=== PATIENT | male | born 1950 | race Caucasian/White ===

== ENCOUNTER → 2016-12-17 | Outpatient (CLI) | payer MEDICARE | LOC: MW.CHIM 13:41 | PROVIDERS: ATTEND Internal Medicine | DX: I10 Essential (primary) hypertension (principal); R33.9 Retention of urine, unspecified; N41.1 Chronic prostatitis; R36.1 Hematospermia; R97.20 Elevated prostate specific antigen [PSA] | CPT/HCPCS: 36415; 80053; 80061; 81001; 84153; 85025; 99214 ==

== ENCOUNTER → 2017-01-07 | Outpatient (CLI) | payer MEDICARE | LOC: MW.CHIM 08:00 | PROVIDERS: ATTEND Internal Medicine | DX: N41.1 Chronic prostatitis (principal); R36.1 Hematospermia; I10 Essential (primary) hypertension | CPT/HCPCS: 99214 ==

== ENCOUNTER 2020-11-07 23:55 | Observation (INO) | payer MEDICARE ==
[2020-11-08 01:36] LABS: BLOOD UREA NITROGEN,BUN 10 mg/dL (7.0-18.0); CHLORIDE,CL 103 mmol/L (98-107); GLUCOSE RANDOM 111 mg/dL (74-106); POTASSIUM,K 3.9 mmol/L (3.5-5.1); SODIUM,NA 138 mmol/L (136-148)
[2020-11-08 01:46] LABS: CARBON DIOXIDE,CO2 26.9 mmol/L (21.0-32.0)
[2020-11-08] MEDS ORDERED: Sodium Chloride 0.9% 2.5 ML Syringe FLUSH PRN (08:06)
[2020-11-08] MEDS ORDERED: Ondansetron 4 MG/2 ML SDV IVPUSH PRN (08:06)
--- NOTE | 2020-11-08 09:03 | PCM.HP.2 ---
H&P History of Present Illness - General Date of Service: 11/08/20 Admit Problem/Dx: Admission Diagnosis/Problem Admission Diagnosis/Problem Anemia Source of Information: Patient, Old Records History Limitations: Reports: No Limitations - History of Present Illness Initial Comments - Free Text/Narative: This 70-year-old male with past medical history of anemia GERD hypertension and hyperlipidemia presented to the ER with complaints of dizziness and intermittent vomiting of blood streaks. He has been evaluated by PCP for anemia as well as refer to general surgery for endoscopy. He is actually scheduled for endoscopy on this week. He reports that he tried to take a sleeping pill the other night and was not able to swallow it completely and started coughing and vomited he said he saw tissue and blood within his vomit and became concerned. He denies any black or bloody bowel movements recently though he has had very positive occult stools upon evaluation. He recently was transfused in September with 2 units PRBCs. He denies any chest pain shortness of breath palpitations. No abdominal pain. No dysuria. No neurological deficits. He reports he was a smoker up until 3 months ago. Denies any family history of other cancer. He did have a CT scan as an outpatient that showed a small to moderate size hiatal hernia. He denies any alcohol use and no recreational drug use. In the ER WBC 8.79, hemoglobin 7.8, hematocrit 26.1. Platelet count 512,000. INR 0.99. BUN 10 creatinine 1.2. Glucose 110. UA negative Covid negative he was transfused 2 units of PRBCs due to his symptomatic anemia. Per nursing report Dr. Avery was contacted by the ER and felt he should be transfused and then he would be ready for endoscopy on . He will be admitted for symptomatic anemia GI bleed. abdomen Pain Score (Numeric/FACES): 3 - Related Data Allergies/Adverse Reactions: Allergies Allergy/AdvReac Type Severity Reaction Status Date / Time No Known Allergies Allergy Verified 11/08/20 00:16 Home Medications: Home Meds Metoprolol Succinate 50 mg PO BEDTIME 07/09/14 [History] Simvastatin [Zocor] 40 mg PO BEDTIME #30 tablet 07/10/14 [Rx] Finasteride 5 mg PO DAILY 11/03/20 [History] Omeprazole 40 mg PO DAILY 11/03/20 [History] hydroCHLOROthiazide [Hydrochlorothiazide] 25 mg PO DAILY 11/03/20 [History] Past Medical History HEENT History: Reports: Other (See Below) Other HEENT History: has upper denture Cardiovascular History: Reports: High Cholesterol, Hypertension Respiratory History: Reports: Other (See Below) Other Respiratory History: smoker for many years- recently quit Gastrointestinal History: Reports: GERD, Hiatal Hernia Genitourinary History: Reports: BPH Neurological History: Reports: CVA Other Neuro History: 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 cleft pallet as child. Male Surgical History: Reports: Other (See Below) Other Male Surgeries/Procedures: Orchiectomy Social & Family History - Family History Cardiac: Reports: High Cholesterol, Hypertension, [place] Neurological: Reports: CVA - Tobacco Use Tobacco Use Status *Q: Former Tobacco User Used Tobacco, but Quit: Yes Month/Year Tobacco Last Used: 2019 - Recreational Drug Use Recreational Drug Use: Yes Recreational Drug Type: Reports: Marijuana/Hashish Recreational Drug Use Frequency: Socially H&P Review of Systems - Review of Systems: Review Of Systems: See Below General: Reports: Malaise (Feeling better after blood transfusion.). Denies: F ever, Chills HEENT: Reports: No Symptoms. Denies: Headaches, Vertigo, Visual Changes Pulmonary: Reports: No Symptoms. Denies: Shortness of Breath, Wheezing Cardiovascular: Reports: No Symptoms. Denies: Chest Pain Gastrointestinal: Reports: No Symptoms. Denies: Abdominal Pain, Black Stool, Bloody Stool Genitourinary: Reports: No Symptoms. Denies: Dysuria, Frequency Skin: Reports: No Symptoms Psychiatric: Reports: No Symptoms Neurological: Reports: No Symptoms Hematologic/Lymphatic: Reports: No Symptoms Immunologic: Reports: No Symptoms Exam - Exam Exam: See Below - Vital Signs Vital Signs: Last Vital Signs Temp 98.0 F 11/08/20 08:28 Pulse 70 11/08/20 08:28 Resp 16 11/08/20 08:28 BP 139/83 11/08/20 08:28 Pulse Ox 96 11/08/20 08:28 Weight: 83.915 kg - Exam General: Alert, Oriented, Cooperative Neck: Supple, Trachea Midline Lungs: Clear to Auscultation, Normal Respiratory Effort Cardiovascular: Regular Rate, Regular Rhythm GI/Abdominal Exam: Normal Bowel Sounds, Soft, Non-Tender Back Exam: Normal Inspection, Full Range of Motion Extremities: Normal Inspection, Normal Range of Motion, Non-Tender, No Pedal Edema Neuro Extensive - Mental Status: Alert, Oriented x3 Neuro Extensive - Motor, Sensory, Reflexes: CN II-XII Intact Psychiatric: Alert, Normal Affect, Normal Mood - Patient Data Lab Results Last 24 hrs: Laboratory Results - last 24 hr 11/08/20 11/08/20 11/08/20 Range/Units 01:03 01:03 01:03 WBC 8.79 (4.0-11.0) K/uL RBC 3.34 L (4.50-5.90) M/uL Hgb 7.8 L (13.0-17.0) g/dL Hct 26.1 L (38.0-50.0) % MCV 78.1 L (80.0-98.0) fL MCH 23.4 L (27.0-32.0) pg MCHC 29.9 L (31.0-37.0) g/dL RDW Std Deviation 49.7 (28.0-62.0) fl RDW Coeff of Myrna 18 H (11.0-15.0) % Plt Count 512 H (150-400) K/uL MPV 9.00 (7.40-12.00) fL Neut % (Auto) 77.0 (48.0-80.0) % Lymph % (Auto) 13.2 L (16.0-40.0) % [place] % (Auto) 7.5 (0.0-15.0) % Eos % (Auto) 1.6 (0.0-7.0) % Baso % (Auto) 0.7 (0.0-1.5) % Neut # (Auto) 6.8 H (1.4-5.7) K/uL Lymph # (Auto) 1.2 (0.6-2.4) K/uL [place] # (Auto) 0.7 (0.0-0.8) K/uL Eos # (Auto) 0.1 (0.0-0.7) K/uL Baso # (Auto) 0.1 (0.0-0.1) K/uL Smear Path Review Absolute Retic (20-80) K/uL Percent Retic (0.5-1.5) % Immature Retic Fraction % INR 0.99 Sodium 138 (136-148) mmol/L Potassium 3.9 (3.5-5.1) mmol/L Chloride 103 (98-107) mmol/L Carbon Dioxide 26.9 (21.0-32.0) mmol/L BUN 10 (7.0-18.0) mg/dL Creatinine 1.2 (0.8-1.3) mg/dL Est Cr Clr Drug Dosing 54.32 mL/min Estimated GFR (MDRD) > 60.0 ml/min Glucose 111 H (74-106) mg/dL Calcium 8.7 (8.5-10.1) mg/dL Iron (50-175) ug/dL TIBC (250-450) ug/dL % Saturation (20-55) % Transferrin Ferritin (26-388) ng/mL Total Bilirubin 0.2 (0.2-1.0) mg/dL AST 14 L (15-37) IU/L ALT 16 (14-63) IU/L Alkaline Phosphatase 110 (46-116) U/L Total Protein 6.7 (6.4-8.2) g/dL Albumin 2.9 L (3.4-5.0) g/dL Globulin 3.8 (2.6-4.0) g/dL Albumin/Globulin Ratio 0.8 L (0.9-1.6) Urine Color Urine Appearance Urine pH (5.0-8.0) Ur Specific [employer] (1.001-1.035) Urine Protein (NEGATIVE) mg/dL Urine Glucose (UA) (NEGATIVE) mg/dL Urine Ketones (NEGATIVE) mg/dL Urine Occult Blood (NEGATIVE) Urine Nitrite (NEGATIVE) Urine Bilirubin (NEGATIVE) Urine Urobilinogen (<2.0) EU/dL Ur Leukocyte Esterase (NEGATIVE) SARS-CoV-2 RNA (NEL) (NEGATIVE) Blood Type Antibody Screen Crossmatch 11/08/20 11/08/20 11/08/20 Range/Units 01:03 01:03 01:03 WBC (4.0-11.0) K/uL RBC 3.42 L (4.50-5.90) M/uL Hgb (13.0-17.0) g/dL Hct (38.0-50.0) % MCV (80.0-98.0) fL MCH (27.0-32.0) pg MCHC (31.0-37.0) g/dL RDW Std Deviation (28.0-62.0) fl RDW Coeff of Myrna (11.0-15.0) % Plt Count (150-400) K/uL MPV (7.40-12.00) fL Neut % (Auto) (48.0-80.0) % Lymph % (Auto) (16.0-40.0) % [place] % (Auto) (0.0-15.0) % Eos % (Auto) (0.0-7.0) % Baso % (Auto) (0.0-1.5) % Neut # (Auto) (1.4-5.7) K/uL Lymph # (Auto) (0.6-2.4) K/uL [place] # (Auto) (0.0-0.8) K/uL Eos # (Auto) (0.0-0.7) K/uL Baso # (Auto) (0.0-0.1) K/uL Smear Path Review SENT TO PATHOLOGY Absolute Retic 66.70 (20-80) K/uL Percent Retic 2.0 H (0.5-1.5) % Immature Retic Fraction 22 % INR Sodium (136-148) mmol/L Potassium (3.5-5.1) mmol/L Chloride (98-107) mmol/L Carbon Dioxide (21.0-32.0) mmol/L BUN (7.0-18.0) mg/dL Creatinine (0.8-1.3) mg/dL Est Cr Clr Drug Dosing mL/min Estimated GFR (MDRD) ml/min Glucose (74-106) mg/dL Calcium (8.5-10.1) mg/dL Iron (50-175) ug/dL TIBC (250-450) ug/dL % Saturation (20-55) % Transferrin Ferritin (26-388) ng/mL Total Bilirubin (0.2-1.0) mg/dL AST (15-37) IU/L ALT (14-63) IU/L Alkaline Phosphatase (46-116) U/L Total Protein (6.4-8.2) g/dL Albumin (3.4-5.0) g/dL Globulin (2.6-4.0) g/dL Albumin/Globulin Ratio (0.9-1.6) Urine Color Urine Appearance Urine pH (5.0-8.0) Ur Specific [employer] (1.001-1.035) Urine Protein (NEGATIVE) mg/dL Urine Glucose (UA) (NEGATIVE) mg/dL Urine Ketones (NEGATIVE) mg/dL Urine Occult Blood (NEGATIVE) Urine Nitrite (NEGATIVE) Urine Bilirubin (NEGATIVE) Urine Urobilinogen (<2.0) EU/dL Ur Leukocyte Esterase (NEGATIVE) SARS-CoV-2 RNA (NEL) (NEGATIVE) Blood Type B POSITIVE Antibody Screen NEGATIVE Crossmatch See Detail 11/08/20 11/08/20 11/08/20 Range/Units 01:03 02:16 02:18 WBC (4.0-11.0) K/uL RBC (4.50-5.90) M/uL Hgb (13.0-17.0) g/dL Hct (38.0-50.0) % MCV (80.0-98.0) fL MCH (27.0-32.0) pg MCHC (31.0-37.0) g/dL RDW Std Deviation (28.0-62.0) fl RDW Coeff of Myrna (11.0-15.0) % Plt Count (150-400) K/uL MPV (7.40-12.00) fL Neut % (Auto) (48.0-80.0) % Lymph % (Auto) (16.0-40.0) % [place] % (Auto) (0.0-15.0) % Eos % (Auto) (0.0-7.0) % Baso % (Auto) (0.0-1.5) % Neut # (Auto) (1.4-5.7) K/uL Lymph # (Auto) (0.6-2.4) K/uL [place] # (Auto) (0.0-0.8) K/uL Eos # (Auto) (0.0-0.7) K/uL Baso # (Auto) (0.0-0.1) K/uL Smear Path Review Absolute Retic (20-80) K/uL Percent Retic (0.5-1.5) % Immature Retic Fraction % INR Sodium (136-148) mmol/L Potassium (3.5-5.1) mmol/L Chloride (98-107) mmol/L Carbon Dioxide (21.0-32.0) mmol/L BUN (7.0-18.0) mg/dL Creatinine (0.8-1.3) mg/dL Est Cr Clr Drug Dosing mL/min Estimated GFR (MDRD) ml/min Glucose (74-106) mg/dL Calcium (8.5-10.1) mg/dL Iron 17 L (50-175) ug/dL TIBC 375 (250-450) ug/dL % Saturation 4.53 L (20-55) % Transferrin 262.5 Ferritin 5 L (26-388) ng/mL Total Bilirubin (0.2-1.0) mg/dL AST (15-37) IU/L ALT (14-63) IU/L Alkaline Phosphatase (46-116) U/L Total Protein (6.4-8.2) g/dL Albumin (3.4-5.0) g/dL Globulin (2.6-4.0) g/dL Albumin/Globulin Ratio (0.9-1.6) Urine Color YELLOW Urine Appearance CLEAR Urine pH 6.0 (5.0-8.0) Ur Specific [employer] 1.015 (1.001-1.035) Urine Protein NEGATIVE (NEGATIVE) mg/dL Urine Glucose (UA) NEGATIVE (NEGATIVE) mg/dL Urine Ketones NEGATIVE (NEGATIVE) mg/dL Urine Occult Blood NEGATIVE (NEGATIVE) Urine Nitrite NEGATIVE (NEGATIVE) Urine Bilirubin NEGATIVE (NEGATIVE) Urine Urobilinogen 0.2 (<2.0) EU/dL Ur Leukocyte Esterase NEGATIVE (NEGATIVE) SARS-CoV-2 RNA (NEL) NEGATIVE (NEGATIVE) Blood Type Antibody Screen Crossmatch Result Diagrams: 11/08/20 09:40 11/08/20 01:03 Sepsis Event Note - Evaluation Sepsis Screening Result: No Definite Risk - Focused Exam Vital Signs: Vital Signs Temp Pulse Resp BP BP Pulse Ox 11/08/20 08:28 98.0 F 70 16 139/83 96 11/08/20 00:18 98.3 F 71 16 133/71 97 - Problem List (1) GI bleed SNOMED Code(s): 64807162 ICD Code: K92.2 - GASTROINTESTINAL HEMORRHAGE, UNSPECIFIED Status: Acute Current Visit: Yes (2) Symptomatic anemia SNOMED Code(s): 378630665 ICD Code: D64.9 - ANEMIA, UNSPECIFIED Status: Acute Current Visit: Yes (3) Hypertension SNOMED Code(s): 58276600 ICD Code: I10 - ESSENTIAL (PRIMARY) HYPERTENSION Status: Chronic Current Visit: Yes (4) Hyperlipidemia SNOMED Code(s): 90292116 ICD Code: E78.5 - HYPERLIPIDEMIA, UNSPECIFIED Status: Chronic Current Visit: Yes (5) BPH (benign prostatic hyperplasia) SNOMED Code(s): 515066193 ICD Code: N40.0 - BENIGN PROSTATIC HYPERPLASIA WITHOUT LOWER URINRY TRACT SYMP Status: Chronic Current Visit: Yes (6) History of tobacco use SNOMED Code(s): 839195177 ICD Code: Z87.891 - PERSONAL HISTORY OF NICOTINE DEPENDENCE Status: Chronic Current Visit: Yes Problem List Initiated/Reviewed/Updated: Yes Orders Last 24hrs: Active Orders 24 hr Category Date Time Status Patient Status [ADT] Stat ADT 11/08/20 02:22 Active Antiembolic Devices [RC] PER UNIT ROUTINE Care 11/08/20 08:07 Active Intake and Output [RC] QSHIFT Care 11/08/20 08:06 Active Oxygen Therapy [RC] PRN Care 11/08/20 08:06 Active Up With Assistance [RC] ASDIRECTED Care 11/08/20 08:06 Active VTE/DVT Education [RC] PER UNIT ROUTINE Care 11/08/20 08:06 Active Vital Signs [RC] Q4H Care 11/08/20 08:06 Active Nothing per Oral Now Diet [DIET] Diet 11/08/20 Breakfast Active FOLIC ACID [CHEM] Routine Lab 11/08/20 01:03 Received HEMOGLOBIN/HEMATOCRIT,HH [HEME] Routine Lab 11/08/20 09:30 Ordered RED BLOOD CELLS LP [BBK] Stat Lab 11/08/20 01:03 Results TYPE AND SCREEN [BBK] Stat Lab 11/08/20 01:03 Results VITAMIN B12 [CHEM] Routine Lab 11/08/20 01:03 Received Finasteride [Proscar] Med 11/08/20 09:15 Ordered 5 mg PO DAILY Metoprolol Succinate [Toprol XL] Med 11/08/20 21:00 Ordered 50 mg PO BEDTIME Ondansetron [Zofran] Med 11/08/20 08:06 Active 4 mg IVPUSH Q4H PRN Pantoprazole [ProTONIX IV] 40 mg Med 11/08/20 08:30 Active Sodium Chloride 0.9% [Normal Saline] 10 ml IV Q12H Simvastatin [Zocor] Med 11/08/20 21:00 Ordered 40 mg PO BEDTIME Sodium Chloride 0.9% [Saline Flush] Med 11/08/20 08:06 Active 2.5 ml FLUSH ASDIRECTED PRN hydroCHLOROthiazide Med 11/08/20 09:15 Ordered 25 mg PO DAILY Saline Lock Insert [OM.PC] Routine Oth 11/08/20 08:06 Ordered Sequential Compression Device [OM.PC] Per Unit Routine Oth 11/08/20 08:06 Ordered Transfuse PRBC [Transfuse Red Blood Cells] [COMM] Stat Oth 11/08/20 02:04 Ordered Resuscitation Status Routine Resus Stat 11/08/20 08:06 Ordered Assessment/Plan Comment:: This 70-year-old male admitted with GI bleed and symptomatic anemia. 1. GI bleeding -Protonix 40 mg IV twice daily -Transfused 2 units overnight. Repeat hemoglobin this morning 11.2. -Patient is feeling much improved -Spoke with Dr. Moreno. He will see patient either Saturday or morning but reports we can keep him in the hospital and start colonoscopy prep in the morning. -Start clear liquid 2. HTN/HLD -Monitor blood pressure and restart home medications with sips of water. VTE prophylaxis: SCDs and ambulation only due to acute bleeding GI prophylaxis: Protonix CODE STATUS: Full code Dispo: 1 to 2 days pending conversation with general surgery.
[2020-11-08] MEDS: Hydrochlorothiazide 25 MG Tab PO SCH (10:21)
[2020-11-08] MEDS: Finasteride 5 MG Tab PO SCH (10:21)
[2020-11-08] MEDS: Pantoprazole 40 MG in Sodium Chloride 0.9% 10 ML IV SCH ×2 (10:22→20:39)
--- NOTE | 2020-11-08 17:49 | PN ---
The patient is a pleasant 70-year-old gentleman who is admitted because of anemia. I had actually seen this patient previously in my clinic because of anemia. The patient has received blood transfusion in the past, and he actually was scheduled to undergo an upper endoscopy and colonoscopy this week. The patient says he has been otherwise feeling good. He said he did not get the dizziness and fatigue with this anemic episode as he did last time. The main reason he came to the ER is because 4 days ago, he had a small emesis that had some streaks of blood in it. He denies any blood in his stool. He denies any dark stools. The patient also says for the past couple of months, he has been having more issues with swallowing. He says liquids go down fine, but he says more solid food, he has difficulty. He thinks this might be because he does not have any teeth. He says it usually goes down if he is able to wash the food down. Also takes more care and cuts his food into small pieces. He did have a CT scan, which showed a [id number] size hiatal hernia. He does occasionally have some heartburn, but it is relatively well controlled with meds. I did again discuss with the patient that we can do the colonoscopy and EGD as already scheduled. I did go over with him what these were, what are the risks, goals, and alternatives of these procedures again. Risks include but are not limited to bleeding, infection, missed lesions, perforation, and failure to complete the procedure. Also went over with him might not find a cause of his anemia on either of the scopes. The patient understands. Also talked to the Medicine team who has given him a blood transfusion. I also went over that they can do a bowel prep tomorrow. We will plan to do the upper and lower scopes on , and all of his questions were answered. Also discussed with the Medicine team. LORI DON /[id number] CATHY
[2020-11-08] MEDS: Simvastatin 40 MG Tab PO SCH (20:38)
[2020-11-08] MEDS: Metoprolol Succinate 50 MG Tab.ER PO SCH (20:38)
--- NOTE | 2020-11-09 03:36 | EDM.PDOC ---
ED HPI GENERAL MEDICAL PROBLEM - General Chief Complaint: Gastrointestinal Problem Stated Complaint: THROWING UP BLOOD Time Seen by Provider: 11/08/20 00:17 Source of Information: Reports: Patient, Old Records History Limitations: Reports: No Limitations - History of Present Illness INITIAL COMMENTS - FREE TEXT/NARRATIVE: CHIEF COMPLAINT(S): Vomiting up blood HISTORY OF PRESENT ILLNESS: This is a 70-year-old man with a past medical history of prior CVA with resultant dysphagia, hypertension and hyperlipidemia who comes to the emergency department with a chief complaint of vomiting up blood. The patient states that throughout the day he spit up blood with mucus which was blood-tinged. He did not have any vomiting however he took a pill and had a hard time swallowing and then he coughed that up with blood which was with some tissue. He states that he took a drink of water and noticed a small blood clot in the water. He denies any melena or hematochezia, pain in his abdomen but states that he did have a blood transfusion 1 month ago for low hemoglobin. He is brought in for home by his because she was concerned that his blood levels were low. They deny any reed hematemesis or coffee-ground emesis. They state that this swallowing issue has been going on for quite some time and had an EGD scheduled last week however it was postponed to this . He denies any chest pain, shortness of breath, syncopal episodes. He states that he sometimes does feel dizzy. REVIEW OF SYSTEMS: Constitutional: Denies fever, chills. Eyes: Denies eye pain Ears, Nose, Mouth, & Throat: Denies earache Cardiovascular: Denies chest pain Respiratory: Denies shortness of breath Gastrointestinal: Positive for spitting up blood and possible bloody emesis. Denies nausea, diarrhea, hematochezia, melena, abdominal pain Genitourinary: Denies hematuria Skin:Denies a rash MSK: Denies joint pain Neurological: Denies blurred vision, numbness, tingling, weakness Psychiatric: Denies depression PAST MEDICAL HISTORY: As per history of present illness and as reviewed below otherwise noncontributory. SURGICAL HISTORY: As per history of present illness and as reviewed below otherwise noncontributory. SOCIAL HISTORY: As per history of present illness and as reviewed below otherwise noncontributory. FAMILY HISTORY: As per history of present illness and as reviewed below otherwise noncontributory. EXAMINATION OF ORGAN SYSTEMS/BODY AREAS: Constitutional: Blood pressure was 133/71, heart rate 71, respiratory rate 16 with an oxygen saturation 97% on room air. Temperature 36.8 General: Overall well-appearing elderly man in no acute distress Psychiatric: Appropriate mood and affect. Eyes: No scleral icterus or conjunctival erythema pale conjunctiva. ENMT: Moist mucous membranes. No pharyngeal erythema Cardiovascular: Regular, rate, and rhythm. No gallops, murmurs, or rubs. Bilateral upper extremity pulses symmetric and intact. No peripheral edema. No JVD. Respiratory: Lungs clear to auscultation bilaterally. No wheezes, rales, or rhonchi. Gastrointestinal: Soft, non-tender, non-distended. Normoactive bowel sounds Genitourinary: No suprapubic tenderness Musculoskeletal: Normal range of motion. Skin: No lesions or abrasions. Neurological: Alert, GCS 15 MEDICAL DECISION MAKING AND COURSE IN THE ED WITH INTERPRETATION/REVIEW OF DIAGNOSTIC STUDIES: This is a 70-year-old and with a past medical history of prior CVA and dysphagia with prior history of anemia requiring blood transfusion who had a scheduled EGD and colonoscopy for evaluation for bleeding that was rescheduled to this with Dr. Moreno who comes to the emergency department with spitting up blood and mild dizziness who has normal vital signs. At this time given his history I do suspect the possibility of continued anemia and GI bleeding. We will obtain labs including CBC, coags, CMP and Covid. I do not believe any other labs or imaging are indicated. Laboratory: CBC reveals a microcytic anemia with a hemoglobin of 7.8 and hematocrit of 26.1 which is decreased from prior at 10.1 and 33.6 at the end of September. Coags are within normal limits. CMP is unremarkable. Urinalysis is negative. Covid is negative. After labs I did contact Dr. Avery as the patient is scheduled for an EGD on for recommendations. This has been a chronic issue for the patient however given the hemoglobin at this time and discussion with Dr. Avery the patient needs to be optimized prior to EGD. We will transfuse 2 units here and admit him to the hospital for hemoglobin trending in preparation for EGD on . Therefore we did type and screen the patient and ordered 2 units of PRBCs to be transfused. Blood consent was obtained and placed in the chart. I contacted Dr. Moreno for admission and he accepted the patient for admission DISPOSITION: Patient admitted to telemetry in stable condition CONDITION: Fair PROCEDURES: None FINAL IMPRESSION(S)/DIAGNOSES: 1. Acute on chronic anemia requiring blood transfusion likely secondary to GI bleeding Kana Guerrero M.D. abdomen Pain Score (Numeric/FACES): 3 - Related Data Allergies Allergy/AdvReac Type Severity Reaction Status Date / Time No Known Allergies Allergy Verified 11/08/20 00:16 Home Meds: Home Meds Metoprolol Succinate 50 mg PO BEDTIME 07/09/14 [History] Simvastatin [Zocor] 40 mg PO BEDTIME #30 tablet 07/10/14 [Rx] Finasteride 5 mg PO DAILY 11/03/20 [History] Omeprazole 40 mg PO DAILY 11/03/20 [History] hydroCHLOROthiazide [Hydrochlorothiazide] 25 mg PO DAILY 11/03/20 [History] Past Medical History HEENT History: Reports: Other (See Below) Other HEENT History: has upper denture Cardiovascular History: Reports: High Cholesterol, Hypertension Respiratory History: Reports: Other (See Below) Other Respiratory History: smoker for many years- recently quit Gastrointestinal History: Reports: GERD, Hiatal Hernia Genitourinary History: Reports: BPH Neurological History: Reports: CVA Other Neuro History: 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 cleft pallet as child. Male Surgical History: Reports: Other (See Below) Other Male Surgeries/Procedures: Orchiectomy Social & Family History - Family History Cardiac: Reports: High Cholesterol, Hypertension, [place] Neurological: Reports: CVA - Tobacco Use Tobacco Use Status *Q: Former Tobacco User Used Tobacco, but Quit: Yes Month/Year Tobacco Last Used: 2019 - Recreational Drug Use Recreational Drug Use: Yes Recreational Drug Type: Reports: Marijuana/Hashish Recreational Drug Use Frequency: Socially ED ROS GENERAL - Review of Systems Review Of Systems: See Below ED EXAM, GENERAL - Physical Exam Exam: See Below GI/Abdominal: Normal Bowel Sounds, Soft, Non-Tender Back Exam: Normal Inspection, Full Range of Motion Extremities: Normal Inspection, Normal Range of Motion, Non-Tender, No Pedal Edema Course - Vital Signs Last Recorded V/S: Last Vital Signs Temp 36.7 C 11/08/20 23:44 Pulse 62 11/08/20 23:44 Resp 17 11/08/20 23:44 BP 120/56 L 11/08/20 23:44 Pulse Ox 93 L 11/08/20 23:44 - Orders/Labs/Meds Orders: Medication Orders Finasteride (Finasteride 5 Mg Tab) 5 mg PO DAILY [facility] Last Admin: 11/08/20 10:21 Dose: 5 mg Documented by: VERÓNICA Cosigned by: RADHA Hydrochlorothiazide (Hydrochlorothiazide 25 Mg Tab) 25 mg PO DAILY [facility] Last Admin: 11/08/20 10:21 Dose: 25 mg Documented by: VERÓNICA Cosigned by: RADHA Pantoprazole Sodium 40 mg/ (Sodium Chloride) 10 mls @ 300 mls/hr IV Q12H [facility] Last Admin: 11/08/20 20:39 Dose: 300 mls/hr Documented by: Infusion: 11/08/20 10:24 Dose: 300 mls/hr Documented by: Admin: 11/08/20 10:22 Dose: 300 mls/hr Documented by: VERÓNICA Cosigned by: RADHA Metoprolol Succinate (Metoprolol Succinate 50 Mg Tab.Er) 50 mg PO BEDTIME [facility] Last Admin: 11/08/20 20:38 Dose: 50 mg Documented by: JAMAL Ondansetron HCl (Ondansetron 4 Mg/2 Ml Sdv) 4 mg IVPUSH Q4H PRN PRN Reason: Nausea Simvastatin (Simvastatin 40 Mg Tab) 40 mg PO BEDTIME [facility] Last Admin: 11/08/20 20:38 Dose: 40 mg Documented by: JAMAL Sodium Chloride (Sodium Chloride 0.9% 2.5 Ml Syringe) 2.5 ml FLUSH ASDIRECTED PRN PRN Reason: Keep Vein Open Labs: Laboratory Tests 11/08/20 11/08/20 11/08/20 Range/Units 01:03 01:03 01:03 WBC 8.79 (4.0-11.0) K/uL RBC 3.34 L (4.50-5.90) M/uL Hgb 7.8 L (13.0-17.0) g/dL Hct 26.1 L (38.0-50.0) % MCV 78.1 L (80.0-98.0) fL MCH 23.4 L (27.0-32.0) pg MCHC 29.9 L (31.0-37.0) g/dL RDW Std Deviation 49.7 (28.0-62.0) fl RDW Coeff of Myrna 18 H (11.0-15.0) % Plt Count 512 H (150-400) K/uL MPV 9.00 (7.40-12.00) fL Neut % (Auto) 77.0 (48.0-80.0) % Lymph % (Auto) 13.2 L (16.0-40.0) % Tucker % (Auto) 7.5 (0.0-15.0) % Eos % (Auto) 1.6 (0.0-7.0) % Baso % (Auto) 0.7 (0.0-1.5) % Neut # (Auto) 6.8 H (1.4-5.7) K/uL Lymph # (Auto) 1.2 (0.6-2.4) K/uL Tucker # (Auto) 0.7 (0.0-0.8) K/uL Eos # (Auto) 0.1 (0.0-0.7) K/uL Baso # (Auto) 0.1 (0.0-0.1) K/uL Smear Path Review Absolute Retic (20-80) K/uL Percent Retic (0.5-1.5) % Immature Retic Fraction % INR 0.99 Sodium 138 (136-148) mmol/L Potassium 3.9 (3.5-5.1) mmol/L Chloride 103 (98-107) mmol/L Carbon Dioxide 26.9 (21.0-32.0) mmol/L BUN 10 (7.0-18.0) mg/dL Creatinine 1.2 (0.8-1.3) mg/dL Est Cr Clr Drug Dosing 54.32 mL/min Estimated GFR (MDRD) > 60.0 ml/min Glucose 111 H (74-106) mg/dL Calcium 8.7 (8.5-10.1) mg/dL Iron (50-175) ug/dL TIBC (250-450) ug/dL % Saturation (20-55) % Transferrin Ferritin (26-388) ng/mL Total Bilirubin 0.2 (0.2-1.0) mg/dL AST 14 L (15-37) IU/L ALT 16 (14-63) IU/L Alkaline Phosphatase 110 (46-116) U/L Total Protein 6.7 (6.4-8.2) g/dL Albumin 2.9 L (3.4-5.0) g/dL Globulin 3.8 (2.6-4.0) g/dL Albumin/Globulin Ratio 0.8 L (0.9-1.6) Vitamin B12 (193-986) pg/mL Folate (8.60-58.90) ng/mL Urine Color Urine Appearance Urine pH (5.0-8.0) Ur Specific Axson (1.001-1.035) Urine Protein (NEGATIVE) mg/dL Urine Glucose (UA) (NEGATIVE) mg/dL Urine Ketones (NEGATIVE) mg/dL Urine Occult Blood (NEGATIVE) Urine Nitrite (NEGATIVE) Urine Bilirubin (NEGATIVE) Urine Urobilinogen (<2.0) EU/dL Ur Leukocyte Esterase (NEGATIVE) SARS-CoV-2 RNA (NEL) (NEGATIVE) Blood Type Antibody Screen Crossmatch 11/08/20 11/08/20 11/08/20 Range/Units 01:03 01:03 01:03 WBC (4.0-11.0) K/uL RBC 3.42 L (4.50-5.90) M/uL Hgb (13.0-17.0) g/dL Hct (38.0-50.0) % MCV (80.0-98.0) fL MCH (27.0-32.0) pg MCHC (31.0-37.0) g/dL RDW Std Deviation (28.0-62.0) fl RDW Coeff of Myrna (11.0-15.0) % Plt Count (150-400) K/uL MPV (7.40-12.00) fL Neut % (Auto) (48.0-80.0) % Lymph % (Auto) (16.0-40.0) % Tucker % (Auto) (0.0-15.0) % Eos % (Auto) (0.0-7.0) % Baso % (Auto) (0.0-1.5) % Neut # (Auto) (1.4-5.7) K/uL Lymph # (Auto) (0.6-2.4) K/uL Tucker # (Auto) (0.0-0.8) K/uL Eos # (Auto) (0.0-0.7) K/uL Baso # (Auto) (0.0-0.1) K/uL Smear Path Review SENT TO PATHOLOGY Absolute Retic 66.70 (20-80) K/uL Percent Retic 2.0 H (0.5-1.5) % Immature Retic Fraction 22 % INR Sodium (136-148) mmol/L Potassium (3.5-5.1) mmol/L Chloride (98-107) mmol/L Carbon Dioxide (21.0-32.0) mmol/L BUN (7.0-18.0) mg/dL Creatinine (0.8-1.3) mg/dL Est Cr Clr Drug Dosing mL/min Estimated GFR (MDRD) ml/min Glucose (74-106) mg/dL Calcium (8.5-10.1) mg/dL Iron (50-175) ug/dL TIBC (250-450) ug/dL % Saturation (20-55) % Transferrin Ferritin (26-388) ng/mL Total Bilirubin (0.2-1.0) mg/dL AST (15-37) IU/L ALT (14-63) IU/L Alkaline Phosphatase (46-116) U/L Total Protein (6.4-8.2) g/dL Albumin (3.4-5.0) g/dL Globulin (2.6-4.0) g/dL Albumin/Globulin Ratio (0.9-1.6) Vitamin B12 (193-986) pg/mL Folate (8.60-58.90) ng/mL Urine Color Urine Appearance Urine pH (5.0-8.0) Ur Specific Axson (1.001-1.035) Urine Protein (NEGATIVE) mg/dL Urine Glucose (UA) (NEGATIVE) mg/dL Urine Ketones (NEGATIVE) mg/dL Urine Occult Blood (NEGATIVE) Urine Nitrite (NEGATIVE) Urine Bilirubin (NEGATIVE) Urine Urobilinogen (<2.0) EU/dL Ur Leukocyte Esterase (NEGATIVE) SARS-CoV-2 RNA (NEL) (NEGATIVE) Blood Type B POSITIVE Antibody Screen NEGATIVE Crossmatch See Detail 11/08/20 11/08/20 11/08/20 Range/Units 01:03 01:03 02:16 WBC (4.0-11.0) K/uL RBC (4.50-5.90) M/uL Hgb (13.0-17.0) g/dL Hct (38.0-50.0) % MCV (80.0-98.0) fL MCH (27.0-32.0) pg MCHC (31.0-37.0) g/dL RDW Std Deviation (28.0-62.0) fl RDW Coeff of Myrna (11.0-15.0) % Plt Count (150-400) K/uL MPV (7.40-12.00) fL Neut % (Auto) (48.0-80.0) % Lymph % (Auto) (16.0-40.0) % Tucker % (Auto) (0.0-15.0) % Eos % (Auto) (0.0-7.0) % Baso % (Auto) (0.0-1.5) % Neut # (Auto) (1.4-5.7) K/uL Lymph # (Auto) (0.6-2.4) K/uL Tucker # (Auto) (0.0-0.8) K/uL Eos # (Auto) (0.0-0.7) K/uL Baso # (Auto) (0.0-0.1) K/uL Smear Path Review Absolute Retic (20-80) K/uL Percent Retic (0.5-1.5) % Immature Retic Fraction % INR Sodium (136-148) mmol/L Potassium (3.5-5.1) mmol/L Chloride (98-107) mmol/L Carbon Dioxide (21.0-32.0) mmol/L BUN (7.0-18.0) mg/dL Creatinine (0.8-1.3) mg/dL Est Cr Clr Drug Dosing mL/min Estimated GFR (MDRD) ml/min Glucose (74-106) mg/dL Calcium (8.5-10.1) mg/dL Iron 17 L (50-175) ug/dL TIBC 375 (250-450) ug/dL % Saturation 4.53 L (20-55) % Transferrin 262.5 Ferritin 5 L (26-388) ng/mL Total Bilirubin (0.2-1.0) mg/dL AST (15-37) IU/L ALT (14-63) IU/L Alkaline Phosphatase (46-116) U/L Total Protein (6.4-8.2) g/dL Albumin (3.4-5.0) g/dL Globulin (2.6-4.0) g/dL Albumin/Globulin Ratio (0.9-1.6) Vitamin B12 531 (193-986) pg/mL Folate 3.50 L (8.60-58.90) ng/mL Urine Color Urine Appearance Urine pH (5.0-8.0) Ur Specific Axson (1.001-1.035) Urine Protein (NEGATIVE) mg/dL Urine Glucose (UA) (NEGATIVE) mg/dL Urine Ketones (NEGATIVE) mg/dL Urine Occult Blood (NEGATIVE) Urine Nitrite (NEGATIVE) Urine Bilirubin (NEGATIVE) Urine Urobilinogen (<2.0) EU/dL Ur Leukocyte Esterase (NEGATIVE) SARS-CoV-2 RNA (NEL) NEGATIVE (NEGATIVE) Blood Type Antibody Screen Crossmatch 11/08/20 Range/Units 02:18 WBC (4.0-11.0) K/uL RBC (4.50-5.90) M/uL Hgb (13.0-17.0) g/dL Hct (38.0-50.0) % MCV (80.0-98.0) fL MCH (27.0-32.0) pg MCHC (31.0-37.0) g/dL RDW Std Deviation (28.0-62.0) fl RDW Coeff of Myrna (11.0-15.0) % Plt Count (150-400) K/uL MPV (7.40-12.00) fL Neut % (Auto) (48.0-80.0) % Lymph % (Auto) (16.0-40.0) % Tucker % (Auto) (0.0-15.0) % Eos % (Auto) (0.0-7.0) % Baso % (Auto) (0.0-1.5) % Neut # (Auto) (1.4-5.7) K/uL Lymph # (Auto) (0.6-2.4) K/uL Tucker # (Auto) (0.0-0.8) K/uL Eos # (Auto) (0.0-0.7) K/uL Baso # (Auto) (0.0-0.1) K/uL Smear Path Review Absolute Retic (20-80) K/uL Percent Retic (0.5-1.5) % Immature Retic Fraction % INR Sodium (136-148) mmol/L Potassium (3.5-5.1) mmol/L Chloride (98-107) mmol/L Carbon Dioxide (21.0-32.0) mmol/L BUN (7.0-18.0) mg/dL Creatinine (0.8-1.3) mg/dL Est Cr Clr Drug Dosing mL/min Estimated GFR (MDRD) ml/min Glucose (74-106) mg/dL Calcium (8.5-10.1) mg/dL Iron (50-175) ug/dL TIBC (250-450) ug/dL % Saturation (20-55) % Transferrin Ferritin (26-388) ng/mL Total Bilirubin (0.2-1.0) mg/dL AST (15-37) IU/L ALT (14-63) IU/L Alkaline Phosphatase (46-116) U/L Total Protein (6.4-8.2) g/dL Albumin (3.4-5.0) g/dL Globulin (2.6-4.0) g/dL Albumin/Globulin Ratio (0.9-1.6) Vitamin B12 (193-986) pg/mL Folate (8.60-58.90) ng/mL Urine Color YELLOW Urine Appearance CLEAR Urine pH 6.0 (5.0-8.0) Ur Specific Axson 1.015 (1.001-1.035) Urine Protein NEGATIVE (NEGATIVE) mg/dL Urine Glucose (UA) NEGATIVE (NEGATIVE) mg/dL Urine Ketones NEGATIVE (NEGATIVE) mg/dL Urine Occult Blood NEGATIVE (NEGATIVE) Urine Nitrite NEGATIVE (NEGATIVE) Urine Bilirubin NEGATIVE (NEGATIVE) Urine Urobilinogen 0.2 (<2.0) EU/dL Ur Leukocyte Esterase NEGATIVE (NEGATIVE) SARS-CoV-2 RNA (NEL) (NEGATIVE) Blood Type Antibody Screen Crossmatch Meds: Medications Generic Name Dose Route Start Last Admin Trade Name Freq PRN Reason Stop Dose Admin Finasteride 5 mg 11/08/20 09:15 11/08/20 10:21 Finasteride 5 Mg Tab PO 5 mg DAILY [facility] Administration Hydrochlorothiazide 25 mg 11/08/20 09:15 11/08/20 10:21 Hydrochlorothiazide 25 Mg Tab PO 25 mg DAILY [facility] Administration Pantoprazole Sodium 40 mg/ 10 mls @ 300 mls/hr 11/08/20 08:30 11/08/20 20:39 Sodium Chloride IV 300 mls/hr Q12H [facility] Administration Metoprolol Succinate 50 mg 11/08/20 21:00 11/08/20 20:38 Metoprolol Succinate 50 Mg Tab.Er PO 50 mg BEDTIME [facility] Administration Ondansetron HCl 4 mg 11/08/20 08:06 Ondansetron 4 Mg/2 Ml Sdv IVPUSH Q4H PRN Nausea Simvastatin 40 mg 11/08/20 21:00 11/08/20 20:38 Simvastatin 40 Mg Tab PO 40 mg BEDTIME [facility] Administration Sodium Chloride 2.5 ml 11/08/20 08:06 Sodium Chloride 0.9% 2.5 Ml Syringe FLUSH ASDIRECTED PRN Keep Vein Open Departure - Departure Time of Disposition: 02:22 Disposition: Admitted As Inpatient 67 Clinical Impression: GI bleed - Discharge Information Sepsis Event Note (ED) - Evaluation Sepsis Screening Result: No Definite Risk
[2020-11-09 05:53] LABS: CARBON DIOXIDE,CO2 27.5 mmol/L (21.0-32.0); POTASSIUM,K 3.7 mmol/L (3.5-5.1)
--- NOTE | 2020-11-09 08:11 | PCM.PN ---
- General Info Date of Service: 11/09/20 Admission Dx/Problem (Free Text): Admission Diagnosis/Problem Admission Diagnosis/Problem Anemia Subjective Update: Tolerating clear liquid diet. Denies any bowel movements no abdominal pain and no emesis. He did speak with Dr. Erick Moreno, general surgeon yesterday regarding upcoming endoscopy on . He denies any questions. Denies any chest pain shortness of breath or concerns urinating. Functional Status: Reports: Pain Controlled, Tolerating Diet, Ambulating, Urinating - Review of Systems General: Reports: No Symptoms. Denies: Fatigue, Malaise HEENT: Reports: No Symptoms. Denies: Headaches, Sore Throat, Visual Changes Pulmonary: Reports: No Symptoms. Denies: Shortness of Breath Cardiovascular: Reports: No Symptoms. Denies: Chest Pain Gastrointestinal: Reports: No Symptoms. Denies: Abdominal Pain, Nausea, Vomiting Genitourinary: Reports: No Symptoms Musculoskeletal: Reports: No Symptoms Skin: Reports: No Symptoms Neurological: Reports: No Symptoms Psychiatric: Reports: No Symptoms - Patient Data Vitals - Most Recent: Last Vital Signs Temp 98 F 11/09/20 04:56 Pulse 66 11/09/20 04:56 Resp 16 11/09/20 04:56 BP 124/62 11/09/20 04:56 Pulse Ox 95 11/09/20 04:56 Weight - Most Recent: 83.915 kg I&O - Last 24 Hours: Intake & Output 11/08/20 11/09/20 11/09/20 22:59 06:59 14:59 Intake Total 850 750 Output Total 950 650 Balance -100 100 Lab Results Last 24 Hours: Laboratory Results - last 24 hr 11/08/20 11/08/20 11/08/20 Range/Units 01:03 01:03 01:03 WBC (4.0-11.0) K/uL RBC 3.42 L (4.50-5.90) M/uL Hgb (13.0-17.0) g/dL Hct (38.0-50.0) % MCV (80.0-98.0) fL MCH (27.0-32.0) pg MCHC (31.0-37.0) g/dL RDW Std Deviation (28.0-62.0) fl RDW Coeff of Myrna (11.0-15.0) % Plt Count (150-400) K/uL MPV (7.40-12.00) fL Neut % (Auto) (48.0-80.0) % Lymph % (Auto) (16.0-40.0) % [place] % (Auto) (0.0-15.0) % Eos % (Auto) (0.0-7.0) % Baso % (Auto) (0.0-1.5) % Neut # (Auto) (1.4-5.7) K/uL Lymph # (Auto) (0.6-2.4) K/uL [place] # (Auto) (0.0-0.8) K/uL Eos # (Auto) (0.0-0.7) K/uL Baso # (Auto) (0.0-0.1) K/uL Nucleated RBC % /100WBC Nucleated RBCs # K/uL Smear Path Review SENT TO PATHOLOGY Absolute Retic 66.70 (20-80) K/uL Percent Retic 2.0 H (0.5-1.5) % Immature Retic Fraction 22 % Sodium (136-148) mmol/L Potassium (3.5-5.1) mmol/L Chloride (98-107) mmol/L Carbon Dioxide (21.0-32.0) mmol/L BUN (7.0-18.0) mg/dL Creatinine (0.8-1.3) mg/dL Est Cr Clr Drug Dosing mL/min Estimated GFR (MDRD) ml/min Glucose (74-106) mg/dL Calcium (8.5-10.1) mg/dL Iron (50-175) ug/dL TIBC (250-450) ug/dL % Saturation (20-55) % Transferrin Ferritin (26-388) ng/mL Vitamin B12 (193-986) pg/mL Folate (8.60-58.90) ng/mL Blood Type B POSITIVE Antibody Screen NEGATIVE Crossmatch See Detail 11/08/20 11/08/20 11/08/20 Range/Units 01:03 01:03 09:40 WBC (4.0-11.0) K/uL RBC (4.50-5.90) M/uL Hgb 11.2 L (13.0-17.0) g/dL Hct 35.9 L (38.0-50.0) % MCV (80.0-98.0) fL MCH (27.0-32.0) pg MCHC (31.0-37.0) g/dL RDW Std Deviation (28.0-62.0) fl RDW Coeff of Myrna (11.0-15.0) % Plt Count (150-400) K/uL MPV (7.40-12.00) fL Neut % (Auto) (48.0-80.0) % Lymph % (Auto) (16.0-40.0) % [place] % (Auto) (0.0-15.0) % Eos % (Auto) (0.0-7.0) % Baso % (Auto) (0.0-1.5) % Neut # (Auto) (1.4-5.7) K/uL Lymph # (Auto) (0.6-2.4) K/uL [place] # (Auto) (0.0-0.8) K/uL Eos # (Auto) (0.0-0.7) K/uL Baso # (Auto) (0.0-0.1) K/uL Nucleated RBC % /100WBC Nucleated RBCs # K/uL Smear Path Review Absolute Retic (20-80) K/uL Percent Retic (0.5-1.5) % Immature Retic Fraction % Sodium (136-148) mmol/L Potassium (3.5-5.1) mmol/L Chloride (98-107) mmol/L Carbon Dioxide (21.0-32.0) mmol/L BUN (7.0-18.0) mg/dL Creatinine (0.8-1.3) mg/dL Est Cr Clr Drug Dosing mL/min Estimated GFR (MDRD) ml/min Glucose (74-106) mg/dL Calcium (8.5-10.1) mg/dL Iron 17 L (50-175) ug/dL TIBC 375 (250-450) ug/dL % Saturation 4.53 L (20-55) % Transferrin 262.5 Ferritin 5 L (26-388) ng/mL Vitamin B12 531 (193-986) pg/mL Folate 3.50 L (8.60-58.90) ng/mL Blood Type Antibody Screen Crossmatch 11/09/20 11/09/20 Range/Units 04:50 04:50 WBC 6.63 (4.0-11.0) K/uL RBC 4.32 L (4.50-5.90) M/uL Hgb 10.7 L (13.0-17.0) g/dL Hct 34.4 L (38.0-50.0) % MCV 79.6 L (80.0-98.0) fL MCH 24.8 L (27.0-32.0) pg MCHC 31.1 (31.0-37.0) g/dL RDW Std Deviation 49.8 (28.0-62.0) fl RDW Coeff of Myrna 17 H (11.0-15.0) % Plt Count 470 H (150-400) K/uL MPV 9.10 (7.40-12.00) fL Neut % (Auto) 70.5 (48.0-80.0) % Lymph % (Auto) 19.2 (16.0-40.0) % [place] % (Auto) 6.8 (0.0-15.0) % Eos % (Auto) 2.6 (0.0-7.0) % Baso % (Auto) 0.9 (0.0-1.5) % Neut # (Auto) 4.7 (1.4-5.7) K/uL Lymph # (Auto) 1.3 (0.6-2.4) K/uL [place] # (Auto) 0.5 (0.0-0.8) K/uL Eos # (Auto) 0.2 (0.0-0.7) K/uL Baso # (Auto) 0.1 (0.0-0.1) K/uL Nucleated RBC % 0.0 /100WBC Nucleated RBCs # 0 K/uL Smear Path Review Absolute Retic (20-80) K/uL Percent Retic (0.5-1.5) % Immature Retic Fraction % Sodium 138 (136-148) mmol/L Potassium 3.7 (3.5-5.1) mmol/L Chloride 103 (98-107) mmol/L Carbon Dioxide 27.5 (21.0-32.0) mmol/L BUN 10 (7.0-18.0) mg/dL Creatinine 1.3 (0.8-1.3) mg/dL Est Cr Clr Drug Dosing 50.14 mL/min Estimated GFR (MDRD) 54.7 ml/min Glucose 96 (74-106) mg/dL Calcium 9.1 (8.5-10.1) mg/dL Iron (50-175) ug/dL TIBC (250-450) ug/dL % Saturation (20-55) % Transferrin Ferritin (26-388) ng/mL Vitamin B12 (193-986) pg/mL Folate (8.60-58.90) ng/mL Blood Type Antibody Screen Crossmatch Med Orders - Current: Current Medications Finasteride (Finasteride 5 Mg Tab) 5 mg PO DAILY [facility] Last Admin: 11/08/20 10:21 Dose: 5 mg Documented by: Hydrochlorothiazide (Hydrochlorothiazide 25 Mg Tab) 25 mg PO DAILY [facility] Last Admin: 11/08/20 10:21 Dose: 25 mg Documented by: Pantoprazole Sodium 40 mg/ (Sodium Chloride) 10 mls @ 300 mls/hr IV Q12H [facility] Last Admin: 11/08/20 20:39 Dose: 300 mls/hr Documented by: Metoprolol Succinate (Metoprolol Succinate 50 Mg Tab.Er) 50 mg PO BEDTIME [facility] Last Admin: 11/08/20 20:38 Dose: 50 mg Documented by: Ondansetron HCl (Ondansetron 4 Mg/2 Ml Sdv) 4 mg IVPUSH Q4H PRN PRN Reason: Nausea Simvastatin (Simvastatin 40 Mg Tab) 40 mg PO BEDTIME [facility] Last Admin: 11/08/20 20:38 Dose: 40 mg Documented by: Sodium Chloride (Sodium Chloride 0.9% 2.5 Ml Syringe) 2.5 ml FLUSH ASDIRECTED PRN PRN Reason: Keep Vein Open - Exam General: Alert, Oriented, Cooperative, No Acute Distress HEENT: Pupils Equal Neck: Supple, Trachea Midline. No: Lymphadenopathy Lungs: Clear to Auscultation, Normal Respiratory Effort Cardiovascular: Regular Rate, Regular Rhythm GI/Abdominal Exam: Normal Bowel Sounds, Soft, Non-Tender Extremities: Normal Inspection, Normal Range of Motion, Non-Tender, No Pedal Edema Skin: Warm, Dry Neurological: No New Focal Deficit Psy/Mental Status: Alert, Normal Affect - Patient Data Lab Results Last 24 hrs: Laboratory Results - last 24 hr 11/08/20 11/08/20 11/08/20 Range/Units 01:03 01:03 01:03 WBC (4.0-11.0) K/uL RBC 3.42 L (4.50-5.90) M/uL Hgb (13.0-17.0) g/dL Hct (38.0-50.0) % MCV (80.0-98.0) fL MCH (27.0-32.0) pg MCHC (31.0-37.0) g/dL RDW Std Deviation (28.0-62.0) fl RDW Coeff of Myrna (11.0-15.0) % Plt Count (150-400) K/uL MPV (7.40-12.00) fL Neut % (Auto) (48.0-80.0) % Lymph % (Auto) (16.0-40.0) % [place] % (Auto) (0.0-15.0) % Eos % (Auto) (0.0-7.0) % Baso % (Auto) (0.0-1.5) % Neut # (Auto) (1.4-5.7) K/uL Lymph # (Auto) (0.6-2.4) K/uL [place] # (Auto) (0.0-0.8) K/uL Eos # (Auto) (0.0-0.7) K/uL Baso # (Auto) (0.0-0.1) K/uL Nucleated RBC % /100WBC Nucleated RBCs # K/uL Smear Path Review SENT TO PATHOLOGY Absolute Retic 66.70 (20-80) K/uL Percent Retic 2.0 H (0.5-1.5) % Immature Retic Fraction 22 % Sodium (136-148) mmol/L Potassium (3.5-5.1) mmol/L Chloride (98-107) mmol/L Carbon Dioxide (21.0-32.0) mmol/L BUN (7.0-18.0) mg/dL Creatinine (0.8-1.3) mg/dL Est Cr Clr Drug Dosing mL/min Estimated GFR (MDRD) ml/min Glucose (74-106) mg/dL Calcium (8.5-10.1) mg/dL Iron (50-175) ug/dL TIBC (250-450) ug/dL % Saturation (20-55) % Transferrin Ferritin (26-388) ng/mL Vitamin B12 (193-986) pg/mL Folate (8.60-58.90) ng/mL Blood Type B POSITIVE Antibody Screen NEGATIVE Crossmatch See Detail 11/08/20 11/08/20 11/08/20 Range/Units 01:03 01:03 09:40 WBC (4.0-11.0) K/uL RBC (4.50-5.90) M/uL Hgb 11.2 L (13.0-17.0) g/dL Hct 35.9 L (38.0-50.0) % MCV (80.0-98.0) fL MCH (27.0-32.0) pg MCHC (31.0-37.0) g/dL RDW Std Deviation (28.0-62.0) fl RDW Coeff of Myrna (11.0-15.0) % Plt Count (150-400) K/uL MPV (7.40-12.00) fL Neut % (Auto) (48.0-80.0) % Lymph % (Auto) (16.0-40.0) % [place] % (Auto) (0.0-15.0) % Eos % (Auto) (0.0-7.0) % Baso % (Auto) (0.0-1.5) % Neut # (Auto) (1.4-5.7) K/uL Lymph # (Auto) (0.6-2.4) K/uL [place] # (Auto) (0.0-0.8) K/uL Eos # (Auto) (0.0-0.7) K/uL Baso # (Auto) (0.0-0.1) K/uL Nucleated RBC % /100WBC Nucleated RBCs # K/uL Smear Path Review Absolute Retic (20-80) K/uL Percent Retic (0.5-1.5) % Immature Retic Fraction % Sodium (136-148) mmol/L Potassium (3.5-5.1) mmol/L Chloride (98-107) mmol/L Carbon Dioxide (21.0-32.0) mmol/L BUN (7.0-18.0) mg/dL Creatinine (0.8-1.3) mg/dL Est Cr Clr Drug Dosing mL/min Estimated GFR (MDRD) ml/min Glucose (74-106) mg/dL Calcium (8.5-10.1) mg/dL Iron 17 L (50-175) ug/dL TIBC 375 (250-450) ug/dL % Saturation 4.53 L (20-55) % Transferrin 262.5 Ferritin 5 L (26-388) ng/mL Vitamin B12 531 (193-986) pg/mL Folate 3.50 L (8.60-58.90) ng/mL Blood Type Antibody Screen Crossmatch 11/09/20 11/09/20 Range/Units 04:50 04:50 WBC 6.63 (4.0-11.0) K/uL RBC 4.32 L (4.50-5.90) M/uL Hgb 10.7 L (13.0-17.0) g/dL Hct 34.4 L (38.0-50.0) % MCV 79.6 L (80.0-98.0) fL MCH 24.8 L (27.0-32.0) pg MCHC 31.1 (31.0-37.0) g/dL RDW Std Deviation 49.8 (28.0-62.0) fl RDW Coeff of Myrna 17 H (11.0-15.0) % Plt Count 470 H (150-400) K/uL MPV 9.10 (7.40-12.00) fL Neut % (Auto) 70.5 (48.0-80.0) % Lymph % (Auto) 19.2 (16.0-40.0) % [place] % (Auto) 6.8 (0.0-15.0) % Eos % (Auto) 2.6 (0.0-7.0) % Baso % (Auto) 0.9 (0.0-1.5) % Neut # (Auto) 4.7 (1.4-5.7) K/uL Lymph # (Auto) 1.3 (0.6-2.4) K/uL [place] # (Auto) 0.5 (0.0-0.8) K/uL Eos # (Auto) 0.2 (0.0-0.7) K/uL Baso # (Auto) 0.1 (0.0-0.1) K/uL Nucleated RBC % 0.0 /100WBC Nucleated RBCs # 0 K/uL Smear Path Review Absolute Retic (20-80) K/uL Percent Retic (0.5-1.5) % Immature Retic Fraction % Sodium 138 (136-148) mmol/L Potassium 3.7 (3.5-5.1) mmol/L Chloride 103 (98-107) mmol/L Carbon Dioxide 27.5 (21.0-32.0) mmol/L BUN 10 (7.0-18.0) mg/dL Creatinine 1.3 (0.8-1.3) mg/dL Est Cr Clr Drug Dosing 50.14 mL/min Estimated GFR (MDRD) 54.7 ml/min Glucose 96 (74-106) mg/dL Calcium 9.1 (8.5-10.1) mg/dL Iron (50-175) ug/dL TIBC (250-450) ug/dL % Saturation (20-55) % Transferrin Ferritin (26-388) ng/mL Vitamin B12 (193-986) pg/mL Folate (8.60-58.90) ng/mL Blood Type Antibody Screen Crossmatch Result Diagrams: 11/09/20 04:50 11/09/20 04:50 Sepsis Event Note - Evaluation Sepsis Screening Result: No Definite Risk - Focused Exam Vital Signs: Vital Signs Temp Pulse Pulse Resp BP BP Pulse Ox 11/09/20 04:56 98 F 66 16 124/62 95 11/08/20 23:44 98.1 F 62 17 120/56 L 93 L 11/08/20 20:38 67 123/60 - Problem List & Annotations (1) GI bleed SNOMED Code(s): 81555188 Code(s): K92.2 - GASTROINTESTINAL HEMORRHAGE, UNSPECIFIED Status: Acute Current Visit: Yes (2) Symptomatic anemia SNOMED Code(s): 302780073 Code(s): D64.9 - ANEMIA, UNSPECIFIED Status: Acute Current Visit: Yes (3) Hypertension SNOMED Code(s): 35406365 Code(s): I10 - ESSENTIAL (PRIMARY) HYPERTENSION Status: Chronic Current Visit: Yes (4) Hyperlipidemia SNOMED Code(s): 69960161 Code(s): E78.5 - HYPERLIPIDEMIA, UNSPECIFIED Status: Chronic Current Visit: Yes (5) BPH (benign prostatic hyperplasia) SNOMED Code(s): 475884095 Code(s): N40.0 - BENIGN PROSTATIC HYPERPLASIA WITHOUT LOWER URINRY TRACT SYMP Status: Chronic Current Visit: Yes (6) History of tobacco use SNOMED Code(s): 964626537 Code(s): Z87.891 - PERSONAL HISTORY OF NICOTINE DEPENDENCE Status: Chronic Current Visit: Yes - Problem List Review Problem List Initiated/Reviewed/Updated: Yes - My Orders Last 24 Hours: My Active Orders 11/08/20 08:06 Intake and Output [RC] QSHIFT Oxygen Therapy [RC] PRN Up With Assistance [RC] ASDIRECTED VTE/DVT Education [RC] PER UNIT ROUTINE Vital Signs [RC] Q4H Ondansetron [Zofran] 4 mg IVPUSH Q4H PRN Sodium Chloride 0.9% [Saline Flush] 2.5 ml FLUSH ASDIRECTED PRN Saline Lock Insert [OM.PC] Routine Sequential Compression Device [OM.PC] Per Unit Routine Resuscitation Status Routine 11/08/20 08:07 Antiembolic Devices [RC] PER UNIT ROUTINE 11/08/20 08:30 Pantoprazole [ProTONIX IV] 40 mg Sodium Chloride 0.9% [Normal Saline] 10 ml IV Q12H 11/08/20 09:15 Finasteride [Proscar] 5 mg PO DAILY hydroCHLOROthiazide 25 mg PO DAILY 11/08/20 Lunch Clear Liquid Diet [DIET] 11/08/20 21:00 Metoprolol Succinate [Toprol XL] 50 mg PO BEDTIME Simvastatin [Zocor] 40 mg PO BEDTIME 11/09/20 12:00 bisacodyL [Dulcolax] 10 mg PO ONETIME ONE 11/09/20 Dinner NPO After Midnight [Nothing per Oral After Midnight Diet] [DIET] polyethylene glycoL 3350 [MiraLAX] 238 gm PO ONETIME ONE 11/09/20 20:00 bisacodyL [Dulcolax] 10 mg PO ONETIME ONE 11/10/20 05:11 BMP [BASIC METABOLIC PANEL,BMP] [CHEM] AM CBC WITH AUTO DIFF [HEME] AM 11/11/20 05:11 BMP [BASIC METABOLIC PANEL,BMP] [CHEM] AM CBC WITH AUTO DIFF [HEME] AM 11/12/20 05:11 BMP [BASIC METABOLIC PANEL,BMP] [CHEM] AM CBC WITH AUTO DIFF [HEME] AM - Plan Plan:: This 70-year-old male admitted with GI bleed and symptomatic anemia. 1. GI bleeding -Protonix 40 mg IV twice daily -Transfused 2 units yesterday -Hemoglobin 10.7 today -Patient is feeling much improved -Dr. Erick Moreno spoke with patient yesterday regarding upcoming endoscopy on . -Clear liquids today n.p.o. at midnight -We will start colon prep this afternoon with Dulcolax and MiraLAX and Dulcolax ending this evening at 1999. - Recheck HH this evening. 2. HTN/HLD -Continue metoprolol and hydrochlorothiazide along with Zocor. -Vital signs stable VTE prophylaxis: SCDs and ambulation only due to acute bleeding GI prophylaxis: Protonix CODE STATUS: Full code Dispo: Likely discharge home tomorrow after endoscopy.
[2020-11-09] MEDS: Pantoprazole 40 MG in Sodium Chloride 0.9% 10 ML IV SCH ×2 (09:02→20:12)
[2020-11-09] MEDS: Finasteride 5 MG Tab PO SCH (09:02)
[2020-11-09] MEDS: Hydrochlorothiazide 25 MG Tab PO SCH (09:02)
[2020-11-09] MEDS ORDERED: Bisacodyl 5 MG Tab PO ONE ×2 (12:00→20:00)
[2020-11-09] MEDS ORDERED: Polyethylene Glycol 3350 Powder 17 GM Packet PO ONE (16:00)
[2020-11-09] MEDS: Metoprolol Succinate 50 MG Tab.ER PO SCH (20:13)
[2020-11-09] MEDS: Simvastatin 40 MG Tab PO SCH (20:13)
[2020-11-09] MEDS ORDERED: Lactated Ringers 1,000 ML IV SCH (23:50)
[2020-11-10 05:38] LABS: POTASSIUM,K 3.7 mmol/L (3.5-5.1)
--- NOTE | 2020-11-10 07:48 | PCM.PN ---
- General Info Date of Service: 11/10/20 Admission Dx/Problem (Free Text): Admission Diagnosis/Problem Admission Diagnosis/Problem Anemia Subjective Update: Reports he is doing well today. Denies any chest pain shortness of breath or abdominal pain. He is urinating well. He reports his stools are light yellow to clear liquid. Denies any other concerns eager to have endoscopy and colonoscopy this afternoon and be discharged if possible. Functional Status: Reports: Pain Controlled, Tolerating Diet, Ambulating, Urinating - Review of Systems General: Reports: No Symptoms. Denies: Weakness, Fatigue, Malaise HEENT: Reports: No Symptoms. Denies: Headaches, Sore Throat Pulmonary: Reports: No Symptoms. Denies: Shortness of Breath Cardiovascular: Reports: No Symptoms. Denies: Chest Pain Gastrointestinal: Reports: Flatus. Denies: Abdominal Pain, Nausea, Vomiting Genitourinary: Reports: No Symptoms. Denies: Dysuria, Frequency, Burning Musculoskeletal: Reports: No Symptoms Skin: Reports: No Symptoms Neurological: Reports: No Symptoms Psychiatric: Reports: No Symptoms - Patient Data Vitals - Most Recent: Last Vital Signs Temp 97.7 F 11/10/20 07:15 Pulse 71 11/10/20 07:15 Resp 16 11/10/20 07:15 BP 126/78 11/10/20 07:15 Pulse Ox 97 11/10/20 07:15 Weight - Most Recent: 83.915 kg I&O - Last 24 Hours: Intake & Output 11/09/20 11/10/20 11/10/20 22:59 06:59 14:59 Intake Total 780 1034 Output Total 750 0 Balance 30 1034 Lab Results Last 24 Hours: Laboratory Results - last 24 hr 11/09/20 11/10/20 11/10/20 Range/Units 18:01 04:50 04:50 WBC 7.42 (4.0-11.0) K/uL RBC 4.23 L (4.50-5.90) M/uL Hgb 11.6 L 10.6 L (13.0-17.0) g/dL Hct 37.1 L 33.5 L (38.0-50.0) % MCV 79.2 L (80.0-98.0) fL MCH 25.1 L (27.0-32.0) pg MCHC 31.6 (31.0-37.0) g/dL RDW Std Deviation 50.0 (28.0-62.0) fl RDW Coeff of Myrna 17 H (11.0-15.0) % Plt Count 472 H (150-400) K/uL MPV 9.30 (7.40-12.00) fL Neut % (Auto) 72.7 (48.0-80.0) % Lymph % (Auto) 17.3 (16.0-40.0) % [place] % (Auto) 8.0 (0.0-15.0) % Eos % (Auto) 1.6 (0.0-7.0) % Baso % (Auto) 0.4 (0.0-1.5) % Neut # (Auto) 5.4 (1.4-5.7) K/uL Lymph # (Auto) 1.3 (0.6-2.4) K/uL [place] # (Auto) 0.6 (0.0-0.8) K/uL Eos # (Auto) 0.1 (0.0-0.7) K/uL Baso # (Auto) 0.0 (0.0-0.1) K/uL Nucleated RBC % 0.0 /100WBC Nucleated RBCs # 0 K/uL Sodium 136 (136-148) mmol/L Potassium 3.7 (3.5-5.1) mmol/L Chloride 102 (98-107) mmol/L Carbon Dioxide 24.0 (21.0-32.0) mmol/L BUN 14 (7.0-18.0) mg/dL Creatinine 1.4 H (0.8-1.3) mg/dL Est Cr Clr Drug Dosing 46.56 mL/min Estimated GFR (MDRD) 50.2 ml/min Glucose 102 (74-106) mg/dL Calcium 9.2 (8.5-10.1) mg/dL Med Orders - Current: Current Medications Bisacodyl (Bisacodyl 5 Mg Tab) 10 mg PO ONETIME ONE Stop: 11/09/20 12:01 Last Admin: 11/09/20 12:30 Dose: 10 mg Documented by: Bisacodyl (Bisacodyl 5 Mg Tab) 10 mg PO ONETIME ONE Stop: 11/09/20 20:01 Last Admin: 11/09/20 20:12 Dose: 10 mg Documented by: Finasteride (Finasteride 5 Mg Tab) 5 mg PO DAILY [facility] Last Admin: 11/09/20 09:02 Dose: 5 mg Documented by: Hydrochlorothiazide (Hydrochlorothiazide 25 Mg Tab) 25 mg PO DAILY [facility] Last Admin: 11/09/20 09:02 Dose: 25 mg Documented by: Pantoprazole Sodium 40 mg/ (Sodium Chloride) 10 mls @ 300 mls/hr IV Q12H [facility] Last Admin: 11/09/20 20:12 Dose: 300 mls/hr Documented by: Metoprolol Succinate (Metoprolol Succinate 50 Mg Tab.Er) 50 mg PO BEDTIME [facility] Last Admin: 11/09/20 20:13 Dose: 50 mg Documented by: Ondansetron HCl (Ondansetron 4 Mg/2 Ml Sdv) 4 mg IVPUSH Q4H PRN PRN Reason: Nausea Polyethylene Glycol (Polyethylene Glycol 3350 Powder 17 Gm Packet) 238 gm PO ONETIME ONE Stop: 11/09/20 16:01 Last Admin: 11/09/20 16:02 Dose: 238 gm Documented by: Simvastatin (Simvastatin 40 Mg Tab) 40 mg PO BEDTIME [facility] Last Admin: 11/09/20 20:13 Dose: 40 mg Documented by: Sodium Chloride (Sodium Chloride 0.9% 2.5 Ml Syringe) 2.5 ml FLUSH ASDIRECTED PRN PRN Reason: Keep Vein Open - Exam Quality Assessment: DVT Prophylaxis (SCDs only). No: Supplemental Oxygen General: Alert, Oriented, Cooperative, No Acute Distress Neck: Supple Lungs: Clear to Auscultation, Normal Respiratory Effort Cardiovascular: Regular Rate, Regular Rhythm GI/Abdominal Exam: Normal Bowel Sounds, Soft, Non-Tender Extremities: Normal Inspection, Normal Range of Motion, Non-Tender, No Pedal Edema Neurological: No New Focal Deficit Psy/Mental Status: Alert, Normal Affect, Normal Mood - Patient Data Lab Results Last 24 hrs: Laboratory Results - last 24 hr 11/09/20 11/10/20 11/10/20 Range/Units 18:01 04:50 04:50 WBC 7.42 (4.0-11.0) K/uL RBC 4.23 L (4.50-5.90) M/uL Hgb 11.6 L 10.6 L (13.0-17.0) g/dL Hct 37.1 L 33.5 L (38.0-50.0) % MCV 79.2 L (80.0-98.0) fL MCH 25.1 L (27.0-32.0) pg MCHC 31.6 (31.0-37.0) g/dL RDW Std Deviation 50.0 (28.0-62.0) fl RDW Coeff of Myrna 17 H (11.0-15.0) % Plt Count 472 H (150-400) K/uL MPV 9.30 (7.40-12.00) fL Neut % (Auto) 72.7 (48.0-80.0) % Lymph % (Auto) 17.3 (16.0-40.0) % Pope % (Auto) 8.0 (0.0-15.0) % Eos % (Auto) 1.6 (0.0-7.0) % Baso % (Auto) 0.4 (0.0-1.5) % Neut # (Auto) 5.4 (1.4-5.7) K/uL Lymph # (Auto) 1.3 (0.6-2.4) K/uL [place] # (Auto) 0.6 (0.0-0.8) K/uL Eos # (Auto) 0.1 (0.0-0.7) K/uL Baso # (Auto) 0.0 (0.0-0.1) K/uL Nucleated RBC % 0.0 /100WBC Nucleated RBCs # 0 K/uL Sodium 136 (136-148) mmol/L Potassium 3.7 (3.5-5.1) mmol/L Chloride 102 (98-107) mmol/L Carbon Dioxide 24.0 (21.0-32.0) mmol/L BUN 14 (7.0-18.0) mg/dL Creatinine 1.4 H (0.8-1.3) mg/dL Est Cr Clr Drug Dosing 46.56 mL/min Estimated GFR (MDRD) 50.2 ml/min Glucose 102 (74-106) mg/dL Calcium 9.2 (8.5-10.1) mg/dL Result Diagrams: 11/10/20 04:50 11/10/20 04:50 Sepsis Event Note - Evaluation Sepsis Screening Result: No Definite Risk - Focused Exam Vital Signs: Vital Signs Temp Pulse Pulse Resp BP BP Pulse Ox 11/10/20 07:15 97.7 F 71 16 126/78 97 11/10/20 05:00 98.4 F 81 15 120/64 96 11/10/20 00:11 98.6 F 88 15 129/83 96 11/09/20 20:13 89 152/88 H - Problem List & Annotations (1) GI bleed SNOMED Code(s): 94873959 Code(s): K92.2 - GASTROINTESTINAL HEMORRHAGE, UNSPECIFIED Status: Acute Current Visit: Yes (2) Symptomatic anemia SNOMED Code(s): 611580491 Code(s): D64.9 - ANEMIA, UNSPECIFIED Status: Acute Current Visit: Yes (3) Hypertension SNOMED Code(s): 37348401 Code(s): I10 - ESSENTIAL (PRIMARY) HYPERTENSION Status: Chronic Current Visit: Yes (4) Hyperlipidemia SNOMED Code(s): 89588372 Code(s): E78.5 - HYPERLIPIDEMIA, UNSPECIFIED Status: Chronic Current Visit: Yes (5) BPH (benign prostatic hyperplasia) SNOMED Code(s): 249702700 Code(s): N40.0 - BENIGN PROSTATIC HYPERPLASIA WITHOUT LOWER URINRY TRACT SYMP Status: Chronic Current Visit: Yes (6) History of tobacco use SNOMED Code(s): 663690439 Code(s): Z87.891 - PERSONAL HISTORY OF NICOTINE DEPENDENCE Status: Chronic Current Visit: Yes - Problem List Review Problem List Initiated/Reviewed/Updated: Yes - My Orders Last 24 Hours: My Active Orders 11/09/20 Dinner NPO After Midnight [Nothing per Oral After Midnight Diet] [DIET] 11/09/20 23:50 Lactated Ringers [Ringers, Lactated] 1,000 ml IV Q20H 11/11/20 05:11 BMP [BASIC METABOLIC PANEL,BMP] [CHEM] AM CBC WITH AUTO DIFF [HEME] AM 11/12/20 05:11 BMP [BASIC METABOLIC PANEL,BMP] [CHEM] AM CBC WITH AUTO DIFF [HEME] AM - Plan Plan:: This 70-year-old male admitted with GI bleed and symptomatic anemia. 1. GI bleeding -Protonix 40 mg IV twice daily -Hemoglobin 10.6 today, has remained stable for 2 days. -Patient is feeling much improved -Dr. Erick Moreno to perform endoscopy today -Has been n.p.o. since midnight started on colonoscopy prep yesterday. Reports stool is clear to light yellow. 2. HTN/HLD -Continue metoprolol and hydrochlorothiazide along with Zocor. -Vital signs stable VTE prophylaxis: SCDs and ambulation only due to acute bleeding GI prophylaxis: Protonix CODE STATUS: Full code Dispo: Likely discharge home today after endoscopy
[2020-11-10] MEDS: Pantoprazole 40 MG in Sodium Chloride 0.9% 10 ML IV SCH (09:08)
--- NOTE | 2020-11-10 12:23 | PN ---
SUBJECTIVE: The patient says he is feeling good. He has no complaints. The patient tolerated his bowel prep well yesterday. He said he is having clearish liquid bowel movements. Hemoglobin has remained stable since being transfused. Again, the patient denies seeing any dark stools or bright red blood. I did go over with the patient again about colonoscopies and EGD. I did go over that EGD may not cure his swallowing issues, but it is mainly just to see if there are any masses or strictures causing his swallowing difficulties or his blood loss. I again went over with the patient we might not find a reason for his anemia on either the upper or lower endoscopy. The patient says he understands. He continues to want to go forward with the procedure. I spoke with the hospital team. All the patient's questions were answered. LORI DON /[id number]
[2020-11-10] MEDS: Hydrochlorothiazide 25 MG Tab PO SCH (12:56)
[2020-11-10] MEDS: Finasteride 5 MG Tab PO SCH (12:56)
[2020-11-10] MEDS ORDERED: Propofol 200 MG/20 ML SDV ONE ×2 (13:12→14:18)
[2020-11-10] MEDS ORDERED: Midazolam 1 MG/ML 2 ML SDV ONE (13:12)
[2020-11-10] MEDS ORDERED: fentaNYL 100 MCG/2 ML SDV ONE (13:13)
--- NOTE | 2020-11-10 16:27 | PCM.DCSUM1 ---
Discharge Summary - Hospital Course Brief History: This 70-year-old male with past medical history of anemia GERD hypertension and hyperlipidemia presented to the ER with complaints of dizziness and intermittent vomiting of blood streaks. He has been evaluated by PCP for anemia as well as refer to general surgery for endoscopy. He is actually scheduled for endoscopy on this week. He reports that he tried to take a sleeping pill the other night and was not able to swallow it completely and started coughing and vomited he said he saw tissue and blood within his vomit and became concerned. He denies any black or bloody bowel movements recently though he has had very positive occult stools upon evaluation. He recently was transfused in September with 2 units PRBCs. He denies any chest pain shortness of breath palpitations. No abdominal pain. No dysuria. No neurological deficits. He reports he was a smoker up until 3 months ago. Denies any family history of other cancer. He did have a CT scan as an outpatient that showed a small to moderate size hiatal hernia. He denies any alcohol use and no recreational drug use. In the ER WBC 8.79, hemoglobin 7.8, hematocrit 26.1. Platelet count 512,000. INR 0.99. BUN 10 creatinine 1.2. Glucose 110. UA negative Covid negative he was transfused 2 units of PRBCs due to his symptomatic anemia. Per nursing report Dr. Avery was contacted by the ER and felt he should be transfused and then he would be ready for endoscopy on . He will be admitted for symptomatic anemia GI bleed. Diagnosis: Stroke: No - Discharge Data Discharge Date: 11/10/20 Discharge Disposition: Home, Self-Care 01 Condition: Stable - Referral to Home Health Primary Care Physician: Zaida Pfeiffer MD - Discharge Diagnosis/Problem(s) (1) GI bleed SNOMED Code(s): 08121375 ICD Code: K92.2 - GASTROINTESTINAL HEMORRHAGE, UNSPECIFIED Status: Acute Current Visit: Yes (2) Symptomatic anemia SNOMED Code(s): 156361751 ICD Code: D64.9 - ANEMIA, UNSPECIFIED Status: Acute Current Visit: Yes (3) Hypertension SNOMED Code(s): 69040367 ICD Code: I10 - ESSENTIAL (PRIMARY) HYPERTENSION Status: Chronic Current Visit: Yes (4) Hyperlipidemia SNOMED Code(s): 76626005 ICD Code: E78.5 - HYPERLIPIDEMIA, UNSPECIFIED Status: Chronic Current Visit: Yes (5) BPH (benign prostatic hyperplasia) SNOMED Code(s): 390086892 ICD Code: N40.0 - BENIGN PROSTATIC HYPERPLASIA WITHOUT LOWER URINRY TRACT SYMP Status: Chronic Current Visit: Yes (6) History of tobacco use SNOMED Code(s): 729212717 ICD Code: Z87.891 - PERSONAL HISTORY OF NICOTINE DEPENDENCE Status: Chronic Current Visit: Yes - Patient Summary/Data Hospital Course: Admission diagnoses Symptomatic anemia Possible GI bleed Discharge diagnoses Symptomatic anemia improved GI bleed Other PMH BPH HTN Gerald was admitted secondary to somatic anemia with considerations of GI bleed. He was started on Protonix 40 mg twice daily IV along with transfusion of 2 units PRBCs. His initial hemoglobin coming in was 7.8. After 2 units he was 11.2. He has hemoglobin has remained stable over the following 2 days. I did contact his surgeon Dr. Erick Moreno who would be performing endoscopies as an outpatient. Is felt patient should be monitored in the hospital due to concerns of active bleeding prior to his endoscopies. He was started on colon prep last night and has tolerated this well. Today he went in for EGD and colonoscopies. Please see Dr. Erick Moreno's documentation regarding operative procedures. Concern for possible esophageal malignancy was noted. Biopsies obtained this area was noted to be slowly oozing some blood. This was all explained to him by Dr. Moreno. I did reach out to patient PCP Dr. Renea Pfeiffer who is now informed of endoscopy findings. He will have follow-up with PCP next week along with blood work to monitor his hemoglobin. Once pathology back referrals can be then sent to surgical oncology as well as oncology. He continues to do well postoperatively and will be discharged home today. He was counseled not to drive for 24 hours due to anesthesia given and to remain away from NSAIDs and to continue his PPI. He has follow-up with PCP next week along with Dr. Erick Moreno in the coming weeks for follow-up. He is to return to the ER or clinic if concerns should arise sooner. - Patient Instructions Diet: GI Soft/Low Residue/Low Fiber Activity: No Strenuous Activities Driving: Do Not Drive (no driving for 24 hours) Showering/Bathing: May Shower Notify Provider of: Fever, Increased Pain, Swelling and Redness, Drainage, Nausea and/or Vomiting - Discharge Plan *PRESCRIPTION DRUG MONITORING PROGRAM REVIEWED*: Not Applicable *COPY OF PRESCRIPTION DRUG MONITORING REPORT IN PATIENT [place]: Not Applicable Home Medications: Home Meds Metoprolol Succinate 50 mg PO BEDTIME 07/09/14 [History] Simvastatin [Zocor] 40 mg PO BEDTIME #30 tablet 07/10/14 [Rx] Finasteride 5 mg PO DAILY 11/03/20 [History] Omeprazole 40 mg PO DAILY 11/03/20 [History] hydroCHLOROthiazide [Hydrochlorothiazide] 25 mg PO DAILY 11/03/20 [History] Oxygen Therapy Mode: Room Air Referrals: Erick Moreno MD [Physician] - 11/22/20 8:30 am Zaida Pfeiffer MD [Primary Care Provider] - 11/15/20 3:30 pm - Discharge Summary/Plan Comment DC Time >30 min.: No - Patient Data Vitals - Most Recent: Last Vital Signs Temp 96.5 F L 11/10/20 15:35 Pulse 65 11/10/20 15:55 Resp 16 11/10/20 15:55 BP 137/78 11/10/20 15:55 Pulse Ox 98 11/10/20 15:55 Weight - Most Recent: 83.915 kg I&O - Last 24 hours: Intake & Output 11/10/20 11/10/20 11/10/20 06:59 14:59 22:59 Intake Total 1034 Output Total 0 Balance 1034 Lab Results - Last 24 hrs: Laboratory Results - last 24 hr 11/09/20 11/10/20 11/10/20 Range/Units 18:01 04:50 04:50 WBC 7.42 (4.0-11.0) K/uL RBC 4.23 L (4.50-5.90) M/uL Hgb 11.6 L 10.6 L (13.0-17.0) g/dL Hct 37.1 L 33.5 L (38.0-50.0) % MCV 79.2 L (80.0-98.0) fL MCH 25.1 L (27.0-32.0) pg MCHC 31.6 (31.0-37.0) g/dL RDW Std Deviation 50.0 (28.0-62.0) fl RDW Coeff of Myrna 17 H (11.0-15.0) % Plt Count 472 H (150-400) K/uL MPV 9.30 (7.40-12.00) fL Neut % (Auto) 72.7 (48.0-80.0) % Lymph % (Auto) 17.3 (16.0-40.0) % Mcnairy % (Auto) 8.0 (0.0-15.0) % Eos % (Auto) 1.6 (0.0-7.0) % Baso % (Auto) 0.4 (0.0-1.5) % Neut # (Auto) 5.4 (1.4-5.7) K/uL Lymph # (Auto) 1.3 (0.6-2.4) K/uL Mcnairy # (Auto) 0.6 (0.0-0.8) K/uL Eos # (Auto) 0.1 (0.0-0.7) K/uL Baso # (Auto) 0.0 (0.0-0.1) K/uL Nucleated RBC % 0.0 /100WBC Nucleated RBCs # 0 K/uL Sodium 136 (136-148) mmol/L Potassium 3.7 (3.5-5.1) mmol/L Chloride 102 (98-107) mmol/L Carbon Dioxide 24.0 (21.0-32.0) mmol/L BUN 14 (7.0-18.0) mg/dL Creatinine 1.4 H (0.8-1.3) mg/dL Est Cr Clr Drug Dosing 46.56 mL/min Estimated GFR (MDRD) 50.2 ml/min Glucose 102 (74-106) mg/dL Calcium 9.2 (8.5-10.1) mg/dL Med Orders - Current: Current Medications Bisacodyl (Bisacodyl 5 Mg Tab) 10 mg PO ONETIME ONE Stop: 11/09/20 12:01 Last Admin: 11/09/20 12:30 Dose: 10 mg Documented by: Bisacodyl (Bisacodyl 5 Mg Tab) 10 mg PO ONETIME ONE Stop: 11/09/20 20:01 Last Admin: 11/09/20 20:12 Dose: 10 mg Documented by: Finasteride (Finasteride 5 Mg Tab) 5 mg PO DAILY [facility] Last Admin: 11/10/20 12:56 Dose: Not Given Documented by: Hydrochlorothiazide (Hydrochlorothiazide 25 Mg Tab) 25 mg PO DAILY [facility] Last Admin: 11/10/20 12:56 Dose: Not Given Documented by: Pantoprazole Sodium 40 mg/ (Sodium Chloride) 10 mls @ 300 mls/hr IV Q12H [facility] Last Admin: 11/10/20 09:08 Dose: 300 mls/hr Documented by: Metoprolol Succinate (Metoprolol Succinate 50 Mg Tab.Er) 50 mg PO BEDTIME [facility] Last Admin: 11/09/20 20:13 Dose: 50 mg Documented by: Ondansetron HCl (Ondansetron 4 Mg/2 Ml Sdv) 4 mg IVPUSH Q4H PRN PRN Reason: Nausea Polyethylene Glycol (Polyethylene Glycol 3350 Powder 17 Gm Packet) 238 gm PO ONETIME ONE Stop: 11/09/20 16:01 Last Admin: 11/09/20 16:02 Dose: 238 gm Documented by: Simvastatin (Simvastatin 40 Mg Tab) 40 mg PO BEDTIME [facility] Last Admin: 11/09/20 20:13 Dose: 40 mg Documented by: Sodium Chloride (Sodium Chloride 0.9% 2.5 Ml Syringe) 2.5 ml FLUSH ASDIRECTED PRN PRN Reason: Keep Vein Open
--- NOTE | 2020-11-10 16:28 | PCM.OPNOTE ---
- General Post-Op/Procedure Note Date of Surgery/Procedure: 11/10/20 Operative Procedure(s): Colonoscopy with polypectomy. EGD with biopsies Findings: Esophageal mass - likely cancerous Colon polyp 55 cm dictation number #[id number] Pre Op Diagnosis: anemia Post-Op Diagnosis: Esophageal mass - likely cancerous. Colon polyp 55 cm Primary Surgeon: Erick Moreno Pathology: colon polyp Esophageal mass biopsies Complications: None Condition: Stable Free Text/Narrative:: Intake & Output 11/10/20 11/10/20 11/10/20 06:59 14:59 22:59 Intake Total 1034 Output Total 0 Balance 1034
--- NOTE | 2020-11-10 18:44 | OR ---
SURGEON: LILLY SWARTZ MD DATE OF PROCEDURE: 11/10/2020 PREOPERATIVE DIAGNOSIS: Anemia. POSTOPERATIVE DIAGNOSES: 1. 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 2. Colon polyp at 55 cm. PRIMARY SURGEON: Lilly Swartz MD GARMENT ALTERATION EXAMINER: Barrett Justin, [employer] second year resident. PATHOLOGY: 1. Colon polyp. 2. Multiple biopsies of the esophageal mass. EXTENT OF COLONOSCOPY: To the cecum. BOWEL PREP: Poor. EXTENT OF EGD: To the second part of the duodenum. REASON FOR PROCEDURE: The patient is a pleasant 70-year-old gentleman who has needed blood transfusions with anemia. The patient denies any blood in his stool or dark stools. The patient over the last couple of months says that he has had some issues with swallowing. He relates it is a lot of times without saliva and dentures. He states liquids go down, but he has to make sure he chews his solids better. He did have a CT scan that showed a moderate-sized hiatal hernia. I did go over with the patient risks, goals, and alternatives to procedure. OPERATIVE NARRATIVE: Physical examination was performed. The major risks and benefits associated with the procedure were explained to the patient in detail. The patient verbalized understanding and agreement of the same. The patient then connected to appropriate monitoring device and IV was started. EKG, pulse, pulse oximetry, blood pressure, and capnography were monitored throughout procedure. Continuous oxygen and sedation were provided by the anesthesiologist. The patient was placed in left lateral decubitus position. Sedation was began. After adequate sedation was achieved, an upper endoscope was advanced under direct visualization without any difficulty in the upper GI tract. Anatomy and mucosa of esophagus, GE junction, stomach, pylorus, and first and second part of the duodenum were all inspected. On placing the scope through the esophagus, I come into an almost circumferential mass. I am unable to pass it though fairly easily. The mass is fungating and bleeding, is fairly long segment. I was able get in the stomach and into the duodenum. The duodenum appeared normal. Stomach, both retrograde and antegrade views. In retrograde view, it does look like the esophageal mass might be coming down past the GE junction into the stomach a little bit. The scope was brought up to what appeared to be negative junction and slowly withdrawn through the esophagus doing multiple biopsies as withdrawn. The mass seems to stop at about 29 cm from where his incisors would be in the teeth. The scope was completely withdrawn and this part of the procedure was terminated. Gloves and scopes were changed. Now, a rectal examination was done. No rectal masses or polyps were felt. Now, a well-lubricated Olympus colonoscoped was entered in the rectum, advanced under direct visualization to the level of the cecum. The patient did have a somewhat poor prep. He did have a lot of dark liquid stool, likely from the bleeding esophageal mass. This was suctioned and irrigated out for okay look at the mucosa. A small polyp could easily be missed. I did have a polyp at about 55 cm. This was removed in two swipes with a hot cautery. This was too big to be suctioned up, so was dissected again with a loop, and then was able to be suctioned out. The mucosal defect was closed with a large Resolution clip. Scope was completely withdrawn. The scope was retroflexed in the rectum. Scope was completely removed and procedure was terminated. ENDOSCOPIC DIAGNOSES: 1. Esophageal mass, a little over 10 cm in length and almost circumferential, fungating, and bleeding, likely cancerous. 2. Colon polyp at 55 cm. RECOMMENDATIONS: I did speak with the patient. I did go over his likely diagnosis. We will place a referral for Surgical Oncology. We do not have any pathology. I did go over with the patient that I will be gone next week. I told him he would get a report from my partners help expedite referral process. All the patient's questions were answered. LORI / ARIAN /[id number]
[2020-11-10 19:30] VITALS: BP 146/72
--- NOTE | 2020-11-16 09:23 | PCM.PREANE ---
Preanesthetic Assessment - Anesthesia/Transfusion/Family Hx Anesthesia History: Prior Anesthesia Without Reaction Family History of Anesthesia Reaction: No Transfusion History: No Prior Transfusion(s) - Review of Systems General: No Symptoms Pulmonary: No Symptoms Cardiovascular: No Symptoms Gastrointestinal: No Symptoms Neurological: No Symptoms Other: Reports: None - Physical Assessment NPO Status Date: 11/10/20 NPO Status Time: 00:00 Height: 1.71 m Weight: 86.183 kg ASA Class: 3 Mental Status: Alert & Oriented x3 Airway Class: Mallampati = 2 Dentition: Reports: Dentures, Edentulous Thyro-Mental Finger Breadths: 3 Mouth Opening Finger Breadths: 3 ROM/Head Extension: Full Lungs: Clear to Auscultation, Normal Respiratory Effort Cardiovascular: Regular Rate, Regular Rhythm - Allergies Allergies/Adverse Reactions: Allergies Allergy/AdvReac Type Severity Reaction Status Date / Time No Known Allergies Allergy Verified 11/09/20 23:15 - Acknowledgements Anesthesia Type Planned: MAC (The patient understands and accepts the anesthetic risks and benefits. All questions answered. The patient signed the consent. ) Pt an Appropriate Candidate for the Planned Anesthesia: Yes Alternatives and Risks of Anesthesia Discussed w Pt/Guardian: Yes Pt/Guardian Understands and Agrees with Anesthesia Plan: Yes PreAnesthesia Questionnaire HEENT History: Reports: Other (See Below) Other HEENT History: has upper denture Cardiovascular History: Reports: High Cholesterol, Hypertension Respiratory History: Reports: Other (See Below) Other Respiratory History: smoker for many years- recently quit Gastrointestinal History: Reports: GERD, Hiatal Hernia Genitourinary History: Reports: BPH Musculoskeletal History: Reports: None Neurological History: Reports: CVA Other Neuro History: 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 cleft pallet as child. Male Surgical History: Reports: Other (See Below) (ORCHIECTOMY) - History Comment History Comment: ETOH "1-2 every other week" - SUBSTANCE USE Tobacco Use Status *Q: Former Tobacco User (QUIT 3 MONTHS AGO.) Recreational Drug Use History: Yes Recreational Drug Type: Reports: Marijuana/Hashish (2 WEEKS ago) - HOME MEDS Home Medications: Home Meds Metoprolol Succinate 50 mg PO BEDTIME 07/09/14 [History] Simvastatin [Zocor] 40 mg PO BEDTIME #30 tablet 07/10/14 [Rx] Finasteride 5 mg PO DAILY 11/03/20 [History] Omeprazole 40 mg PO DAILY 11/03/20 [History] hydroCHLOROthiazide [Hydrochlorothiazide] 25 mg PO DAILY 11/03/20 [History] - CURRENT (IN HOUSE) MEDS Current Meds: Current Medications Lactated Ringer's (Ringers, Lactated) 1,000 mls @ 125 mls/hr IV ASDIRECTED SHELBY
--- NOTE | 2020-11-16 09:24 | PCM48HPAN ---
Post Anesthesia Note - EVALUATION WITHIN 48HRS OF ANESTHETIC Vital Signs in Normal Range: Yes Patient Participated in Evaluation: Yes Respiratory Function Stable: Yes Airway Patent: Yes Cardiovascular Function Stable: Yes Hydration Status Stable: Yes Pain Control Satisfactory: Yes Nausea and Vomiting Control Satisfactory: Yes Mental Status Recovered: Yes Vital Signs: Last Vital Signs Temp 36 C L 11/10/20 14:53 Pulse 67 11/10/20 15:23 Resp 14 11/10/20 15:23 BP 124/65 11/10/20 15:23 Pulse Ox 95 11/10/20 15:23 - COMMENTS/OBSERVATIONS Free Text/Narrative:: The patient tolerated the procedure well. There were no apparent anesthetic complications at this time. Discharge per criteria.
--- NOTE | 2020-11-16 09:24 | PCM.POSTAN ---
POST ANESTHESIA ASSESSMENT - MENTAL STATUS Mental Status: Alert, Oriented - VITAL SIGNS Vital Signs: Last Vital Signs Temp 36 C L 11/10/20 14:53 Pulse 67 11/10/20 15:23 Resp 14 11/10/20 15:23 BP 124/65 11/10/20 15:23 Pulse Ox 95 11/10/20 15:23 - RESPIRATORY Respiratory Status: Respiratory Rate WNL, Airway Patent, O2 Saturation Stable - CARDIOVASCULAR CV Status: Pulse Rate WNL, Blood Pressure Stable - GASTROINTESTINAL GI Status: No Symptoms - PAIN Pain Score: 0 - POST OP HYDRATION Hydration Status: Adequate & Stable - OBSERVATIONS Free Text/Narrative:: The patient is awake, alert, and in no apparent distress. There were no apparent anesthetic complications at this time. Discharge to floor per criteria.
== END 2020-11-10 19:15 | disposition home or self-care (01) ==
LOC: MW.ED 23:55 → MW.MS 11-08 02:22
PROVIDERS: ADMIT Internal Medicine; ATTEND Internal Medicine
DX: C15.5 Malignant neoplasm of lower third of esophagus (principal); D12.2 Benign neoplasm of ascending colon; D50.9 Iron deficiency anemia, unspecified; K44.9 Diaphragmatic hernia without obstruction or gangrene; K92.2 Gastrointestinal hemorrhage, unspecified; I10 Essential (primary) hypertension; E78.5 Hyperlipidemia, unspecified; N40.0 Benign prostatic hyperplasia without lower urinary tract symptoms; E78.00 Pure hypercholesterolemia, unspecified; Z01.812 Encounter for preprocedural laboratory examination; Z20.822 Contact with and (suspected) exposure to COVID-19; Z87.891 Personal history of nicotine dependence; Z79.899 Other long term (current) drug therapy; Z86.73 Personal history of transient ischemic attack (TIA), and cerebral infarction without residual deficits; Z98.890 Other specified postprocedural states
CPT/HCPCS: 36415; 36430; 43239; 45384; 80048; 80053; 81003; 82607; 82728; 82746; 83550; 85014; 85018; 85025; 85045; 85610; 86850; 86900; 86901; 86920; 86921; 86922; 88104; 88305; 96374; 96376; 99284; A9270; C9113; G0378; J2250; J2704; J3010; J7120; P9016; U0002; 99217; 99219; 99225

== ENCOUNTER 2020-12-16 02:40 | Emergency (ER) | payer MEDICARE ==
[2020-12-16] MEDS ORDERED: Sodium Chloride 0.9% 2.5 ML Syringe FLUSH PRN (03:01)
[2020-12-16] MEDS ORDERED: fentaNYL 50 MCG/ML SDV IVPUSH ONE (03:01)
[2020-12-16] MEDS ORDERED: Sodium Chloride 0.9% 10 ML Syringe FLUSH PRN (03:01)
[2020-12-16] MEDS ORDERED: Sodium Chloride 0.9% 1,000 ML IV ONE (03:01)
[2020-12-16] MEDS ORDERED: Ondansetron 4 MG/2 ML SDV IVPUSH ONE (03:01)
[2020-12-16] MEDS ORDERED: Ketorolac 15 MG/ML SDV IVPUSH ONE (03:01)
[2020-12-16] MEDS ORDERED: Cyclobenzaprine 10 MG Tab PO ONE (03:03)
--- NOTE | 2020-12-16 03:07 | EDM.PDOC ---
ED HPI GENERAL MEDICAL PROBLEM - General Chief Complaint: Back Pain or Injury Stated Complaint: PAIN Time Seen by Provider: 12/16/20 02:53 - History of Present Illness INITIAL COMMENTS - FREE TEXT/NARRATIVE: HISTORY AND PHYSICAL: History of present illness: This is a 70-year-old gentleman with a history significant for hypertension, herniated disks x5 to his lower back, recent diagnosis of esophageal CA who is currently in the process of being evaluated, who presents ER today secondary to severe left lower back pain. Patient reports that he has had problems with his back in the past but never had severe pain similar to this before. Patient reports that he recently had a PET scan and upon review the results it appears that he has a mass with likely mets to lymph nodes. There did not appear to be any metastatic lesions noted within his abdomen or below his diaphragm. Patient denies any recent fevers, shakes, chills, nausea, vomiting, diarrhea, dysuria, frequency, urgency, hematuria. Patient reports that the pain is constant and increases with flexion rotation of his torso. Patient denies any weakness to his upper or lower extremities. Patient reports that he has been able to tolerate his liquid dietary shakes that he was instructed to take. Patient is scheduled to go to [facility] on Saturday for biopsy and feeding tube placement. Review of systems: As per history of present illness and below otherwise all systems reviewed and negative. Past medical history: As per history of present illness and as reviewed below otherwise noncontributory. Surgical history: As per history of present illness and as reviewed below otherwise noncontributory. Social history: No reported history of drug or alcohol abuse. Family history: As per history of present illness and as reviewed below otherwise noncontributory. Physical exam: This patient was seen and evaluated during the 2019 SARS-CoV-2 novel coronavirus pandemic period. Community viral transmission is ongoing at time of this encounter and the emergency department is operating under pandemic response procedures. Constitutional: Patient is oriented to person, place, and time. Appears well- developed and well-nourished. No distress. HEENT: Moist mucous membranes Head: Normocephalic and atraumatic Eyes: Right eye exhibits no discharge. Left eye exhibits no discharge. No scleral icterus Neck: Normal range of motion. No tracheal deviation present. Cardiovascular: Normal rate and regular rhythm. Pulmonary: Effort normal, no respiratory distress. Abdominal: No distention Musculoskeletal: Normal range of motion Neurologic: Alert and oriented to person, place and time. Skin: [place], warm and dry. Psychiatric: Normal mood and affect. Behavior is normal. Judgment and thought content normal. Nursing note and vital signs have been reviewed Neuro: A&Ox3. Cranial nerves II-XII grossly intact, 5/5 strength to bilateral upper and lower extremities, sensation intact to bilateral upper and lower extremities, no nystagmus, PERRLA, EOMI, normal speech. Patient with reproducible tenderness to palpation to his left lower back. Patient has no pain or discomfort to his buttocks. Patient has no point C-spine T-spine or L-spine tenderness to palpation. Diagnostics: CBC, CMP, CT scan of the abdomen pelvis without IV contrast, urinalysis Therapeutics: Flexeril 10 mg p.o., fentanyl 50 mcg IV, Zofran 4 mg IV, NSS x1 L Assessment and plan: This is a 70-year-old gentleman with recently diagnosed esophageal cancer who presents ER today complaining of low back pain that appears to be mechanical in nature. We will obtain a urine as well as CT scan of the abdomen pelvis to assess for stones. Patient be given adequate analgesia in the ED and will be reevaluated. 4:20 AM: Patient's labs are all unremarkable except for hemoglobin of 7.9. Patient's hemoglobin earlier in the week was 8.7. Patient has been told that his esophageal mass has some oozing blood. Patient's urinalysis also is consistent with hematuria although patient CT scan does not show any evidence of kidney stones or renal issues. CT of the abdomen pelvis did not reveal any cause for the patient's pain and discomfort. Given the patient's clinical presentation and his history of herniated disks, it is most likely that the patient's left lower back pain is most likely mechanical in nature. Patient feels much improved with the Flexeril and fentanyl that he received in the ED. I will discharge the patient home with a prescription for Flexeril and Rice to assist with his pain. I will avoid NSAIDs given his history of GI malignancy. Patient is comfortable with the plan to be discharged home at this time with close outpatient work-up. Reassessment at the time of disposition demonstrates that the patient is in no acute distress. The patient has remained stable throughout the entire ED visit and is without objective evidence for acute process requiring urgent intervention or hospitalization. The patient is stable for discharge, counseling is provided as documented above, discussed symptomatic treatment and specific conditions for return. I have spoken with the patient/caregiver and discussed todays findings, in addition to providing specific details for the plan of care. Questions are answered and there is agreement with the plan. Definitive disposition and diagnosis as appropriate pending reevaluation and review of above. left lower back Pain Score (Numeric/FACES): 7 - Related Data Allergies Allergy/AdvReac Type Severity Reaction Status Date / Time No Known Allergies Allergy Verified 12/16/20 02:50 Home Meds: Home Meds Metoprolol Succinate 50 mg PO BEDTIME 07/09/14 [History] Simvastatin [Zocor] 40 mg PO BEDTIME #30 tablet 07/10/14 [Rx] Finasteride 5 mg PO DAILY 11/03/20 [History] Omeprazole 40 mg PO DAILY 11/03/20 [History] hydroCHLOROthiazide [Hydrochlorothiazide] 25 mg PO DAILY 11/03/20 [History] Acetaminophen/HYDROcodone [Rice 325-5 MG] 1 tab PO Q6H PRN #12 tablet 12/16/20 [Rx] Cyclobenzaprine [Flexeril] 10 mg PO TID PRN #20 tab 12/16/20 [Rx] Past Medical History HEENT History: Reports: Other (See Below) Other HEENT History: has upper denture Cardiovascular History: Reports: High Cholesterol, Hypertension Respiratory History: Reports: Other (See Below) Other Respiratory History: smoker for many years- recently quit Gastrointestinal History: Reports: GERD, Hiatal Hernia Genitourinary History: Reports: BPH Neurological History: Reports: CVA Other Neuro History: 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 cleft pallet as child. Male Surgical History: Reports: Other (See Below) Other Male Surgeries/Procedures: Orchiectomy Social & Family History - Family History Family Medical History: No Pertinent Family History Cardiac: Reports: High Cholesterol, Hypertension, [place] Neurological: Reports: CVA - Tobacco Use Tobacco Use Status *Q: Former Tobacco User Used Tobacco, but Quit: Yes Month/Year Tobacco Last Used: 09/2020 - Caffeine Use Caffeine Use: Reports: None - Recreational Drug Use Recreational Drug Use: Yes Recreational Drug Type: Reports: Marijuana/Hashish Recreational Drug Use Frequency: Rarely ED ROS GENERAL - Review of Systems Review Of Systems: See Below ED EXAM, GENERAL - Physical Exam Exam: See Below Course - Vital Signs Last Recorded V/S: Last Vital Signs Temp 99.1 F 12/16/20 02:40 Pulse 66 12/16/20 04:06 Resp 18 12/16/20 04:06 BP 125/59 L 12/16/20 04:06 Pulse Ox 99 12/16/20 04:06 - Orders/Labs/Meds Orders: Active Orders 24 hr Category Date Time Status Sodium Chloride 0.9% [Saline Flush] Med 12/16/20 03:01 Active 10 ml FLUSH ASDIRECTED PRN Sodium Chloride 0.9% [Saline Flush] Med 12/16/20 03:01 Active 2.5 ml FLUSH ASDIRECTED PRN Saline Lock Insert [OM.PC] Stat Oth 12/16/20 03:01 Ordered Medication Orders Sodium Chloride (Sodium Chloride 0.9% 10 Ml Syringe) 10 ml FLUSH ASDIRECTED PRN PRN Reason: Keep Vein Open Last Admin: 12/16/20 03:13 Dose: 10 ml Documented by: NAKUL Sodium Chloride (Sodium Chloride 0.9% 2.5 Ml Syringe) 2.5 ml FLUSH ASDIRECTED PRN PRN Reason: Keep Vein Open Last Admin: 12/16/20 03:13 Dose: 2.5 ml Documented by: NAKUL Labs: Laboratory Tests 12/16/20 12/16/20 12/16/20 Range/Units 02:40 02:40 03:50 WBC 9.06 (4.0-11.0) K/uL RBC 3.35 L (4.50-5.90) M/uL Hgb 7.9 L (13.0-17.0) g/dL Hct 26.2 L (38.0-50.0) % MCV 78.2 L (80.0-98.0) fL MCH 23.6 L (27.0-32.0) pg MCHC 30.2 L (31.0-37.0) g/dL RDW Std Deviation 45.3 (28.0-62.0) fl RDW Coeff of Myrna 16 H (11.0-15.0) % Plt Count 559 H (150-400) K/uL MPV 8.70 (7.40-12.00) fL Neut % (Auto) 77.7 (48.0-80.0) % Lymph % (Auto) 12.7 L (16.0-40.0) % [facility] % (Auto) 7.5 (0.0-15.0) % Eos % (Auto) 1.4 (0.0-7.0) % Baso % (Auto) 0.7 (0.0-1.5) % Neut # (Auto) 7.0 H (1.4-5.7) K/uL Lymph # (Auto) 1.2 (0.6-2.4) K/uL [facility] # (Auto) 0.7 (0.0-0.8) K/uL Eos # (Auto) 0.1 (0.0-0.7) K/uL Baso # (Auto) 0.1 (0.0-0.1) K/uL Nucleated RBC % 0.0 /100WBC Nucleated RBCs # 0 K/uL Sodium 138 (136-148) mmol/L Potassium 4.0 (3.5-5.1) mmol/L Chloride 102 (98-107) mmol/L Carbon Dioxide 26.4 (21.0-32.0) mmol/L BUN 17 (7.0-18.0) mg/dL Creatinine 1.2 (0.8-1.3) mg/dL Est Cr Clr Drug Dosing 54.32 mL/min Estimated GFR (MDRD) > 60.0 ml/min Glucose 110 H (74-106) mg/dL Calcium 8.7 (8.5-10.1) mg/dL Total Bilirubin 0.3 (0.2-1.0) mg/dL AST 19 (15-37) IU/L ALT 20 (14-63) IU/L Alkaline Phosphatase 115 (46-116) U/L Total Protein 7.0 (6.4-8.2) g/dL Albumin 2.9 L (3.4-5.0) g/dL Globulin 4.1 H (2.6-4.0) g/dL Albumin/Globulin Ratio 0.7 L (0.9-1.6) Urine Color YELLOW Urine Appearance CLOUDY Urine pH 6.0 (5.0-8.0) Ur Specific [place] 1.020 (1.001-1.035) Urine Protein NEGATIVE (NEGATIVE) mg/dL Urine Glucose (UA) NEGATIVE (NEGATIVE) mg/dL Urine Ketones NEGATIVE (NEGATIVE) mg/dL Urine Occult Blood LARGE H (NEGATIVE) Urine Nitrite NEGATIVE (NEGATIVE) Urine Bilirubin NEGATIVE (NEGATIVE) Urine Urobilinogen 0.2 (<2.0) EU/dL Ur Leukocyte Esterase NEGATIVE (NEGATIVE) Urine RBC TOO NUMEROUS TO CT (0-2/HPF) Urine WBC 1-3 (0-5/HPF) Ur Epithelial Cells FEW (NONE-FEW) Urine Bacteria FEW (NEGATIVE) Urine Mucus LIGHT (NONE-MOD) Meds: Medications Generic Name Dose Route Start Last Admin Trade Name Amber PRN Reason Stop Dose Admin Sodium Chloride 10 ml 12/16/20 03:01 12/16/20 03:13 Sodium Chloride 0.9% 10 Ml Syringe FLUSH 10 ml ASDIRECTED PRN Administration Keep Vein Open Sodium Chloride 2.5 ml 12/16/20 03:01 12/16/20 03:13 Sodium Chloride 0.9% 2.5 Ml Syringe FLUSH 2.5 ml ASDIRECTED PRN Administration Keep Vein Open Discontinued Medications Generic Name Dose Route Start Last Admin Trade Name Amber PRN Reason Stop Dose Admin Cyclobenzaprine HCl 10 mg 12/16/20 03:03 12/16/20 03:13 Cyclobenzaprine 10 Mg Tab PO 12/16/20 03:04 10 mg ONETIME ONE Administration Fentanyl 50 mcg 12/16/20 03:01 12/16/20 03:13 Fentanyl 50 Mcg/Ml Sdv IVPUSH 12/16/20 03:02 50 mcg ONETIME ONE Administration Sodium Chloride 1,000 mls @ 999 mls/hr 12/16/20 03:01 12/16/20 03:12 Normal Saline IV 12/16/20 04:01 999 mls/hr .Bolus ONE Administration Ketorolac Tromethamine 15 mg 12/16/20 03:01 12/16/20 03:12 Ketorolac 15 Mg/Ml Sdv IVPUSH 12/16/20 03:02 15 mg ONETIME ONE Administration Ondansetron HCl 4 mg 12/16/20 03:01 12/16/20 03:12 Ondansetron 4 Mg/2 Ml Sdv IVPUSH 12/16/20 03:02 4 mg ONETIME ONE Administration Departure - Departure Time of Disposition: 04:22 Disposition: Home, Self-Care 01 Condition: Good Clinical Impression: Acute low back pain Qualifiers: Back pain laterality: left Sciatica presence: without sciatica Qualified Code(s): M54.5 - Low back pain Esophageal cancer Qualifiers: Malignant neoplasm of esophagus location: unspecified location Qualified Code(s): C15.9 - Malignant neoplasm of esophagus, unspecified Anemia Qualifiers: Anemia type: unspecified type Qualified Code(s): D64.9 - Anemia, unspecified Hematuria Qualifiers: Hematuria type: unspecified type Qualified Code(s): R31.9 - Hematuria, unspecified - Discharge Information Instructions: Esophageal Cancer, Acute Back Pain, Adult, Hematuria, Adult Referrals: Danilo Palacios MD [Primary Care Provider] - Forms: ED Department Discharge Additional Instructions: Your seen and evaluated in the ER today secondary to your lower back pain. The work-up in the emergency department did not reveal any specific cause for your pain however your examination appears to be consistent with musculoskeletal cause of the pain. In the ED you were given fentanyl as well as a dose of Flexeril which is a muscle relaxant. You will be given a prescription for Rice and Flexeril to assist you with your pain and discomfort in your lower back until you are able to see your family doctor so they can assist you with long-t erm pain management. Please keep your appointment on Saturday for your further work-up and evaluation of your esophageal tumor. Please return to the ER if having any worsening pain or any new or concerning symptoms. The following information is given to patients seen in the emergency department who are being discharged to home. This information is to outline your options for follow-up care. We provide all patients seen in our emergency department with a follow-up referral. The need for follow-up, as well as the timing and circumstances, are variable depending upon the specifics of your emergency department visit. If you don't have a primary care physician on staff, we will provide you with a referral. We always advise you to contact your personal physician following an emergency department visit to inform them of the circumstance of the visit and for follow-up with them and/or the need for any referrals to a consulting specialist. The emergency department will also refer you to a specialist when appropriate. This referral assures that you have the opportunity for follow-up care with a specialist. All of these measure are taken in an effort to provide you with optimal care, which includes your follow-up. Under all circumstances we always encourage you to contact your private physician who remains a resource for coordinating your care. When calling for follow-up care, please make the office aware that this follow-up is from your recent emergency room visit. If for any reason you are refused follow-up, please contact the [facility] Emergency Department at and asked to speak to the emergency department charge nurse. [facility] [address] [place] [address] [place] [address] Sepsis Event Note (ED) - Evaluation Sepsis Screening Result: No Definite Risk - Focused Exam Vital Signs: Vital Signs Temp Pulse Resp BP Pulse Ox 12/16/20 04:06 66 18 125/59 L 99 12/16/20 03:41 69 16 125/50 L 95 12/16/20 02:40 99.1 F 77 16 143/73 H 98 - My Orders Last 24 Hours: My Active Orders 12/16/20 03:01 Sodium Chloride 0.9% [Saline Flush] 10 ml FLUSH ASDIRECTED PRN Sodium Chloride 0.9% [Saline Flush] 2.5 ml FLUSH ASDIRECTED PRN Saline Lock Insert [OM.PC] Stat - Assessment/Plan Last 24 Hours: My Active Orders 12/16/20 03:01 Sodium Chloride 0.9% [Saline Flush] 10 ml FLUSH ASDIRECTED PRN Sodium Chloride 0.9% [Saline Flush] 2.5 ml FLUSH ASDIRECTED PRN Saline Lock Insert [OM.PC] Stat
[2020-12-16 03:17] LABS: BLOOD UREA NITROGEN,BUN 17 mg/dL (7.0-18.0); CARBON DIOXIDE,CO2 26.4 mmol/L (21.0-32.0); CHLORIDE,CL 102 mmol/L (98-107); GLUCOSE RANDOM 110 mg/dL (74-106); SODIUM,NA 138 mmol/L (136-148)
--- NOTE | 2020-12-16 04:17 | CT ---
INDICATION: Left flank pain. COMPARISON: Pet/CT scan from 12/13/2020 TECHNIQUE: CT examination of the abdomen and pelvis was performed without contrast enhancement using 2.5 mm thick axial sections from the lung bases through the pubic symphysis. Oral contrast was not administered. Please note that all CT scans at this facility use dose modulation, iterative reconstruction, and/or weight-based dosing when appropriate to reduce radiation dose to as low as reasonably achievable. FINDINGS: In the abdomen, the unenhanced liver, spleen, pancreas, and adrenals are normal in appearance. The unenhanced kidneys are normal in appearance. There is minimal cholelithiasis, with single tiny punctate dependent calculus in the gallbladder, not seen on the previous study. There is no sign of acute cholecystitis, with no sign of gallbladder wall thickening or pericholecystic fluid. The abdominal aorta is normal in caliber with no sign of dilatation. There is no sign of retroperitoneal mass or adenopathy. Again seen is prominent thickening of the wall of the inferior thoracic esophagus extending to the GE junction, consistent with esophageal malignancy. Again seen is the right paracentral lymph node with short axis diameter of 1.9 centimeters. The stomach, loops of small bowel, and colon in the abdomen are normal in appearance. Again seen is the moderate sized fat containing left periumbilical hernia. In the pelvis, the retrocecal appendix is normal in appearance with no sign of inflammatory process. There is mild distal descending and proximal sigmoid diverticulosis without evidence of diverticulitis. The loops of small bowel and colon in the pelvis are otherwise normal in appearance. The prostate remains prominently enlarged but is otherwise normal in appearance. The urinary bladder is normal in appearance. There is no sign of pelvic or inguinal mass or adenopathy. Again seen are the moderate-sized bilateral fat containing inguinal hernias. There is no sign of free air or free fluid in the abdomen or pelvis. The lung bases are clear. There is no change in moderate L5-S1 disc degenerative disease. IMPRESSION: Nothing seen to explain the patient`s left flank pain. No sign of left urinary system calculi or obstruction. There is mild diverticulosis of the distal descending and proximal sigmoid colon, with no sign of diverticulitis. CT of the abdomen shows new minimal cholelithiasis with no sign of acute cholecystitis. CT of the pelvis shows stable moderate left periumbilical and moderate bilateral inguinal hernias containing only fat. Stable prominent enlargement of the prostate. Stable prominent thickening of the wall of the distal thoracic esophagus extending to the GE junction consistent with esophageal malignancy. Please note that all CT scans at this facility use dose modulation, iterative reconstruction, and/or weight-based dosing when appropriate to reduce radiation dose to as low as reasonably achievable. Dictated by Kosta Trinidad MD @ Dec 16 2020 4:07AM Signed by Dr. Kosta Trinidad @ Dec 16 2020 4:16AM
[2020-12-16 04:59] VITALS: BP 111/60; PULSE 62
== END 2020-12-16 04:45 | disposition home or self-care (01) ==
LOC: MW.ED 02:40
DX: M54.5 Low back pain (principal); D64.9 Anemia, unspecified; C15.9 Malignant neoplasm of esophagus, unspecified; R31.9 Hematuria, unspecified; I10 Essential (primary) hypertension; E78.00 Pure hypercholesterolemia, unspecified; N40.0 Benign prostatic hyperplasia without lower urinary tract symptoms; K21.9 Gastro-esophageal reflux disease without esophagitis; Z86.73 Personal history of transient ischemic attack (TIA), and cerebral infarction without residual deficits; Z87.891 Personal history of nicotine dependence
CPT/HCPCS: 36415; 74176; 80053; 81001; 85025; 96374; 96375; 99284; A9270; J1885; J2405; J3010; J7030; 99283

== ENCOUNTER 2021-03-19 01:03 | Emergency (ER) | payer MEDICARE, MEDICAID ==
[2021-03-19] MEDS ORDERED: Sodium Chloride 0.9% 10 ML Syringe FLUSH PRN (01:40)
[2021-03-19] MEDS ORDERED: Sodium Chloride 0.9% 2.5 ML Syringe FLUSH PRN (01:40)
[2021-03-19] MEDS ORDERED: Sodium Chloride 0.9% 1,000 ML IV ONE (01:40)
[2021-03-19 02:04] LABS: BLOOD UREA NITROGEN,BUN 17 mg/dL (7.0-18.0); CARBON DIOXIDE,CO2 27.3 mmol/L (21.0-32.0); CHLORIDE,CL 99 mmol/L (98-107); GLUCOSE RANDOM 111 mg/dL (74-106); LIPASE 66 U/L (73-393); POTASSIUM,K 4.1 mmol/L (3.5-5.1); SODIUM,NA 135 mmol/L (136-148)
[2021-03-19 03:38] VITALS: BP 137/86; PULSE 87
--- NOTE | 2021-03-19 03:54 | EDM.PDOC ---
ED HPI GENERAL MEDICAL PROBLEM - General Chief Complaint: General Stated Complaint: DEHYDRATION Time Seen by Provider: 03/19/21 01:32 - History of Present Illness INITIAL COMMENTS - FREE TEXT/NARRATIVE: HISTORY AND PHYSICAL: History of present illness: This is a 71-year-old gentleman with a history significant for esophageal cancer who is currently receiving chemotherapy and has a G-tube in place for nutritional supplementation who presents ER today secondary to feeling increased dehydration that he believes is likely secondary to the heat. Patient reports he does have an air conditioner at home but was not using it. Patient reports he has been able to utilize his G-tube without difficulty has not been having any abdominal pain or vomiting. Patient reports he is able tolerate some liquids orally which is normal for him. Patient denies any recent fevers, shakes, chills, nausea, vomiting, diarrhea, dysuria, frequency, urgency, urinary changes, stool changes. Patient has any melena or bright red blood per rectum. Patient has any dizziness or syncopal episodes. Patient denies any chest discomfort. Review of systems: As per history of present illness and below otherwise all systems reviewed and negative. Past medical history: As per history of present illness and as reviewed below otherwise noncontributory. Surgical history: As per history of present illness and as reviewed below otherwise noncontr ibutory. Social history: No reported history of drug abuse. Family history: As per history of present illness and as reviewed below otherwise noncontributory. Physical exam: This patient was seen and evaluated during the 2019 SARS-CoV-2 novel coronavirus pandemic period. Community viral transmission is ongoing at time of this encounter and the emergency department is operating under pandemic response procedures. Constitutional: Patient is oriented to person, place, and time. Appears well- developed and well-nourished. No distress. HEENT: Moist mucous membranes Head: Normocephalic and atraumatic Eyes: Right eye exhibits no discharge. Left eye exhibits no discharge. No scleral icterus Neck: Normal range of motion. No tracheal deviation present. Cardiovascular: Normal rate and regular rhythm. Pulmonary: Effort normal, no respiratory distress. Abdominal: No distention Musculoskeletal: Normal range of motion Neurologic: Alert and oriented to person, place and time. Skin: [place], warm and dry. Psychiatric: Normal mood and affect. Behavior is normal. Judgment and thought content normal. Nursing note and vital signs have been reviewed Diagnostics: CBC, CMP, urinalysis within normal limits Therapeutics: NSS x1 L Assessment and plan: 71-year-old with a history of esophageal CA who presents ER today secondary to concerns of early dehydration. Patient clinically appears to be euvolemic and his labs are all within normal limits for him. Patient was given 1 L of NSS and does feel better. Patient be discharged home with instructions to resume his current nutritional plan and to follow-up with his doctor in the next 1 to 2 days. Reassessment at the time of disposition demonstrates that the patient is in no acute distress. The patient has remained stable throughout the entire ED visit and is without objective evidence for acute process requiring urgent intervention or hospitalization. The patient is stable for discharge, counseling is provided as documented above, discussed symptomatic treatment and specific conditions for return. I have spoken with the patient/caregiver and discussed todays findings, in addition to providing specific details for the plan of care. Questions are answered and there is agreement with the plan. Definitive disposition and diagnosis as appropriate pending reevaluation and review of above. - Related Data Allergies Allergy/AdvReac Type Severity Reaction Status Date / Time No Known Allergies Allergy Verified 03/19/21 01:35 Home Meds: Home Meds Metoprolol Succinate 50 mg PO BEDTIME 07/09/14 [History] Simvastatin [Zocor] 40 mg PO BEDTIME #30 tablet 07/10/14 [Rx] Finasteride 5 mg PO DAILY 11/03/20 [History] Omeprazole 40 mg PO DAILY 11/03/20 [History] hydroCHLOROthiazide [Hydrochlorothiazide] 25 mg PO DAILY 11/03/20 [History] Acetaminophen/HYDROcodone [Tok 325-5 MG] 1 tab PO Q6H PRN #12 tablet 12/16/20 [Rx] Cyclobenzaprine [Flexeril] 10 mg PO TID PRN #20 tab 12/16/20 [Rx] Past Medical History HEENT History: Reports: Other (See Below) Other HEENT History: has upper denture Cardiovascular History: Reports: High Cholesterol, Hypertension Respiratory History: Reports: Other (See Below) Other Respiratory History: smoker for many years- recently quit Gastrointestinal History: Reports: GERD, Hiatal Hernia Genitourinary History: Reports: BPH Neurological History: Reports: CVA Other Neuro History: 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 cleft pallet as child. Male Surgical History: Reports: Other (See Below) Other Male Surgeries/Procedures: Orchiectomy Social & Family History - Family History Family Medical History: No Pertinent Family History Cardiac: Reports: High Cholesterol, Hypertension, [place] Neurological: Reports: CVA - Caffeine Use Caffeine Use: Reports: None ED ROS GENERAL - Review of Systems Review Of Systems: See Below ED EXAM, GENERAL - Physical Exam Exam: See Below Course - Vital Signs Last Recorded V/S: Last Vital Signs Temp 98.7 F 03/19/21 01:10 Pulse 87 03/19/21 03:37 Resp 18 03/19/21 03:37 BP 137/86 03/19/21 03:37 Pulse Ox 97 03/19/21 03:37 - Orders/Labs/Meds Orders: Active Orders 24 hr Category Date Time Status Heparin Sodium [Heparin Lock Flush 100 Units/ML] Med 03/19/21 03:37 Active 500 units FLUSH ASDIRECTED PRN Sodium Chloride 0.9% [Saline Flush] Med 03/19/21 01:40 Active 10 ml FLUSH ASDIRECTED PRN Sodium Chloride 0.9% [Saline Flush] Med 03/19/21 01:40 Active 2.5 ml FLUSH ASDIRECTED PRN Saline Lock Insert [OM.PC] Stat Oth 03/19/21 01:40 Ordered Medication Orders Heparin Sodium (Porcine) (Heparin Sodium 100 Units/Ml 5 Ml Syringe) 500 units FLUSH ASDIRECTED PRN PRN Reason: DEACCESS PORT Sodium Chloride (Sodium Chloride 0.9% 10 Ml Syringe) 10 ml FLUSH ASDIRECTED PRN PRN Reason: Keep Vein Open Sodium Chloride (Sodium Chloride 0.9% 2.5 Ml Syringe) 2.5 ml FLUSH ASDIRECTED PRN PRN Reason: Keep Vein Open Labs: Laboratory Tests 03/19/21 03/19/21 03/19/21 Range/Units 01:20 01:20 02:03 WBC 2.91 L (4.0-11.0) K/uL RBC 2.91 L (4.50-5.90) M/uL Hgb 8.2 L (13.0-17.0) g/dL Hct 25.0 L (38.0-50.0) % MCV 85.9 (80.0-98.0) fL MCH 28.2 (27.0-32.0) pg MCHC 32.8 (31.0-37.0) g/dL Plt Count 493 H (150-400) K/uL MPV 8.80 (7.40-12.00) fL Add Manual Diff YES Neutrophils % (Manual) 72 (48.0-80.0) % Band Neutrophils % 4 % Lymphocytes % (Manual) 8 L (16.0-40.0) % Monocytes % (Manual) 16 H (0.0-15.0) % Nucleated RBC % 0.0 /100WBC Absolute Seg Neuts 2.1 (1.4-5.7) Band Neutrophils # 0.1 Lymphocytes # (Manual) 0.2 L (0.6-2.4) Monocytes # (Manual) 0.5 (0.0-0.8) Nucleated RBCs # 0 K/uL Sodium 135 L (136-148) mmol/L Potassium 4.1 (3.5-5.1) mmol/L Chloride 99 (98-107) mmol/L Carbon Dioxide 27.3 (21.0-32.0) mmol/L BUN 17 (7.0-18.0) mg/dL Creatinine 1.0 (0.8-1.3) mg/dL Est Cr Clr Drug Dosing 64.26 mL/min Estimated GFR (MDRD) > 60.0 ml/min Glucose 111 H (74-106) mg/dL Calcium 8.7 (8.5-10.1) mg/dL Total Bilirubin 0.3 (0.2-1.0) mg/dL AST 18 (15-37) IU/L ALT 17 (14-63) IU/L Alkaline Phosphatase 130 H (46-116) U/L Total Protein 6.4 (6.4-8.2) g/dL Albumin 2.6 L (3.4-5.0) g/dL Globulin 3.8 (2.6-4.0) g/dL Albumin/Globulin Ratio 0.7 L (0.9-1.6) Lipase 66 L (73-393) U/L Urine Color YELLOW Urine Appearance CLEAR Urine pH 8.0 (5.0-8.0) Ur Specific [place] 1.010 (1.001-1.035) Urine Protein NEGATIVE (NEGATIVE) mg/dL Urine Glucose (UA) NEGATIVE (NEGATIVE) mg/dL Urine Ketones NEGATIVE (NEGATIVE) mg/dL Urine Occult Blood NEGATIVE (NEGATIVE) Urine Nitrite NEGATIVE (NEGATIVE) Urine Bilirubin NEGATIVE (NEGATIVE) Urine Urobilinogen 0.2 (<2.0) EU/dL Ur Leukocyte Esterase NEGATIVE (NEGATIVE) Meds: Medications Generic Name Dose Route Start Last Admin Trade Name Freq PRN Reason Stop Dose Admin Heparin Sodium (Porcine) 500 units 03/19/21 03:37 Heparin Sodium 100 Units/Ml 5 Ml Syringe FLUSH ASDIRECTED PRN DEACCESS PORT Sodium Chloride 10 ml 03/19/21 01:40 Sodium Chloride 0.9% 10 Ml Syringe FLUSH ASDIRECTED PRN Keep Vein Open Sodium Chloride 2.5 ml 03/19/21 01:40 Sodium Chloride 0.9% 2.5 Ml Syringe FLUSH ASDIRECTED PRN Keep Vein Open Discontinued Medications Generic Name Dose Route Start Last Admin Trade Name Freq PRN Reason Stop Dose Admin Sodium Chloride 1,000 mls @ 999 mls/hr 03/19/21 01:40 03/19/21 02:00 Normal Saline IV 03/19/21 02:40 999 mls/hr .Bolus ONE Administration Departure - Departure Time of Disposition: 03:53 Disposition: Home, Self-Care 01 Condition: Good Clinical Impression: Dehydration Esophageal cancer Qualifiers: Malignant neoplasm of esophagus location: unspecified location Qualified Code(s): C15.9 - Malignant neoplasm of esophagus, unspecified - Discharge Information Instructions: Dehydration, Adult, [id number], Rehydration, Adult Referrals: Daniel Clement [Primary Care Provider] - Additional Instructions: You were seen and evaluated in the ER today secondary to concerns of dehydration. In the ER your labs were all within normal limits and you were given 1 L of normal saline through your IV. Please continue to push liquids and continue utilizing the G-tube as instructed by your physician. Please make an appointment see your doctor in the next 1 to 2 days for reevaluation. Please return to the ER if you have any new or concerning symptoms. The following information is given to patients seen in the emergency department who are being discharged to home. This information is to outline your options for follow-up care. We provide all patients seen in our emergency department with a follow-up referral. The need for follow-up, as well as the timing and circumstances, are variable depending upon the specifics of your emergency department visit. If you don't have a primary care physician on staff, we will provide you with a referral. We always advise you to contact your personal physician following an emergency department visit to inform them of the circumstance of the visit and for follow-up with them and/or the need for any referrals to a consulting specialist. The emergency department will also refer you to a specialist when appropriate. This referral assures that you have the opportunity for follow-up care with a specialist. All of these measure are taken in an effort to provide you with optimal care, which includes your follow-up. Under all circumstances we always encourage you to contact your private physician who remains a resource for coordinating your care. When calling for follow-up care, please make the office aware that this follow-up is from your recent emergency room visit. If for any reason you are refused follow-up, please contact the [facility] Emergency Department at and asked to speak to the emergency department charge nurse. [facility] [address] [place] [address] [place] [address] Sepsis Event Note (ED) - Evaluation Sepsis Screening Result: No Definite Risk - Focused Exam Vital Signs: Vital Signs Temp Pulse Resp BP Pulse Ox 03/19/21 03:37 87 18 137/86 97 03/19/21 01:10 98.7 F 106 H 18 138/61 96 - My Orders Last 24 Hours: My Active Orders 03/19/21 01:40 Sodium Chloride 0.9% [Saline Flush] 10 ml FLUSH ASDIRECTED PRN Sodium Chloride 0.9% [Saline Flush] 2.5 ml FLUSH ASDIRECTED PRN Saline Lock Insert [OM.PC] Stat 03/19/21 03:37 Heparin Sodium [Heparin Lock Flush 100 Units/ML] 500 units FLUSH ASDIRECTED PRN - Assessment/Plan Last 24 Hours: My Active Orders 03/19/21 01:40 Sodium Chloride 0.9% [Saline Flush] 10 ml FLUSH ASDIRECTED PRN Sodium Chloride 0.9% [Saline Flush] 2.5 ml FLUSH ASDIRECTED PRN Saline Lock Insert [OM.PC] Stat 03/19/21 03:37 Heparin Sodium [Heparin Lock Flush 100 Units/ML] 500 units FLUSH ASDIRECTED PRN
== END 2021-03-19 04:52 | disposition home or self-care (01) ==
LOC: MW.ED 01:03
DX: E86.0 Dehydration (principal); C15.9 Malignant neoplasm of esophagus, unspecified; E78.00 Pure hypercholesterolemia, unspecified; I10 Essential (primary) hypertension; K21.9 Gastro-esophageal reflux disease without esophagitis; Z79.899 Other long term (current) drug therapy
CPT/HCPCS: 36415; 36556; 80053; 81003; 83690; 85025; 99284; J1642; J7030; 99283

== ENCOUNTER 2021-04-12 06:43 | Day surgery (SDC) | payer MEDICARE, MEDICAID ==
[~2021-04-12 06:43] MED LIST: Lactated Ringers 1,000 ML IV SCH
[2021-04-12] MEDS ORDERED: Glycopyrrolate 0.2 MG/ML SDV ONE (07:07)
[2021-04-12] MEDS ORDERED: Propofol 200 MG/20 ML SDV ONE ×2 (07:08→07:55)
--- NOTE | 2021-04-12 07:33 | PCM.PREANE ---
Preanesthetic Assessment - Procedure Proposed Procedure: EGD - Anesthesia/Transfusion/Family Hx Anesthesia History: Prior Anesthesia Without Reaction Transfusion History: No Prior Transfusion(s) - Review of Systems General: No Symptoms Pulmonary: No Symptoms (H/O Smoking x 25yrs, quit x 3months, now smokes marijuana to temper effects of Chemo) Cardiovascular: No Symptoms (HTN, HLD) Gastrointestinal: Other (Currently being tx'd for esophogeal CA undergoing chemo, has G-tube and port-a-cath) Neurological: No Symptoms (H/O CVA, mild, no residual) Other: Reports: None - Physical Assessment NPO Status Date: 04/11/21 NPO Status Time: 23:59 Vital Signs: Last Vital Signs Temp 98.2 F 04/12/21 07:06 Pulse 102 H 04/12/21 07:06 Resp 18 04/12/21 07:06 BP 99/67 04/12/21 07:06 Pulse Ox 98 04/12/21 07:06 Height: 5 ft 7 in Weight: 72.575 kg ASA Class: 3 Mental Status: Alert & Oriented x3 Airway Class: Mallampati = 3 Dentition: Reports: Edentulous Thyro-Mental Finger Breadths: 3 Mouth Opening Finger Breadths: 3 ROM/Head Extension: Full Lungs: Clear to Auscultation, Normal Respiratory Effort Cardiovascular: Regular Rate, Regular Rhythm - Allergies Allergies/Adverse Reactions: Allergies Allergy/AdvReac Type Severity Reaction Status Date / Time No Known Allergies Allergy Verified 04/12/21 07:07 - Anesthesia Plan Beta Myron: Metoprolol Med Last Dose Date: 04/11/21 Med Last Dose Time: 08:00 - Acknowledgements Anesthesia Type Planned: General Anesthesia Pt an Appropriate Candidate for the Planned Anesthesia: Yes Alternatives and Risks of Anesthesia Discussed w Pt/Guardian: Yes Pt/Guardian Understands and Agrees with Anesthesia Plan: Yes PreAnesthesia Questionnaire HEENT History: Reports: Other (See Below) Other HEENT History: has upper denture Cardiovascular History: Reports: High Cholesterol, Hypertension Respiratory History: Reports: Other (See Below) Other Respiratory History: smoker for many years- recently quit Gastrointestinal History: Reports: GERD, Hiatal Hernia Other Gastrointestinal History: was told he has an umbilical hernia and bilateral inguinal hernias Genitourinary History: Reports: BPH Musculoskeletal History: Reports: Back Pain, Chronic, Fracture, Neck Pain, Chronic, Osteoarthritis Other Musculoskeletal History: has 5 herniated discs in back, hx of fx arm and clavicle as a child Neurological History: Reports: CVA Other Neuro History: 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 Psychiatric History: Reports: None Endocrine/Metabolic History: Reports: None Hematologic History: Reports: Anemia, Blood Transfusion(s) Immunologic History: Reports: None Oncologic (Cancer) History: Reports: Esophageal Other Oncologic History: has completed chemo and radiation therapy Dermatologic History: Reports: None - Infectious Disease History Infectious Disease History: Reports: Chicken Pox, Measles, Mumps - Past Surgical History Head Surgeries/Procedures: Reports: None HEENT Surgical History: Reports: Other (See Below) Other HEENT Surgeries/Procedures: ear surgery- possible Tympanoplasty, cleft palate repair- multiple procedures from to teenage years. cleft pallet as child. Cardiovascular Surgical History: Reports: Vascular Surgery Other Cardiovascular Surgeries/Procedures: insertion of port-a-cath right side Respiratory Surgical History: Reports: None GI Surgical History: Reports: Colonoscopy, Other (See Below) Other GI Surgeries/Procedures: insertion of gastrostomy tube Male Surgical History: Reports: Other (See Below) Other Male Surgeries/Procedures: Orchiectomy Endocrine Surgical History: Reports: None Neurological Surgical History: Reports: None Dermatological Surgical History: Reports: None - SUBSTANCE USE Tobacco Use Status *Q: Former Tobacco User Tobacco Use Within Last Twelve Months: Cigarettes Recreational Drug Use History: Yes Recreational Drug Type: Reports: Marijuana/Hashish - HOME MEDS Home Medications: Home Meds Metoprolol Succinate 25 mg PO BEDTIME 07/09/14 [History] Simvastatin [Zocor] 40 mg PO BEDTIME #30 tablet 07/10/14 [Rx] Finasteride 5 mg PO DAILY 11/03/20 [History] Omeprazole 40 mg PO DAILY 11/03/20 [History] - CURRENT (IN HOUSE) MEDS Current Meds: Current Medications Lactated Ringer's (Ringers, Lactated) 1,000 mls @ 125 mls/hr IV ASDIRECTED SHELBY Discontinued Medications Glycopyrrolate (Glycopyrrolate 0.2 Mg/Ml Sdv) Confirm Administered Dose 0.2 mg .ROUTE .STK-MED ONE Stop: 04/12/21 07:08 Lidocaine HCl (Lidocaine 1% 5 Ml Sdv) Confirm Administered Dose 5 ml .ROUTE .STK-MED ONE Stop: 04/12/21 07:08 Propofol (Propofol 200 Mg/20 Ml Sdv) Confirm Administered Dose 200 mg .ROUTE .STK-MED ONE Stop: 04/12/21 07:09
--- NOTE | 2021-04-12 08:11 | PCM.OPNOTE ---
- General Post-Op/Procedure Note Date of Surgery/Procedure: 04/12/21 Operative Procedure(s): EGD with biopsies Findings: he continues to have a nodularity in the distal esophagus. dictation number [id number] Pre Op Diagnosis: Esophageal cancer Post-Op Diagnosis: Esophageal cancer Primary Surgeon: Erick Moreno Pathology: biopsies Complications: None Condition: Good
--- NOTE | 2021-04-12 08:17 | PCM.POSTAN ---
POST ANESTHESIA ASSESSMENT - MENTAL STATUS Mental Status: Alert - VITAL SIGNS Vital Signs: Last Vital Signs Temp 98.2 F 04/12/21 07:06 Pulse 99 04/12/21 08:10 Resp 15 04/12/21 08:10 BP 99/56 L 04/12/21 08:10 Pulse Ox 93 L 04/12/21 08:10 - RESPIRATORY Respiratory Status: Respiratory Rate WNL, Airway Patent, O2 Saturation Stable - CARDIOVASCULAR CV Status: Pulse Rate WNL, Blood Pressure Stable - GASTROINTESTINAL GI Status: No Symptoms - PAIN Pain Score: 0 - POST OP HYDRATION Hydration Status: Adequate & Stable
--- NOTE | 2021-04-12 08:20 | PCM48HPAN ---
Post Anesthesia Note - EVALUATION WITHIN 48HRS OF ANESTHETIC Vital Signs in Normal Range: Yes Patient Participated in Evaluation: Yes Respiratory Function Stable: Yes Airway Patent: Yes Cardiovascular Function Stable: Yes Hydration Status Stable: Yes Pain Control Satisfactory: Yes Nausea and Vomiting Control Satisfactory: Yes Mental Status Recovered: Yes Vital Signs: Last Vital Signs Temp 98.2 F 04/12/21 07:06 Pulse 99 04/12/21 08:10 Resp 15 04/12/21 08:10 BP 99/56 L 04/12/21 08:10 Pulse Ox 93 L 04/12/21 08:10 - COMMENTS/OBSERVATIONS Free Text/Narrative:: Pt doing well post-op. VSS. No apparent anesthetic complications. Dr. Oral Esparza
--- NOTE | 2021-04-12 09:36 | OR ---
SURGEON: LILLY SWARTZ MD DATE OF PROCEDURE: 04/12/2021 PREOPERATIVE DIAGNOSIS: Esophageal cancer. POSTOPERATIVE DIAGNOSIS: Esophageal cancer. PROCEDURE PERFORMED: Esophagogastroduodenoscopy with biopsies. PRIMARY SURGEON: Lilly Swartz MD ANESTHESIA: With anesthesiologist. EXTENT OF EGD: To the second part of the duodenum. FINDINGS: Good interval reduction of esophageal cancer with chemoradiation. Still had some nodularity of the distal esophagus. REASON FOR PROCEDURE: The patient is a pleasant 71-year-old gentleman who was found to have esophageal cancer. Since then, he has underwent chemoradiation and PEG tube placement. This is a followup EGD. The patient says he is still having issues with swallowing and still remains mainly on his PEG tube for nutrition. PROCEDURE IN DETAIL: Physical examination was performed. The major risks and benefits associated with the procedure were explained to the patient in detail. The patient verbalized understanding of the same. The patient then connected to proper monitoring device and IV started. EKG, pulse, pulse oximetry, blood pressure, and capnography were monitored throughout the procedure. Continuous oxygen and sedation were provided by the anesthesiologist. After a time-out was performed, an upper endoscope was advanced under direct visualization without difficulty in the upper GI tract and mucosa of the esophagus, GE junction, stomach, pylorus, and to at least the second part of duodenum were inspected. Duodenum appeared normal. Scope was brought to the stomach. Both retro and antegrade views were done. He did have a G-tube in place. The patient did have mild gastritis and irritation. This was slightly more prominent up in the fundus close to the GE junction, potentially secondary to radiation. I did do random biopsies. GE junction was approximately 40 cm from where his incisors would be. His GE junction and distal esophagus had great reduction of tumor load from before. He still had some nodularity. I did do multiple random biopsies of the distal esophagus. The nodularity went from about 40 cm to about 35 cm and then the esophagus had an irritated look to it to about 30 cm from where his incisors would be. The rest of his proximal esophagus appeared normal. Again, I did multiple biopsies from the GE junction to about 30 cm. Scope was brought into the stomach. The stomach was desufflated. Scope was brought to the esophagus. There was good hemostasis at the biopsy sites. The scope was then completely removed and procedure was terminated. ENDOSCOPIC DIAGNOSIS: The patient appeared to have a good response to the chemoradiation. He still has some nodularity in the distal esophagus from about 35 to 40 cm. RECOMMENDATIONS: I did speak with the patient and . They are planning to see the oncological surgeon for a possible esophagectomy. The patient will follow up in clinic to go over the pathology. LORI / ARIAN /[id number] CATHY
[2021-04-12 10:47] VITALS: BP 99/60; PULSE 96
== END 2021-04-12 09:20 | disposition home or self-care (01) ==
LOC: MW.SDS 06:43
PROVIDERS: ATTEND Surgery
DX: C15.9 Malignant neoplasm of esophagus, unspecified (principal); K29.50 Unspecified chronic gastritis without bleeding; K29.00 Acute gastritis without bleeding; D64.9 Anemia, unspecified; I10 Essential (primary) hypertension; E78.2 Mixed hyperlipidemia; Z79.899 Other long term (current) drug therapy; Z98.890 Other specified postprocedural states; Z87.891 Personal history of nicotine dependence; Z86.73 Personal history of transient ischemic attack (TIA), and cerebral infarction without residual deficits
CPT/HCPCS: 43239; J2704; J3490; J7120; 00731; 99100

== ENCOUNTER 2021-04-14 23:05 | Emergency (ER) | payer MEDICARE, MEDICAID ==
[2021-04-15 00:18] VITALS: BP 113/69; PULSE 101
--- NOTE | 2021-04-15 00:24 | EDM.PDOC ---
ED HPI GENERAL MEDICAL PROBLEM - General Chief Complaint: Genitourinary Problem Stated Complaint: RECENT SEIZURE, NEEDS CHECK UP Time Seen by Provider: 04/15/21 00:07 Source of Information: Reports: Patient History Limitations: Reports: No Limitations - History of Present Illness INITIAL COMMENTS - FREE TEXT/NARRATIVE: Patient is a 8-year-old male brought in today for urinary retention. He had an endoscopy done a few days ago since then he has not been able to urinate. He said some fullness in the lower abdomen. He is able to get a few drops out but is not a for urination and and a half. He denies any nausea vomiting fever chills or other complaints. - Related Data Allergies Allergy/AdvReac Type Severity Reaction Status Date / Time No Known Allergies Allergy Verified 04/12/21 07:07 Home Meds: Home Meds Metoprolol Succinate 25 mg PO BEDTIME 07/09/14 [History] Simvastatin [Zocor] 40 mg PO BEDTIME #30 tablet 07/10/14 [Rx] Finasteride 5 mg PO DAILY 11/03/20 [History] Omeprazole 40 mg PO DAILY 11/03/20 [History] Past Medical History HEENT History: Reports: Hard of Hearing, Other (See Below) Other HEENT History: has upper denture Cardiovascular History: Reports: High Cholesterol, Hypertension Respiratory History: Reports: Other (See Below) Other Respiratory History: smoker for many years- recently quit Gastrointestinal History: Reports: GERD, Helicobacter Pylori, Hiatal Hernia Other Gastrointestinal History: was told he has an umbilical hernia and bilateral inguinal hernias Genitourinary History: Reports: BPH Musculoskeletal History: Reports: Back Pain, Chronic, Fracture, Neck Pain, Chronic, Osteoarthritis Other Musculoskeletal History: has 5 herniated discs in back, hx of fx arm and clavicle as a child Neurological History: Reports: CVA Other Neuro History: 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 Social & Family History - Family History Family Medical History: No Pertinent Family History Cardiac: Reports: High Cholesterol, Hypertension, [place] Neurological: Reports: CVA - Caffeine Use Caffeine Use: Reports: None ED ROS GENERAL - Review of Systems Review Of Systems: See Below Constitutional: Reports: No Symptoms HEENT: Reports: No Symptoms Respiratory: Reports: No Symptoms Cardiovascular: Reports: No Symptoms Endocrine: Reports: No Symptoms GI/Abdominal: Reports: No Symptoms : Reports: Urinary Retention Musculoskeletal: Reports: No Symptoms Skin: Reports: No Symptoms Neurological: Reports: No Symptoms Psychiatric: Reports: No Symptoms Hematologic/Lymphatic: Reports: No Symptoms Immunologic: Reports: No Symptoms ED EXAM, RENAL/ - Physical Exam Exam: See Below Exam Limited By: No Limitations General Appearance: Alert, WD/WN, No Apparent Distress Neck: Normal Inspection Respiratory/Chest: No Respiratory Distress, Lungs Clear Cardiovascular: Normal Peripheral Pulses, Regular Rate, Rhythm GI/Abdominal: Normal Bowel Sounds, Soft, Non-Tender Extremities: Normal Inspection, Normal Range of Motion Neurological: Alert, Oriented, Normal Cognition Course - Vital Signs Last Recorded V/S: Last Vital Signs Temp 96.9 F 04/15/21 00:17 Pulse 101 H 04/15/21 00:17 Resp 20 04/15/21 00:17 BP 113/69 04/15/21 00:17 Pulse Ox 97 04/15/21 00:17 - Orders/Labs/Meds Orders: Active Orders 24 hr Category Date Time Status Bladder Scan [RC] ASDIRECTED Care 04/15/21 00:21 Active Insert Leone Catheter [Insert Urinary Catheter] [OM.PC] Care 04/15/21 00:30 Ordered Q24H Urinary Catheter Assessment [RC] ASDIRECTED Care 04/15/21 00:25 Active Labs: Laboratory Tests 04/15/21 04/15/21 04/15/21 Range/Units 00:50 01:05 01:05 WBC 3.98 L (4.0-11.0) K/uL RBC 3.02 L (4.50-5.90) M/uL Hgb 9.1 L (13.0-17.0) g/dL Hct 28.9 L (38.0-50.0) % MCV 95.7 (80.0-98.0) fL MCH 30.1 (27.0-32.0) pg MCHC 31.5 (31.0-37.0) g/dL RDW Std Deviation 76.3 H (28.0-62.0) fl RDW Coeff of Myrna 22 H (11.0-15.0) % Plt Count 371 (150-400) K/uL MPV 8.60 (7.40-12.00) fL Neut % (Auto) 73.8 (48.0-80.0) % Lymph % (Auto) 4.3 L (16.0-40.0) % [place] % (Auto) 14.3 (0.0-15.0) % Eos % (Auto) 7.3 H (0.0-7.0) % Baso % (Auto) 0.3 (0.0-1.5) % Neut # (Auto) 2.9 (1.4-5.7) K/uL Lymph # (Auto) 0.2 L (0.6-2.4) K/uL [place] # (Auto) 0.6 (0.0-0.8) K/uL Eos # (Auto) 0.3 (0.0-0.7) K/uL Baso # (Auto) 0.0 (0.0-0.1) K/uL Sodium 136 (136-148) mmol/L Potassium 4.6 (3.5-5.1) mmol/L Chloride 98 (98-107) mmol/L Carbon Dioxide 31.3 (21.0-32.0) mmol/L BUN 26 H (7.0-18.0) mg/dL Creatinine 1.1 (0.8-1.3) mg/dL Est Cr Clr Drug Dosing 58.42 mL/min Estimated GFR (MDRD) > 60.0 ml/min Glucose 106 (74-106) mg/dL Calcium 8.9 (8.5-10.1) mg/dL Urine Color YELLOW Urine Appearance CLEAR Urine pH 6.0 (5.0-8.0) Ur Specific [place] 1.020 (1.001-1.035) Urine Protein NEGATIVE (NEGATIVE) mg/dL Urine Glucose (UA) NEGATIVE (NEGATIVE) mg/dL Urine Ketones NEGATIVE (NEGATIVE) mg/dL Urine Occult Blood TRACE-INTACT H (NEGATIVE) Urine Nitrite NEGATIVE (NEGATIVE) Urine Bilirubin NEGATIVE (NEGATIVE) Urine Urobilinogen 0.2 (<2.0) EU/dL Ur Leukocyte Esterase NEGATIVE (NEGATIVE) Urine RBC 1-3 (0-2/HPF) Urine WBC 0-1 (0-5/HPF) Ur Epithelial Cells RARE (NONE-FEW) Urine Bacteria RARE (NEGATIVE) - Re-Assessments/Exams Free Text/Narrative Re-Assessment/Exam: 04/15/21 01:35 Labs we placed a leg bag patient will be discharged follow-up with PMD Departure - Departure Time of Disposition: 01:35 Disposition: Home, Self-Care 01 Condition: Good Clinical Impression: Urinary retention - Discharge Information *PRESCRIPTION DRUG MONITORING PROGRAM REVIEWED*: Not Applicable *COPY OF PRESCRIPTION DRUG MONITORING REPORT IN PATIENT CHELO: Not Applicable Instructions: Acute Urinary Retention, Male, [id number] Referrals: Zaida Pfeiffer MD [Primary Care Provider] - Forms: ED Department Discharge Additional Instructions: The following information is given to patients seen in the emergency department who are being discharged to home. This information is to outline your options for follow-up care. We provide all patients seen in our emergency department with a follow-up referral. The need for follow-up, as well as the timing and circumstances, are variable depending upon the specifics of your emergency department visit. If you don't have a primary care physician on staff, we will provide you with a referral. We always advise you to contact your personal physician following an emergency department visit to inform them of the circumstance of the visit and for follow-up with them and/or the need for any referrals to a consulting specialist. The emergency department will also refer you to a specialist when appropriate. This referral assures that you have the opportunity for follow-up care with a specialist. All of these measure are taken in an effort to provide you with optimal care, which includes your follow-up. Under all circumstances we always encourage you to contact your private physician who remains a resource for coordinating your care. When calling for follow-up care, please make the office aware that this follow-up is from your recent emergency room visit. If for any reason you are refused follow-up, please contact the [facility] Emergency Department at and asked to speak to the emergency department charge nurse. Please follow up with your primary care physician. If you do not have a primary care physician, see below: [facility] [address] [place], [place] [id number] My [facility] [address] [place] [address] Urology Location [address] [place] [address] 5th Floor You were seen today for urinary retention. We placed a Leone to help with the some of the urine in your bladder. You need to have this taken out either by your primary care physician or urologist. We placed a number for urology to follow-up with in my not otherwise also try to call your primary care physician to see if they can deal with this as well. If you have any other symptoms or complaints please return to the ED. Sepsis Event Note (ED) - Focused Exam Vital Signs: Vital Signs Temp Pulse Resp BP Pulse Ox 04/15/21 00:17 96.9 F 101 H 20 113/69 97 - My Orders Last 24 Hours: My Active Orders 04/15/21 00:21 Bladder Scan [RC] ASDIRECTED 04/15/21 00:25 Urinary Catheter Assessment [RC] ASDIRECTED 04/15/21 00:30 Insert Leone Catheter [Insert Urinary Catheter] [OM.PC] Q24H - Assessment/Plan Last 24 Hours: My Active Orders 04/15/21 00:21 Bladder Scan [RC] ASDIRECTED 04/15/21 00:25 Urinary Catheter Assessment [RC] ASDIRECTED 04/15/21 00:30 Insert Leone Catheter [Insert Urinary Catheter] [OM.PC] Q24H Plan: Patient is a 8-year-old male presents today for urinary retention. Patient had a recent procedure day and half ago has not urinated since then. Will attempt bladder scan and Likely Place, Leone.
[2021-04-15 01:26] LABS: BLOOD UREA NITROGEN,BUN 26 mg/dL (7.0-18.0); CARBON DIOXIDE,CO2 31.3 mmol/L (21.0-32.0); CHLORIDE,CL 98 mmol/L (98-107); GLUCOSE RANDOM 106 mg/dL (74-106); POTASSIUM,K 4.6 mmol/L (3.5-5.1); SODIUM,NA 136 mmol/L (136-148)
== END 2021-04-15 01:50 | disposition home or self-care (01) ==
LOC: MW.ED 23:05
DX: N40.1 Benign prostatic hyperplasia with lower urinary tract symptoms (principal); R33.8 Other retention of urine; I10 Essential (primary) hypertension; E78.00 Pure hypercholesterolemia, unspecified; K21.9 Gastro-esophageal reflux disease without esophagitis; Z87.891 Personal history of nicotine dependence; Z79.899 Other long term (current) drug therapy
CPT/HCPCS: 36415; 51702; 80048; 81001; 85025; 99284-25

== ENCOUNTER 2021-04-15 11:34 | Emergency (ER) | payer MEDICARE, MEDICAID ==
[2021-04-15 12:07] VITALS: PULSE 111
--- NOTE | 2021-04-15 12:09 | EDM.PDOC ---
ED HPI GENERAL MEDICAL PROBLEM - General Chief Complaint: Genitourinary Problem Stated Complaint: WANTS CATH OUT Time Seen by Provider: 04/15/21 11:44 - History of Present Illness INITIAL COMMENTS - FREE TEXT/NARRATIVE: HISTORY AND PHYSICAL: History of present illness: This is a 71-year-old gentleman with history significant for esophageal CA who presents ER today for evaluation of his Leone catheter. Patient and his jordin martin here requesting removal of his catheter that was placed in the ED yesterday secondary to urinary retention. It appears that the patient did have an endoscopy done approximately 3 days ago and shortly thereafter he started retaining urine finally came to the ED last night and had a catheter placed. Patient reports that he is planning on going on a train ride to [place] and does not want the catheter in place because it is cumbersome and falling out of his pants. Patient denies any other symptomatology at this time. Patient has any recent fevers, shakes, chills, nausea, vomiting, diarrhea, abdominal pain. Review of systems: As per history of present illness and below otherwise all systems reviewed and negative. Past medical history: As per history of present illness and as reviewed below otherwise noncontributory. Surgical history: As per history of present illness and as reviewed below otherwise noncontributory. Social history: No reported history of drug abuse. Family history: As per history of present illness and as reviewed below otherwise noncontributory. Physical exam: This patient was seen and evaluated during the 2019 SARS-CoV-2 novel coronavirus pandemic period. Community viral transmission is ongoing at time of this encounter and the emergency department is operating under pandemic response procedures. Constitutional: Patient is oriented to person, place, and time. Appears well- developed and well-nourished. No distress. HEENT: Moist mucous membranes Head: Normocephalic and atraumatic Eyes: Right eye exhibits no discharge. Left eye exhibits no discharge. No scleral icterus Neck: Normal range of motion. No tracheal deviation present. Cardiovascular: Normal rate and regular rhythm. Pulmonary: Effort normal, no respiratory distress. Abdominal: No distention Musculoskeletal: Normal range of motion Neurologic: Alert and oriented to person, place and time. Skin: [place], warm and dry. Psychiatric: Normal mood and affect. Behavior is normal. Judgment and thought content normal. Nursing note and vital signs have been reviewed Diagnostics: [] Therapeutics: [] Assessment and plan: This is a 71-year-old gentleman who is requesting removal of his Leone catheter because of it being cumbersome. I have had a long discussion with the patient and his that I would recommend the catheter stay and since it was just placed yesterday and I would be concerned about urinary retention issues during a long train ride. They are in agreement with the plan to keep it in however they are requesting assistance with instructions on utilizing the catheter. On evaluation, the patient has a Leone catheter in a Leone bag in place to his right leg that keeps falling out of his pants. This will be changed over to a leg bag and they will be given clear instructions on how to change and use the bag. Definitive disposition and diagnosis as appropriate pending reevaluation and review of above. - Related Data Allergies Allergy/AdvReac Type Severity Reaction Status Date / Time No Known Allergies Allergy Verified 04/15/21 12:04 Home Meds: Home Meds Metoprolol Succinate 25 mg PO BEDTIME 07/09/14 [History] Simvastatin [Zocor] 40 mg PO BEDTIME #30 tablet 07/10/14 [Rx] Finasteride 5 mg PO DAILY 11/03/20 [History] Omeprazole 40 mg PO DAILY 11/03/20 [History] Past Medical History HEENT History: Reports: Hard of Hearing, Other (See Below) Other HEENT History: has upper denture Cardiovascular History: Reports: High Cholesterol, Hypertension Respiratory History: Reports: Other (See Below) Other Respiratory History: smoker for many years- recently quit Gastrointestinal History: Reports: GERD, Helicobacter Pylori, Hiatal Hernia Other Gastrointestinal History: was told he has an umbilical hernia and bilateral inguinal hernias Genitourinary History: Reports: BPH Musculoskeletal History: Reports: Back Pain, Chronic, Fracture, Neck Pain, Chronic, Osteoarthritis Other Musculoskeletal History: has 5 herniated discs in back, hx of fx arm and clavicle as a child Neurological History: Reports: CVA Other Neuro History: 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 Social & Family History - Family History Family Medical History: No Pertinent Family History Cardiac: Reports: High Cholesterol, Hypertension, [place] Neurological: Reports: CVA - Caffeine Use Caffeine Use: Reports: Coffee ED ROS GENERAL - Review of Systems Review Of Systems: See Below ED EXAM, GENERAL - Physical Exam Exam: See Below Departure - Departure Time of Disposition: 12:08 Disposition: Home, Self-Care 01 Condition: Good Clinical Impression: Urinary retention Leone catheter problem Qualifiers: Encounter type: subsequent encounter Qualified Code(s): T83.9XXD - Unspecified complication of genitourinary prosthetic device, implant and graft, subsequent encounter - Discharge Information Instructions: Indwelling Urinary Catheter Care, Adult, Acute Urinary Retention, Male Referrals: Zaida Pfeiffer MD [Primary Care Provider] - Additional Instructions: You were seen and evaluated in the ER today secondary to issues with your Leone catheter. We have replaced your Leone catheter bag with a leg bag and have given you instructions on how to utilize the leg bag. Please make an appointment to see urologist when you go to [place] so they can assist you with your Leone catheter and your urinary retention. The following information is given to patients seen in the emergency department who are being discharged to home. This information is to outline your options for follow-up care. We provide all patients seen in our emergency department wit h a follow-up referral. The need for follow-up, as well as the timing and circumstances, are variable depending upon the specifics of your emergency department visit. If you don't have a primary care physician on staff, we will provide you with a referral. We always advise you to contact your personal physician following an emergency department visit to inform them of the circumstance of the visit and for follow-up with them and/or the need for any referrals to a consulting specialist. The emergency department will also refer you to a specialist when appropriate. This referral assures that you have the opportunity for follow-up care with a specialist. All of these measure are taken in an effort to provide you with optimal care, which includes your follow-up. Under all circumstances we always encourage you to contact your private physician who remains a resource for coordinating your care. When calling for follow-up care, please make the office aware that this follow-up is from your recent emergency room visit. If for any reason you are refused follow-up, please contact the [facility] Emergency Department at and asked to speak to the emergency department charge nurse. [facility] - [facility] [address] [place] [address] [id number] [address] [id number]
[2021-04-15 12:21] VITALS: BP 102/73
== END 2021-04-15 12:20 | disposition home or self-care (01) ==
LOC: MW.ED 11:34
DX: Z46.6 Encounter for fitting and adjustment of urinary device (principal); I10 Essential (primary) hypertension; E78.00 Pure hypercholesterolemia, unspecified; K21.9 Gastro-esophageal reflux disease without esophagitis; Z87.891 Personal history of nicotine dependence; Z79.899 Other long term (current) drug therapy
CPT/HCPCS: 99283

== ENCOUNTER 2021-05-29 17:27 | Emergency (ER) | payer MEDICARE, MEDICAID ==
[2021-05-29] MEDS ORDERED: Lidocaine 2% Viscous Solution 15 ML Cup PO ONE (18:10)
--- NOTE | 2021-05-29 19:38 | EDM.PDOC ---
<Kana Guerrero - Last Filed: 05/29/21 19:38> ED HPI GENERAL MEDICAL PROBLEM - General Chief Complaint: General Stated Complaint: EMS ARRIVAL Time Seen by Provider: 05/29/21 17:34 - History of Present Illness INITIAL COMMENTS - FREE TEXT/NARRATIVE: CHIEF COMPLAINT(S): J-tube dislodged HISTORY OF PRESENT ILLNESS: This is a 71-year-old man without past medical history of esophageal cancer status post J-tube placement approximately 5 weeks ago who comes to the emergency department with a chief complaint of J-tube dislodged. The patient states that approximately 1 to 2 hours prior to arrival his J-tube was dislodged. He states that he is not experiencing any pain or bleeding. He states that he had it placed at [facility] via an operation. He has not had any issues since that time. He currently denies any other symptoms. REVIEW OF SYSTEMS: Constitutional: Denies fever, chills. Eyes: Denies eye pain Ears, Nose, Mouth, & Throat: Denies earache Cardiovascular: Denies chest pain Respiratory: Denies shortness of breath Gastrointestinal: Positive for J-tube dislodgment. Denies Nausea, vomiting, diarrhea, hematochezia. Genitourinary: Denies hematuria Skin:Denies a rash MSK: Denies joint pain Neurological: Denies blurred vision Psychiatric: Denies depression PAST MEDICAL HISTORY: As per history of present illness and as reviewed below otherwise noncontributory. SURGICAL HISTORY: As per history of present illness and as reviewed below otherwise noncontributory. SOCIAL HISTORY: As per history of present illness and as reviewed below otherwise noncontributory. FAMILY HISTORY: As per history of present illness and as reviewed below otherwise noncontributory. EXAMINATION OF ORGAN SYSTEMS/BODY AREAS: Constitutional: Blood pressure was 99/68, heart rate 68, respiratory rate 20 with an oxygen saturation of 94% on room air. Temperature 37.1 General: Well-appearing man who is in no acute distress Psychiatric: Appropriate mood and affect. Eyes: No scleral icterus or conjunctival erythema ENMT: Moist mucous membranes. No pharyngeal erythema Cardiovascular: Regular, rate, and rhythm. No gallops, murmurs, or rubs. Bilateral upper extremity pulses symmetric and intact. No peripheral edema. No JVD. Respiratory: Lungs clear to auscultation bilaterally. No wheezes, rales, or rhonchi. Gastrointestinal: Soft, non-tender, non-distended. Normoactive bowel sounds there is evidence of prior surgical sites on the abdomen which are well-healed without any surrounding erythema or induration. There is a stoma in the left quadrant of the abdomen which is not bleeding without any drainage. Genitourinary: No suprapubic tenderness Musculoskeletal: Normal range of motion. Skin: No lesions or abrasions. Neurological: Alert, GCS 15 MEDICAL DECISION MAKING AND COURSE IN THE ED WITH INTERPRETATION/REVIEW OF DIAGNOSTIC STUDIES: This is a 71-year-old man with a past medical history of esophageal cancer status post J-tube placement approximately 5 weeks ago who presents to the emergency department with a J-tube dislodgment. Given its recent placement I did contact [facility] and spoke with general surgeon Dr. Lindsay who stated that it is safe at this point to place a 14 Grenadian gastrostomy tube or Leone catheter in place. He stated that if the tube is unable to be placed that he needs to be transferred to a place with minimal IR capability. States that there are no other recommendations at this time. Therefore, I did discuss replacement with the patient. At this time in our hospital we do not have any 14 Grenadian gastrostomy tubes but we do have a 14 Grenadian Leone catheter. Therefore at this time I did discuss that I would like to place the Leone catheter. He was amenable to this plan. In order to help with pain and discomfort we will apply 2% viscous lidocaine to the area to help with the discomfort. Using a 14 Grenadian Leone catheter the catheter was inserted without any issue and 3 cc of fluid was instilled. Patient tolerated the procedure well. At the time of signout patient's x-ray for proper placement was pending. DISPOSITION: Patient was signed out to oncoming night team physician pending imaging to confirm proper placement CONDITION: Fair PROCEDURES: J-tube replacement FINAL IMPRESSION(S)/DIAGNOSES: 1. Acute J-tube dislodgment status post replacement Kana Guerrero M.D. Abdomen Pain Score (Numeric/FACES): 1 - Related Data Allergies Allergy/AdvReac Type Severity Reaction Status Date / Time No Known Allergies Allergy Verified 05/29/21 17:43 Home Meds: Home Meds Metoprolol Succinate 25 mg PO BEDTIME 07/09/14 [History] Simvastatin [Zocor] 40 mg PO BEDTIME #30 tablet 07/10/14 [Rx] Finasteride 5 mg PO DAILY 11/03/20 [History] Omeprazole 40 mg PO DAILY 11/03/20 [History] Past Medical History HEENT History: Reports: Hard of Hearing, Other (See Below) Other HEENT History: has upper denture Cardiovascular History: Reports: High Cholesterol, Hypertension Respiratory History: Reports: Other (See Below) Other Respiratory History: smoker for many years- recently quit Gastrointestinal History: Reports: GERD, Helicobacter Pylori, Hiatal Hernia Other Gastrointestinal History: was told he has an umbilical hernia and bilateral inguinal hernias Genitourinary History: Reports: BPH Musculoskeletal History: Reports: Back Pain, Chronic, Fracture, Neck Pain, Chronic, Osteoarthritis Other Musculoskeletal History: has 5 herniated discs in back, hx of fx arm and clavicle as a child Neurological History: Reports: CVA Other Neuro History: 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 Psychiatric History: Reports: None Endocrine/Metabolic History: Reports: None Hematologic History: Reports: Anemia, Blood Transfusion(s) Immunologic History: Reports: None Oncologic (Cancer) History: Reports: Esophageal Other Oncologic History: has completed chemo and radiation therapy Dermatologic History: Reports: None - Infectious Disease History Infectious Disease History: Reports: Chicken Pox, Measles, Mumps - Past Surgical History Head Surgeries/Procedures: Reports: None HEENT Surgical History: Reports: Other (See Below) Other HEENT Surgeries/Procedures: ear surgery- possible Tympanoplasty, cleft palate repair- multiple procedures from to teenage years. Cardiovascular Surgical History: Reports: Vascular Surgery Other Cardiovascular Surgeries/Procedures: insertion of port-a-cath right side Respiratory Surgical History: Reports: None GI Surgical History: Reports: Colonoscopy, Other (See Below) Other GI Surgeries/Procedures: insertion of gastrostomy tube Male Surgical History: Reports: Other (See Below) Other Male Surgeries/Procedures: Orchiectomy Endocrine Surgical History: Reports: None Neurological Surgical History: Reports: None Dermatological Surgical History: Reports: None Social & Family History - Family History Family Medical History: No Pertinent Family History Cardiac: Reports: High Cholesterol, Hypertension, [place] Neurological: Reports: CVA - Tobacco Use Second Hand Smoke Exposure: No - Caffeine Use Caffeine Use: Reports: None - Recreational Drug Use Recreational Drug Use: No ED ROS GENERAL - Review of Systems Review Of Systems: See Below ED EXAM, GENERAL - Physical Exam Exam: See Below Departure - Departure Disposition: Home, Self-Care 01 Clinical Impression: Complication of feeding tube, Feeding tube - Discharge Information Instructions: How to Care for a Feeding Tube Referrals: PCP,None [Primary Care Provider] - Forms: ED Department Discharge Additional Instructions: Your seen and evaluated in the ER today secondary to dislodgment of your feeding tube. A 14 Grenadian Leone was placed into your feeding tube site. The feeding tube placement was confirmed with the x-ray and appears to be functioning well. Please continue utilizing the feeding tubes as instructed by your doctor. Please give your doctor call in the morning to inform them of the events that have transpired and to see if have any further recommendations for you The following information is given to patients seen in the emergency department who are being discharged to home. This information is to outline your options for follow-up care. We provide all patients seen in our emergency department with a follow-up referral. The need for follow-up, as well as the timing and circumstances, are variable depending upon the specifics of your emergency department visit. If you don't have a primary care physician on staff, we will provide you with a referral. We always advise you to contact your personal physician following an emergency department visit to inform them of the circumstance of the visit and for follow-up with them and/or the need for any referrals to a consulting specialist. The emergency department will also refer you to a specialist when appropriate. This referral assures that you have the opportunity for follow-up care with a specialist. All of these measure are taken in an effort to provide you with optimal care, which includes your follow-up. Under all circumstances we always encourage you to contact your private physician who remains a resource for coordinating your care. When calling for follow-up care, please make the office aware that this follow-up is from your recent emergency room visit. If for any reason you are refused follow-up, please contact the [facility] Emergency Department at and asked to speak to the emergency department charge nurse. [facility] [address] [place] [address] [id number] [place] [address] Sepsis Event Note (ED) - Evaluation Sepsis Screening Result: No Definite Risk <ZafarSimone rodrigues - Last Filed: 05/29/21 20:31> ED HPI GENERAL MEDICAL PROBLEM - History of Present Illness INITIAL COMMENTS - FREE TEXT/NARRATIVE: 8:08 PM: Signout received from Dr. Guerrero at 7 PM. Patient had dislodgment of his j-tube. 14 Grenadian Leone catheter was inserted by Dr. Pearce and feeding tube placement was confirmed with KUB with Gastrografin. No extravasation identified on the x-ray. Patient at this time is clinically and hemodynamically stable for discharge to home. Patient was instructed on usage of the Leone catheter for his feedings. Patient will be discharged home with instructions to follow-up with his doctor this week for reevaluation if any further issues should arise. Discussed with radiology, there does appear to be a drop of contrast that they are concerned may not be within the bowel. The remainder of the contrast appears to be well aligning the intestinal lumen. This is likely a drop of contrast that is outside the patient and likely on his down from the administration of the contrast. I believe that this would be extremely unlikely secondary to intra-abdominal contrast given that the remainder of the contrast was within the intestinal lumen itself. Reassessment at the time of disposition demonstrates that the patient is in no acute distress. The patient has remained stable throughout the entire ED visit and is without objective evidence for acute process requiring urgent intervention or hospitalization. The patient is stable for discharge, counseling is provided as documented above, discussed symptomatic treatment and specific conditions for return. I have spoken with the patient/caregiver and discussed todays findings, in addition to providing specific details for the plan of care. Questions are answered and there is agreement with the plan. ED ROS GENERAL - Review of Systems Review Of Systems: See Below ED EXAM, GENERAL - Physical Exam Exam: See Below Course - Vital Signs Last Recorded V/S: Last Vital Signs Temp 98.7 F 05/29/21 17:33 Pulse 63 05/29/21 20:22 Resp 18 05/29/21 20:22 BP 108/65 05/29/21 20:22 Pulse Ox 97 05/29/21 20:22 - Orders/Labs/Meds Orders: Active Orders 24 hr Category Date Time Status Abdomen 1V Flat [CR] Stat Exams 05/29/21 18:59 Taken Meds: Medications Discontinued Medications Generic Name Dose Route Start Last Admin Trade Name Amber PRN Reason Stop Dose Admin Lidocaine HCl 15 ml 05/29/21 18:10 05/29/21 18:32 Lidocaine 2% Viscous Solution 15 Ml Cup PO 05/29/21 18:11 15 ml ONETIME ONE Administration Departure - Departure Time of Disposition: 20:10 Condition: Good Sepsis Event Note (ED) - Focused Exam Vital Signs: Vital Signs Temp Pulse Resp BP Pulse Ox 05/29/21 20:22 63 18 108/65 97 05/29/21 17:33 98.7 F 68 20 99/68 94 L
[2021-05-29 20:24] VITALS: BP 108/65; PULSE 63
--- NOTE | 2021-05-29 20:30 | CR ---
Indication: Jejunostomy tube placement Technique: KUB 2 view Comparison: None Findings/Impression: : Supine commercial relief driver view of the abdomen demonstrates a nonspecific bowel gas pattern. Residual oral contrast is seen within colonic diverticula in the descending colon. A second KUB was obtained after injection of contrast material through the patient`s J-tube. This image demonstrates contrast opacifying small bowel loops. There is a small teardrop shaped focus of contrast near the tip of the catheter. This may represent a small amount of extravasated contrast or small amount of contrast on the skin surface. This was discussed with Dr. Stephen at 8:28 p.m. on May 29, 2021. Dictated by Vibha Drummond MD @ 05/29/2021 8:28:40 PM (Electronically Signed)
== END 2021-05-29 20:23 | disposition home or self-care (01) ==
LOC: MW.ED 17:27
DX: K94.23 Gastrostomy malfunction (principal); E78.00 Pure hypercholesterolemia, unspecified; I10 Essential (primary) hypertension; K21.9 Gastro-esophageal reflux disease without esophagitis; Z86.73 Personal history of transient ischemic attack (TIA), and cerebral infarction without residual deficits; Z79.899 Other long term (current) drug therapy
CPT/HCPCS: 51702; 74018; 99283; A9270

== ENCOUNTER 2021-08-03 19:10 | Emergency (ER) | payer MEDICARE, MEDICAID ==
[2021-08-03] MEDS ORDERED: HYDROmorphone 1 MG/ML Syringe IVPUSH ONE (19:38)
[2021-08-03 19:55] LABS: CARBON DIOXIDE,CO2 18.5 mmol/L (21.0-32.0); POTASSIUM,K 4.1 mmol/L (3.5-5.1)
[2021-08-03] MEDS ORDERED: Lactated Ringers 1,000 ML IV SCH (20:15)
[2021-08-03] MEDS ORDERED: Iopamidol 755 MG/ML 500 ML Multipack Bottle IVPUSH STA (20:46)
--- NOTE | 2021-08-03 21:19 | CT ---
INDICATION: Indication: INDICATION: Left lower quadrant pain. COMPARISON: 05 April 2021. TECHNIQUE: 50 mL Isovue-370 IV contrast. FINDINGS: Moderately dilated distal visualized presumed gastric pull up. Uniform wall thickening and enhancement. Bilateral dependent pleural effusions. Mild low attenuation of liver parenchyma. Mildly hydropic enlarged gallbladder without filling defect or inflammation. Jejunostomy percutaneous tube. Mild bilateral hydronephrosis. No filling defects in the collecting system or ureters. Massive prostatomegaly. Left direct inguinal hernia. Bilateral spermatic cord fatty lipomas. Diverticula of the sigmoid colon without inflammation. Prominent atherosclerosis of the non aneurysmal aorta. Mild diffuse soft tissue edema. No peritoneal free fluid or free air. Prior umbilical hernia appears repaired. No acute bone finding. IMPRESSION: 1. No definite source for pain. Interval gastric pull up. Bilateral pleural effusions and bibasilar atelectasis. Fluid dilatation presumed gastric pull up. 2. Interval repair of umbilical hernia. 3. Chronic left inguinal hernia. 4. Massive prostatomegaly. Mild bilateral hydronephrosis. Please note that all CT scans at this facility use dose modulation, iterative reconstruction, and/or weight-based dosing when appropriate to reduce radiation dose to as low as reasonably achievable. Dictated by Naga Moore MD @ 08/03/2021 9:17:42 PM (Electronically Signed)
[2021-08-03 22:16] VITALS: BP 152/79; PULSE 76
== END 2021-08-03 22:17 | disposition home or self-care (01) ==
LOC: MW.ED 19:10
DX: N17.9 Acute kidney failure, unspecified (principal); E78.00 Pure hypercholesterolemia, unspecified; I10 Essential (primary) hypertension; K21.9 Gastro-esophageal reflux disease without esophagitis; N40.0 Benign prostatic hyperplasia without lower urinary tract symptoms; Z79.899 Other long term (current) drug therapy; Z86.73 Personal history of transient ischemic attack (TIA), and cerebral infarction without residual deficits; Z20.822 Contact with and (suspected) exposure to COVID-19
CPT/HCPCS: 36415; 74177; 80053; 82803; 83605; 85025; 85610; 96374; 99285; J1170; J7120; Q9967; U0002

== ENCOUNTER 2021-08-04 14:21 | Emergency (ER) | payer MEDICARE, MEDICAID ==
[2021-08-04 14:46] VITALS: PULSE 81
[2021-08-04] MEDS ORDERED: Sodium Chloride 0.9% 10 ML Syringe FLUSH PRN (15:04)
[2021-08-04] MEDS ORDERED: Sodium Chloride 0.9% 2.5 ML Syringe FLUSH PRN (15:04)
[2021-08-04] MEDS ORDERED: HYDROmorphone 2 MG/ML Syringe IVPUSH ONE (15:12)
[2021-08-04] MEDS ORDERED: Ondansetron 4 MG/2 ML SDV IVPUSH ONE (15:12)
--- NOTE | 2021-08-04 16:18 | EDM.PDOC ---
ED HPI GENERAL MEDICAL PROBLEM - General Chief Complaint: Abdominal Pain Stated Complaint: ABDOMINAL PAIN Time Seen by Provider: 08/04/21 14:43 Source of Information: Reports: Patient History Limitations: Reports: No Limitations - History of Present Illness INITIAL COMMENTS - FREE TEXT/NARRATIVE: HISTORY AND PHYSICAL: History of present illness: Patient is a 71-year-old male, with a medical history of esophageal cancer stage IV status post G-tube placement, who comes into the emergency room today with concern of pain around his G-tube site that has been ongoing ever since it was placed but has worsened over the past 1 week. Patient states he was seen here in the emergency room yesterday and states that he was offered admission to the hospital but declined it. Patient states he continues to have pain so came back here today requesting to increase his oxycodone dose from 5 mg to 10 mg. Patient denies any change in his pain from yesterday's evaluation. He states th at the tube is flushing appropriately and he is able to feed but states that he does have a "discomfort "with feedings but states this is not necessarily a pain. Patient denies fever, chills, chest pain, shortness of breath, or cough. Denies headache, neck stiff ness, change in vision, syncope, or near syncope. Denies nausea, vomiting, abdominal pain, diarrhea, constipation, or dysuria. Has not noted any blood in urine or stool. Patient has been eating and drinking appropriately. Review of systems: As per history of present illness and below otherwise all systems reviewed and negative. Past medical history: As per history of present illness and as reviewed below otherwise noncontributory. Surgical history: As per history of present illness and as reviewed below otherwise noncontri butory. Social history: See social history for further information Family history: As per history of present illness and as reviewed below otherwise noncontributory. Physical exam: General: Patient is alert, oriented, and in no acute distress. Patient sitting comfortably on exam table. Vitals stable and reviewed by me. HEENT: Atraumatic, normocephalic, pupils equal and reactive bilaterally, n egative for conjunctival pallor or scleral icterus, mucous membranes moist, throat clear, neck supple, nontender, trachea midline. No drooling or trismus noted. No meningeal signs. No hot potato voice noted. Lungs: Clear to auscultation, breath sounds equal bilaterally, chest nontender. Heart: S1S2, regular rate and rhythm without overt murmur Abdomen: Patient does have tenderness to palpation of the left-sided abdomen near the J-tube insertion site, the surrounding area of the J-tube is not erythematous, no purulent drainage, J-tube is easily flushable. No rebound or guarding. Otherwise, soft, nondistended, nontender. Negative for masses or hepatosplenomegaly. Negative for costovertebral tenderness. Pelvis: Stable nontender. Genitourinary: Deferred. Rectal: Deferred. Skin: Intact, warm, dry. No lesions or rashes noted. Extremities: Atraumatic, negative for cords or calf pain. Neurovascular unremarkable. Neuro: Awake, alert, oriented. Cranial nerves II through XII unremarkable. Cere bellum unremarkable. Motor and sensory unremarkable throughout. Exam nonfocal. Medical Decision Making: Patient is a 71-year-old male, with a past medical history of esophageal cancer stage IV with J-tube placement, comes to the emergency room today with concern of continued pain around his J-tube insertion site. Upon arrival to the ED, patient is vitally stable and well-appearing on exam. He does have a J-tube in place of the left side of his abdominal wall that is nonerythematous without drainage but does have pain to palpation of the surrounding site of insertion. Exam is otherwise unremarkable. The J-tube is easily flushable. On chart review, patient was seen last night in the emergency room on 08/03/2021. At that time, patient did have basic lab work which did show an acute kidney injury with BUN of 24 and creatinine of 1.9. Lab work was otherwise mild derangements unremarkable. Patient also had an abdominal pelvic CT scan which showed no definite source for pain. Interval gastric pull-up. Bilateral pleural effusions and bibasilar atelectasis. Fluid dilation presumed gastric pull up. Interval repair of umbilical hernia. Chronic left inguinal hernia. Massive prostatomegaly with mild bilateral hydronephrosis. Given that patient had received a full evaluation including abdominal pelvic CT scan last night, and does not express any change in his abdominal pain from evaluation last night, just continued symptoms with desire for pain control, do not see the need to repeat imaging at this time. However, will repeat basic lab work for comparison, provide therapeutics, and reassess patient. CBC does show anemia with RBC 3.16, hgb 10, hct 29.6 which in comparison to past labwork is not unusual for patient. Otherwise mild derangements of CBC unremarkable. CMP does continue to show worsening SAJAN with BUN 29/creat 2.3, otherwise mild derangements of CMP unremarkable. Of note, patient did receive IV contrast last night, unsure if worsening SAJAN secondary to contrast bolus vs intrarenal/post renal process (BUN/CR ratio 12.6). On imaging last night, patient did have mild bilateral hydronephrosis with massive prostatomegaly. Bedside bladder scan shows 60cc urine. Patient voided 50cc. Post void residual shows about 100CC urine. Due to the inconsistency of our bladder scanner multiple times, will place hyatt catheter to assess proper urine output. Hyatt catheter placed with 100CC urine output, no evidence for urinary retention due to prostatomegaly. Hyatt removed. On reevaluation of patient, he has improvement of his symptoms with therapeutics given today in the emergency room. Patient states he does have a significant prescription of oxycodone due to his cancer history but was not aware that he could take 2 tabs of oxycodone at a time to make 10 mg. I discussed trying this as patient needs and further discussing his pain management with his primary care provider/oncologist. I did discuss the importance for close follow-up with his primary care provider and oncologist in regards to his acute kidney injury. Strict return precautions thoroughly discussed with patient. Voices understanding and is agreeable to plan of care. Denies any further questions or concerns at this time. Diagnostics: CBC, CMP, lipase Therapeutics: Dilaudid, Zofran Prescription: None Impression: Abdominal pain Acute kidney injury Plan: 1. You can alternate ibuprofen and Tylenol as directed for pain and discomfort. You can take 2 of your Oxy 5/325's every 4-6 hours as directed for pain and discomfort. 2. Follow-up with your primary care provider/oncologist as discussed. Return to the ED as needed and as discussed. Definitive disposition and diagnosis as appropriate pending reevaluation and review of above. Right Lower Abdomen Pain Score (Numeric/FACES): 4 - Related Data Allergies Allergy/AdvReac Type Severity Reaction Status Date / Time No Known Allergies Allergy Verified 08/04/21 14:42 Home Meds: Home Meds Metoprolol Succinate 25 mg PO BEDTIME 07/09/14 [History] Simvastatin [Zocor] 40 mg PO BEDTIME #30 tablet 07/10/14 [Rx] Finasteride 5 mg PO DAILY 11/03/20 [History] Omeprazole 40 mg PO DAILY 11/03/20 [History] oxyCODONE 5 mg PO DAILY 08/04/21 [History] Past Medical History HEENT History: Reports: Hard of Hearing, Other (See Below) Other HEENT History: has upper denture Cardiovascular History: Reports: High Cholesterol, Hypertension Respiratory History: Reports: Other (See Below) Other Respiratory History: smoker for many years- recently quit Gastrointestinal History: Reports: GERD, Helicobacter Pylori, Hiatal Hernia Other Gastrointestinal History: was told he has an umbilical hernia and bilateral inguinal hernias Genitourinary History: Reports: BPH Musculoskeletal History: Reports: Back Pain, Chronic, Fracture, Neck Pain, Chronic, Osteoarthritis Other Musculoskeletal History: has 5 herniated discs in back, hx of fx arm and clavicle as a child Neurological History: Reports: CVA Other Neuro History: 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 Psychiatric History: Reports: None Endocrine/Metabolic History: Reports: None Hematologic History: Reports: Anemia, Blood Transfusion(s) Immunologic History: Reports: None Oncologic (Cancer) History: Reports: Esophageal Other Oncologic History: has completed chemo and radiation therapy Dermatologic History: Reports: None - Infectious Disease History Infectious Disease History: Reports: Chicken Pox, Measles, Mumps - Past Surgical History Head Surgeries/Procedures: Reports: None HEENT Surgical History: Reports: Other (See Below) Other HEENT Surgeries/Procedures: ear surgery- possible Tympanoplasty, cleft palate repair- multiple procedures from to teenage years. Cardiovascular Surgical History: Reports: Vascular Surgery Other Cardiovascular Surgeries/Procedures: insertion of port-a-cath right side Respiratory Surgical History: Reports: None GI Surgical History: Reports: Colonoscopy, Other (See Below) Other GI Surgeries/Procedures: insertion of gastrostomy tube Male Surgical History: Reports: Other (See Below) Other Male Surgeries/Procedures: Orchiectomy Endocrine Surgical History: Reports: None Neurological Surgical History: Reports: None Dermatological Surgical History: Reports: None Social & Family History - Family History Family Medical History: No Pertinent Family History Cardiac: Reports: High Cholesterol, Hypertension, [place] Neurological: Reports: CVA - Tobacco Use Tobacco Use Status *Q: Former Tobacco User Used Tobacco, but Quit: Yes Month/Year Tobacco Last Used: 1 - Caffeine Use Caffeine Use: Reports: None - Recreational Drug Use Recreational Drug Use: Yes Recreational Drug Type: Reports: Marijuana/Hashish ED ROS GENERAL - Review of Systems Review Of Systems: Comprehensive ROS is negative, except as noted in HPI. ED EXAM, GENERAL - Physical Exam Exam: See Below (see dictation) Course - Vital Signs Last Recorded V/S: Last Vital Signs Temp 96.8 F L 08/04/21 14:43 Pulse 81 08/04/21 14:43 Resp 16 08/04/21 14:43 BP 163/92 H 08/04/21 17:15 Pulse Ox 97 08/04/21 14:43 - Orders/Labs/Meds Orders: Active Orders 24 hr Category Date Time Status Saline Lock Insert [OM.PC] Stat Oth 08/04/21 15:04 Ordered Labs: Laboratory Tests 08/04/21 08/04/21 08/04/21 Range/Units 15:45 15:45 17:06 WBC 10.45 (4.0-11.0) K/uL RBC 3.16 L (4.50-5.90) M/uL Hgb 10.0 L (13.0-17.0) g/dL Hct 29.6 L (38.0-50.0) % MCV 93.7 (80.0-98.0) fL MCH 31.6 (27.0-32.0) pg MCHC 33.8 (31.0-37.0) g/dL RDW Std Deviation 51.8 (28.0-62.0) fl RDW Coeff of Myrna 15 (11.0-15.0) % Plt Count 353 (150-400) K/uL MPV 8.60 (7.40-12.00) fL Neut % (Auto) 88.7 H (48.0-80.0) % Lymph % (Auto) 4.3 L (16.0-40.0) % Schuyler % (Auto) 6.5 (0.0-15.0) % Eos % (Auto) 0.3 (0.0-7.0) % Baso % (Auto) 0.2 (0.0-1.5) % Neut # (Auto) 9.3 H (1.4-5.7) K/uL Lymph # (Auto) 0.5 L (0.6-2.4) K/uL Schuyler # (Auto) 0.7 (0.0-0.8) K/uL Eos # (Auto) 0.0 (0.0-0.7) K/uL Baso # (Auto) 0.0 (0.0-0.1) K/uL Nucleated RBC % 0.0 /100WBC Nucleated RBCs # 0 K/uL Sodium 137 (136-148) mmol/L Potassium 4.0 (3.5-5.1) mmol/L Chloride 99 (98-107) mmol/L Carbon Dioxide 25.1 (21.0-32.0) mmol/L BUN 29 H (7.0-18.0) mg/dL Creatinine 2.3 H (0.8-1.3) mg/dL Est Cr Clr Drug Dosing 24.93 mL/min Estimated GFR (MDRD) 28.3 ml/min Glucose 99 (74-106) mg/dL Calcium 9.4 (8.5-10.1) mg/dL Total Bilirubin 0.5 (0.2-1.0) mg/dL AST 22 (15-37) IU/L ALT 15 (14-63) IU/L Alkaline Phosphatase 170 H (46-116) U/L Total Protein 6.7 (6.4-8.2) g/dL Albumin 2.5 L (3.4-5.0) g/dL Globulin 4.2 H (2.6-4.0) g/dL Albumin/Globulin Ratio 0.6 L (0.9-1.6) Lipase 29 L (73-393) U/L Urine Color YELLOW Urine Appearance HAZY Urine pH 5.0 (5.0-8.0) Ur Specific Sellers 1.020 (1.001-1.035) Urine Protein NEGATIVE (NEGATIVE) mg/dL Urine Glucose (UA) NEGATIVE (NEGATIVE) mg/dL Urine Ketones TRACE H (NEGATIVE) mg/dL Urine Occult Blood TRACE-INTACT H (NEGATIVE) Urine Nitrite NEGATIVE (NEGATIVE) Urine Bilirubin SMALL H (NEGATIVE) Urine Urobilinogen 0.2 (<2.0) EU/dL Ur Leukocyte Esterase NEGATIVE (NEGATIVE) Urine RBC 0-2 (0-2/HPF) Urine WBC 0-3 (0-5/HPF) Ur Epithelial Cells RARE (NONE-FEW) Urine Bacteria 2+ H (NEGATIVE) Meds: Medications Discontinued Medications Generic Name Dose Route Start Last Admin Trade Name Freq PRN Reason Stop Dose Admin Heparin Sodium (Porcine) 500 units 08/04/21 18:43 08/04/21 18:48 Heparin Sodium 100 Units/Ml 5 Ml Syringe FLUSH 08/04/21 18:44 500 units ASDIRECTED STA Administration Hydromorphone HCl 0.5 mg 08/04/21 15:12 08/04/21 15:46 Hydromorphone 2 Mg/Ml Syringe IVPUSH 08/04/21 15:13 0.5 mg ONETIME ONE Administration Ondansetron HCl 4 mg 08/04/21 15:12 08/04/21 15:46 Ondansetron 4 Mg/2 Ml Sdv IVPUSH 08/04/21 15:13 4 mg ONETIME ONE Administration Sodium Chloride 10 ml 08/04/21 15:04 08/04/21 15:48 Sodium Chloride 0.9% 10 Ml Syringe FLUSH 10 ml ASDIRECTED PRN Administration Keep Vein Open Sodium Chloride 2.5 ml 08/04/21 15:04 08/04/21 15:48 Sodium Chloride 0.9% 2.5 Ml Syringe FLUSH 2.5 ml ASDIRECTED PRN Administration Keep Vein Open Departure - Departure Time of Disposition: 18:31 Disposition: Home, Self-Care 01 Clinical Impression: Acute kidney injury, Abdominal pain - Discharge Information Referrals: PCP,None [Primary Care Provider] - Forms: ED Department Discharge Additional Instructions: The following information is given to patients seen in the emergency department who are being discharged to home. This information is to outline your options for follow-up care. We provide all patients seen in our emergency department with a follow-up referral. The need for follow-up, as well as the timing and circumstances, are variable depending upon the specifics of your emergency department visit. If you don't have a primary care physician on staff, we will provide you with a referral. We always advise you to contact your personal physician following an emergency department visit to inform them of the circumstance of the visit and for follow-up with them and/or the need for any referrals to a consulting specialist. The emergency department will also refer you to a specialist when appropriate. This referral assures that you have the opportunity for follow-up care with a specialist. All of these measure are taken in an effort to provide you with optimal care, which includes your follow-up. Under all circumstances we always encourage you to contact your private p jauncian who remains a resource for coordinating your care. When calling for follow-up care, please make the office aware that this follow-up is from your recent emergency room visit. If for any reason you are refused follow-up, please contact the [facility] Emergency Department at and asked to speak to the emergency department charge nurse. [facility] [address] [place] [id number] [facility] [address] [place] [id number] 1. You can alternate ibuprofen and Tylenol as directed for pain and discomfort. You can take 2 of your Oxy 5/325's every 4-6 hours as directed for pain and discomfort. 2. Follow-up with your primary care provider/oncologist as discussed. Return to the ED as needed and as discussed. Sepsis Event Note (ED) - Evaluation Sepsis Screening Result: No Definite Risk - My Orders Last 24 Hours: My Active Orders 08/04/21 15:04 Saline Lock Insert [OM.PC] Stat - Assessment/Plan Last 24 Hours: My Active Orders 08/04/21 15:04 Saline Lock Insert [OM.PC] Stat
[2021-08-04 16:20] LABS: CARBON DIOXIDE,CO2 25.1 mmol/L (21.0-32.0)
[2021-08-04 17:15] VITALS: BP 163/92
== END 2021-08-04 18:59 | disposition home or self-care (01) ==
LOC: MW.ED 14:21
DX: N17.9 Acute kidney failure, unspecified (principal); E78.00 Pure hypercholesterolemia, unspecified; I10 Essential (primary) hypertension; Z79.899 Other long term (current) drug therapy; Z86.73 Personal history of transient ischemic attack (TIA), and cerebral infarction without residual deficits
CPT/HCPCS: 36415; 80053; 81001; 83690; 85025; 96374; 96375; 99284; J1170; J1642; J2405

== ENCOUNTER 2021-08-31 16:30 | Inpatient (IN) | payer MEDICARE, MEDICAID ==
[2021-08-31] MEDS ORDERED: Ondansetron 4 MG/2 ML SDV IVPUSH ONE ×2 (17:52→19:49)
[2021-08-31] MEDS ORDERED: Sodium Chloride 0.9% 1,000 ML IV ONE (17:52)
--- NOTE | 2021-08-31 18:13 | PCM.EKG ---
#1 Interpretation EKG Interpretation Comments: EKG done 08/31/2021 at 6:01 PM shows a sinus rhythm with heart rate of 70 [place] interval 166 and a QT duration of 391. [place] of 52. The QRS shows late transition to R wave in the precordium and normal ST and T. Impression no acute injury
--- NOTE | 2021-08-31 18:30 | EDM.PDOC ---
ED HPI GENERAL MEDICAL PROBLEM - General Chief Complaint: Gastrointestinal Problem Stated Complaint: CANCER, VOMITING Time Seen by Provider: 08/31/21 17:34 Source of Information: Reports: Patient, Family () History Limitations: Reports: No Limitations - History of Present Illness INITIAL COMMENTS - FREE TEXT/NARRATIVE: HISTORY AND PHYSICAL: History of present illness: The patient is a 71-year-old male with a history of esophageal cancer (diagnosed December 2020) with partial esophagectomy and gastrectomy with g-tube placement(April 2021), presents to the emergency department for complaints of vomiting for the last 4 days. The patient states that he is able to instill approximately half a bag of his tube feeding into his G-tube without difficulty, however if he attempts anything orally he tolerates it for approximately half an hour and then it comes right back up. The patient denies feeling nauseated he just states he is unable to keep it down. The patient reports that his tube site is extremely tender and has been since day 1. The patient dates he has generalized abdominal tenderness and this again is not new. He states that he also has some lower back pain after falling 4 to 5 days ago onto his back. Patient states that he was able to get up without difficulty but now has some soreness. The patient has taken chemo, radiation and had the surgical pr ocedures done under the care of the oncologist. The patient reports that he has been without a doctor well on Saturday has an appointment with an physician. Patient denies any fever, chills, headache, change in vision, syncope or near syncope. Denies any chest pain, back pain, shortness of breath or cough. Denies any diarrhea, constipation or dysuria. Has not noted any blood in urine or stool. Review of systems: As per history of present illness and below otherwise all systems reviewed and negative. Past medical history: As per history of present illness and as reviewed below otherwise no ncontributory. Surgical history: As per history of present illness and as reviewed below otherwise noncontributory. Social history: See social history for further information Family history: As per history of present illness and as reviewed below otherwise noncontributory. Physical exam: General: Well developed and well nourished. Alert and orientated x 3. Nontoxic in appearance and in no acute distress. Vital signs are stable and have been reviewed by me. Nursing notes were reviewed. HEENT: Atraumatic, normocephalic, pupils equal and reactive bilaterally, negative for conjunctival pallor or scleral icterus, mucous membranes moist, TMs normal bilaterally, throat clear, neck supple, nontender, trachea midline. No drooling or trismus noted. No meningeal signs. No hot potato voice noted. Lungs: Clear to auscultation bilaterally. No wheezes, rales, or rhonchi. Chest nontender. Normal work of breathing, no accessory muscles used. Heart: S1S2, regular rate and rhythm without overt murmur, gallops, or rubs. No JVD. No peripheral edema Abdomen: Soft, nondistended, generalized tenderness. G-tube with mild redness around insertion. Normoactive bowel sounds. Negative for masses or costovertebral tenderness. Skin: Intact, warm, dry. See abdomen. Hematologic: No petechiae or purpra. Mucosa appropriate color and normal nail bed color and refill. Extremities: Atraumatic, moves all extremities per self without difficulty or deficits, negative for cords or calf pain. Neurovascular unremarkable. Neuro: Awake, alert, oriented. Cranial nerves II through XII unremarkable. Cerebellum unremarkable. Motor and sensory unremarkable throughout. Exam nonfocal. Psychiatric: Mood and affect are appropriate. Normal thought process. Answering questions appropriately. Notes: *This patient was seen and evaluated during the 2019 SARS-CoV-2 novel coronavirus pandemic period. Community viral transmission is ongoing at time of this encounter and the emergency department is operating under pandemic response procedures. The patient is a 71-year-old male with a history of esophageal cancer (diagnosed December 2020) with partial esophagectomy and gastrectomy with g-tube placement(April 2021), presents to the emergency department for complaints of vomiting for the last 4 days. The patient has been able to take in food with his G-tube approximately half a bag at a time, however the patient is unable to keep down oral fluids as it will come back up after approximately 30 minutes. The patient is extremely tender in his abdomen and will not allow me to touch his G-tube. The patient states this is not new as he often pulls on the G-tube and it becomes extremely sore. Is concerned he has not been able to take oral intake. We will work the patient up with blood work, and a CT scan. I will give the patient IV fluids and some Zofran. The patient is agreeable with this plan. The patient complained of continued nausea which I treated with another dose of Zofran. He also complained of pain which I treated with Dilaudid and a lesser dose due to his renal insufficiency. The patient hemoglobin is 8.4 and his hematocrit is 25.5. Patient's previous hemoglobin on 08/23/2021 was 9.2 and on 08/09/2021 was 10.1. The patient's sodium is 136, potassium 5.3. Calcium on 08/23/2021 was 5.6 and 4.6 on 08/09/2021. The patient's carbon dioxide is 20.3 which was 19.1 on 08/23/2021 and 22.2 on 08/09/2021. The patient's BUN is 83 which was 68 on 08/23/2021 and 53 on 08/10/2021. The patient's creatinine is 3.6 which was 3.4 on 08/23/2021 and 2.5 on 08/09/2021. The patient did have iron studies on 08/23/2021 which showed an iron level of 44, TIBC 134, saturation of 32.84 and ferritin of 1340. From a nutrition the patient's albumin is 2.3 which on 08/23/2021 was 2.6 and on 08/09/2021 was 2.5. The patient's influenza was negative as well as the COVID- 19 swab. The abdominal/pelvis CT which was performed without contrast due to creatinine clearance of 13, IMPRESSION: Moderate bilateral hydronephrosis, increased on the left compared to the prior study. There is no hydroureter or obstructing stone. Etiology of the hydronephrosis is unclear. Consider CT urogram for further evaluation. New, small bilateral pleural effusions. Status post gastric pull up. New lytic lesions in the thoracolumbar spine and new left iliac chain adenopathy concerning for metastatic disease. Acute L2 superior endplate fracture, possibly pathologic. Distended gallbladder. Consider right upper quadrant ultrasound for further evaluation if clinically indicated. Sigmoid diverticulosis. Enlarged prostate gland. I consulted with Dr. Stephen regarding the patient results. He agreed admission for hydration and renal insufficiency was necessary. With Dr. Moreno, the hospitalist, regarding admis lexie and he agreed to bring the patient in. Patient is agreeable with this admission plan. Diagnostics: CBC, CMP, EKG, magnesium, COVID-19/influenza, abdomen/pelvis CT, Therapeutics: IV fluids, Zofran, Dilaudid Impression: Insufficiency, dehydration, vomiting Definitive disposition and diagnosis as appropriate pending reevaluation and review of above. Abdomen Pain Score (Numeric/FACES): 6 - Related Data Allergies Allergy/AdvReac Type Severity Reaction Status Date / Time No Known Allergies Allergy Verified 08/31/21 22:43 Home Meds: Home Meds Metoprolol Succinate 25 mg PO BEDTIME 07/09/14 [History] Simvastatin [Zocor] 40 mg PO BEDTIME #30 tablet 07/10/14 [Rx] Finasteride 5 mg PO DAILY 11/03/20 [History] Omeprazole 40 mg PO DAILY 11/03/20 [History] oxyCODONE 10 mg PO DAILY 08/04/21 [History] Past Medical History HEENT History: Reports: Hard of Hearing, Other (See Below) Other HEENT History: has upper denture Cardiovascular History: Reports: High Cholesterol, Hypertension Respiratory History: Reports: Other (See Below) Other Respiratory History: smoker for many years- recently quit Gastrointestinal History: Reports: GERD, Helicobacter Pylori, Hiatal Hernia Other Gastrointestinal History: was told he has an umbilical hernia and bilateral inguinal hernias Genitourinary History: Reports: BPH Musculoskeletal History: Reports: Back Pain, Chronic, Fracture, Neck Pain, Chronic, Osteoarthritis Other Musculoskeletal History: has 5 herniated discs in back, hx of fx arm and clavicle as a child Neurological History: Reports: CVA Other Neuro History: 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 Psychiatric History: Reports: None Endocrine/Metabolic History: Reports: None Hematologic History: Reports: Anemia, Blood Transfusion(s) Immunologic History: Reports: None Oncologic (Cancer) History: Reports: Esophageal Other Oncologic History: has completed chemo and radiation therapy Dermatologic History: Reports: None - Infectious Disease History Infectious Disease History: Reports: Chicken Pox, Measles, Mumps - Past Surgical History Head Surgeries/Procedures: Reports: None HEENT Surgical History: Reports: Other (See Below) Other HEENT Surgeries/Procedures: ear surgery- possible Tympanoplasty, cleft palate repair- multiple procedures from to teenage years. Cardiovascular Surgical History: Reports: Vascular Surgery Other Cardiovascular Surgeries/Procedures: insertion of port-a-cath right side Respiratory Surgical History: Reports: None GI Surgical History: Reports: Colonoscopy, Other (See Below) Other GI Surgeries/Procedures: insertion of gastrostomy tube Male Surgical History: Reports: Other (See Below) Other Male Surgeries/Procedures: Orchiectomy Endocrine Surgical History: Reports: None Neurological Surgical History: Reports: None Dermatological Surgical History: Reports: None Social & Family History - Family History Family Medical History: No Pertinent Family History Cardiac: Reports: High Cholesterol, Hypertension, [place] Neurological: Reports: CVA - Tobacco Use Tobacco Use Status *Q: Never Tobacco User - Caffeine Use Caffeine Use: Reports: None - Recreational Drug Use Recreational Drug Use: Yes Recreational Drug Type: Reports: Marijuana/Hashish Other Recreational Drug Type: medical card for marijuana ED ROS GENERAL - Review of Systems Review Of Systems: Comprehensive ROS is negative, except as noted in HPI. ED EXAM, GENERAL - Physical Exam Exam: See Below Course - Vital Signs Last Recorded V/S: Last Vital Signs Temp 96.8 F L 09/01/21 16:46 Pulse 80 09/01/21 16:46 Resp 18 09/01/21 16:46 BP 115/60 09/01/21 16:46 Pulse Ox 96 09/01/21 16:46 - Orders/Labs/Meds Orders: Medication Orders Acetaminophen (Acetaminophen 325 Mg Tab) 650 mg PO Q6H PRN PRN Reason: Pain Last Admin: 09/01/21 14:27 Dose: 650 mg Documented by: Admin: 09/01/21 04:11 Dose: 650 mg Documented by: JAMAL Enoxaparin Sodium (Enoxaparin 40 Mg/0.4 Ml Syringe) 40 mg SUBCUT Q24H [facility] Last Admin: 09/01/21 11:04 Dose: 40 mg Documented by: JOAQUIN Finasteride (Finasteride 5 Mg Tab) 5 mg PO DAILY [facility] Last Admin: 09/01/21 09:48 Dose: 5 mg Documented by: JOAQUIN Sodium Chloride (Normal Saline) 1,000 mls @ 125 mls/hr IV ASDIRECTED [facility] Last Admin: 09/01/21 17:10 Dose: 125 mls/hr Documented by: Infusion: 09/01/21 16:39 Dose: 125 mls/hr Documented by: Admin: 09/01/21 08:39 Dose: 125 mls/hr Documented by: Infusion: 09/01/21 08:21 Dose: 125 mls/hr Documented by: Admin: 09/01/21 00:21 Dose: 125 mls/hr Documented by: JAMAL Ceftriaxone Sodium/Dextrose 1 (gm/ Premix) 50 mls @ 100 mls/hr IV Q24H [facility] Last Admin: 09/01/21 11:03 Dose: 100 mls/hr Documented by: JOAQUIN Metoprolol Succinate (Metoprolol Succinate 50 Mg Tab.Er) 25 mg PO BEDTIME [facility] Omeprazole (Omeprazole 20 Mg Cap.Cr) 40 mg PO ACBREAKFAST [facility] Last Admin: 09/01/21 09:48 Dose: 40 mg Documented by: JOAQUIN Ondansetron HCl (Ondansetron 4 Mg/2 Ml Sdv) 4 mg IVPUSH Q4H PRN PRN Reason: Nausea/Vomiting Last Admin: 09/01/21 17:15 Dose: 4 mg Documented by: JOAQUIN Oxycodone HCl (Oxycodone 5 Mg Tab) 10 mg PO Q6H PRN PRN Reason: Abdominal Pain Last Admin: 09/01/21 14:26 Dose: 10 mg Documented by: JOAQUIN Simvastatin (Simvastatin 40 Mg Tab) 40 mg PO BEDTIME [facility] Labs: Laboratory Tests 08/31/21 08/31/21 08/31/21 Range/Units 18:20 18:20 18:20 WBC 9.42 (4.0-11.0) K/uL RBC 2.58 L (4.50-5.90) M/uL Hgb 8.4 L (13.0-17.0) g/dL Hct 25.5 L (38.0-50.0) % MCV 98.8 H (80.0-98.0) fL MCH 32.6 H (27.0-32.0) pg MCHC 32.9 (31.0-37.0) g/dL RDW Std Deviation 56.6 (28.0-62.0) fl RDW Coeff of Myrna 16 H (11.0-15.0) % Plt Count 486 H (150-400) K/uL MPV 8.40 (7.40-12.00) fL Neut % (Auto) 88.2 H (48.0-80.0) % Lymph % (Auto) 2.7 L (16.0-40.0) % Holt % (Auto) 7.2 (0.0-15.0) % Eos % (Auto) 1.7 (0.0-7.0) % Baso % (Auto) 0.2 (0.0-1.5) % Neut # (Auto) 8.3 H (1.4-5.7) K/uL Lymph # (Auto) 0.3 L (0.6-2.4) K/uL Holt # (Auto) 0.7 (0.0-0.8) K/uL Eos # (Auto) 0.2 (0.0-0.7) K/uL Baso # (Auto) 0.0 (0.0-0.1) K/uL Nucleated RBC % 0.0 /100WBC Nucleated RBCs # 0 K/uL Sodium 136 (136-148) mmol/L Potassium 5.3 H (3.5-5.1) mmol/L Chloride 104 (98-107) mmol/L Carbon Dioxide 20.3 L (21.0-32.0) mmol/L BUN 83 H (7.0-18.0) mg/dL Creatinine 3.6 H (0.8-1.3) mg/dL Est Cr Clr Drug Dosing 14.09 mL/min Estimated GFR (MDRD) 16.8 ml/min Glucose 101 (74-106) mg/dL Calcium 9.4 (8.5-10.1) mg/dL Magnesium 2.3 (1.8-2.4) mg/dL Total Bilirubin 0.2 (0.2-1.0) mg/dL AST 27 (15-37) IU/L ALT 17 (14-63) IU/L Alkaline Phosphatase 201 H (46-116) U/L Total Protein 6.6 (6.4-8.2) g/dL Albumin 2.3 L (3.4-5.0) g/dL Globulin 4.3 H (2.6-4.0) g/dL Albumin/Globulin Ratio 0.5 L (0.9-1.6) Influenza Type A RNA NEGATIVE (NEGATIVE) Influenza Type B RNA NEGATIVE (NEGATIVE) SARS-CoV-2 RNA (NEL) NEGATIVE (NEGATIVE) Meds: Medications Generic Name Dose Route Start Last Admin Trade Name Freq PRN Reason Stop Dose Admin Acetaminophen 650 mg 08/31/21 23:55 09/01/21 14:27 Acetaminophen 325 Mg Tab PO 650 mg Q6H PRN Administration Pain Enoxaparin Sodium 40 mg 09/01/21 10:30 09/01/21 11:04 Enoxaparin 40 Mg/0.4 Ml Syringe SUBCUT 40 mg Q24H [facility] Administration Finasteride 5 mg 09/01/21 09:00 09/01/21 09:48 Finasteride 5 Mg Tab PO 5 mg DAILY [facility] Administration Sodium Chloride 1,000 mls @ 125 mls/hr 08/31/21 23:45 09/01/21 17:10 Normal Saline IV 125 mls/hr ASDIRECTED [facility] Administration Ceftriaxone Sodium/Dextrose 1 50 mls @ 100 mls/hr 09/01/21 10:30 09/01/21 11:03 gm/ Premix IV 100 mls/hr Q24H [facility] Administration Metoprolol Succinate 25 mg 09/01/21 21:00 Metoprolol Succinate 50 Mg Tab.Er PO BEDTIME [facility] Omeprazole 40 mg 09/01/21 08:30 09/01/21 09:48 Omeprazole 20 Mg Cap.Cr PO 40 mg ACBREAKFAST [facility] Administration Ondansetron HCl 4 mg 08/31/21 23:56 09/01/21 17:15 Ondansetron 4 Mg/2 Ml Sdv IVPUSH 4 mg Q4H PRN Administration Nausea/Vomiting Oxycodone HCl 10 mg 09/01/21 10:00 09/01/21 14:26 Oxycodone 5 Mg Tab PO 10 mg Q6H PRN Administration Abdominal Pain Simvastatin 40 mg 09/01/21 21:00 Simvastatin 40 Mg Tab PO BEDTIME [facility] Discontinued Medications Generic Name Dose Route Start Last Admin Trade Name Freq PRN Reason Stop Dose Admin Hydromorphone HCl 0.25 mg 08/31/21 20:20 08/31/21 20:27 Hydromorphone 1 Mg/Ml Syringe IVPUSH 08/31/21 20:21 0.25 mg ONETIME ONE Administration Sodium Chloride 1,000 mls @ 999 mls/hr 08/31/21 17:52 08/31/21 18:00 Normal Saline IV 08/31/21 18:52 999 mls/hr .BOLUS ONE Administration Ondansetron HCl 4 mg 08/31/21 17:52 08/31/21 18:00 Ondansetron 4 Mg/2 Ml Sdv IVPUSH 08/31/21 17:53 4 mg ONETIME ONE Administration Ondansetron HCl 4 mg 08/31/21 19:49 08/31/21 20:02 Ondansetron 4 Mg/2 Ml Sdv IVPUSH 08/31/21 19:50 4 mg ONETIME ONE Administration Oxycodone HCl 10 mg 09/01/21 08:15 Oxycodone 5 Mg Tab PO DAILY PRN Abdominal Pain Departure - Departure Time of Disposition: 21:42 Disposition: Admitted As Inpatient 67 Condition: Good Clinical Impression: Vomiting, Renal insufficiency, Dehydration - Discharge Information *PRESCRIPTION DRUG MONITORING PROGRAM REVIEWED*: Not Applicable *COPY OF PRESCRIPTION DRUG MONITORING REPORT IN PATIENT CHELO: Not Applicable Sepsis Event Note (ED) - Evaluation Sepsis Screening Result: No Definite Risk
[2021-08-31 18:57] LABS: CARBON DIOXIDE,CO2 20.3 mmol/L (21.0-32.0); POTASSIUM,K 5.3 mmol/L (3.5-5.1)
[2021-08-31 19:06] LABS: CORONAVIRUS COVID-19 NAA NEGATIVE (NEGATIVE); INFLUENZA A NAA NEGATIVE (NEGATIVE); INFLUENZA B NAA NEGATIVE (NEGATIVE)
[2021-08-31] MEDS ORDERED: HYDROmorphone 1 MG/ML Syringe IVPUSH ONE (20:20)
--- NOTE | 2021-08-31 20:33 | CT ---
INDICATION: Abdominal pain, vomiting, history of esophageal cancer TECHNIQUE: CT abdomen and pelvis without contrast. COMPARISON: August 03, 2020 FINDINGS: Lower chest: Calcified granuloma in the right middle lobe. Small bilateral pleural effusions. Fluid within a presumed gastric pull up. Liver: Unremarkable. Spleen: Unremarkable. Pancreas: Unremarkable. Gallbladder and bile ducts: Distended gallbladder. Adrenal glands: Unremarkable. Kidneys: Moderate bilateral hydronephrosis, increased on the left compared to the prior exam. No hydroureter. No obstructing stone identified. 0.8 cm hyperdense lesion on the posterior aspect of the right kidney measuring 57 Hounsfield units in density, likely a hemorrhagic cyst. GI tract: Sigmoid diverticulosis. Percutaneous jejunostomy tube in left upper quadrant. Vascular structures: Unremarkable. Lymph nodes: 1.7 cm left iliac chain lymph node, previously 1.3. Shotty mesenteric and periaortic lymph nodes. Miscellaneous: Unremarkable. No free air or significant free fluid. Pelvic Organs: Significant enlargement of the prostate gland. Fat containing left inguinal hernia. Bones: Multiple lytic lesions in the thoracolumbar spine measuring up to 1.8 cm in diameter. New acute L2 superior endplate fracture. IMPRESSION: Moderate bilateral hydronephrosis, increased on the left compared to the prior study. There is no hydroureter or obstructing stone. Etiology of the hydronephrosis is unclear. Consider CT urogram for further evaluation. New, small bilateral pleural effusions. Status post gastric pull up. New lytic lesions in the thoracolumbar spine and new left iliac chain adenopathy concerning for metastatic disease. Acute L2 superior endplate fracture, possibly pathologic. Distended gallbladder. Consider right upper quadrant ultrasound for further evaluation if clinically indicated. Sigmoid diverticulosis. Enlarged prostate gland. Please note that all CT scans at this facility use dose modulation, iterative reconstruction, and/or weight-based dosing when appropriate to reduce radiation dose to as low as reasonably achievable. Dictated by Vibha Drummond MD @ 08/31/2021 8:31:53 PM (Electronically Signed)
[2021-09-01] MEDS: Sodium Chloride 0.9% 1,000 ML IV SCH ×3 (00:21→17:10)
[2021-09-01] MEDS: Acetaminophen 325 MG Tab PO PRN ×3 (04:11→21:58)
[2021-09-01] MEDS ORDERED: oxyCODONE 5 MG Tab PO PRN (08:15)
[2021-09-01 09:17] LABS: CARBON DIOXIDE,CO2 19.2 mmol/L (21.0-32.0); POTASSIUM,K 5.3 mmol/L (3.5-5.1)
--- NOTE | 2021-09-01 09:19 | PCM.HP.2 ---
H&P History of Present Illness - General Date of Service: 09/01/21 Admit Problem/Dx: Admission Diagnosis/Problem Admission Diagnosis/Problem Dehydration - History of Present Illness Initial Comments - Free Text/Narative: Patient is a 71-year-old male, on day 2 of service, who has a significant past medical history of hypertension, hyperlipidemia, GERD, osteoarthritis, CVA, esophageal cancer with partial esophagectomy in 12/21, and gastrectomy with J-tube placement in 04/22, who was admitted to the medical floor due to emesis and abdominal pain around his J-tube site. Upon interview with the patient today, he explains that since of this year he has had increasing bouts of vomiting which have been nonbilious and nonbloody. He has had a difficult time holding down meals despite smaller frequent meals. This emesis has made the patient feel weak and unlike himself which ultimately brought him into the hospital. He also describes having abdominal pain around the J-tube site, which is 7 out of 10 in intensity, dull in nature, and nonradiating. Along with this, he had a fall on his lower back 4 days ago which is causing aching pain, 5 out of 10 in intensity, and nonradiating. The patient is to follow-up with his oncologist this upcoming Saturday, September 06/2022. In regards to the patient's social history, he smoked a half pack of cigarettes for 50 years but quit 3 months ago, he uses marijuana regularly but denies alcohol consumption. His family history is noncontributory. He has no known drug allergies. The patient was markedly upset during interview today and shed tears over his current health condition. On CBC, his white blood cell count is 9.42, hemoglobin is 8.4, hematocrit is 25.5, and platelet count is 486. On CMP, his sodium is 136, potassium is 5.3, chloride is 104, carbon dioxide is 20.3, BUN is 83, and creatinine is 3.6. On CT of the abdomen and pelvis, he has bilateral hydronephrosis with the left being more prominent than the right, he has small bilateral pleural effusions, he has new lytic lesions in the thoracolumbar spine, sigmoid diverticulosis was also seen as well as an enlarged prostate. In the emergency department, the patient received hydromorphone 0.25 mg per IV route once, a normal saline bolus of 1000 mL, Zofran 4 mg per IV route once for vomiting, and had the above tests done including a CBC, CMP, and CT of the abdomen and pelvis. Abdomen Pain Score (Numeric/FACES): 3 - Related Data Allergies/Adverse Reactions: Allergies Allergy/AdvReac Type Severity Reaction Status Date / Time No Known Allergies Allergy Verified 08/31/21 22:43 Home Medications: Home Meds Metoprolol Succinate 25 mg PO BEDTIME 07/09/14 [History] Simvastatin [Zocor] 40 mg PO BEDTIME #30 tablet 07/10/14 [Rx] Finasteride 5 mg PO DAILY 11/03/20 [History] Omeprazole 40 mg PO DAILY 11/03/20 [History] oxyCODONE 10 mg PO DAILY 08/04/21 [History] Past Medical History HEENT History: Reports: Hard of Hearing, Other (See Below) Other HEENT History: has upper denture Cardiovascular History: Reports: High Cholesterol, Hypertension Respiratory History: Reports: Other (See Below) Other Respiratory History: smoker for many years- recently quit Gastrointestinal History: Reports: GERD, Helicobacter Pylori, Hiatal Hernia Other Gastrointestinal History: was told he has an umbilical hernia and bilateral inguinal hernias Genitourinary History: Reports: BPH Musculoskeletal History: Reports: Back Pain, Chronic, Fracture, Neck Pain, Chronic, Osteoarthritis Other Musculoskeletal History: has 5 herniated discs in back, hx of fx arm and clavicle as a child Neurological History: Reports: CVA Other Neuro History: 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 Psychiatric History: Reports: None Endocrine/Metabolic History: Reports: None Hematologic History: Reports: Anemia, Blood Transfusion(s) Immunologic History: Reports: None Oncologic (Cancer) History: Reports: Esophageal Other Oncologic History: has completed chemo and radiation therapy Dermatologic History: Reports: None - Infectious Disease History Infectious Disease History: Reports: Chicken Pox, Measles, Mumps - Past Surgical History Head Surgeries/Procedures: Reports: None HEENT Surgical History: Reports: Other (See Below) Other HEENT Surgeries/Procedures: ear surgery- possible Tympanoplasty, cleft palate repair- multiple procedures from to teenage years. Cardiovascular Surgical History: Reports: Vascular Surgery Other Cardiovascular Surgeries/Procedures: insertion of port-a-cath right side Respiratory Surgical History: Reports: None GI Surgical History: Reports: Colonoscopy, Other (See Below) Other GI Surgeries/Procedures: insertion of gastrostomy tube Male Surgical History: Reports: Other (See Below) Other Male Surgeries/Procedures: Orchiectomy Endocrine Surgical History: Reports: None Neurological Surgical History: Reports: None Dermatological Surgical History: Reports: None Social & Family History - Family History Family Medical History: No Pertinent Family History Cardiac: Reports: High Cholesterol, Hypertension, [place] Neurological: Reports: CVA - Tobacco Use Tobacco Use Status *Q: Former Tobacco User Years of Tobacco use: 50 Used Tobacco, but Quit: Yes Month/Year Tobacco Last Used: 3 months - Caffeine Use Caffeine Use: Reports: None - Recreational Drug Use Recreational Drug Use: Yes Recreational Drug Type: Reports: Marijuana/Hashish Other Recreational Drug Type: medical card for marijuana H&P Review of Systems - Review of Systems: Review Of Systems: See Below General: Denies: Fever, Chills, Weakness, Fatigue HEENT: Denies: Headaches, Sinus Congestion Pulmonary: Denies: Shortness of Breath, Cough Cardiovascular: Denies: Chest Pain, Palpitations Gastrointestinal: Reports: Abdominal Pain, Nausea, Vomiting. Denies: Bloody Stool Genitourinary: Denies: Dysuria, Frequency Musculoskeletal: Reports: Back Pain Neurological: Denies: Numbness, Trouble Speaking, Difficulty Walking Exam - Exam Exam: See Below - Vital Signs Vital Signs: Last Vital Signs Temp 97.5 F 09/01/21 07:58 Pulse 75 09/01/21 07:58 Resp 16 09/01/21 07:58 BP 115/67 09/01/21 07:58 Pulse Ox 98 09/01/21 07:58 Weight: 120 lb 14.4 oz - Exam General: Alert, Oriented, Cooperative HEENT: Mucosa Moist & [place] Neck: Trachea Midline Lungs: Clear to Auscultation, Normal Respiratory Effort Cardiovascular: Regular Rate, Regular Rhythm GI/Abdominal Exam: Normal Bowel Sounds, Tender, Other (J tube placement on left with slight surrounding erythema) Back Exam: Other (Tenderness to palpation of the lumbar area) Psychiatric: Other. No: Normal Affect, Normal Mood (Patient is tearful) - Patient Data Lab Results Last 24 hrs: Laboratory Results - last 24 hr 08/31/21 08/31/21 08/31/21 Range/Units 18:20 18:20 18:20 WBC 9.42 (4.0-11.0) K/uL RBC 2.58 L (4.50-5.90) M/uL Hgb 8.4 L (13.0-17.0) g/dL Hct 25.5 L (38.0-50.0) % MCV 98.8 H (80.0-98.0) fL MCH 32.6 H (27.0-32.0) pg MCHC 32.9 (31.0-37.0) g/dL RDW Std Deviation 56.6 (28.0-62.0) fl RDW Coeff of Myrna 16 H (11.0-15.0) % Plt Count 486 H (150-400) K/uL MPV 8.40 (7.40-12.00) fL Neut % (Auto) 88.2 H (48.0-80.0) % Lymph % (Auto) 2.7 L (16.0-40.0) % [place] % (Auto) 7.2 (0.0-15.0) % Eos % (Auto) 1.7 (0.0-7.0) % Baso % (Auto) 0.2 (0.0-1.5) % Neut # (Auto) 8.3 H (1.4-5.7) K/uL Lymph # (Auto) 0.3 L (0.6-2.4) K/uL [place] # (Auto) 0.7 (0.0-0.8) K/uL Eos # (Auto) 0.2 (0.0-0.7) K/uL Baso # (Auto) 0.0 (0.0-0.1) K/uL Nucleated RBC % 0.0 /100WBC Nucleated RBCs # 0 K/uL Sodium 136 (136-148) mmol/L Potassium 5.3 H (3.5-5.1) mmol/L Chloride 104 (98-107) mmol/L Carbon Dioxide 20.3 L (21.0-32.0) mmol/L BUN 83 H (7.0-18.0) mg/dL Creatinine 3.6 H (0.8-1.3) mg/dL Est Cr Clr Drug Dosing 14.09 mL/min Estimated GFR (MDRD) 16.8 ml/min Glucose 101 (74-106) mg/dL Calcium 9.4 (8.5-10.1) mg/dL Magnesium 2.3 (1.8-2.4) mg/dL Total Bilirubin 0.2 (0.2-1.0) mg/dL AST 27 (15-37) IU/L ALT 17 (14-63) IU/L Alkaline Phosphatase 201 H (46-116) U/L Total Protein 6.6 (6.4-8.2) g/dL Albumin 2.3 L (3.4-5.0) g/dL Globulin 4.3 H (2.6-4.0) g/dL Albumin/Globulin Ratio 0.5 L (0.9-1.6) Influenza Type A RNA NEGATIVE (NEGATIVE) Influenza Type B RNA NEGATIVE (NEGATIVE) SARS-CoV-2 RNA (NEL) NEGATIVE (NEGATIVE) 09/01/21 09/01/21 Range/Units 08:38 08:38 WBC 7.38 (4.0-11.0) K/uL RBC 2.28 L (4.50-5.90) M/uL Hgb 7.6 L (13.0-17.0) g/dL Hct 22.8 L (38.0-50.0) % MCV 100.0 H (80.0-98.0) fL MCH 33.3 H (27.0-32.0) pg MCHC 33.3 (31.0-37.0) g/dL RDW Std Deviation 58.0 (28.0-62.0) fl RDW Coeff of Myrna 16 H (11.0-15.0) % Plt Count 424 H (150-400) K/uL MPV 8.50 (7.40-12.00) fL Neut % (Auto) 86.8 H (48.0-80.0) % Lymph % (Auto) 4.2 L (16.0-40.0) % [place] % (Auto) 6.4 (0.0-15.0) % Eos % (Auto) 2.3 (0.0-7.0) % Baso % (Auto) 0.3 (0.0-1.5) % Neut # (Auto) 6.4 H (1.4-5.7) K/uL Lymph # (Auto) 0.3 L (0.6-2.4) K/uL [place] # (Auto) 0.5 (0.0-0.8) K/uL Eos # (Auto) 0.2 (0.0-0.7) K/uL Baso # (Auto) 0.0 (0.0-0.1) K/uL Nucleated RBC % 0.0 /100WBC Nucleated RBCs # 0 K/uL Sodium 138 (136-148) mmol/L Potassium 5.3 H (3.5-5.1) mmol/L Chloride 109 H (98-107) mmol/L Carbon Dioxide 19.2 L (21.0-32.0) mmol/L BUN 78 H (7.0-18.0) mg/dL Creatinine 3.5 H (0.8-1.3) mg/dL Est Cr Clr Drug Dosing 15.23 mL/min Estimated GFR (MDRD) 17.4 ml/min Glucose 90 (74-106) mg/dL Calcium 8.6 (8.5-10.1) mg/dL Magnesium (1.8-2.4) mg/dL Total Bilirubin (0.2-1.0) mg/dL AST (15-37) IU/L ALT (14-63) IU/L Alkaline Phosphatase (46-116) U/L Total Protein (6.4-8.2) g/dL Albumin (3.4-5.0) g/dL Globulin (2.6-4.0) g/dL Albumin/Globulin Ratio (0.9-1.6) Influenza Type A RNA (NEGATIVE) Influenza Type B RNA (NEGATIVE) SARS-CoV-2 RNA (NEL) (NEGATIVE) Result Diagrams: 09/01/21 08:38 09/01/21 08:38 Sepsis Event Note - Evaluation Sepsis Screening Result: No Definite Risk - Focused Exam Vital Signs: Vital Signs Temp Pulse Resp BP Pulse Ox 09/01/21 07:58 97.5 F 75 16 115/67 98 09/01/21 04:06 97.4 F 79 18 134/65 95 08/31/21 22:40 96.8 F L 88 16 129/60 98 08/31/21 21:45 98 107/67 96 - Problem List (1) Vomiting SNOMED Code(s): 449458630 ICD Code: R11.10 - VOMITING, UNSPECIFIED Status: Acute Current Visit: Yes (2) Abdominal pain SNOMED Code(s): 01539103 ICD Code: R10.9 - UNSPECIFIED ABDOMINAL PAIN Status: Acute Current Visit: No (3) Acute kidney injury SNOMED Code(s): 18915460, 67750288 ICD Code: N17.9 - ACUTE KIDNEY FAILURE, UNSPECIFIED Status: Acute Current Visit: No (4) Acute low back pain SNOMED Code(s): 783221317 ICD Code: M54.5 - LOW BACK PAIN * DO NOT USE * Status: Acute Current Visit: No Qualifiers: Back pain laterality: left Sciatica presence: without sciatica (5) CVA, Cerebrovascular accident SNOMED Code(s): 917001266 ICD Code: I63.9 - CEREBRAL INFARCTION, UNSPECIFIED Status: Acute Current Visit: No (6) Esophageal cancer SNOMED Code(s): 288117866 ICD Code: C15.9 - MALIGNANT NEOPLASM OF ESOPHAGUS, UNSPECIFIED Status: Acute Current Visit: No (7) BPH (benign prostatic hyperplasia) SNOMED Code(s): 562349213 ICD Code: N40.0 - BENIGN PROSTATIC HYPERPLASIA WITHOUT LOWER URINRY TRACT SYMP Status: Chronic Current Visit: No (8) Hyperlipidemia SNOMED Code(s): 02779516 ICD Code: E78.5 - HYPERLIPIDEMIA, UNSPECIFIED Status: Chronic Current Visit: No (9) Hypertension SNOMED Code(s): 22631241 ICD Code: I10 - ESSENTIAL (PRIMARY) HYPERTENSION Status: Chronic Current Visit: No Problem List Initiated/Reviewed/Updated: Yes Orders Last 24hrs: Active Orders 24 hr Category Date Time Status Admission Status [Patient Status] [ADT] Stat ADT 08/31/21 21:20 Active Bladder Scan [RC] Q6HR Care 09/01/21 01:00 Active BMP [BASIC METABOLIC PANEL,BMP] [CHEM] Routine Lab 09/01/21 08:38 Received Acetaminophen [TylenoL] Med 08/31/21 23:55 Active 650 mg PO Q6H PRN Finasteride [Proscar] Med 09/01/21 09:00 Active 5 mg PO DAILY Metoprolol Succinate [Toprol XL] Med 09/01/21 21:00 Active 25 mg PO BEDTIME Omeprazole Med 09/01/21 08:30 Active 40 mg PO ACBREAKFAST Ondansetron [Zofran] Med 08/31/21 23:56 Active 4 mg IVPUSH Q4H PRN Simvastatin [Zocor] Med 09/01/21 21:00 Active 40 mg PO BEDTIME Sodium Chloride 0.9% [Normal Saline] 1,000 ml Med 08/31/21 23:45 Active IV ASDIRECTED oxyCODONE Med 09/01/21 08:15 Active 10 mg PO DAILY PRN Medication Orders Acetaminophen (Acetaminophen 325 Mg Tab) 650 mg PO Q6H PRN PRN Reason: Pain Last Admin: 09/01/21 04:11 Dose: 650 mg Documented by: JAMAL Finasteride (Finasteride 5 Mg Tab) 5 mg PO DAILY SHE[facility] Sodium Chloride (Normal Saline) 1,000 mls @ 125 mls/hr IV ASDIRECTED SHELBY Last Admin: 09/01/21 08:39 Dose: 125 mls/hr Documented by: Infusion: 09/01/21 08:21 Dose: 125 mls/hr Documented by: Admin: 09/01/21 00:21 Dose: 125 mls/hr Documented by: JAMAL Metoprolol Succinate (Metoprolol Succinate 50 Mg Tab.Er) 25 mg PO BEDTIME SHELBY Omeprazole (Omeprazole 20 Mg Cap.Cr) 40 mg PO ACBREAKFAST [facility] Ondansetron HCl (Ondansetron 4 Mg/2 Ml Sdv) 4 mg IVPUSH Q4H PRN PRN Reason: Nausea/Vomiting Oxycodone HCl (Oxycodone 5 Mg Tab) 10 mg PO DAILY PRN PRN Reason: Abdominal Pain Simvastatin (Simvastatin 40 Mg Tab) 40 mg PO BEDTIME [facility] Assessment/Plan Comment:: Admit the patient to the medical floor, vitals per unit routine, activity up ad tremayne., clear liquid diet, for GI prophylaxis we will use omeprazole per oral route, for DVT prophylaxis we will use Lovenox 40 mg subcutaneously once a day, the patient is full code 1. Nonbloody nonbilious emesis -The patient is on Zofran per IV route -Clear liquid diet in place, transition as tolerated -Daily BMP to check for electrolyte disturbances 2. Abdominal pain/infection around J-tube site -Rocephin 1 g per IV route has been initiated due to erythema seen around site -For pain the patient has oxycodone 10 mg every 6 hours as needed on board and Tylenol 650 mg every 6 hours as needed -Continue to monitor fever clinical status and daily CBC for white blood cell changes 3. History of esophageal cancer -Patient has new lytic lesions in the thoracolumbar spine -Will follow up with oncologist on September 06 to discuss findings 4. Lumbar back pain from fall -Treat with analgesics as per #2 5. BPH history -Continue finasteride 6. Hypertension history -Continue metoprolol 7. Hyperlipidemia history -Continue simvastatin 8. SAJAN -Monitor with daily BMP 9. CVA history -Monitor for symptoms of stroke
[2021-09-01] MEDS: Finasteride 5 MG Tab PO SCH (09:48)
[2021-09-01] MEDS: Omeprazole 20 MG Cap.CR PO SCH (09:48)
[2021-09-01] MEDS ORDERED: Acetaminophen 500 MG Tab PO PRN (10:00)
[2021-09-01] MEDS ORDERED: Pantoprazole 40 MG/10 ML Syringe IVPUSH SCH (10:15)
[2021-09-01] MEDS: cefTRIAXone 1 GM in Premix Bag 1 BAG IV SCH (11:03)
[2021-09-01] MEDS: Enoxaparin 40 MG/0.4 ML Syringe SUBCUT SCH (11:04)
[2021-09-01] MEDS ORDERED: Docusate Sodium 100 MG Cap PO SCH (11:45)
[2021-09-01] MEDS: oxyCODONE 5 MG Tab PO PRN ×2 (14:26→21:59)
[2021-09-01] MEDS: Ondansetron 4 MG/2 ML SDV IVPUSH PRN (17:15)
[2021-09-01] MEDS: Metoprolol Succinate 50 MG Tab.ER PO SCH (21:36)
[2021-09-01] MEDS: Simvastatin 40 MG Tab PO SCH (21:57)
[2021-09-02] MEDS: Sodium Chloride 0.9% 1,000 ML IV SCH ×3 (01:17→18:13)
[2021-09-02] MEDS: oxyCODONE 5 MG Tab PO PRN ×3 (06:47→21:31)
[2021-09-02] MEDS: Acetaminophen 325 MG Tab PO PRN ×3 (06:51→21:30)
[2021-09-02 07:25] LABS: CARBON DIOXIDE,CO2 16.7 mmol/L (21.0-32.0); POTASSIUM,K 5.3 mmol/L (3.5-5.1)
[2021-09-02] MEDS: Omeprazole 20 MG Cap.CR PO SCH (07:44)
[2021-09-02] MEDS: Finasteride 5 MG Tab PO SCH (09:30)
[2021-09-02] MEDS: Enoxaparin 40 MG/0.4 ML Syringe SUBCUT SCH (11:18)
[2021-09-02] MEDS: cefTRIAXone 1 GM in Premix Bag 1 BAG IV SCH (11:19)
--- NOTE | 2021-09-02 12:23 | PCM.PN ---
- General Info Date of Service: 09/02/21 - Review of Systems Systems Review Comment:: feeling better today - Patient Data Vitals - Most Recent: Last Vital Signs Temp 36.3 C 09/02/21 08:00 Pulse 68 09/02/21 08:00 Resp 18 09/02/21 08:00 BP 104/56 L 09/02/21 08:00 Pulse Ox 97 09/02/21 08:00 Weight - Most Recent: 54.839 kg I&O - Last 24 Hours: Intake & Output 09/01/21 09/02/21 09/02/21 22:59 06:59 14:59 Intake Total 1835 390 Output Total 300 425 Balance 1535 -35 Lab Results Last 24 Hours: Laboratory Results - last 24 hr 09/02/21 09/02/21 Range/Units 06:36 06:36 WBC 8.40 (4.0-11.0) K/uL RBC 2.32 L (4.50-5.90) M/uL Hgb 7.6 L (13.0-17.0) g/dL Hct 23.2 L (38.0-50.0) % MCV 100.0 H (80.0-98.0) fL MCH 32.8 H (27.0-32.0) pg MCHC 32.8 (31.0-37.0) g/dL RDW Std Deviation 57.7 (28.0-62.0) fl RDW Coeff of Myrna 16 H (11.0-15.0) % Plt Count 448 H (150-400) K/uL MPV 8.50 (7.40-12.00) fL Neut % (Auto) 87.0 H (48.0-80.0) % Lymph % (Auto) 4.0 L (16.0-40.0) % [place] % (Auto) 6.1 (0.0-15.0) % Eos % (Auto) 2.5 (0.0-7.0) % Baso % (Auto) 0.4 (0.0-1.5) % Neut # (Auto) 7.3 H (1.4-5.7) K/uL Lymph # (Auto) 0.3 L (0.6-2.4) K/uL [place] # (Auto) 0.5 (0.0-0.8) K/uL Eos # (Auto) 0.2 (0.0-0.7) K/uL Baso # (Auto) 0.0 (0.0-0.1) K/uL Nucleated RBC % 0.0 /100WBC Nucleated RBCs # 0 K/uL Sodium 136 (136-148) mmol/L Potassium 5.3 H (3.5-5.1) mmol/L Chloride 107 (98-107) mmol/L Carbon Dioxide 16.7 L (21.0-32.0) mmol/L BUN 72 H (7.0-18.0) mg/dL Creatinine 3.5 H (0.8-1.3) mg/dL Est Cr Clr Drug Dosing 15.23 mL/min Estimated GFR (MDRD) 17.4 ml/min Glucose 80 (74-106) mg/dL Calcium 8.3 L (8.5-10.1) mg/dL Med Orders - Current: Current Medications Acetaminophen (Acetaminophen 325 Mg Tab) 650 mg PO Q6H PRN PRN Reason: Pain Last Admin: 09/02/21 06:51 Dose: 650 mg Documented by: Enoxaparin Sodium (Enoxaparin 40 Mg/0.4 Ml Syringe) 40 mg SUBCUT Q24H [facility] Last Admin: 09/02/21 11:18 Dose: 40 mg Documented by: Finasteride (Finasteride 5 Mg Tab) 5 mg PO DAILY [facility] Last Admin: 09/02/21 09:30 Dose: 5 mg Documented by: Ceftriaxone Sodium/Dextrose 1 (gm/ Premix) 50 mls @ 100 mls/hr IV Q24H [facility] Last Admin: 09/02/21 11:19 Dose: 100 mls/hr Documented by: Sodium Chloride (Normal Saline) 1,000 mls @ 125 mls/hr IV CONTINUOUS [facility] Last Admin: 09/02/21 09:32 Dose: 125 mls/hr Documented by: Metoprolol Succinate (Metoprolol Succinate 50 Mg Tab.Er) 25 mg PO BEDTIME [facility] Last Admin: 09/01/21 21:36 Dose: 25 mg Documented by: Omeprazole (Omeprazole 20 Mg Cap.Cr) 40 mg PO ACBREAKFAST [facility] Last Admin: 09/02/21 07:44 Dose: 40 mg Documented by: Ondansetron HCl (Ondansetron 4 Mg/2 Ml Sdv) 4 mg IVPUSH Q4H PRN PRN Reason: Nausea/Vomiting Last Admin: 09/01/21 17:15 Dose: 4 mg Documented by: Oxycodone HCl (Oxycodone 5 Mg Tab) 10 mg PO Q6H PRN PRN Reason: Abdominal Pain Last Admin: 09/02/21 06:47 Dose: 10 mg Documented by: Simvastatin (Simvastatin 40 Mg Tab) 40 mg PO BEDTIME [facility] Last Admin: 09/01/21 21:57 Dose: 40 mg Documented by: Discontinued Medications Hydromorphone HCl (Hydromorphone 1 Mg/Ml Syringe) 0.25 mg IVPUSH ONETIME ONE Stop: 08/31/21 20:21 Last Admin: 08/31/21 20:27 Dose: 0.25 mg Documented by: Sodium Chloride (Normal Saline) 1,000 mls @ 999 mls/hr IV .BOLUS ONE Stop: 08/31/21 18:52 Last Admin: 08/31/21 18:00 Dose: 999 mls/hr Documented by: Sodium Chloride (Normal Saline) 1,000 mls @ 125 mls/hr IV ASDIRECTED [facility] Last Admin: 09/01/21 17:10 Dose: 125 mls/hr Documented by: Ondansetron HCl (Ondansetron 4 Mg/2 Ml Sdv) 4 mg IVPUSH ONETIME ONE Stop: 08/31/21 17:53 Last Admin: 08/31/21 18:00 Dose: 4 mg Documented by: Ondansetron HCl (Ondansetron 4 Mg/2 Ml Sdv) 4 mg IVPUSH ONETIME ONE Stop: 08/31/21 19:50 Last Admin: 08/31/21 20:02 Dose: 4 mg Documented by: Oxycodone HCl (Oxycodone 5 Mg Tab) 10 mg PO DAILY PRN PRN Reason: Abdominal Pain - Exam General: Alert, Oriented Neck: Supple Lungs: Clear to Auscultation, Normal Respiratory Effort Cardiovascular: Regular Rate, Regular Rhythm GI/Abdominal Exam: Soft, Non-Tender, No Distention, Other (Jtube in place, erythema around tube) Extremities: Non-Tender, No Pedal Edema Skin: Warm, Dry, Intact Neurological: No New Focal Deficit - Patient Data Lab Results Last 24 hrs: Laboratory Results - last 24 hr 09/02/21 09/02/21 Range/Units 06:36 06:36 WBC 8.40 (4.0-11.0) K/uL RBC 2.32 L (4.50-5.90) M/uL Hgb 7.6 L (13.0-17.0) g/dL Hct 23.2 L (38.0-50.0) % MCV 100.0 H (80.0-98.0) fL MCH 32.8 H (27.0-32.0) pg MCHC 32.8 (31.0-37.0) g/dL RDW Std Deviation 57.7 (28.0-62.0) fl RDW Coeff of Myrna 16 H (11.0-15.0) % Plt Count 448 H (150-400) K/uL MPV 8.50 (7.40-12.00) fL Neut % (Auto) 87.0 H (48.0-80.0) % Lymph % (Auto) 4.0 L (16.0-40.0) % [place] % (Auto) 6.1 (0.0-15.0) % Eos % (Auto) 2.5 (0.0-7.0) % Baso % (Auto) 0.4 (0.0-1.5) % Neut # (Auto) 7.3 H (1.4-5.7) K/uL Lymph # (Auto) 0.3 L (0.6-2.4) K/uL [place] # (Auto) 0.5 (0.0-0.8) K/uL Eos # (Auto) 0.2 (0.0-0.7) K/uL Baso # (Auto) 0.0 (0.0-0.1) K/uL Nucleated RBC % 0.0 /100WBC Nucleated RBCs # 0 K/uL Sodium 136 (136-148) mmol/L Potassium 5.3 H (3.5-5.1) mmol/L Chloride 107 (98-107) mmol/L Carbon Dioxide 16.7 L (21.0-32.0) mmol/L BUN 72 H (7.0-18.0) mg/dL Creatinine 3.5 H (0.8-1.3) mg/dL Est Cr Clr Drug Dosing 15.23 mL/min Estimated GFR (MDRD) 17.4 ml/min Glucose 80 (74-106) mg/dL Calcium 8.3 L (8.5-10.1) mg/dL Result Diagrams: 09/02/21 06:36 09/02/21 06:36 Sepsis Event Note - Evaluation Sepsis Screening Result: No Definite Risk - Focused Exam Vital Signs: Vital Signs Temp Pulse Resp BP Pulse Ox 09/02/21 08:00 36.3 C 68 18 104/56 L 97 09/02/21 04:00 36.1 C 64 16 118/58 L 99 - Problem List Review Problem List Initiated/Reviewed/Updated: Yes - My Orders Last 24 Hours: My Active Orders 09/01/21 21:00 Metoprolol Succinate [Toprol XL] 25 mg PO BEDTIME Simvastatin [Zocor] 40 mg PO BEDTIME 09/02/21 01:15 Sodium Chloride 0.9% [Normal Saline] 1,000 ml IV CONTINUOUS 09/02/21 Breakfast Regular Diet [DIET] 09/02/21 12:12 Aspiration Precautions [RC] ASDIRECTED Tube Feeding [Enteral Feedings] [RC] Click to Edit - Plan Plan:: 71 yo male admitted for acute kidney injury, dehydration, nausea and vomiting 1. SAJAN: after hydration, creatinine is still elevated, CT scan shows hydronep hrosis bu no obstruction 2. Nausea and vomiting has improved, will advance diet and restart tube feeds 3. Cellulitis aroung J-tube, will continue rocephin
--- NOTE | 2021-09-02 14:11 | PCM.CONSN ---
- General Info Date of Service: 09/02/21 Admission Dx/Problem (Free Text): Admission Diagnosis/Problem Admission Diagnosis/Problem Dehydration Subjective Update: Patient is a 71-year-old gentleman with a known history of carcinoma of the esophagus that has been treated with chemoradiotherapy as well as resection. He is admitted to the hospital now with weakness, nausea, vomiting and dehydration. On admission he was noted to have an acute kidney injury with an elevated creatinine. I was asked to see him because of erythema around a feeding jejunostomy. Patient relates this was placed back in April and was done in [place]. I have not been able to review the operative note and have requested that we get a copy of that. He has in the past few months lost about 40 pounds. Functional Status: Reports: Pain Controlled, Tolerating Diet, Ambulating, Urinating. Denies: New Symptoms - Review of Systems General: Reports: Weakness, Fatigue. Denies: Fever HEENT: Reports: No Symptoms Pulmonary: Denies: Shortness of Breath, Cough, Sputum, Hemoptysis Cardiovascular: Denies: Chest Pain, Palpitations Gastrointestinal: Reports: Decreased Appetite. Denies: Abdominal Pain, Constipation, Diarrhea, Hematochezia, Melena, Nausea, Vomiting Genitourinary: Denies: Dysuria, Frequency, Burning Musculoskeletal: Reports: No Symptoms Skin: Denies: Cyanosis, Jaundice, Mottled, Pallor Neurological: Denies: Confusion, Dizziness Psychiatric: Reports: No Symptoms - Patient Data Vitals - Most Recent: Last Vital Signs Temp 97.6 F 09/02/21 12:00 Pulse 62 09/02/21 12:00 Resp 16 09/02/21 12:00 BP 118/56 L 09/02/21 12:00 Pulse Ox 96 09/02/21 12:00 Weight - Most Recent: 120 lb 14.4 oz I&O - Last 24 Hours: Intake & Output 09/02/21 09/02/21 09/02/21 03:59 11:59 19:59 Intake Total 390 Output Total 425 Balance -35 Lab Results Last 24 Hours: Laboratory Results - last 24 hr 09/02/21 09/02/21 Range/Units 06:36 06:36 WBC 8.40 (4.0-11.0) K/uL RBC 2.32 L (4.50-5.90) M/uL Hgb 7.6 L (13.0-17.0) g/dL Hct 23.2 L (38.0-50.0) % MCV 100.0 H (80.0-98.0) fL MCH 32.8 H (27.0-32.0) pg MCHC 32.8 (31.0-37.0) g/dL RDW Std Deviation 57.7 (28.0-62.0) fl RDW Coeff of Myrna 16 H (11.0-15.0) % Plt Count 448 H (150-400) K/uL MPV 8.50 (7.40-12.00) fL Neut % (Auto) 87.0 H (48.0-80.0) % Lymph % (Auto) 4.0 L (16.0-40.0) % [place] % (Auto) 6.1 (0.0-15.0) % Eos % (Auto) 2.5 (0.0-7.0) % Baso % (Auto) 0.4 (0.0-1.5) % Neut # (Auto) 7.3 H (1.4-5.7) K/uL Lymph # (Auto) 0.3 L (0.6-2.4) K/uL [place] # (Auto) 0.5 (0.0-0.8) K/uL Eos # (Auto) 0.2 (0.0-0.7) K/uL Baso # (Auto) 0.0 (0.0-0.1) K/uL Nucleated RBC % 0.0 /100WBC Nucleated RBCs # 0 K/uL Sodium 136 (136-148) mmol/L Potassium 5.3 H (3.5-5.1) mmol/L Chloride 107 (98-107) mmol/L Carbon Dioxide 16.7 L (21.0-32.0) mmol/L BUN 72 H (7.0-18.0) mg/dL Creatinine 3.5 H (0.8-1.3) mg/dL Est Cr Clr Drug Dosing 15.23 mL/min Estimated GFR (MDRD) 17.4 ml/min Glucose 80 (74-106) mg/dL Calcium 8.3 L (8.5-10.1) mg/dL Med Orders - Current: Current Medications Acetaminophen (Acetaminophen 325 Mg Tab) 650 mg PO Q6H PRN PRN Reason: Pain Last Admin: 09/02/21 13:41 Dose: 650 mg Documented by: Enoxaparin Sodium (Enoxaparin 40 Mg/0.4 Ml Syringe) 40 mg SUBCUT Q24H [facility] Last Admin: 09/02/21 11:18 Dose: 40 mg Documented by: Finasteride (Finasteride 5 Mg Tab) 5 mg PO DAILY [facility] Last Admin: 09/02/21 09:30 Dose: 5 mg Documented by: Ceftriaxone Sodium/Dextrose 1 (gm/ Premix) 50 mls @ 100 mls/hr IV Q24H [facility] Last Admin: 09/02/21 11:19 Dose: 100 mls/hr Documented by: Sodium Chloride (Normal Saline) 1,000 mls @ 125 mls/hr IV CONTINUOUS [facility] Last Admin: 09/02/21 09:32 Dose: 125 mls/hr Documented by: Metoprolol Succinate (Metoprolol Succinate 50 Mg Tab.Er) 25 mg PO BEDTIME [facility] Last Admin: 09/01/21 21:36 Dose: 25 mg Documented by: Omeprazole (Omeprazole 20 Mg Cap.Cr) 40 mg PO ACBREAKFAST [facility] Last Admin: 09/02/21 07:44 Dose: 40 mg Documented by: Ondansetron HCl (Ondansetron 4 Mg/2 Ml Sdv) 4 mg IVPUSH Q4H PRN PRN Reason: Nausea/Vomiting Last Admin: 09/01/21 17:15 Dose: 4 mg Documented by: Oxycodone HCl (Oxycodone 5 Mg Tab) 10 mg PO Q6H PRN PRN Reason: Abdominal Pain Last Admin: 09/02/21 13:42 Dose: 10 mg Documented by: Simvastatin (Simvastatin 40 Mg Tab) 40 mg PO BEDTIME [facility] Last Admin: 09/01/21 21:57 Dose: 40 mg Documented by: Discontinued Medications Hydromorphone HCl (Hydromorphone 1 Mg/Ml Syringe) 0.25 mg IVPUSH ONETIME ONE Stop: 08/31/21 20:21 Last Admin: 08/31/21 20:27 Dose: 0.25 mg Documented by: Sodium Chloride (Normal Saline) 1,000 mls @ 999 mls/hr IV .BOLUS ONE Stop: 08/31/21 18:52 Last Admin: 08/31/21 18:00 Dose: 999 mls/hr Documented by: Sodium Chloride (Normal Saline) 1,000 mls @ 125 mls/hr IV ASDIRECTED [facility] Last Admin: 09/01/21 17:10 Dose: 125 mls/hr Documented by: Ondansetron HCl (Ondansetron 4 Mg/2 Ml Sdv) 4 mg IVPUSH ONETIME ONE Stop: 08/31/21 17:53 Last Admin: 08/31/21 18:00 Dose: 4 mg Documented by: Ondansetron HCl (Ondansetron 4 Mg/2 Ml Sdv) 4 mg IVPUSH ONETIME ONE Stop: 08/31/21 19:50 Last Admin: 08/31/21 20:02 Dose: 4 mg Documented by: Oxycodone HCl (Oxycodone 5 Mg Tab) 10 mg PO DAILY PRN PRN Reason: Abdominal Pain - Exam General: Alert, Oriented, Cooperative, No Acute Distress HEENT: Pupils Equal, Pupils Reactive, EOMI. No: Scleral Icterus Neck: Supple, No JVD Lungs: Clear to Auscultation, Normal Respiratory Effort Cardiovascular: Regular Rate, Regular Rhythm GI/Abdominal Exam: Normal Bowel Sounds, Soft, Non-Tender, No Distention, Other ( Feeding tube is present in the LUQ. There is minimal erythema and tenderness. The feeding tube flushes easily with tap water and there was no pain with injection.). No: Guarding, Rigid, Rebound (Male) Exam: Deferred Back Exam: Normal Inspection Extremities: Normal Inspection Skin: Warm, Dry, Intact Wound/Incisions: Healing Well, Other (No significant erythema at the feeding tube site.) Psy/Mental Status: Alert, Normal Affect, Normal Mood Sepsis Event Note - Evaluation Sepsis Screening Result: No Definite Risk - Focused Exam Vital Signs: Vital Signs Temp Pulse Resp BP Pulse Ox 09/02/21 12:00 97.6 F 62 16 118/56 L 96 09/02/21 08:00 97.4 F 68 18 104/56 L 97 09/02/21 04:00 96.9 F 64 16 118/58 L 99 Consult PN Assessment/Plan Procedures: Procedures ASSAY IGA/IGD/IGG/IGM EACH (05/31/21) ASSAY NEPHELOMETRY NOT SPEC (05/31/21) ASSAY OF FERRITIN (06/14/21) ASSAY OF FOLIC ACID SERUM (06/14/21) ASSAY OF LACTIC ACID (08/03/21) ASSAY OF LIPASE (08/04/21) ASSAY OF MAGNESIUM (07/12/21) ASSAY OF PROTEIN SERUM (05/31/21) ASSAY OF PSA TOTAL (09/16/18) ASSAY OF TROPONIN QUANT (07/09/14) ASSAY THYROID STIM HORMONE (07/12/21) AUTOMATED RETICULOCYTE COUNT (11/08/20) BLOOD GASES ANY COMBINATION (08/03/21) BLOOD TRANSFUSION SERVICE (01/31/21) BLOOD TYPING SEROLOGIC ABO (01/31/21) BLOOD TYPING SEROLOGIC RH(D) (01/31/21) CARCINOEMBRYONIC ANTIGEN (12/13/20) CARDIOVASCULAR STRESS TEST (02/23/14) CHEMO IV INFUS EACH ADDL SEQ (03/02/21) CHEMO IV INFUSION 1 HR (07/12/21) CHEST X-RAY 1 VIEW FRONTAL (07/09/14) COLONOSCOPY W/LESION REMOVAL (11/08/20) COMPATIBILITY TEST ANTIGLOB (01/31/21) COMPATIBILITY TEST INCUBATE (01/31/21) COMPATIBILITY TEST SPIN (01/31/21) COMPLETE CBC AUTOMATED (09/29/20) COMPLETE CBC W/AUTO DIFF WBC (08/04/21) COMPREHEN METABOLIC PANEL (08/04/21) CT ABD & PELV 1/> REGNS (04/05/21) CT ABD & PELV W/CONTRAST (08/03/21) CT ABD & PELVIS W/O CONTRAST (12/16/20) CT HEAD/BRAIN W/O DYE (07/09/14) CT SOFT TISSUE NECK W/DYE (11/07/15) CT THORAX DX C- (05/13/20) CT THORAX DX C-/C+ (04/05/21) CYTOPATH FL NONGYN SMEARS (11/08/20) DESIGN MLC DEVICE FOR IMRT (01/16/21) DRAW BLOOD OFF VENOUS DEVICE (07/12/21) EGD BIOPSY SINGLE/MULTIPLE (04/12/21) ELECTROCARDIOGRAM TRACING (07/09/14) EMERGENCY DEPT VISIT (08/04/21) EMERGENCY DEPT VISIT (08/03/21) EMERGENCY DEPT VISIT (05/29/21) EMERGENCY DEPT VISIT (04/15/21) EMERGENCY DEPT VISIT (07/09/14) GLYCOSYLATED HEMOGLOBIN TEST (07/09/14) HEMATOCRIT (11/21/20) HEMOGLOBIN (11/21/20) HPYLORI STOOL AG IA (01/15/20) HT MUSCLE IMAGE SPECT MULT (02/23/14) HYDRATE IV INFUSION ADD-ON (01/31/21) HYDRATION IV INFUSION INIT (03/02/21) IMMUNOFIX E-PHORESIS SERUM (05/31/21) INSERT NON-TUNNEL CV CATH (03/19/21) INSERT TEMP BLADDER CATH (05/29/21) IRON BINDING TEST (06/14/21) LIPID PANEL (09/16/18) METABOLIC PANEL TOTAL CA (04/15/21) MR ANGIOGRAPH NECK W/O&W/DYE (07/09/14) MR ANGIOGRAPHY HEAD W/O DYE (07/09/14) NTSTY MODUL RAD TX DLVR CPLX (03/02/21) OCCULT BLOOD FECES (10/03/20) OFFICE O/P EST LOW 20-29 MIN (09/16/18) OFFICE O/P EST MOD 30-39 MIN (11/30/20) OFFICE O/P EST SF 10-19 MIN (01/16/21) OFFICE O/P NEW HI 60-74 MIN (01/16/21) PCV13 VACCINE IM (09/16/18) PET IMAGE W/CT SKULL-THIGH (12/13/20) PROTEIN E-PHORESIS SERUM (05/31/21) PROTHROMBIN TIME (08/03/21) RADIATION PHYSICS CONSULT (03/02/21) RADIATION THERAPY DOSE PLAN (01/16/21) RADIATION TREATMENT AID(S) (01/16/21) RADIOTHERAPY DOSE PLAN IMRT (01/16/21) RBC ANTIBODY SCREEN (01/31/21) RESPIRATOR MOTION MGMT SIMUL (01/16/21) ROUTINE VENIPUNCTURE (08/04/21) SPECIAL RADIATION TREATMENT (01/16/21) THER/PROPH/DIAG INJ IV PUSH (08/04/21) THER/PROPH/DIAG IV INF INIT (07/12/21) TISSUE EXAM BY PATHOLOGIST (11/08/20) TTE W/DOPPLER COMPLETE (11/04/19) TX/PRO/DX INJ NEW DRUG ADDON (08/04/21) TX/PRO/DX INJ SAME DRUG PATIENT ACCOUNTS MANAGER (11/08/20) URINALYSIS AUTO W/O SCOPE (03/19/21) URINALYSIS AUTO W/SCOPE (08/04/21) VITAMIN B-12 (06/14/21) X-RAY EXAM ABDOMEN 1 VIEW (05/29/21) (1) Esophageal adenocarcinoma SNOMED Code(s): 519711010 Code(s): C15.9 - MALIGNANT NEOPLASM OF ESOPHAGUS, UNSPECIFIED Priority: Medium Current Visit: Yes (2) Uses feeding tube SNOMED Code(s): 841548210 Code(s): Z97.8 - PRESENCE OF OTHER SPECIFIED DEVICES Priority: High Current Visit: Yes (3) Dehydration SNOMED Code(s): 69784551 Code(s): E86.0 - DEHYDRATION Priority: High Current Visit: Yes (4) Renal insufficiency SNOMED Code(s): 982249082, 612668749 Code(s): N28.9 - DISORDER OF KIDNEY AND URETER, UNSPECIFIED Priority: High Current Visit: Yes (5) Vomiting SNOMED Code(s): 758190433 Code(s): R11.10 - VOMITING, UNSPECIFIED Priority: Medium Current Visit: Yes (6) Abdominal pain SNOMED Code(s): 36580902 Code(s): R10.9 - UNSPECIFIED ABDOMINAL PAIN Priority: Low Current Visit: No Qualifiers: Abdominal location: left upper quadrant Qualified Code(s): R10.12 - Left upper quadrant pain (7) Complication of feeding tube SNOMED Code(s): 512673402 Code(s): K94.20 - GASTROSTOMY COMPLICATION, UNSPECIFIED Priority: Medium Current Visit: No Problem List Initiated/Reviewed/Updated: Yes Plan: 1. Continue good daily wound care. Make sure buttress is snug against gauze to avoid tube migration and irritation. 2. Get operative report regarding feeding tube placement from [facility] in [place]. 3. Okay to resume tube feedings.
[2021-09-02] MEDS: Metoprolol Succinate 50 MG Tab.ER PO SCH (21:27)
[2021-09-02] MEDS: Simvastatin 40 MG Tab PO SCH (21:32)
[2021-09-03] MEDS: Sodium Chloride 0.9% 1,000 ML IV SCH (03:02)
[2021-09-03] MEDS: oxyCODONE 5 MG Tab PO PRN ×4 (03:39→23:04)
[2021-09-03] MEDS: Acetaminophen 325 MG Tab PO PRN ×4 (03:40→21:51)
[2021-09-03 07:40] LABS: CARBON DIOXIDE,CO2 15.1 mmol/L (21.0-32.0); POTASSIUM,K 5.6 mmol/L (3.5-5.1)
[2021-09-03] MEDS: Omeprazole 20 MG Cap.CR PO SCH (07:43)
[2021-09-03] MEDS: Finasteride 5 MG Tab PO SCH (09:31)
[2021-09-03] MEDS: Enoxaparin 40 MG/0.4 ML Syringe SUBCUT SCH (10:45)
[2021-09-03] MEDS: cefTRIAXone 1 GM in Premix Bag 1 BAG IV SCH (10:46)
[2021-09-03] MEDS ORDERED: Furosemide 40 MG/4 ML VIAL IVPUSH ONE ×3 (11:00→21:30)
--- NOTE | 2021-09-03 15:14 | PCM.PN ---
- General Info Date of Service: 09/03/21 Subjective Update: Patient is a 71-year-old male, on day 4 of service, who has a significant past medical history of hypertension, hyperlipidemia, GERD, osteoarthritis, CVA, esophageal cancer with partial esophagectomy in 12/21, and gastrectomy with J-tube placement in 04/22, who was admitted to the medical floor due to emesis and abdominal pain around his J-tube site. Upon interview with the patient today he was complaining of bilateral hand edema which has never occurred before. I spoke with anatomy and physiology instructor Dr. Sifuentes and in [place], who suggested that we use IV Lasix to decrease the swelling, and to contact him tomorrow in regards to results of this treatment. Other than that, the patient feels much better, he no longer has any nausea or vomiting, and his clear liquid diet has been progressed to a regular diet because he feels he can hold down food. The pain he had around his abdomen with respect to his J-tube has also decreased and is 2 out of 10 in intensity and nonradiating. He has no other health concerns at this time. - Review of Systems General: Reports: Fatigue HEENT: Denies: Headaches, Sore Throat Pulmonary: Denies: Shortness of Breath, Cough Cardiovascular: Denies: Chest Pain, Palpitations Gastrointestinal: Reports: Abdominal Pain Musculoskeletal: Reports: Other (Swelling of bilateral hands and feet) - Patient Data Vitals - Most Recent: Last Vital Signs Temp 97.4 F 09/03/21 12:00 Pulse 68 09/03/21 12:00 Resp 20 09/03/21 12:00 BP 120/62 09/03/21 12:00 Pulse Ox 95 09/03/21 12:00 Weight - Most Recent: 120 lb 14.4 oz I&O - Last 24 Hours: Intake & Output 09/03/21 09/03/21 09/03/21 06:59 14:59 22:59 Intake Total 1362 Output Total 390 Balance 972 Lab Results Last 24 Hours: Laboratory Results - last 24 hr 09/03/21 09/03/21 Range/Units 06:45 06:45 WBC 13.13 H (4.0-11.0) K/uL RBC 2.65 L (4.50-5.90) M/uL Hgb 8.6 L (13.0-17.0) g/dL Hct 26.5 L (38.0-50.0) % MCV 100.0 H (80.0-98.0) fL MCH 32.5 H (27.0-32.0) pg MCHC 32.5 (31.0-37.0) g/dL RDW Std Deviation 57.4 (28.0-62.0) fl RDW Coeff of Myrna 16 H (11.0-15.0) % Plt Count 606 H (150-400) K/uL MPV 8.70 (7.40-12.00) fL Neut % (Auto) 87.9 H (48.0-80.0) % Lymph % (Auto) 4.0 L (16.0-40.0) % [place] % (Auto) 5.7 (0.0-15.0) % Eos % (Auto) 2.0 (0.0-7.0) % Baso % (Auto) 0.4 (0.0-1.5) % Neut # (Auto) 11.5 H (1.4-5.7) K/uL Lymph # (Auto) 0.5 L (0.6-2.4) K/uL [place] # (Auto) 0.8 (0.0-0.8) K/uL Eos # (Auto) 0.3 (0.0-0.7) K/uL Baso # (Auto) 0.1 (0.0-0.1) K/uL Nucleated RBC % 0.0 /100WBC Nucleated RBCs # 0 K/uL Sodium 137 (136-148) mmol/L Potassium 5.6 H (3.5-5.1) mmol/L Chloride 107 (98-107) mmol/L Carbon Dioxide 15.1 L (21.0-32.0) mmol/L BUN 68 H (7.0-18.0) mg/dL Creatinine 3.5 H (0.8-1.3) mg/dL Est Cr Clr Drug Dosing 15.23 mL/min Estimated GFR (MDRD) 17.4 ml/min Glucose 81 (74-106) mg/dL Calcium 8.1 L (8.5-10.1) mg/dL Med Orders - Current: Current Medications Acetaminophen (Acetaminophen 325 Mg Tab) 650 mg PO Q6H PRN PRN Reason: Pain Last Admin: 09/03/21 09:36 Dose: 650 mg Documented by: Enoxaparin Sodium (Enoxaparin 40 Mg/0.4 Ml Syringe) 40 mg SUBCUT Q24H [facility] Last Admin: 09/03/21 10:45 Dose: 40 mg Documented by: Finasteride (Finasteride 5 Mg Tab) 5 mg PO DAILY [facility] Last Admin: 09/03/21 09:31 Dose: 5 mg Documented by: Ceftriaxone Sodium/Dextrose 1 (gm/ Premix) 50 mls @ 100 mls/hr IV Q24H [facility] Last Admin: 09/03/21 10:46 Dose: 100 mls/hr Documented by: Sodium Chloride (Normal Saline) 1,000 mls @ 125 mls/hr IV CONTINUOUS [facility] Last Admin: 09/03/21 03:02 Dose: 125 mls/hr Documented by: Metoprolol Succinate (Metoprolol Succinate 50 Mg Tab.Er) 25 mg PO BEDTIME [facility] Last Admin: 09/02/21 21:27 Dose: 25 mg Documented by: Omeprazole (Omeprazole 20 Mg Cap.Cr) 40 mg PO ACBREAKFAST [facility] Last Admin: 09/03/21 07:43 Dose: 40 mg Documented by: Ondansetron HCl (Ondansetron 4 Mg/2 Ml Sdv) 4 mg IVPUSH Q4H PRN PRN Reason: Nausea/Vomiting Last Admin: 09/01/21 17:15 Dose: 4 mg Documented by: Oxycodone HCl (Oxycodone 5 Mg Tab) 10 mg PO Q6H PRN PRN Reason: Abdominal Pain Last Admin: 09/03/21 09:35 Dose: 10 mg Documented by: Simvastatin (Simvastatin 40 Mg Tab) 40 mg PO BEDTIME [facility] Last Admin: 09/02/21 21:32 Dose: 40 mg Documented by: Discontinued Medications Furosemide (Furosemide 40 Mg/4 Ml Vial) 40 mg IVPUSH NOW ONE Stop: 09/03/21 11:01 Last Admin: 09/03/21 11:48 Dose: 40 mg Documented by: Hydromorphone HCl (Hydromorphone 1 Mg/Ml Syringe) 0.25 mg IVPUSH ONETIME ONE Stop: 08/31/21 20:21 Last Admin: 08/31/21 20:27 Dose: 0.25 mg Documented by: Sodium Chloride (Normal Saline) 1,000 mls @ 999 mls/hr IV .BOLUS ONE Stop: 08/31/21 18:52 Last Admin: 08/31/21 18:00 Dose: 999 mls/hr Documented by: Sodium Chloride (Normal Saline) 1,000 mls @ 125 mls/hr IV ASDIRECTED [facility] Last Admin: 09/01/21 17:10 Dose: 125 mls/hr Documented by: Ondansetron HCl (Ondansetron 4 Mg/2 Ml Sdv) 4 mg IVPUSH ONETIME ONE Stop: 08/31/21 17:53 Last Admin: 08/31/21 18:00 Dose: 4 mg Documented by: Ondansetron HCl (Ondansetron 4 Mg/2 Ml Sdv) 4 mg IVPUSH ONETIME ONE Stop: 08/31/21 19:50 Last Admin: 08/31/21 20:02 Dose: 4 mg Documented by: Oxycodone HCl (Oxycodone 5 Mg Tab) 10 mg PO DAILY PRN PRN Reason: Abdominal Pain - Exam General: Alert, Oriented, Cooperative HEENT: Mucous Membr. Moist/[place] Neck: Trachea Midline Lungs: Clear to Auscultation, Normal Respiratory Effort Cardiovascular: Regular Rate, Regular Rhythm GI/Abdominal Exam: Normal Bowel Sounds, Other (J-tube placement on left side of abdomen, resolving cellulitis) Extremities: Other (Bilateral pedal and hand edema) - Patient Data Lab Results Last 24 hrs: Laboratory Results - last 24 hr 09/03/21 09/03/21 Range/Units 06:45 06:45 WBC 13.13 H (4.0-11.0) K/uL RBC 2.65 L (4.50-5.90) M/uL Hgb 8.6 L (13.0-17.0) g/dL Hct 26.5 L (38.0-50.0) % MCV 100.0 H (80.0-98.0) fL MCH 32.5 H (27.0-32.0) pg MCHC 32.5 (31.0-37.0) g/dL RDW Std Deviation 57.4 (28.0-62.0) fl RDW Coeff of Myrna 16 H (11.0-15.0) % Plt Count 606 H (150-400) K/uL MPV 8.70 (7.40-12.00) fL Neut % (Auto) 87.9 H (48.0-80.0) % Lymph % (Auto) 4.0 L (16.0-40.0) % [place] % (Auto) 5.7 (0.0-15.0) % Eos % (Auto) 2.0 (0.0-7.0) % Baso % (Auto) 0.4 (0.0-1.5) % Neut # (Auto) 11.5 H (1.4-5.7) K/uL Lymph # (Auto) 0.5 L (0.6-2.4) K/uL [place] # (Auto) 0.8 (0.0-0.8) K/uL Eos # (Auto) 0.3 (0.0-0.7) K/uL Baso # (Auto) 0.1 (0.0-0.1) K/uL Nucleated RBC % 0.0 /100WBC Nucleated RBCs # 0 K/uL Sodium 137 (136-148) mmol/L Potassium 5.6 H (3.5-5.1) mmol/L Chloride 107 (98-107) mmol/L Carbon Dioxide 15.1 L (21.0-32.0) mmol/L BUN 68 H (7.0-18.0) mg/dL Creatinine 3.5 H (0.8-1.3) mg/dL Est Cr Clr Drug Dosing 15.23 mL/min Estimated GFR (MDRD) 17.4 ml/min Glucose 81 (74-106) mg/dL Calcium 8.1 L (8.5-10.1) mg/dL Result Diagrams: 09/03/21 06:45 09/03/21 06:45 Sepsis Event Note - Evaluation Sepsis Screening Result: No Definite Risk - Focused Exam Vital Signs: Vital Signs Temp Pulse Resp BP Pulse Ox 09/03/21 12:00 97.4 F 68 20 120/62 95 09/03/21 07:56 97.4 F 71 18 121/58 L 96 09/03/21 04:00 96.4 F L 71 16 121/58 L 93 L - Problem List & Annotations (1) Vomiting SNOMED Code(s): 423313420 Code(s): R11.10 - VOMITING, UNSPECIFIED Status: Acute Priority: Medium Current Visit: Yes (2) Abdominal pain SNOMED Code(s): 45501353 Code(s): R10.9 - UNSPECIFIED ABDOMINAL PAIN Status: Acute Priority: Low Current Visit: No Qualifiers: Abdominal location: left upper quadrant Qualified Code(s): R10.12 - Left upper quadrant pain (3) Acute kidney injury SNOMED Code(s): 09537875, 91257675 Code(s): N17.9 - ACUTE KIDNEY FAILURE, UNSPECIFIED Status: Acute Current Visit: No (4) Acute low back pain SNOMED Code(s): 943952786 Code(s): M54.5 - LOW BACK PAIN * DO NOT USE * Status: Acute Current Visit: No Qualifiers: Back pain laterality: left Sciatica presence: without sciatica Qualified Code(s): M54.50 - Low back pain, unspecified (5) CVA, Cerebrovascular accident SNOMED Code(s): 395992058 Code(s): I63.9 - CEREBRAL INFARCTION, UNSPECIFIED Status: Acute Current Visit: No (6) Esophageal cancer SNOMED Code(s): 144498706 Code(s): C15.9 - MALIGNANT NEOPLASM OF ESOPHAGUS, UNSPECIFIED Status: Acute Current Visit: No (7) BPH (benign prostatic hyperplasia) SNOMED Code(s): 478925160 Code(s): N40.0 - BENIGN PROSTATIC HYPERPLASIA WITHOUT LOWER URINRY TRACT SYMP Status: Chronic Current Visit: No (8) Hyperlipidemia SNOMED Code(s): 58963588 Code(s): E78.5 - HYPERLIPIDEMIA, UNSPECIFIED Status: Chronic Current Visit: No (9) Hypertension SNOMED Code(s): 00222353 Code(s): I10 - ESSENTIAL (PRIMARY) HYPERTENSION Status: Chronic Current Visit: No (10) Edema SNOMED Code(s): 465881550, 601174824 Code(s): R60.9 - EDEMA, UNSPECIFIED Status: Acute Current Visit: Yes (11) Cellulitis SNOMED Code(s): 577623797 Code(s): L03.90 - CELLULITIS, UNSPECIFIED Status: Acute Current Visit: Yes - Problem List Review Problem List Initiated/Reviewed/Updated: Yes - My Orders Last 24 Hours: My Active Orders 09/04/21 05:11 BASIC METABOLIC PANEL,BMP [CHEM] AM CBC WITH AUTO DIFF [HEME] AM - Assessment Assessment:: 1. Nonbloody nonbilious emesis -Resolving, patient has not vomited in 24 hours -Continue Zofran per IV route as needed -Clear liquid diet progressed to regular diet 2. Abdominal pain due to cellulitis around J-tube site -Continue Rocephin 1 g per IV route -For pain the patient has oxycodone 10 mg /Tylenol 650 mg every 6 hours as needed -Continue to monitor daily CBC for white blood cell changes 3. Bilateral hand and pedal edema -Per nephrology recommendations the patient has been started on Lasix per IV route -Continue to monitor and treat accordingly 4. History of esophageal cancer -Patient has lytic lesions in the thoracolumbar spine, follow up with oncologist on September 06 to discuss findings 5. Lumbar back pain from fall -Treat with analgesics as per #2 6. BPH history -Continue finasteride 7. Hypertension history -Continue metoprolol 8. Hyperlipidemia history -Continue simvastatin 9. SAJAN -Creatinine level is currently 3.5, monitor with daily BMP 10. CVA history -Monitor for symptoms of stroke
[2021-09-03] MEDS: Metoprolol Succinate 50 MG Tab.ER PO SCH (21:43)
[2021-09-03] MEDS: Simvastatin 40 MG Tab PO SCH (21:44)
[2021-09-04] MEDS: Acetaminophen 325 MG Tab PO PRN ×3 (03:58→21:18)
[2021-09-04] MEDS: oxyCODONE 5 MG Tab PO PRN ×3 (05:38→21:17)
[2021-09-04] MEDS: Omeprazole 20 MG Cap.CR PO SCH (06:46)
[2021-09-04 07:24] LABS: CARBON DIOXIDE,CO2 15.5 mmol/L (21.0-32.0); POTASSIUM,K 4.9 mmol/L (3.5-5.1)
[2021-09-04] MEDS: Finasteride 5 MG Tab PO SCH (09:17)
[2021-09-04] MEDS: cefTRIAXone 1 GM in Premix Bag 1 BAG IV SCH (10:43)
--- NOTE | 2021-09-04 11:17 | CR ---
Indication: Trauma Technique: Two images of the right shoulder were acquired Comparison: No prior shoulder studies. Limited review of lung base images of an abdomen and pelvis CT dated 08/31/2021 Findings: Bone mineral density appears decreased. There is no lytic or blastic lesion, fracture or dislocation identified. Moderate degenerative changes. No soft tissue abnormality visible by plain film. A port ends in the SVC. Small right pleural effusion which was present on a CT of August 31, 2021 Impression: 1. No acute fracture, dislocation or destructive process involving the right shoulder. 2. Demineralization and degenerative change. 3. Port placed properly. Small right pleural effusion which was present 08/31/2021 Dictated by Crispin Guerrero MD @ 09/04/2021 11:15:40 AM (Electronically Signed)
[2021-09-04] MEDS: Ondansetron 4 MG/2 ML SDV IVPUSH PRN (13:24)
[2021-09-04] MEDS: Heparin Sodium 5,000 Units/ML Vial SUBCUT SCH ×2 (13:29→21:17)
[2021-09-04] MEDS ORDERED: Furosemide 40 MG/4 ML VIAL IVPUSH ONE (13:46)
--- NOTE | 2021-09-04 15:41 | PCM.PN ---
- General Info Date of Service: 09/04/21 Subjective Update: Patient is a 71-year-old male, on day 5 of service, who has a significant past medical history of hypertension, hyperlipidemia, GERD, osteoarthritis, CVA, esophageal cancer with partial esophagectomy in 12/21, and gastrectomy with J-tube placement in 04/22, who was admitted to the medical floor due to emesis and abdominal pain around his J-tube site. Currently the patient's emesis is controlled and his abdominal pain is 2/10 in intensity and nonradiating. He continues to have swelling of the bilateral hands and feet which is slightly reduced with Lasix treatment per IV route since yesterday. With the Lasix treatment the patient's creatinine level increased to 3.9. Stemhole Borer Dr. Sifuentes was contacted in regards to this patient and he recommended that we decrease his metoprolol dose from 25 mg at bedtime to 12.5. He also suggested Lasix per oral route 40 mg twice a day, and to set up a follow up appointment with him 1 week after discharge. We suggested the placement of a Leone so we can monitor urine output, however the patient declined. We also had the dietitian go see this patient today in regards to having an nephrology carb study completed, and to assess the J-tube feeds. We are still awaiting her report. The patient was also complaining of right shoulder pain today and had an x-ray which showed no acute fractures, but did visualize demineralization and degenerative changes which we will continue to treat with analgesic medications including the Tylenol and oxycodone on the patient's MAR. The patient has no other health concerns at this time. - Review of Systems General: Reports: Weakness, Fatigue HEENT: Denies: Headaches, Sore Throat Pulmonary: Denies: Shortness of Breath, Cough Cardiovascular: Denies: Chest Pain, Palpitations Gastrointestinal: Reports: Abdominal Pain Genitourinary: Denies: Dysuria - Patient Data Vitals - Most Recent: Last Vital Signs Temp 97.6 F 09/04/21 11:00 Pulse 82 09/04/21 11:00 Resp 18 09/04/21 11:00 BP 114/73 09/04/21 11:00 Pulse Ox 95 09/04/21 11:00 Weight - Most Recent: 120 lb 14.4 oz I&O - Last 24 Hours: Intake & Output 09/04/21 09/04/21 09/04/21 06:59 14:59 22:59 Intake Total 920 Output Total 450 Balance 470 Lab Results Last 24 Hours: Laboratory Results - last 24 hr 09/04/21 09/04/21 09/04/21 Range/Units 05:35 05:35 05:35 WBC 10.34 (4.0-11.0) K/uL RBC 2.41 L (4.50-5.90) M/uL Hgb 7.8 L (13.0-17.0) g/dL Hct 23.7 L (38.0-50.0) % MCV 98.3 H (80.0-98.0) fL MCH 32.4 H (27.0-32.0) pg MCHC 32.9 (31.0-37.0) g/dL RDW Std Deviation 56.3 (28.0-62.0) fl RDW Coeff of Myrna 16 H (11.0-15.0) % Plt Count 487 H (150-400) K/uL MPV 8.60 (7.40-12.00) fL Neut % (Auto) 87.8 H (48.0-80.0) % Lymph % (Auto) 3.1 L (16.0-40.0) % Frio % (Auto) 7.4 (0.0-15.0) % Eos % (Auto) 1.5 (0.0-7.0) % Baso % (Auto) 0.2 (0.0-1.5) % Neut # (Auto) 9.1 H (1.4-5.7) K/uL Lymph # (Auto) 0.3 L (0.6-2.4) K/uL Frio # (Auto) 0.8 (0.0-0.8) K/uL Eos # (Auto) 0.2 (0.0-0.7) K/uL Baso # (Auto) 0.0 (0.0-0.1) K/uL Nucleated RBC % 0.0 /100WBC Nucleated RBCs # 0 K/uL Sodium 134 L (136-148) mmol/L Potassium 4.9 (3.5-5.1) mmol/L Chloride 106 (98-107) mmol/L Carbon Dioxide 15.5 L (21.0-32.0) mmol/L BUN 72 H (7.0-18.0) mg/dL Creatinine 3.9 H (0.8-1.3) mg/dL Est Cr Clr Drug Dosing 13.67 mL/min Estimated GFR (MDRD) 15.4 ml/min Glucose 92 (74-106) mg/dL POC Glucose (70-99) mg/dL Calcium 8.1 L (8.5-10.1) mg/dL Total Bilirubin 0.1 L (0.2-1.0) mg/dL Direct Bilirubin < 0.05 (0.0-0.5) mg/dL Indirect Bilirubin 0.92257 AST 37 (15-37) IU/L ALT 14 (14-63) IU/L Alkaline Phosphatase 184 H (46-116) U/L Total Protein 5.4 L (6.4-8.2) g/dL Albumin 1.8 L (3.4-5.0) g/dL Globulin 3.6 (2.6-4.0) g/dL Albumin/Globulin Ratio 0.5 L (0.9-1.6) Ur Random Creatinine mg/dL Ur Random Sodium (40.0-220.0) mmol/L 09/04/21 09/04/21 Range/Units 11:25 12:53 WBC (4.0-11.0) K/uL RBC (4.50-5.90) M/uL Hgb (13.0-17.0) g/dL Hct (38.0-50.0) % MCV (80.0-98.0) fL MCH (27.0-32.0) pg MCHC (31.0-37.0) g/dL RDW Std Deviation (28.0-62.0) fl RDW Coeff of Myrna (11.0-15.0) % Plt Count (150-400) K/uL MPV (7.40-12.00) fL Neut % (Auto) (48.0-80.0) % Lymph % (Auto) (16.0-40.0) % Frio % (Auto) (0.0-15.0) % Eos % (Auto) (0.0-7.0) % Baso % (Auto) (0.0-1.5) % Neut # (Auto) (1.4-5.7) K/uL Lymph # (Auto) (0.6-2.4) K/uL Frio # (Auto) (0.0-0.8) K/uL Eos # (Auto) (0.0-0.7) K/uL Baso # (Auto) (0.0-0.1) K/uL Nucleated RBC % /100WBC Nucleated RBCs # K/uL Sodium (136-148) mmol/L Potassium (3.5-5.1) mmol/L Chloride (98-107) mmol/L Carbon Dioxide (21.0-32.0) mmol/L BUN (7.0-18.0) mg/dL Creatinine (0.8-1.3) mg/dL Est Cr Clr Drug Dosing mL/min Estimated GFR (MDRD) ml/min Glucose (74-106) mg/dL POC Glucose 97 (70-99) mg/dL Calcium (8.5-10.1) mg/dL Total Bilirubin (0.2-1.0) mg/dL Direct Bilirubin (0.0-0.5) mg/dL Indirect Bilirubin AST (15-37) IU/L ALT (14-63) IU/L Alkaline Phosphatase (46-116) U/L Total Protein (6.4-8.2) g/dL Albumin (3.4-5.0) g/dL Globulin (2.6-4.0) g/dL Albumin/Globulin Ratio (0.9-1.6) Ur Random Creatinine 95.5 mg/dL Ur Random Sodium 29.0 L (40.0-220.0) mmol/L Med Orders - Current: Current Medications Acetaminophen (Acetaminophen 325 Mg Tab) 650 mg PO Q6H PRN PRN Reason: Pain Last Admin: 09/04/21 13:23 Dose: 650 mg Documented by: Finasteride (Finasteride 5 Mg Tab) 5 mg PO DAILY [facility] Last Admin: 09/04/21 09:17 Dose: 5 mg Documented by: Furosemide (Furosemide 40 Mg Tab) 40 mg PO BIDDIURETIC [place] Heparin Sodium (Porcine) (Heparin Sodium 5,000 Units/Ml Vial) 5,000 units SUBCUT Q8H [facility] Last Admin: 09/04/21 13:29 Dose: 5,000 units Documented by: Ceftriaxone Sodium/Dextrose 1 (gm/ Premix) 50 mls @ 100 mls/hr IV Q24H [facility] Last Admin: 09/04/21 10:43 Dose: 100 mls/hr Documented by: Sodium Chloride (Normal Saline) 1,000 mls @ 125 mls/hr IV CONTINUOUS [facility] Last Admin: 09/03/21 03:02 Dose: 125 mls/hr Documented by: Metoprolol Succinate (Metoprolol Succinate 25 Mg Tab.Er) 12.5 mg PO BEDTIME [facility] Omeprazole (Omeprazole 20 Mg Cap.Cr) 40 mg PO ACBREAKFAST [facility] Last Admin: 09/04/21 06:46 Dose: 40 mg Documented by: Ondansetron HCl (Ondansetron 4 Mg/2 Ml Sdv) 4 mg IVPUSH Q4H PRN PRN Reason: Nausea/Vomiting Last Admin: 09/04/21 13:24 Dose: 4 mg Documented by: Oxycodone HCl (Oxycodone 5 Mg Tab) 10 mg PO Q6H PRN PRN Reason: Abdominal Pain Last Admin: 09/04/21 13:22 Dose: 10 mg Documented by: Simvastatin (Simvastatin 40 Mg Tab) 40 mg PO BEDTIME [facility] Last Admin: 09/03/21 21:44 Dose: 40 mg Documented by: Discontinued Medications Enoxaparin Sodium (Enoxaparin 40 Mg/0.4 Ml Syringe) 40 mg SUBCUT Q24H [facility] Last Admin: 09/03/21 10:45 Dose: 40 mg Documented by: Furosemide (Furosemide 40 Mg/4 Ml Vial) 40 mg IVPUSH NOW ONE Stop: 09/03/21 11:01 Last Admin: 09/03/21 11:48 Dose: 40 mg Documented by: Furosemide (Furosemide 40 Mg/4 Ml Vial) 40 mg IVPUSH NOW ONE Stop: 09/03/21 18:20 Last Admin: 09/03/21 21:47 Dose: Not Given Documented by: Furosemide (Furosemide 40 Mg/4 Ml Vial) 40 mg IVPUSH NOW ONE Stop: 09/03/21 21:31 Last Admin: 09/03/21 21:28 Dose: 40 mg Documented by: Furosemide (Furosemide 40 Mg/4 Ml Vial) 40 mg IVPUSH NOW ONE Stop: 09/04/21 13:47 Last Admin: 09/04/21 14:29 Dose: 40 mg Documented by: Hydromorphone HCl (Hydromorphone 1 Mg/Ml Syringe) 0.25 mg IVPUSH ONETIME ONE Stop: 08/31/21 20:21 Last Admin: 08/31/21 20:27 Dose: 0.25 mg Documented by: Sodium Chloride (Normal Saline) 1,000 mls @ 999 mls/hr IV .BOLUS ONE Stop: 08/31/21 18:52 Last Admin: 08/31/21 18:00 Dose: 999 mls/hr Documented by: Sodium Chloride (Normal Saline) 1,000 mls @ 125 mls/hr IV ASDIRECTED [facility] Last Admin: 09/01/21 17:10 Dose: 125 mls/hr Documented by: Metoprolol Succinate (Metoprolol Succinate 50 Mg Tab.Er) 25 mg PO BEDTIME [facility] Last Admin: 09/03/21 21:43 Dose: 25 mg Documented by: Ondansetron HCl (Ondansetron 4 Mg/2 Ml Sdv) 4 mg IVPUSH ONETIME ONE Stop: 08/31/21 17:53 Last Admin: 08/31/21 18:00 Dose: 4 mg Documented by: Ondansetron HCl (Ondansetron 4 Mg/2 Ml Sdv) 4 mg IVPUSH ONETIME ONE Stop: 08/31/21 19:50 Last Admin: 08/31/21 20:02 Dose: 4 mg Documented by: Oxycodone HCl (Oxycodone 5 Mg Tab) 10 mg PO DAILY PRN PRN Reason: Abdominal Pain - Exam General: Alert, Oriented, Cooperative HEENT: No: Mucous Membr. Moist/[place] Neck: Trachea Midline Lungs: Clear to Auscultation, Normal Respiratory Effort Cardiovascular: Regular Rate, Regular Rhythm GI/Abdominal Exam: Normal Bowel Sounds, Tender Extremities: Other (Decreased range of motion of the right shoulder, pain on abduction of the right arm above the shoulder, bilateral edema of hands and feet) - Patient Data Lab Results Last 24 hrs: Laboratory Results - last 24 hr 09/04/21 09/04/21 09/04/21 Range/Units 05:35 05:35 05:35 WBC 10.34 (4.0-11.0) K/uL RBC 2.41 L (4.50-5.90) M/uL Hgb 7.8 L (13.0-17.0) g/dL Hct 23.7 L (38.0-50.0) % MCV 98.3 H (80.0-98.0) fL MCH 32.4 H (27.0-32.0) pg MCHC 32.9 (31.0-37.0) g/dL RDW Std Deviation 56.3 (28.0-62.0) fl RDW Coeff of Myrna 16 H (11.0-15.0) % Plt Count 487 H (150-400) K/uL MPV 8.60 (7.40-12.00) fL Neut % (Auto) 87.8 H (48.0-80.0) % Lymph % (Auto) 3.1 L (16.0-40.0) % Frio % (Auto) 7.4 (0.0-15.0) % Eos % (Auto) 1.5 (0.0-7.0) % Baso % (Auto) 0.2 (0.0-1.5) % Neut # (Auto) 9.1 H (1.4-5.7) K/uL Lymph # (Auto) 0.3 L (0.6-2.4) K/uL Frio # (Auto) 0.8 (0.0-0.8) K/uL Eos # (Auto) 0.2 (0.0-0.7) K/uL Baso # (Auto) 0.0 (0.0-0.1) K/uL Nucleated RBC % 0.0 /100WBC Nucleated RBCs # 0 K/uL Sodium 134 L (136-148) mmol/L Potassium 4.9 (3.5-5.1) mmol/L Chloride 106 (98-107) mmol/L Carbon Dioxide 15.5 L (21.0-32.0) mmol/L BUN 72 H (7.0-18.0) mg/dL Creatinine 3.9 H (0.8-1.3) mg/dL Est Cr Clr Drug Dosing 13.67 mL/min Estimated GFR (MDRD) 15.4 ml/min Glucose 92 (74-106) mg/dL POC Glucose (70-99) mg/dL Calcium 8.1 L (8.5-10.1) mg/dL Total Bilirubin 0.1 L (0.2-1.0) mg/dL Direct Bilirubin < 0.05 (0.0-0.5) mg/dL Indirect Bilirubin 0.58412 AST 37 (15-37) IU/L ALT 14 (14-63) IU/L Alkaline Phosphatase 184 H (46-116) U/L Total Protein 5.4 L (6.4-8.2) g/dL Albumin 1.8 L (3.4-5.0) g/dL Globulin 3.6 (2.6-4.0) g/dL Albumin/Globulin Ratio 0.5 L (0.9-1.6) Ur Random Creatinine mg/dL Ur Random Sodium (40.0-220.0) mmol/L 09/04/21 09/04/21 Range/Units 11:25 12:53 WBC (4.0-11.0) K/uL RBC (4.50-5.90) M/uL Hgb (13.0-17.0) g/dL Hct (38.0-50.0) % MCV (80.0-98.0) fL MCH (27.0-32.0) pg MCHC (31.0-37.0) g/dL RDW Std Deviation (28.0-62.0) fl RDW Coeff of Myrna (11.0-15.0) % Plt Count (150-400) K/uL MPV (7.40-12.00) fL Neut % (Auto) (48.0-80.0) % Lymph % (Auto) (16.0-40.0) % Frio % (Auto) (0.0-15.0) % Eos % (Auto) (0.0-7.0) % Baso % (Auto) (0.0-1.5) % Neut # (Auto) (1.4-5.7) K/uL Lymph # (Auto) (0.6-2.4) K/uL Frio # (Auto) (0.0-0.8) K/uL Eos # (Auto) (0.0-0.7) K/uL Baso # (Auto) (0.0-0.1) K/uL Nucleated RBC % /100WBC Nucleated RBCs # K/uL Sodium (136-148) mmol/L Potassium (3.5-5.1) mmol/L Chloride (98-107) mmol/L Carbon Dioxide (21.0-32.0) mmol/L BUN (7.0-18.0) mg/dL Creatinine (0.8-1.3) mg/dL Est Cr Clr Drug Dosing mL/min Estimated GFR (MDRD) ml/min Glucose (74-106) mg/dL POC Glucose 97 (70-99) mg/dL Calcium (8.5-10.1) mg/dL Total Bilirubin (0.2-1.0) mg/dL Direct Bilirubin (0.0-0.5) mg/dL Indirect Bilirubin AST (15-37) IU/L ALT (14-63) IU/L Alkaline Phosphatase (46-116) U/L Total Protein (6.4-8.2) g/dL Albumin (3.4-5.0) g/dL Globulin (2.6-4.0) g/dL Albumin/Globulin Ratio (0.9-1.6) Ur Random Creatinine 95.5 mg/dL Ur Random Sodium 29.0 L (40.0-220.0) mmol/L Result Diagrams: 09/04/21 05:35 09/04/21 05:35 Sepsis Event Note - Evaluation Sepsis Screening Result: No Definite Risk - Focused Exam Vital Signs: Vital Signs Temp Pulse Resp BP Pulse Ox 09/04/21 11:00 97.6 F 82 18 114/73 95 09/04/21 07:57 98.3 F 68 16 125/65 93 L 09/04/21 04:00 96.4 F L 77 16 117/72 97 - Problem List & Annotations (1) Vomiting SNOMED Code(s): 049740688 Code(s): R11.10 - VOMITING, UNSPECIFIED Status: Acute Priority: Medium Current Visit: Yes (2) Abdominal pain SNOMED Code(s): 89984216 Code(s): R10.9 - UNSPECIFIED ABDOMINAL PAIN Status: Acute Priority: Low Current Visit: No Qualifiers: Abdominal location: left upper quadrant Qualified Code(s): R10.12 - Left upper quadrant pain (3) Acute kidney injury SNOMED Code(s): 80799972, 16002560 Code(s): N17.9 - ACUTE KIDNEY FAILURE, UNSPECIFIED Status: Acute Current Visit: No (4) Acute low back pain SNOMED Code(s): 345146265 Code(s): M54.5 - LOW BACK PAIN * DO NOT USE * Status: Acute Current Visit: No Qualifiers: Back pain laterality: left Sciatica presence: without sciatica Qualified Code(s): M54.50 - Low back pain, unspecified (5) CVA, Cerebrovascular accident SNOMED Code(s): 775208150 Code(s): I63.9 - CEREBRAL INFARCTION, UNSPECIFIED Status: Acute Current Visit: No (6) Esophageal cancer SNOMED Code(s): 326552898 Code(s): C15.9 - MALIGNANT NEOPLASM OF ESOPHAGUS, UNSPECIFIED Status: Acute Current Visit: No (7) BPH (benign prostatic hyperplasia) SNOMED Code(s): 638491799 Code(s): N40.0 - BENIGN PROSTATIC HYPERPLASIA WITHOUT LOWER URINRY TRACT SYMP Status: Chronic Current Visit: No (8) Hyperlipidemia SNOMED Code(s): 45120743 Code(s): E78.5 - HYPERLIPIDEMIA, UNSPECIFIED Status: Chronic Current Visit: No (9) Hypertension SNOMED Code(s): 97980503 Code(s): I10 - ESSENTIAL (PRIMARY) HYPERTENSION Status: Chronic Current Visit: No (10) Edema SNOMED Code(s): 611231593, 140873997 Code(s): R60.9 - EDEMA, UNSPECIFIED Status: Acute Current Visit: Yes (11) Cellulitis SNOMED Code(s): 790184235 Code(s): L03.90 - CELLULITIS, UNSPECIFIED Status: Acute Current Visit: Yes (12) Right shoulder pain SNOMED Code(s): 14521141, 81820240 Code(s): M25.511 - PAIN IN RIGHT SHOULDER Status: Acute Current Visit: Yes - Problem List Review Problem List Initiated/Reviewed/Updated: Yes - My Orders Last 24 Hours: My Active Orders 09/04/21 21:00 Metoprolol Succinate [Toprol XL] 12.5 mg PO BEDTIME 09/05/21 08:00 Furosemide [Lasix] 40 mg PO BIDDIURETIC - Assessment Assessment:: 1. Nonbloody nonbilious emesis -Resolved -Continue Zofran per IV route as needed -Regular diet currently in place 2. Abdominal pain due to cellulitis around J-tube site -Continue Rocephin 1 g per IV route -For pain the patient has oxycodone 10 mg /Tylenol 650 mg every 6 hours as needed -Continue to monitor daily CBC for white blood cell changes -Dietitian will assess patient and give her recommendations regarding the J-tube feedings, and also perform an nephrology carb study 3. Bilateral hand and pedal edema -Per nephrology recommendations the patient has been started on Lasix 40 mg per oral route twice a day and his metoprolol has been decreased from 25 mg to 12.5 at bedtime -The patient will have a follow-up appointment upon discharge with diagrammer and seamer Dr. Sifuentes -Continue to monitor and treat accordingly 4. History of esophageal cancer -Patient has lytic lesions in the thoracolumbar spine, follow up with oncologist on September 06 to discuss findings 5. Lumbar back pain from fall -Treat with analgesics as per #2 6. BPH history -Continue finasteride 7. Hypertension history -Continue metoprolol, dose split in half to 12.5 mg at bed in order to decrease kidney deterioration 8. Hyperlipidemia history -Continue simvastatin 9. SAJAN -Creatinine level is currently 3.9, monitor with daily BMP, patient will see diagrammer and seamer 1 week after discharge 10. CVA history -Monitor for symptoms of stroke 11. Right shoulder pain -Demineralization/degenerative changes seen on x-ray, will treat the pain as per #2
[2021-09-04] MEDS: Simvastatin 40 MG Tab PO SCH (21:19)
[2021-09-04] MEDS: Metoprolol Succinate 25 MG Tab.ER PO SCH (21:21)
[2021-09-05] MEDS: Acetaminophen 325 MG Tab PO PRN ×3 (03:21→21:59)
[2021-09-05] MEDS: oxyCODONE 5 MG Tab PO PRN ×3 (03:22→21:58)
[2021-09-05] MEDS: Heparin Sodium 5,000 Units/ML Vial SUBCUT SCH ×3 (06:40→22:00)
[2021-09-05] MEDS: Omeprazole 20 MG Cap.CR PO SCH (06:40)
[2021-09-05] MEDS: Ondansetron 4 MG/2 ML SDV IVPUSH PRN (06:45)
[2021-09-05] MEDS: Furosemide 40 MG Tab PO SCH ×2 (08:30→14:20)
[2021-09-05] MEDS: Finasteride 5 MG Tab PO SCH (08:30)
[2021-09-05] MEDS ORDERED: oxyCODONE 5 MG/5 ML Cup PO PRN ×2 (09:30→15:00)
[2021-09-05] MEDS: cefTRIAXone 1 GM in Sodium Chloride 0.9% 50 ML IV SCH (10:41)
--- NOTE | 2021-09-05 11:34 | PCM.PN ---
- General Info Date of Service: 09/05/21 Subjective Update: Patient is a 71-year-old male, on day 6 of service, who has a significant past medical history of hypertension, hyperlipidemia, GERD, osteoarthritis, CVA, esophageal cancer with partial esophagectomy in 12/21, and gastrectomy with J-tube placement in 04/22, who was admitted to the medical floor due to emesis and abdominal pain around his J-tube site. For the patient's J-tube, a dietitian Alyssa came to see him yesterday and will revise the amount of feeding volume he does get. That should be done and put into motion by the end of the day. The patient continues to have increased creatinine after Lasix dosages to decrease the swelling that is in his hands and feet. I will contact nephrology tomorrow if this patient continues to deteriorate about possible transfer as he may need hemodialysis. He has no other health concerns at this time. - Review of Systems General: Reports: Other (Patient was extremely tired today and could not answer questions) - Patient Data Vitals - Most Recent: Last Vital Signs Temp 96.9 F 09/05/21 08:28 Pulse 82 09/05/21 08:28 Resp 20 09/05/21 08:28 BP 126/72 09/05/21 08:28 Pulse Ox 95 09/05/21 08:28 Weight - Most Recent: 120 lb 14.4 oz I&O - Last 24 Hours: Intake & Output 09/04/21 09/05/21 09/05/21 22:59 06:59 14:59 Intake Total 550 620 Output Total 284 305 Balance 266 315 Lab Results Last 24 Hours: Laboratory Results - last 24 hr 09/04/21 09/04/21 09/05/21 Range/Units 11:25 12:53 05:43 WBC 9.15 (4.0-11.0) K/uL RBC 2.34 L (4.50-5.90) M/uL Hgb 7.7 L (13.0-17.0) g/dL Hct 23.0 L (38.0-50.0) % MCV 98.3 H (80.0-98.0) fL MCH 32.9 H (27.0-32.0) pg MCHC 33.5 (31.0-37.0) g/dL RDW Std Deviation 56.3 (28.0-62.0) fl RDW Coeff of Myrna 16 H (11.0-15.0) % Plt Count 454 H (150-400) K/uL MPV 8.70 (7.40-12.00) fL Neut % (Auto) 87.9 H (48.0-80.0) % Lymph % (Auto) 4.0 L (16.0-40.0) % Cass % (Auto) 6.4 (0.0-15.0) % Eos % (Auto) 1.4 (0.0-7.0) % Baso % (Auto) 0.3 (0.0-1.5) % Neut # (Auto) 8.0 H (1.4-5.7) K/uL Lymph # (Auto) 0.4 L (0.6-2.4) K/uL Cass # (Auto) 0.6 (0.0-0.8) K/uL Eos # (Auto) 0.1 (0.0-0.7) K/uL Baso # (Auto) 0.0 (0.0-0.1) K/uL Nucleated RBC % 0.0 /100WBC Nucleated RBCs # 0 K/uL Sodium (136-148) mmol/L Potassium (3.5-5.1) mmol/L Chloride (98-107) mmol/L Carbon Dioxide (21.0-32.0) mmol/L BUN (7.0-18.0) mg/dL Creatinine (0.8-1.3) mg/dL Est Cr Clr Drug Dosing mL/min Estimated GFR (MDRD) ml/min Glucose (74-106) mg/dL POC Glucose 97 (70-99) mg/dL Calcium (8.5-10.1) mg/dL Total Bilirubin (0.2-1.0) mg/dL AST (15-37) IU/L ALT (14-63) IU/L Alkaline Phosphatase (46-116) U/L Total Protein (6.4-8.2) g/dL Albumin (3.4-5.0) g/dL Globulin (2.6-4.0) g/dL Albumin/Globulin Ratio (0.9-1.6) Ur Random Creatinine 95.5 mg/dL Ur Random Sodium 29.0 L (40.0-220.0) mmol/L 09/05/21 Range/Units 05:43 WBC (4.0-11.0) K/uL RBC (4.50-5.90) M/uL Hgb (13.0-17.0) g/dL Hct (38.0-50.0) % MCV (80.0-98.0) fL MCH (27.0-32.0) pg MCHC (31.0-37.0) g/dL RDW Std Deviation (28.0-62.0) fl RDW Coeff of Myrna (11.0-15.0) % Plt Count (150-400) K/uL MPV (7.40-12.00) fL Neut % (Auto) (48.0-80.0) % Lymph % (Auto) (16.0-40.0) % Cass % (Auto) (0.0-15.0) % Eos % (Auto) (0.0-7.0) % Baso % (Auto) (0.0-1.5) % Neut # (Auto) (1.4-5.7) K/uL Lymph # (Auto) (0.6-2.4) K/uL Cass # (Auto) (0.0-0.8) K/uL Eos # (Auto) (0.0-0.7) K/uL Baso # (Auto) (0.0-0.1) K/uL Nucleated RBC % /100WBC Nucleated RBCs # K/uL Sodium 134 L (136-148) mmol/L Potassium 5.0 (3.5-5.1) mmol/L Chloride 105 (98-107) mmol/L Carbon Dioxide 15.0 L (21.0-32.0) mmol/L BUN 79 H (7.0-18.0) mg/dL Creatinine 4.2 H (0.8-1.3) mg/dL Est Cr Clr Drug Dosing 12.69 mL/min Estimated GFR (MDRD) 14.1 ml/min Glucose 93 (74-106) mg/dL POC Glucose (70-99) mg/dL Calcium 8.1 L (8.5-10.1) mg/dL Total Bilirubin 0.2 (0.2-1.0) mg/dL AST 35 (15-37) IU/L ALT 17 (14-63) IU/L Alkaline Phosphatase 192 H (46-116) U/L Total Protein 5.3 L (6.4-8.2) g/dL Albumin 1.6 L (3.4-5.0) g/dL Globulin 3.7 (2.6-4.0) g/dL Albumin/Globulin Ratio 0.4 L (0.9-1.6) Ur Random Creatinine mg/dL Ur Random Sodium (40.0-220.0) mmol/L Med Orders - Current: Current Medications Acetaminophen (Acetaminophen 325 Mg/10.15 Ml Ml) 650 mg PO Q6H PRN PRN Reason: Pain Finasteride (Finasteride 5 Mg Tab) 5 mg PO DAILY [facility] Last Admin: 09/05/21 08:30 Dose: 5 mg Documented by: Furosemide (Furosemide 40 Mg Tab) 40 mg PO BIDDIURETIC [facility] Last Admin: 09/05/21 08:30 Dose: 40 mg Documented by: Heparin Sodium (Porcine) (Heparin Sodium 5,000 Units/Ml Vial) 5,000 units SUBCUT Q8H [facility] Last Admin: 09/05/21 06:40 Dose: 5,000 units Documented by: Ceftriaxone Sodium 1 gm/ (Sodium Chloride) 50 mls @ 100 mls/hr IV Q24H [facility] Last Admin: 09/05/21 10:41 Dose: 100 mls/hr Documented by: Metoprolol Succinate (Metoprolol Succinate 25 Mg Tab.Er) 12.5 mg PO BEDTIME [facility] Last Admin: 09/04/21 21:21 Dose: 12.5 mg Documented by: Omeprazole (Omeprazole 20 Mg Cap.Cr) 40 mg PO [facility] Last Admin: 09/05/21 06:40 Dose: 40 mg Documented by: Ondansetron HCl (Ondansetron 4 Mg/2 Ml Sdv) 4 mg IVPUSH Q4H PRN PRN Reason: Nausea/Vomiting Last Admin: 09/05/21 06:45 Dose: 4 mg Documented by: Oxycodone HCl (Oxycodone 5 Mg/5 Ml Cup) 10 mg PO Q6H PRN PRN Reason: Abdominal Pain Simvastatin (Simvastatin 40 Mg Tab) 40 mg PO BEDTIME [facility] Last Admin: 09/04/21 21:19 Dose: 40 mg Documented by: Discontinued Medications Acetaminophen (Acetaminophen 325 Mg Tab) 650 mg PO Q6H PRN PRN Reason: Pain Last Admin: 09/05/21 09:14 Dose: 650 mg Documented by: Enoxaparin Sodium (Enoxaparin 40 Mg/0.4 Ml Syringe) 40 mg SUBCUT Q24H [facility] Last Admin: 09/03/21 10:45 Dose: 40 mg Documented by: Furosemide (Furosemide 40 Mg/4 Ml Vial) 40 mg IVPUSH NOW ONE Stop: 09/03/21 11:01 Last Admin: 09/03/21 11:48 Dose: 40 mg Documented by: Furosemide (Furosemide 40 Mg/4 Ml Vial) 40 mg IVPUSH NOW ONE Stop: 09/03/21 18:20 Last Admin: 09/03/21 21:47 Dose: Not Given Documented by: Furosemide (Furosemide 40 Mg/4 Ml Vial) 40 mg IVPUSH NOW ONE Stop: 09/03/21 21:31 Last Admin: 09/03/21 21:28 Dose: 40 mg Documented by: Furosemide (Furosemide 40 Mg/4 Ml Vial) 40 mg IVPUSH NOW ONE Stop: 09/04/21 13:47 Last Admin: 09/04/21 14:29 Dose: 40 mg Documented by: Hydromorphone HCl (Hydromorphone 1 Mg/Ml Syringe) 0.25 mg IVPUSH ONETIME ONE Stop: 08/31/21 20:21 Last Admin: 08/31/21 20:27 Dose: 0.25 mg Documented by: Sodium Chloride (Normal Saline) 1,000 mls @ 999 mls/hr IV .BOLUS ONE Stop: 08/31/21 18:52 Last Admin: 08/31/21 18:00 Dose: 999 mls/hr Documented by: Sodium Chloride (Normal Saline) 1,000 mls @ 125 mls/hr IV ASDIRECTED [facility] Last Admin: 09/01/21 17:10 Dose: 125 mls/hr Documented by: Ceftriaxone Sodium/Dextrose 1 (gm/ Premix) 50 mls @ 100 mls/hr IV Q24H [facility] Last Admin: 09/04/21 10:43 Dose: 100 mls/hr Documented by: Sodium Chloride (Normal Saline) 1,000 mls @ 125 mls/hr IV [facility] Last Admin: 09/03/21 03:02 Dose: 125 mls/hr Documented by: Metoprolol Succinate (Metoprolol Succinate 50 Mg Tab.Er) 25 mg PO BEDTIME [facility] Last Admin: 09/03/21 21:43 Dose: 25 mg Documented by: Ondansetron HCl (Ondansetron 4 Mg/2 Ml Sdv) 4 mg IVPUSH ONETIME ONE Stop: 08/31/21 17:53 Last Admin: 08/31/21 18:00 Dose: 4 mg Documented by: Ondansetron HCl (Ondansetron 4 Mg/2 Ml Sdv) 4 mg IVPUSH ONETIME ONE Stop: 08/31/21 19:50 Last Admin: 08/31/21 20:02 Dose: 4 mg Documented by: Oxycodone HCl (Oxycodone 5 Mg Tab) 10 mg PO DAILY PRN PRN Reason: Abdominal Pain Oxycodone HCl (Oxycodone 5 Mg Tab) 10 mg PO Q6H PRN PRN Reason: Abdominal Pain Last Admin: 09/05/21 09:15 Dose: 10 mg Documented by: - Exam General: Lethargic HEENT: Mucous Membr. Moist/[place] Neck: Trachea Midline Lungs: Clear to Auscultation Cardiovascular: Regular Rate, Regular Rhythm GI/Abdominal Exam: Normal Bowel Sounds, Other (J-tube in place left side of abdomen) Extremities: Other (Bilateral hand and pedal edema) - Patient Data Lab Results Last 24 hrs: Laboratory Results - last 24 hr 09/04/21 09/04/21 09/05/21 Range/Units 11:25 12:53 05:43 WBC 9.15 (4.0-11.0) K/uL RBC 2.34 L (4.50-5.90) M/uL Hgb 7.7 L (13.0-17.0) g/dL Hct 23.0 L (38.0-50.0) % MCV 98.3 H (80.0-98.0) fL MCH 32.9 H (27.0-32.0) pg MCHC 33.5 (31.0-37.0) g/dL RDW Std Deviation 56.3 (28.0-62.0) fl RDW Coeff of Myrna 16 H (11.0-15.0) % Plt Count 454 H (150-400) K/uL MPV 8.70 (7.40-12.00) fL Neut % (Auto) 87.9 H (48.0-80.0) % Lymph % (Auto) 4.0 L (16.0-40.0) % Cass % (Auto) 6.4 (0.0-15.0) % Eos % (Auto) 1.4 (0.0-7.0) % Baso % (Auto) 0.3 (0.0-1.5) % Neut # (Auto) 8.0 H (1.4-5.7) K/uL Lymph # (Auto) 0.4 L (0.6-2.4) K/uL Cass # (Auto) 0.6 (0.0-0.8) K/uL Eos # (Auto) 0.1 (0.0-0.7) K/uL Baso # (Auto) 0.0 (0.0-0.1) K/uL Nucleated RBC % 0.0 /100WBC Nucleated RBCs # 0 K/uL Sodium (136-148) mmol/L Potassium (3.5-5.1) mmol/L Chloride (98-107) mmol/L Carbon Dioxide (21.0-32.0) mmol/L BUN (7.0-18.0) mg/dL Creatinine (0.8-1.3) mg/dL Est Cr Clr Drug Dosing mL/min Estimated GFR (MDRD) ml/min Glucose (74-106) mg/dL POC Glucose 97 (70-99) mg/dL Calcium (8.5-10.1) mg/dL Total Bilirubin (0.2-1.0) mg/dL AST (15-37) IU/L ALT (14-63) IU/L Alkaline Phosphatase (46-116) U/L Total Protein (6.4-8.2) g/dL Albumin (3.4-5.0) g/dL Globulin (2.6-4.0) g/dL Albumin/Globulin Ratio (0.9-1.6) Ur Random Creatinine 95.5 mg/dL Ur Random Sodium 29.0 L (40.0-220.0) mmol/L 09/05/21 Range/Units 05:43 WBC (4.0-11.0) K/uL RBC (4.50-5.90) M/uL Hgb (13.0-17.0) g/dL Hct (38.0-50.0) % MCV (80.0-98.0) fL MCH (27.0-32.0) pg MCHC (31.0-37.0) g/dL RDW Std Deviation (28.0-62.0) fl RDW Coeff of Myrna (11.0-15.0) % Plt Count (150-400) K/uL MPV (7.40-12.00) fL Neut % (Auto) (48.0-80.0) % Lymph % (Auto) (16.0-40.0) % Cass % (Auto) (0.0-15.0) % Eos % (Auto) (0.0-7.0) % Baso % (Auto) (0.0-1.5) % Neut # (Auto) (1.4-5.7) K/uL Lymph # (Auto) (0.6-2.4) K/uL Cass # (Auto) (0.0-0.8) K/uL Eos # (Auto) (0.0-0.7) K/uL Baso # (Auto) (0.0-0.1) K/uL Nucleated RBC % /100WBC Nucleated RBCs # K/uL Sodium 134 L (136-148) mmol/L Potassium 5.0 (3.5-5.1) mmol/L Chloride 105 (98-107) mmol/L Carbon Dioxide 15.0 L (21.0-32.0) mmol/L BUN 79 H (7.0-18.0) mg/dL Creatinine 4.2 H (0.8-1.3) mg/dL Est Cr Clr Drug Dosing 12.69 mL/min Estimated GFR (MDRD) 14.1 ml/min Glucose 93 (74-106) mg/dL POC Glucose (70-99) mg/dL Calcium 8.1 L (8.5-10.1) mg/dL Total Bilirubin 0.2 (0.2-1.0) mg/dL AST 35 (15-37) IU/L ALT 17 (14-63) IU/L Alkaline Phosphatase 192 H (46-116) U/L Total Protein 5.3 L (6.4-8.2) g/dL Albumin 1.6 L (3.4-5.0) g/dL Globulin 3.7 (2.6-4.0) g/dL Albumin/Globulin Ratio 0.4 L (0.9-1.6) Ur Random Creatinine mg/dL Ur Random Sodium (40.0-220.0) mmol/L Result Diagrams: 09/05/21 05:43 09/05/21 05:43 Sepsis Event Note - Evaluation Sepsis Screening Result: No Definite Risk - Focused Exam Vital Signs: Vital Signs Temp Pulse Resp BP Pulse Ox 09/05/21 08:28 96.9 F 82 20 126/72 95 09/05/21 03:00 97.9 F 70 16 120/58 L 93 L - Problem List & Annotations (1) Vomiting SNOMED Code(s): 810794757 Code(s): R11.10 - VOMITING, UNSPECIFIED Status: Acute Priority: Medium Current Visit: Yes (2) Abdominal pain SNOMED Code(s): 66405164 Code(s): R10.9 - UNSPECIFIED ABDOMINAL PAIN Status: Acute Priority: Low Current Visit: No Qualifiers: Abdominal location: left upper quadrant Qualified Code(s): R10.12 - Left upper quadrant pain (3) Acute kidney injury SNOMED Code(s): 40144533, 63560684 Code(s): N17.9 - ACUTE KIDNEY FAILURE, UNSPECIFIED Status: Acute Current Visit: No (4) Acute low back pain SNOMED Code(s): 225291029 Code(s): M54.5 - LOW BACK PAIN * DO NOT USE * Status: Acute Current Visit: No Qualifiers: Back pain laterality: left Sciatica presence: without sciatica Qualified Code(s): M54.50 - Low back pain, unspecified (5) CVA, Cerebrovascular accident SNOMED Code(s): 019232781 Code(s): I63.9 - CEREBRAL INFARCTION, UNSPECIFIED Status: Acute Current Visit: No (6) Esophageal cancer SNOMED Code(s): 381369347 Code(s): C15.9 - MALIGNANT NEOPLASM OF ESOPHAGUS, UNSPECIFIED Status: Acute Current Visit: No (7) BPH (benign prostatic hyperplasia) SNOMED Code(s): 232417102 Code(s): N40.0 - BENIGN PROSTATIC HYPERPLASIA WITHOUT LOWER URINRY TRACT SYMP Status: Chronic Current Visit: No (8) Hyperlipidemia SNOMED Code(s): 87143474 Code(s): E78.5 - HYPERLIPIDEMIA, UNSPECIFIED Status: Chronic Current Visit: No (9) Hypertension SNOMED Code(s): 86670523 Code(s): I10 - ESSENTIAL (PRIMARY) HYPERTENSION Status: Chronic Current Visit: No (10) Edema SNOMED Code(s): 877573706, 232906406 Code(s): R60.9 - EDEMA, UNSPECIFIED Status: Acute Current Visit: Yes (11) Cellulitis SNOMED Code(s): 888183651 Code(s): L03.90 - CELLULITIS, UNSPECIFIED Status: Acute Current Visit: Yes (12) Right shoulder pain SNOMED Code(s): 44515030, 59013857 Code(s): M25.511 - PAIN IN RIGHT SHOULDER Status: Acute Current Visit: Yes - Problem List Review Problem List Initiated/Reviewed/Updated: Yes - My Orders Last 24 Hours: My Active Orders 09/04/21 21:00 Metoprolol Succinate [Toprol XL] 12.5 mg PO BEDTIME 09/05/21 08:00 Furosemide [Lasix] 40 mg PO BIDDIURETIC 09/05/21 10:30 cefTRIAXone [Rocephin] 1 gm Sodium Chloride 0.9% [Normal Saline AdvBag] 50 ml IV Q24H 09/05/21 15:00 oxyCODONE 10 mg PO Q6H PRN 09/06/21 05:11 CBC WITH AUTO DIFF [HEME] AM CMP [COMPREHENSIVE METABOLIC PN,CMP] [CHEM] AM 09/07/21 05:11 CBC WITH AUTO DIFF [HEME] AM CMP [COMPREHENSIVE METABOLIC PN,CMP] [CHEM] AM - Assessment Assessment:: 1. Nonbloody nonbilious emesis -Resolved -Continue Zofran per IV route as needed -Regular diet currently in place 2. Abdominal pain due to cellulitis around J-tube site -Continue Rocephin 1 g per IV route -For pain the patient has oxycodone 10 mg /Tylenol 650 mg every 6 hours as needed -Continue to monitor daily CBC for white blood cell changes -Dietitiben Shah will revise his feeding load regarding the J-tube feedings 3. Bilateral hand and pedal edema -Per nephrology recommendations the patient has been started on Lasix 40 mg per oral route twice a day and his metoprolol has been decreased from 25 mg to 12.5 at bedtime -His creatinine level continues to rise and he may require dialysis, if he continues to deteriorate I will call nephrology tomorrow and discuss a possible transfer 4. History of esophageal cancer -Patient has lytic lesions in the thoracolumbar spine, follow up with oncologist on September 06 to discuss findings 5. Lumbar back pain from fall -Treat with analgesics as per #2 6. BPH history -Continue finasteride 7. Hypertension history -Continue metoprolol, dose split in half to 12.5 mg at bed in order to decrease kidney deterioration 8. Hyperlipidemia history -Continue simvastatin 9. SAJAN -Creatinine level is currently 4.2, if he continues to deteriorate we may have to discuss transfer for potential dialysis 10. CVA history -Monitor for symptoms of stroke 11. Right shoulder pain -Improving, demineralization/degenerative changes seen on x-ray, will treat the pain as per #2
[2021-09-05] MEDS ORDERED: Acetaminophen 325 MG/10.15 ML ML PO PRN (15:00)
[2021-09-05] MEDS: predniSONE 20 MG Tab PO SCH (16:19)
[2021-09-05] MEDS ORDERED: oxyCODONE 5 MG Tab PO PRN (21:32)
[2021-09-05] MEDS: Simvastatin 40 MG Tab PO SCH (21:55)
[2021-09-05] MEDS: Metoprolol Succinate 25 MG Tab.ER PO SCH (21:56)
[2021-09-06] MEDS: oxyCODONE 5 MG Tab PO PRN ×4 (03:57→22:04)
[2021-09-06] MEDS: Acetaminophen 325 MG Tab PO PRN ×4 (03:58→22:06)
[2021-09-06] MEDS: Heparin Sodium 5,000 Units/ML Vial SUBCUT SCH ×3 (06:44→22:02)
[2021-09-06] MEDS: Omeprazole 20 MG Cap.CR PO SCH (06:44)
[2021-09-06] MEDS: Furosemide 40 MG Tab PO SCH ×2 (07:14→14:03)
[2021-09-06 08:34] LABS: CARBON DIOXIDE,CO2 16.9 mmol/L (21.0-32.0); POTASSIUM,K 5.4 mmol/L (3.5-5.1)
[2021-09-06] MEDS: Finasteride 5 MG Tab PO SCH (09:49)
[2021-09-06] MEDS: predniSONE 20 MG Tab PO SCH (09:50)
[2021-09-06] MEDS: cefTRIAXone 1 GM in Sodium Chloride 0.9% 50 ML IV SCH (09:51)
--- NOTE | 2021-09-06 14:28 | PCM.PN ---
- General Info Date of Service: 09/06/21 Subjective Update: Patient is a 71-year-old male, on day 7 of service, who has a significant past medical history of hypertension, hyperlipidemia, GERD, osteoarthritis, CVA, esophageal cancer with partial esophagectomy in 12/21, and gastrectomy with J-tube placement in 04/22, who was admitted to the medical floor due to emesis and abdominal pain around his J-tube site. I spoke to Dr. Bateman, the patient's oncologist today, who stated that even though he has stage IV cancer it is not metastasizing at the moment. There is no active cancer present and his renal deterioration can be from 2 causes including volume depletion versus immunotherapy, the latter of which can cause autoimmune nephritis. As a result the patient has been started on prednisone 60 mg and the goal is to see how the steroid works over the next for 5 days in decreasing his symptoms. Hospice is not actively needed at this time according to Dr. Bateman. We will continue to monitor this patient for improvements/clinical deterioration and treat accordingly. - Review of Systems General: Reports: Weakness, Fatigue HEENT: Denies: Headaches, Sore Throat Pulmonary: Denies: Shortness of Breath, Cough Cardiovascular: Denies: Chest Pain, Palpitations Gastrointestinal: Reports: Abdominal Pain. Denies: Nausea, Vomiting Genitourinary: Denies: Dysuria - Patient Data Vitals - Most Recent: Last Vital Signs Temp 97.7 F 09/06/21 11:49 Pulse 75 09/06/21 11:49 Resp 17 09/06/21 11:49 BP 108/58 L 09/06/21 11:49 Pulse Ox 96 09/06/21 11:49 Weight - Most Recent: 120 lb 14.4 oz I&O - Last 24 Hours: Intake & Output 09/05/21 09/06/21 09/06/21 22:59 06:59 14:59 Intake Total 240 620 Output Total 505 Balance 240 115 Lab Results Last 24 Hours: Laboratory Results - last 24 hr 09/06/21 09/06/21 Range/Units 06:49 06:49 WBC 9.15 (4.0-11.0) K/uL RBC 2.37 L (4.50-5.90) M/uL Hgb 7.9 L (13.0-17.0) g/dL Hct 23.1 L (38.0-50.0) % MCV 97.5 (80.0-98.0) fL MCH 33.3 H (27.0-32.0) pg MCHC 34.2 (31.0-37.0) g/dL RDW Std Deviation 55.2 (28.0-62.0) fl RDW Coeff of Myrna 15 (11.0-15.0) % Plt Count 468 H (150-400) K/uL MPV 8.80 (7.40-12.00) fL Neut % (Auto) 96.1 H (48.0-80.0) % Lymph % (Auto) 2.5 L (16.0-40.0) % [place] % (Auto) 1.4 (0.0-15.0) % Eos % (Auto) 0.0 (0.0-7.0) % Baso % (Auto) 0.0 (0.0-1.5) % Neut # (Auto) 8.8 H (1.4-5.7) K/uL Lymph # (Auto) 0.2 L (0.6-2.4) K/uL [place] # (Auto) 0.1 (0.0-0.8) K/uL Eos # (Auto) 0.0 (0.0-0.7) K/uL Baso # (Auto) 0.0 (0.0-0.1) K/uL Nucleated RBC % 0.0 /100WBC Nucleated RBCs # 0 K/uL Sodium 132 L (136-148) mmol/L Potassium 5.4 H (3.5-5.1) mmol/L Chloride 104 (98-107) mmol/L Carbon Dioxide 16.9 L (21.0-32.0) mmol/L BUN 78 H (7.0-18.0) mg/dL Creatinine 4.5 H (0.8-1.3) mg/dL Est Cr Clr Drug Dosing 11.85 mL/min Estimated GFR (MDRD) 13.0 ml/min Glucose 147 H (74-106) mg/dL Calcium 8.3 L (8.5-10.1) mg/dL Total Bilirubin 0.1 L (0.2-1.0) mg/dL AST 29 (15-37) IU/L ALT 16 (14-63) IU/L Alkaline Phosphatase 212 H (46-116) U/L Total Protein 5.4 L (6.4-8.2) g/dL Albumin 1.7 L (3.4-5.0) g/dL Globulin 3.7 (2.6-4.0) g/dL Albumin/Globulin Ratio 0.5 L (0.9-1.6) Med Orders - Current: Current Medications Acetaminophen (Acetaminophen 325 Mg Tab) 650 mg PO Q6H PRN PRN Reason: PAIN Last Admin: 09/06/21 09:51 Dose: 650 mg Documented by: Finasteride (Finasteride 5 Mg Tab) 5 mg PO DAILY [facility] Last Admin: 09/06/21 09:49 Dose: 5 mg Documented by: Furosemide (Furosemide 40 Mg Tab) 40 mg PO BIDDIURETIC [facility] Last Admin: 09/06/21 14:03 Dose: 40 mg Documented by: Heparin Sodium (Porcine) (Heparin Sodium 5,000 Units/Ml Vial) 5,000 units SUBCUT Q8H [facility] Last Admin: 09/06/21 14:03 Dose: 5,000 units Documented by: Ceftriaxone Sodium 1 gm/ (Sodium Chloride) 50 mls @ 100 mls/hr IV Q24H [facility] Last Admin: 09/06/21 09:51 Dose: 100 mls/hr Documented by: Metoprolol Succinate (Metoprolol Succinate 25 Mg Tab.Er) 12.5 mg PO BEDTIME [facility] Last Admin: 09/05/21 21:56 Dose: 12.5 mg Documented by: Omeprazole (Omeprazole 20 Mg Cap.Cr) 40 mg PO ACBREAKFAST [facility] Last Admin: 09/06/21 06:44 Dose: 40 mg Documented by: Ondansetron HCl (Ondansetron 4 Mg/2 Ml Sdv) 4 mg IVPUSH Q4H PRN PRN Reason: Nausea/Vomiting Last Admin: 09/05/21 06:45 Dose: 4 mg Documented by: Oxycodone HCl (Oxycodone 5 Mg Tab) 10 mg PO Q6H PRN PRN Reason: ABDOMINAL PAIN Last Admin: 09/06/21 09:50 Dose: 10 mg Documented by: Prednisone (Prednisone 20 Mg Tab) 60 mg PO DAILY [facility] Last Admin: 09/06/21 09:50 Dose: 60 mg Documented by: Simvastatin (Simvastatin 40 Mg Tab) 40 mg PO BEDTIME [facility] Last Admin: 09/05/21 21:55 Dose: 40 mg Documented by: Discontinued Medications Acetaminophen (Acetaminophen 325 Mg Tab) 650 mg PO Q6H PRN PRN Reason: Pain Last Admin: 09/05/21 09:14 Dose: 650 mg Documented by: Acetaminophen (Acetaminophen 325 Mg/10.15 Ml Ml) 650 mg PO Q6H PRN PRN Reason: Pain Last Admin: 09/05/21 16:21 Dose: 650 mg Documented by: Enoxaparin Sodium (Enoxaparin 40 Mg/0.4 Ml Syringe) 40 mg SUBCUT Q24H [facility] Last Admin: 09/03/21 10:45 Dose: 40 mg Documented by: Furosemide (Furosemide 40 Mg/4 Ml Vial) 40 mg IVPUSH NOW ONE Stop: 09/03/21 11:01 Last Admin: 09/03/21 11:48 Dose: 40 mg Documented by: Furosemide (Furosemide 40 Mg/4 Ml Vial) 40 mg IVPUSH NOW ONE Stop: 09/03/21 18:20 Last Admin: 09/03/21 21:47 Dose: Not Given Documented by: Furosemide (Furosemide 40 Mg/4 Ml Vial) 40 mg IVPUSH NOW ONE Stop: 09/03/21 21:31 Last Admin: 09/03/21 21:28 Dose: 40 mg Documented by: Furosemide (Furosemide 40 Mg/4 Ml Vial) 40 mg IVPUSH NOW ONE Stop: 09/04/21 13:47 Last Admin: 09/04/21 14:29 Dose: 40 mg Documented by: Hydromorphone HCl (Hydromorphone 1 Mg/Ml Syringe) 0.25 mg IVPUSH ONETIME ONE Stop: 08/31/21 20:21 Last Admin: 08/31/21 20:27 Dose: 0.25 mg Documented by: Sodium Chloride (Normal Saline) 1,000 mls @ 999 mls/hr IV .BOLUS ONE Stop: 08/31/21 18:52 Last Admin: 08/31/21 18:00 Dose: 999 mls/hr Documented by: Sodium Chloride (Normal Saline) 1,000 mls @ 125 mls/hr IV ASDIRECTED [facility] Last Admin: 09/01/21 17:10 Dose: 125 mls/hr Documented by: Ceftriaxone Sodium/Dextrose 1 (gm/ Premix) 50 mls @ 100 mls/hr IV Q24H [facility] Last Admin: 09/04/21 10:43 Dose: 100 mls/hr Documented by: Sodium Chloride (Normal Saline) 1,000 mls @ 125 mls/hr IV CONTINUOUS [facility] Last Admin: 09/03/21 03:02 Dose: 125 mls/hr Documented by: Metoprolol Succinate (Metoprolol Succinate 50 Mg Tab.Er) 25 mg PO BEDTIME [facility] Last Admin: 09/03/21 21:43 Dose: 25 mg Documented by: Ondansetron HCl (Ondansetron 4 Mg/2 Ml Sdv) 4 mg IVPUSH ONETIME ONE Stop: 08/31/21 17:53 Last Admin: 08/31/21 18:00 Dose: 4 mg Documented by: Ondansetron HCl (Ondansetron 4 Mg/2 Ml Sdv) 4 mg IVPUSH ONETIME ONE Stop: 08/31/21 19:50 Last Admin: 08/31/21 20:02 Dose: 4 mg Documented by: Oxycodone HCl (Oxycodone 5 Mg Tab) 10 mg PO DAILY PRN PRN Reason: Abdominal Pain Oxycodone HCl (Oxycodone 5 Mg Tab) 10 mg PO Q6H PRN PRN Reason: Abdominal Pain Last Admin: 09/05/21 09:15 Dose: 10 mg Documented by: Oxycodone HCl (Oxycodone 5 Mg/5 Ml Cup) 10 mg PO Q6H PRN PRN Reason: Abdominal Pain Last Admin: 09/05/21 16:20 Dose: 10 mg Documented by: Oxycodone HCl (Oxycodone 5 Mg Tab) 5 mg PO Q6H PRN PRN Reason: ABDOMINAL PAIN - Exam General: Alert, Oriented, Cooperative HEENT: No: Mucous Membr. Moist/[place] Neck: Trachea Midline Lungs: Clear to Auscultation, Normal Respiratory Effort Cardiovascular: Regular Rate, Regular Rhythm, No Murmurs GI/Abdominal Exam: Normal Bowel Sounds, Tender Neurological: Normal Speech, Sensation Intact - Patient Data Lab Results Last 24 hrs: Laboratory Results - last 24 hr 09/06/21 09/06/21 Range/Units 06:49 06:49 WBC 9.15 (4.0-11.0) K/uL RBC 2.37 L (4.50-5.90) M/uL Hgb 7.9 L (13.0-17.0) g/dL Hct 23.1 L (38.0-50.0) % MCV 97.5 (80.0-98.0) fL MCH 33.3 H (27.0-32.0) pg MCHC 34.2 (31.0-37.0) g/dL RDW Std Deviation 55.2 (28.0-62.0) fl RDW Coeff of Myrna 15 (11.0-15.0) % Plt Count 468 H (150-400) K/uL MPV 8.80 (7.40-12.00) fL Neut % (Auto) 96.1 H (48.0-80.0) % Lymph % (Auto) 2.5 L (16.0-40.0) % [place] % (Auto) 1.4 (0.0-15.0) % Eos % (Auto) 0.0 (0.0-7.0) % Baso % (Auto) 0.0 (0.0-1.5) % Neut # (Auto) 8.8 H (1.4-5.7) K/uL Lymph # (Auto) 0.2 L (0.6-2.4) K/uL [place] # (Auto) 0.1 (0.0-0.8) K/uL Eos # (Auto) 0.0 (0.0-0.7) K/uL Baso # (Auto) 0.0 (0.0-0.1) K/uL Nucleated RBC % 0.0 /100WBC Nucleated RBCs # 0 K/uL Sodium 132 L (136-148) mmol/L Potassium 5.4 H (3.5-5.1) mmol/L Chloride 104 (98-107) mmol/L Carbon Dioxide 16.9 L (21.0-32.0) mmol/L BUN 78 H (7.0-18.0) mg/dL Creatinine 4.5 H (0.8-1.3) mg/dL Est Cr Clr Drug Dosing 11.85 mL/min Estimated GFR (MDRD) 13.0 ml/min Glucose 147 H (74-106) mg/dL Calcium 8.3 L (8.5-10.1) mg/dL Total Bilirubin 0.1 L (0.2-1.0) mg/dL AST 29 (15-37) IU/L ALT 16 (14-63) IU/L Alkaline Phosphatase 212 H (46-116) U/L Total Protein 5.4 L (6.4-8.2) g/dL Albumin 1.7 L (3.4-5.0) g/dL Globulin 3.7 (2.6-4.0) g/dL Albumin/Globulin Ratio 0.5 L (0.9-1.6) Result Diagrams: 09/06/21 06:49 09/06/21 06:49 Sepsis Event Note - Evaluation Sepsis Screening Result: No Definite Risk - Focused Exam Vital Signs: Vital Signs Temp Pulse Resp BP Pulse Ox 09/06/21 11:49 97.7 F 75 17 108/58 L 96 09/06/21 08:00 98.6 F 77 16 120/57 L 94 L 09/06/21 03:16 98.1 F 87 20 110/63 92 L - Problem List & Annotations (1) Vomiting SNOMED Code(s): 631462075 Code(s): R11.10 - VOMITING, UNSPECIFIED Status: Acute Priority: Medium Current Visit: Yes (2) Abdominal pain SNOMED Code(s): 96326112 Code(s): R10.9 - UNSPECIFIED ABDOMINAL PAIN Status: Acute Priority: Low Current Visit: No Qualifiers: Abdominal location: left upper quadrant Qualified Code(s): R10.12 - Left upper quadrant pain (3) Acute kidney injury SNOMED Code(s): 40605898, 63464849 Code(s): N17.9 - ACUTE KIDNEY FAILURE, UNSPECIFIED Status: Acute Current Visit: No (4) Acute low back pain SNOMED Code(s): 950791078 Code(s): M54.5 - LOW BACK PAIN * DO NOT USE * Status: Acute Current Visit: No Qualifiers: Back pain laterality: left Sciatica presence: without sciatica Qualified Code(s): M54.50 - Low back pain, unspecified (5) CVA, Cerebrovascular accident SNOMED Code(s): 705117970 Code(s): I63.9 - CEREBRAL INFARCTION, UNSPECIFIED Status: Acute Current Visit: No (6) Esophageal cancer SNOMED Code(s): 360347864 Code(s): C15.9 - MALIGNANT NEOPLASM OF ESOPHAGUS, UNSPECIFIED Status: Acute Current Visit: No (7) BPH (benign prostatic hyperplasia) SNOMED Code(s): 306614296 Code(s): N40.0 - BENIGN PROSTATIC HYPERPLASIA WITHOUT LOWER URINRY TRACT SYMP Status: Chronic Current Visit: No (8) Hyperlipidemia SNOMED Code(s): 79634635 Code(s): E78.5 - HYPERLIPIDEMIA, UNSPECIFIED Status: Chronic Current Visit: No (9) Hypertension SNOMED Code(s): 06586028 Code(s): I10 - ESSENTIAL (PRIMARY) HYPERTENSION Status: Chronic Current Visit: No (10) Edema SNOMED Code(s): 859637441, 123348952 Code(s): R60.9 - EDEMA, UNSPECIFIED Status: Acute Current Visit: Yes (11) Cellulitis SNOMED Code(s): 653306418 Code(s): L03.90 - CELLULITIS, UNSPECIFIED Status: Acute Current Visit: Yes (12) Right shoulder pain SNOMED Code(s): 15329965, 56754703 Code(s): M25.511 - PAIN IN RIGHT SHOULDER Status: Acute Current Visit: Yes - Problem List Review Problem List Initiated/Reviewed/Updated: Yes - My Orders Last 24 Hours: My Active Orders 09/07/21 05:11 CBC WITH AUTO DIFF [HEME] AM CMP [COMPREHENSIVE METABOLIC PN,CMP] [CHEM] AM - Assessment Assessment:: 1. Nonbloody nonbilious emesis -Resolved -Continue Zofran per IV route as needed -Regular diet currently in place 2. Abdominal pain due to cellulitis around J-tube site -Continue Rocephin 1 g per IV route -For pain the patient has oxycodone 10 mg /Tylenol 650 mg every 6 hours as needed -Continue to monitor daily CBC for white blood cell changes -Dietitian Alyssa revises diets to include nephro tolerable feedings 3. Bilateral hand and pedal edema -Per nephrology recommendations the patient has been started on Lasix 40 mg per oral route twice a day and his metoprolol has been decreased from 25 mg to 12.5 at bedtime -His swelling has significantly decreased and we will continue to treat as such 4. History of esophageal cancer -I spoke to the patient's oncologist Dr. Bateman today who stated that immunotherapy that the patient has been receiving can cause autoimmune nephritis, and as a result he has been started on prednisone -We will continue to monitor him for clinical improvement/deterioration 5. Lumbar back pain from fall -Treat with analgesics as per #2 6. BPH history -Continue finasteride 7. Hypertension history -Continue metoprolol, dose split in half to 12.5 mg at bed in order to decrease kidney deterioration 8. Hyperlipidemia history -Continue simvastatin 9. SAJAN -Continue to monitor with daily CMP 10. CVA history -Monitor for symptoms of stroke 11. Right shoulder pain -Improving, demineralization/degenerative changes seen on x-ray, will treat the pain as per #2
[2021-09-06] MEDS: Metoprolol Succinate 25 MG Tab.ER PO SCH (22:04)
[2021-09-06] MEDS: Simvastatin 40 MG Tab PO SCH (22:05)
[2021-09-07] MEDS: Acetaminophen 325 MG Tab PO PRN ×4 (04:00→22:49)
[2021-09-07] MEDS: oxyCODONE 5 MG Tab PO PRN ×4 (04:13→22:50)
[2021-09-07] MEDS: Heparin Sodium 5,000 Units/ML Vial SUBCUT SCH ×3 (06:48→21:55)
[2021-09-07] MEDS: Omeprazole 20 MG Cap.CR PO SCH (06:49)
[2021-09-07 08:45] LABS: CARBON DIOXIDE,CO2 15.9 mmol/L (21.0-32.0); POTASSIUM,K 5.1 mmol/L (3.5-5.1)
[2021-09-07] MEDS: Furosemide 40 MG Tab PO SCH ×2 (08:47→14:28)
[2021-09-07] MEDS: predniSONE 20 MG Tab PO SCH (08:47)
[2021-09-07] MEDS: Finasteride 5 MG Tab PO SCH (08:47)
[2021-09-07] MEDS: cefTRIAXone 1 GM in Sodium Chloride 0.9% 50 ML IV SCH (10:21)
[2021-09-07] MEDS ORDERED: Polyethylene Glycol 3350 Powder 17 GM Packet PO ONE (10:26)
--- NOTE | 2021-09-07 11:44 | PCM.PN ---
- General Info Date of Service: 09/07/21 Subjective Update: Patient is a 71-year-old male, on day 8 of service, who has a significant past medical history of hypertension, hyperlipidemia, GERD, osteoarthritis, CVA, esophageal cancer with partial esophagectomy in 12/21, and gastrectomy with J-tube placement in 04/22, who was admitted to the medical floor due to emesis and abdominal pain around his J-tube site. Upon interview with the patient today he states that he feels slightly better than yesterday. He has bilateral hand edema has significantly decreased and will continue with the Lasix 40 mg twice daily per oral route. 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 The patient was complaining of constipation this morning and as a result we will give him MiraLAX. We will continue to monitor this patient and treat him accordingly. - Review of Systems General: Reports: Fatigue. Denies: Fever, Weakness HEENT: Denies: Headaches, Sore Throat Pulmonary: Denies: Shortness of Breath, Cough Cardiovascular: Denies: Chest Pain, Palpitations Gastrointestinal: Reports: Abdominal Pain, Constipation Genitourinary: Denies: Dysuria - Patient Data Vitals - Most Recent: Last Vital Signs Temp 97.8 F 09/07/21 08:00 Pulse 63 09/07/21 08:00 Resp 16 09/07/21 08:00 BP 111/68 09/07/21 08:00 Pulse Ox 96 09/07/21 08:00 Weight - Most Recent: 120 lb 14.4 oz I&O - Last 24 Hours: Intake & Output 09/06/21 09/07/21 09/07/21 22:59 06:59 14:59 Intake Total 810 599 Output Total 330 550 Balance 480 49 Lab Results Last 24 Hours: Laboratory Results - last 24 hr 09/07/21 09/07/21 Range/Units 04:41 04:41 WBC 15.73 H (4.0-11.0) K/uL RBC 2.38 L (4.50-5.90) M/uL Hgb 8.0 L (13.0-17.0) g/dL Hct 22.9 L (38.0-50.0) % MCV 96.2 (80.0-98.0) fL MCH 33.6 H (27.0-32.0) pg MCHC 34.9 (31.0-37.0) g/dL RDW Std Deviation 54.0 (28.0-62.0) fl RDW Coeff of Myrna 16 H (11.0-15.0) % Plt Count 524 H (150-400) K/uL MPV 8.70 (7.40-12.00) fL Neut % (Auto) 93.3 H (48.0-80.0) % Lymph % (Auto) 2.5 L (16.0-40.0) % [place] % (Auto) 4.2 (0.0-15.0) % Eos % (Auto) 0.0 (0.0-7.0) % Baso % (Auto) 0.0 (0.0-1.5) % Neut # (Auto) 14.7 H (1.4-5.7) K/uL Lymph # (Auto) 0.4 L (0.6-2.4) K/uL [place] # (Auto) 0.7 (0.0-0.8) K/uL Eos # (Auto) 0.0 (0.0-0.7) K/uL Baso # (Auto) 0.0 (0.0-0.1) K/uL Nucleated RBC % 0.0 /100WBC Nucleated RBCs # 0 K/uL Sodium 132 L (136-148) mmol/L Potassium 5.1 (3.5-5.1) mmol/L Chloride 102 (98-107) mmol/L Carbon Dioxide 15.9 L (21.0-32.0) mmol/L BUN 88 H (7.0-18.0) mg/dL Creatinine 4.4 H (0.8-1.3) mg/dL Est Cr Clr Drug Dosing 12.12 mL/min Estimated GFR (MDRD) 13.4 ml/min Glucose 117 H (74-106) mg/dL Calcium 8.2 L (8.5-10.1) mg/dL Total Bilirubin 0.1 L (0.2-1.0) mg/dL AST 31 (15-37) IU/L ALT 20 (14-63) IU/L Alkaline Phosphatase 205 H (46-116) U/L Total Protein 5.6 L (6.4-8.2) g/dL Albumin 1.9 L (3.4-5.0) g/dL Globulin 3.7 (2.6-4.0) g/dL Albumin/Globulin Ratio 0.5 L (0.9-1.6) Med Orders - Current: Current Medications Acetaminophen (Acetaminophen 325 Mg Tab) 650 mg PO Q6H PRN PRN Reason: PAIN Last Admin: 09/07/21 10:19 Dose: 650 mg Documented by: Finasteride (Finasteride 5 Mg Tab) 5 mg PO DAILY [facility] Last Admin: 09/07/21 08:47 Dose: 5 mg Documented by: Furosemide (Furosemide 40 Mg Tab) 40 mg PO BIDDIURETIC [facility] Last Admin: 09/07/21 08:47 Dose: 40 mg Documented by: Heparin Sodium (Porcine) (Heparin Sodium 5,000 Units/Ml Vial) 5,000 units SUBCUT Q8H [facility] Last Admin: 09/07/21 06:48 Dose: 5,000 units Documented by: Ceftriaxone Sodium 1 gm/ (Sodium Chloride) 50 mls @ 100 mls/hr IV Q24H [facility] Last Admin: 09/07/21 10:21 Dose: 100 mls/hr Documented by: Metoprolol Succinate (Metoprolol Succinate 25 Mg Tab.Er) 12.5 mg PO BEDTIME [facility] Last Admin: 09/06/21 22:04 Dose: 12.5 mg Documented by: Omeprazole (Omeprazole 20 Mg Cap.Cr) 40 mg PO ACBREAKFAST [facility] Last Admin: 09/07/21 06:49 Dose: 40 mg Documented by: Ondansetron HCl (Ondansetron 4 Mg/2 Ml Sdv) 4 mg IVPUSH Q4H PRN PRN Reason: Nausea/Vomiting Last Admin: 09/05/21 06:45 Dose: 4 mg Documented by: Oxycodone HCl (Oxycodone 5 Mg Tab) 10 mg PO Q6H PRN PRN Reason: ABDOMINAL PAIN Last Admin: 09/07/21 10:20 Dose: 10 mg Documented by: Prednisone (Prednisone 20 Mg Tab) 60 mg PO DAILY [facility] Last Admin: 09/07/21 08:47 Dose: 60 mg Documented by: Simvastatin (Simvastatin 40 Mg Tab) 40 mg PO BEDTIME [facility] Last Admin: 09/06/21 22:05 Dose: 40 mg Documented by: Discontinued Medications Acetaminophen (Acetaminophen 325 Mg Tab) 650 mg PO Q6H PRN PRN Reason: Pain Last Admin: 09/05/21 09:14 Dose: 650 mg Documented by: Acetaminophen (Acetaminophen 325 Mg/10.15 Ml Ml) 650 mg PO Q6H PRN PRN Reason: Pain Last Admin: 09/05/21 16:21 Dose: 650 mg Documented by: Enoxaparin Sodium (Enoxaparin 40 Mg/0.4 Ml Syringe) 40 mg SUBCUT Q24H [facility] Last Admin: 09/03/21 10:45 Dose: 40 mg Documented by: Furosemide (Furosemide 40 Mg/4 Ml Vial) 40 mg IVPUSH NOW ONE Stop: 09/03/21 11:01 Last Admin: 09/03/21 11:48 Dose: 40 mg Documented by: Furosemide (Furosemide 40 Mg/4 Ml Vial) 40 mg IVPUSH NOW ONE Stop: 09/03/21 18:20 Last Admin: 09/03/21 21:47 Dose: Not Given Documented by: Furosemide (Furosemide 40 Mg/4 Ml Vial) 40 mg IVPUSH NOW ONE Stop: 09/03/21 21:31 Last Admin: 09/03/21 21:28 Dose: 40 mg Documented by: Furosemide (Furosemide 40 Mg/4 Ml Vial) 40 mg IVPUSH NOW ONE Stop: 09/04/21 13:47 Last Admin: 09/04/21 14:29 Dose: 40 mg Documented by: Hydromorphone HCl (Hydromorphone 1 Mg/Ml Syringe) 0.25 mg IVPUSH ONETIME ONE Stop: 08/31/21 20:21 Last Admin: 08/31/21 20:27 Dose: 0.25 mg Documented by: Sodium Chloride (Normal Saline) 1,000 mls @ 999 mls/hr IV .BOLUS ONE Stop: 08/31/21 18:52 Last Admin: 08/31/21 18:00 Dose: 999 mls/hr Documented by: Sodium Chloride (Normal Saline) 1,000 mls @ 125 mls/hr IV ASDIRECTED [facility] Last Admin: 09/01/21 17:10 Dose: 125 mls/hr Documented by: Ceftriaxone Sodium/Dextrose 1 (gm/ Premix) 50 mls @ 100 mls/hr IV Q24H [facility] Last Admin: 09/04/21 10:43 Dose: 100 mls/hr Documented by: Sodium Chloride (Normal Saline) 1,000 mls @ 125 mls/hr IV CONTINUOUS [facility] Last Admin: 09/03/21 03:02 Dose: 125 mls/hr Documented by: Metoprolol Succinate (Metoprolol Succinate 50 Mg Tab.Er) 25 mg PO BEDTIME [facility] Last Admin: 09/03/21 21:43 Dose: 25 mg Documented by: Ondansetron HCl (Ondansetron 4 Mg/2 Ml Sdv) 4 mg IVPUSH ONETIME ONE Stop: 08/31/21 17:53 Last Admin: 08/31/21 18:00 Dose: 4 mg Documented by: Ondansetron HCl (Ondansetron 4 Mg/2 Ml Sdv) 4 mg IVPUSH ONETIME ONE Stop: 08/31/21 19:50 Last Admin: 08/31/21 20:02 Dose: 4 mg Documented by: Oxycodone HCl (Oxycodone 5 Mg Tab) 10 mg PO DAILY PRN PRN Reason: Abdominal Pain Oxycodone HCl (Oxycodone 5 Mg Tab) 10 mg PO Q6H PRN PRN Reason: Abdominal Pain Last Admin: 09/05/21 09:15 Dose: 10 mg Documented by: Oxycodone HCl (Oxycodone 5 Mg/5 Ml Cup) 10 mg PO Q6H PRN PRN Reason: Abdominal Pain Last Admin: 09/05/21 16:20 Dose: 10 mg Documented by: Oxycodone HCl (Oxycodone 5 Mg Tab) 5 mg PO Q6H PRN PRN Reason: ABDOMINAL PAIN Polyethylene Glycol (Polyethylene Glycol 3350 Powder 17 Gm Packet) 17 gm PO ONETIME ONE Stop: 09/07/21 10:27 Last Admin: 09/07/21 10:54 Dose: 17 gm Documented by: - Exam General: Alert, Oriented, Cooperative HEENT: No: Mucous Membr. Moist/[place] Neck: Trachea Midline Lungs: Clear to Auscultation, Normal Respiratory Effort Cardiovascular: Regular Rate, Regular Rhythm GI/Abdominal Exam: Normal Bowel Sounds, Tender - Patient Data Lab Results Last 24 hrs: Laboratory Results - last 24 hr 09/07/21 09/07/21 Range/Units 04:41 04:41 WBC 15.73 H (4.0-11.0) K/uL RBC 2.38 L (4.50-5.90) M/uL Hgb 8.0 L (13.0-17.0) g/dL Hct 22.9 L (38.0-50.0) % MCV 96.2 (80.0-98.0) fL MCH 33.6 H (27.0-32.0) pg MCHC 34.9 (31.0-37.0) g/dL RDW Std Deviation 54.0 (28.0-62.0) fl RDW Coeff of Myrna 16 H (11.0-15.0) % Plt Count 524 H (150-400) K/uL MPV 8.70 (7.40-12.00) fL Neut % (Auto) 93.3 H (48.0-80.0) % Lymph % (Auto) 2.5 L (16.0-40.0) % [place] % (Auto) 4.2 (0.0-15.0) % Eos % (Auto) 0.0 (0.0-7.0) % Baso % (Auto) 0.0 (0.0-1.5) % Neut # (Auto) 14.7 H (1.4-5.7) K/uL Lymph # (Auto) 0.4 L (0.6-2.4) K/uL [place] # (Auto) 0.7 (0.0-0.8) K/uL Eos # (Auto) 0.0 (0.0-0.7) K/uL Baso # (Auto) 0.0 (0.0-0.1) K/uL Nucleated RBC % 0.0 /100WBC Nucleated RBCs # 0 K/uL Sodium 132 L (136-148) mmol/L Potassium 5.1 (3.5-5.1) mmol/L Chloride 102 (98-107) mmol/L Carbon Dioxide 15.9 L (21.0-32.0) mmol/L BUN 88 H (7.0-18.0) mg/dL Creatinine 4.4 H (0.8-1.3) mg/dL Est Cr Clr Drug Dosing 12.12 mL/min Estimated GFR (MDRD) 13.4 ml/min Glucose 117 H (74-106) mg/dL Calcium 8.2 L (8.5-10.1) mg/dL Total Bilirubin 0.1 L (0.2-1.0) mg/dL AST 31 (15-37) IU/L ALT 20 (14-63) IU/L Alkaline Phosphatase 205 H (46-116) U/L Total Protein 5.6 L (6.4-8.2) g/dL Albumin 1.9 L (3.4-5.0) g/dL Globulin 3.7 (2.6-4.0) g/dL Albumin/Globulin Ratio 0.5 L (0.9-1.6) Result Diagrams: 09/07/21 04:41 09/07/21 04:41 Sepsis Event Note - Evaluation Sepsis Screening Result: No Definite Risk - Focused Exam Vital Signs: Vital Signs Temp Pulse Resp BP Pulse Ox 09/07/21 08:00 97.8 F 63 16 111/68 96 09/07/21 04:00 97.1 F 69 18 128/77 97 09/07/21 00:24 97.3 F 74 18 111/57 L 94 L - Problem List & Annotations (1) Vomiting SNOMED Code(s): 689588687 Code(s): R11.10 - VOMITING, UNSPECIFIED Status: Acute Priority: Medium Current Visit: Yes (2) Abdominal pain SNOMED Code(s): 92783536 Code(s): R10.9 - UNSPECIFIED ABDOMINAL PAIN Status: Acute Priority: Low Current Visit: No Qualifiers: Abdominal location: left upper quadrant Qualified Code(s): R10.12 - Left upper quadrant pain (3) Acute kidney injury SNOMED Code(s): 41426971, 16114235 Code(s): N17.9 - ACUTE KIDNEY FAILURE, UNSPECIFIED Status: Acute Current Visit: No (4) Acute low back pain SNOMED Code(s): 127393790 Code(s): M54.5 - LOW BACK PAIN * DO NOT USE * Status: Acute Current Visit: No Qualifiers: Back pain laterality: left Sciatica presence: without sciatica Qualified Code(s): M54.50 - Low back pain, unspecified (5) CVA, Cerebrovascular accident SNOMED Code(s): 154740874 Code(s): I63.9 - CEREBRAL INFARCTION, UNSPECIFIED Status: Acute Current Visit: No (6) Esophageal cancer SNOMED Code(s): 951477324 Code(s): C15.9 - MALIGNANT NEOPLASM OF ESOPHAGUS, UNSPECIFIED Status: Acute Current Visit: No (7) BPH (benign prostatic hyperplasia) SNOMED Code(s): 861060337 Code(s): N40.0 - BENIGN PROSTATIC HYPERPLASIA WITHOUT LOWER URINRY TRACT SYMP Status: Chronic Current Visit: No (8) Hyperlipidemia SNOMED Code(s): 48973903 Code(s): E78.5 - HYPERLIPIDEMIA, UNSPECIFIED Status: Chronic Current Visit: No (9) Hypertension SNOMED Code(s): 36176956 Code(s): I10 - ESSENTIAL (PRIMARY) HYPERTENSION Status: Chronic Current Visit: No (10) Edema SNOMED Code(s): 488282091, 027999261 Code(s): R60.9 - EDEMA, UNSPECIFIED Status: Acute Current Visit: Yes (11) Cellulitis SNOMED Code(s): 823917929 Code(s): L03.90 - CELLULITIS, UNSPECIFIED Status: Acute Current Visit: Yes (12) Right shoulder pain SNOMED Code(s): 44942746, 10687207 Code(s): M25.511 - PAIN IN RIGHT SHOULDER Status: Acute Current Visit: Yes (13) Constipation SNOMED Code(s): 33689322 Code(s): K59.00 - CONSTIPATION, UNSPECIFIED Status: Acute Current Visit: Yes - Problem List Review Problem List Initiated/Reviewed/Updated: Yes - My Orders Last 24 Hours: My Active Orders 09/08/21 05:11 CBC WITH AUTO DIFF [HEME] AM CMP [COMPREHENSIVE METABOLIC PN,CMP] [CHEM] AM 09/09/21 05:11 CBC WITH AUTO DIFF [HEME] AM CMP [COMPREHENSIVE METABOLIC PN,CMP] [CHEM] AM 09/10/21 05:11 CBC WITH AUTO DIFF [HEME] AM CMP [COMPREHENSIVE METABOLIC PN,CMP] [CHEM] AM 09/11/21 05:11 CBC WITH AUTO DIFF [HEME] AM CMP [COMPREHENSIVE METABOLIC PN,CMP] [CHEM] AM - Assessment Assessment:: 1. Nonbloody nonbilious emesis -Resolved -Continue Zofran per IV route as needed -Regular diet currently in place 2. Abdominal pain due to cellulitis around J-tube site -Continue Rocephin 1 g per IV route -For pain the patient has oxycodone 10 mg /Tylenol 650 mg every 6 hours as needed -Continue to monitor daily CBC for white blood cell changes -Dietitian Alyssa started nephro tolerable feedings 3. Bilateral hand and pedal edema -Per nephrology recommendations the patient has been started on Lasix 40 mg per oral route twice a day and his metoprolol has been decreased from 25 mg to 12.5 at bedtime -His swelling has significantly decreased and we will continue to treat as such 4. History of esophageal cancer -Immunotherapy has caused autoimmune nephritis, and as a result he has been started on prednisone -We will continue to monitor him for clinical improvement/deterioration 5. Lumbar back pain from fall -Treat with analgesics as per #2 6. BPH history -Continue finasteride 7. Hypertension history -Continue metoprolol, dose split in half to 12.5 mg at bed in order to decrease kidney deterioration 8. Hyperlipidemia history -Continue simvastatin 9. SAJAN -Continue to monitor with daily CMP 10. CVA history -Monitor for symptoms of stroke 11. Right shoulder pain -Improving, demineralization/degenerative changes seen on x-ray, will treat the pain as per #2 12. Constipation -We have started the patient on MiraLAX
[2021-09-07] MEDS: Metoprolol Succinate 25 MG Tab.ER PO SCH (21:53)
[2021-09-07] MEDS: Simvastatin 40 MG Tab PO SCH (21:53)
[2021-09-08] MEDS: oxyCODONE 5 MG Tab PO PRN ×4 (05:28→23:18)
[2021-09-08] MEDS: Acetaminophen 325 MG Tab PO PRN ×4 (05:29→23:18)
[2021-09-08] MEDS: Heparin Sodium 5,000 Units/ML Vial SUBCUT SCH ×3 (05:31→21:27)
[2021-09-08] MEDS: Omeprazole 20 MG Cap.CR PO SCH (06:38)
[2021-09-08 08:05] LABS: CARBON DIOXIDE,CO2 14.5 mmol/L (21.0-32.0); POTASSIUM,K 4.1 mmol/L (3.5-5.1)
[2021-09-08] MEDS: Finasteride 5 MG Tab PO SCH (08:57)
[2021-09-08] MEDS: predniSONE 20 MG Tab PO SCH (08:57)
[2021-09-08] MEDS: Furosemide 40 MG Tab PO SCH ×2 (08:57→14:16)
[2021-09-08] MEDS ORDERED: cefTRIAXone 1 GM in Sodium Chloride 0.9% 50 ML IV SCH (10:30)
[2021-09-08] MEDS: cefTRIAXone 1 GM in Sodium Chloride 0.9% 50 ML IV SCH (12:06)
--- NOTE | 2021-09-08 14:44 | PCM.PN ---
- General Info Date of Service: 09/08/21 Subjective Update: Patient is a 71-year-old male, on day 9 of service, who has a significant past medical history of hypertension, hyperlipidemia, GERD, osteoarthritis, CVA, esophageal cancer with partial esophagectomy in 12/21, and gastrectomy with J-tube placement in 04/22, who was admitted to the medical floor due to emesis and abdominal pain around his J-tube site. Upon interview with the patient today continues to complain of pain around his J-tube placement which is 3 out of 10 in intensity, and nonradiating. He explains that the pain that he feels now is similar to what he normally feels when he is outside of hospital. There is active drainage which is yellow in color and not odorous in hospital which is also present when at home. With the prednisone treatment the patient started to feel better. We will continue to monitor his kidney function and treat him accordingly. - Review of Systems General: Reports: Weakness, Fatigue HEENT: Denies: Headaches, Sore Throat Pulmonary: Denies: Shortness of Breath, Cough Cardiovascular: Denies: Chest Pain, Palpitations Gastrointestinal: Reports: Abdominal Pain. Denies: Nausea, Vomiting Genitourinary: Denies: Dysuria - Patient Data Vitals - Most Recent: Last Vital Signs Temp 95.0 F L 09/08/21 12:00 Pulse 76 09/08/21 12:00 Resp 20 09/08/21 12:00 BP 126/67 09/08/21 12:00 Pulse Ox 91 L 09/08/21 12:00 Weight - Most Recent: 120 lb 14.4 oz I&O - Last 24 Hours: Intake & Output 09/07/21 09/08/21 09/08/21 22:59 06:59 14:59 Intake Total 500 1058 Output Total 225 600 Balance 275 458 Lab Results Last 24 Hours: Laboratory Results - last 24 hr 09/08/21 09/08/21 Range/Units 05:31 05:31 WBC 14.61 H (4.0-11.0) K/uL RBC 2.48 L (4.50-5.90) M/uL Hgb 8.2 L (13.0-17.0) g/dL Hct 23.8 L (38.0-50.0) % MCV 96.0 (80.0-98.0) fL MCH 33.1 H (27.0-32.0) pg MCHC 34.5 (31.0-37.0) g/dL RDW Std Deviation 54.5 (28.0-62.0) fl RDW Coeff of Myrna 16 H (11.0-15.0) % Plt Count 547 H (150-400) K/uL MPV 8.90 (7.40-12.00) fL Neut % (Auto) 92.6 H (48.0-80.0) % Lymph % (Auto) 2.5 L (16.0-40.0) % [place] % (Auto) 4.9 (0.0-15.0) % Eos % (Auto) 0.0 (0.0-7.0) % Baso % (Auto) 0.0 (0.0-1.5) % Neut # (Auto) 13.5 H (1.4-5.7) K/uL Lymph # (Auto) 0.4 L (0.6-2.4) K/uL [place] # (Auto) 0.7 (0.0-0.8) K/uL Eos # (Auto) 0.0 (0.0-0.7) K/uL Baso # (Auto) 0.0 (0.0-0.1) K/uL Nucleated RBC % 0.0 /100WBC Nucleated RBCs # 0 K/uL Sodium 136 (136-148) mmol/L Potassium 4.1 (3.5-5.1) mmol/L Chloride 106 (98-107) mmol/L Carbon Dioxide 14.5 L (21.0-32.0) mmol/L BUN 81 H (7.0-18.0) mg/dL Creatinine 3.7 H (0.8-1.3) mg/dL Est Cr Clr Drug Dosing 14.41 mL/min Estimated GFR (MDRD) 16.3 ml/min Glucose 83 (74-106) mg/dL Calcium 7.2 L (8.5-10.1) mg/dL Total Bilirubin 0.1 L (0.2-1.0) mg/dL AST 30 (15-37) IU/L ALT 20 (14-63) IU/L Alkaline Phosphatase 180 H (46-116) U/L Total Protein 4.8 L (6.4-8.2) g/dL Albumin 1.6 L (3.4-5.0) g/dL Globulin 3.2 (2.6-4.0) g/dL Albumin/Globulin Ratio 0.5 L (0.9-1.6) Med Orders - Current: Current Medications Acetaminophen (Acetaminophen 325 Mg Tab) 650 mg PO Q6H PRN PRN Reason: PAIN Last Admin: 09/08/21 11:24 Dose: 650 mg Documented by: Finasteride (Finasteride 5 Mg Tab) 5 mg PO DAILY [facility] Last Admin: 09/08/21 08:57 Dose: 5 mg Documented by: Furosemide (Furosemide 40 Mg Tab) 40 mg PO BIDDIURETIC [facility] Last Admin: 09/08/21 14:16 Dose: 40 mg Documented by: Heparin Sodium (Porcine) (Heparin Sodium 5,000 Units/Ml Vial) 5,000 units SUBCUT Q8H [facility] Last Admin: 09/08/21 14:16 Dose: 5,000 units Documented by: Metoprolol Succinate (Metoprolol Succinate 25 Mg Tab.Er) 12.5 mg PO BEDTIME [facility] Last Admin: 09/07/21 21:53 Dose: 12.5 mg Documented by: Omeprazole (Omeprazole 20 Mg Cap.Cr) 40 mg PO ACBREAKFAST [facility] Last Admin: 09/08/21 06:38 Dose: 40 mg Documented by: Ondansetron HCl (Ondansetron 4 Mg/2 Ml Sdv) 4 mg IVPUSH Q4H PRN PRN Reason: Nausea/Vomiting Last Admin: 09/05/21 06:45 Dose: 4 mg Documented by: Oxycodone HCl (Oxycodone 5 Mg Tab) 10 mg PO Q6H PRN PRN Reason: ABDOMINAL PAIN Last Admin: 09/08/21 11:24 Dose: 10 mg Documented by: Prednisone (Prednisone 20 Mg Tab) 60 mg PO DAILY [facility] Last Admin: 09/08/21 08:57 Dose: 60 mg Documented by: Simvastatin (Simvastatin 40 Mg Tab) 40 mg PO BEDTIME [facility] Last Admin: 09/07/21 21:53 Dose: 40 mg Documented by: Discontinued Medications Acetaminophen (Acetaminophen 325 Mg Tab) 650 mg PO Q6H PRN PRN Reason: Pain Last Admin: 09/05/21 09:14 Dose: 650 mg Documented by: Acetaminophen (Acetaminophen 325 Mg/10.15 Ml Ml) 650 mg PO Q6H PRN PRN Reason: Pain Last Admin: 09/05/21 16:21 Dose: 650 mg Documented by: Enoxaparin Sodium (Enoxaparin 40 Mg/0.4 Ml Syringe) 40 mg SUBCUT Q24H [facility] Last Admin: 09/03/21 10:45 Dose: 40 mg Documented by: Furosemide (Furosemide 40 Mg/4 Ml Vial) 40 mg IVPUSH NOW ONE Stop: 09/03/21 11:01 Last Admin: 09/03/21 11:48 Dose: 40 mg Documented by: Furosemide (Furosemide 40 Mg/4 Ml Vial) 40 mg IVPUSH NOW ONE Stop: 09/03/21 18:20 Last Admin: 09/03/21 21:47 Dose: Not Given Documented by: Furosemide (Furosemide 40 Mg/4 Ml Vial) 40 mg IVPUSH NOW ONE Stop: 09/03/21 21:31 Last Admin: 09/03/21 21:28 Dose: 40 mg Documented by: Furosemide (Furosemide 40 Mg/4 Ml Vial) 40 mg IVPUSH NOW ONE Stop: 09/04/21 13:47 Last Admin: 09/04/21 14:29 Dose: 40 mg Documented by: Hydromorphone HCl (Hydromorphone 1 Mg/Ml Syringe) 0.25 mg IVPUSH ONETIME ONE Stop: 08/31/21 20:21 Last Admin: 08/31/21 20:27 Dose: 0.25 mg Documented by: Sodium Chloride (Normal Saline) 1,000 mls @ 999 mls/hr IV .BOLUS ONE Stop: 08/31/21 18:52 Last Admin: 08/31/21 18:00 Dose: 999 mls/hr Documented by: Sodium Chloride (Normal Saline) 1,000 mls @ 125 mls/hr IV ASDIRECTED [facility] Last Admin: 09/01/21 17:10 Dose: 125 mls/hr Documented by: Ceftriaxone Sodium/Dextrose 1 (gm/ Premix) 50 mls @ 100 mls/hr IV Q24H [facility] Last Admin: 09/04/21 10:43 Dose: 100 mls/hr Documented by: Sodium Chloride (Normal Saline) 1,000 mls @ 125 mls/hr IV CONTINUOUS [facility] Last Admin: 09/03/21 03:02 Dose: 125 mls/hr Documented by: Ceftriaxone Sodium 1 gm/ (Sodium Chloride) 50 mls @ 100 mls/hr IV Q24H [facility] Last Admin: 09/08/21 12:06 Dose: Not Given Documented by: Ceftriaxone Sodium 1 gm/ (Sodium Chloride) 50 mls @ 100 mls/hr IV Q24H [facility] Last Admin: 09/08/21 11:18 Dose: 100 mls/hr Documented by: Metoprolol Succinate (Metoprolol Succinate 50 Mg Tab.Er) 25 mg PO BEDTIME [facility] Last Admin: 09/03/21 21:43 Dose: 25 mg Documented by: Ondansetron HCl (Ondansetron 4 Mg/2 Ml Sdv) 4 mg IVPUSH ONETIME ONE Stop: 08/31/21 17:53 Last Admin: 08/31/21 18:00 Dose: 4 mg Documented by: Ondansetron HCl (Ondansetron 4 Mg/2 Ml Sdv) 4 mg IVPUSH ONETIME ONE Stop: 08/31/21 19:50 Last Admin: 08/31/21 20:02 Dose: 4 mg Documented by: Oxycodone HCl (Oxycodone 5 Mg Tab) 10 mg PO DAILY PRN PRN Reason: Abdominal Pain Oxycodone HCl (Oxycodone 5 Mg Tab) 10 mg PO Q6H PRN PRN Reason: Abdominal Pain Last Admin: 09/05/21 09:15 Dose: 10 mg Documented by: Oxycodone HCl (Oxycodone 5 Mg/5 Ml Cup) 10 mg PO Q6H PRN PRN Reason: Abdominal Pain Last Admin: 09/05/21 16:20 Dose: 10 mg Documented by: Oxycodone HCl (Oxycodone 5 Mg Tab) 5 mg PO Q6H PRN PRN Reason: ABDOMINAL PAIN Polyethylene Glycol (Polyethylene Glycol 3350 Powder 17 Gm Packet) 17 gm PO ONETIME ONE Stop: 09/07/21 10:27 Last Admin: 09/07/21 10:54 Dose: 17 gm Documented by: - Exam General: Alert, Oriented, Cooperative HEENT: No: Mucous Membr. Moist/[place] Neck: No: Trachea Midline Lungs: Clear to Auscultation, Normal Respiratory Effort Cardiovascular: Regular Rate, Regular Rhythm, No Murmurs GI/Abdominal Exam: Tender - Patient Data Lab Results Last 24 hrs: Laboratory Results - last 24 hr 09/08/21 09/08/21 Range/Units 05:31 05:31 WBC 14.61 H (4.0-11.0) K/uL RBC 2.48 L (4.50-5.90) M/uL Hgb 8.2 L (13.0-17.0) g/dL Hct 23.8 L (38.0-50.0) % MCV 96.0 (80.0-98.0) fL MCH 33.1 H (27.0-32.0) pg MCHC 34.5 (31.0-37.0) g/dL RDW Std Deviation 54.5 (28.0-62.0) fl RDW Coeff of Myrna 16 H (11.0-15.0) % Plt Count 547 H (150-400) K/uL MPV 8.90 (7.40-12.00) fL Neut % (Auto) 92.6 H (48.0-80.0) % Lymph % (Auto) 2.5 L (16.0-40.0) % [place] % (Auto) 4.9 (0.0-15.0) % Eos % (Auto) 0.0 (0.0-7.0) % Baso % (Auto) 0.0 (0.0-1.5) % Neut # (Auto) 13.5 H (1.4-5.7) K/uL Lymph # (Auto) 0.4 L (0.6-2.4) K/uL [place] # (Auto) 0.7 (0.0-0.8) K/uL Eos # (Auto) 0.0 (0.0-0.7) K/uL Baso # (Auto) 0.0 (0.0-0.1) K/uL Nucleated RBC % 0.0 /100WBC Nucleated RBCs # 0 K/uL Sodium 136 (136-148) mmol/L Potassium 4.1 (3.5-5.1) mmol/L Chloride 106 (98-107) mmol/L Carbon Dioxide 14.5 L (21.0-32.0) mmol/L BUN 81 H (7.0-18.0) mg/dL Creatinine 3.7 H (0.8-1.3) mg/dL Est Cr Clr Drug Dosing 14.41 mL/min Estimated GFR (MDRD) 16.3 ml/min Glucose 83 (74-106) mg/dL Calcium 7.2 L (8.5-10.1) mg/dL Total Bilirubin 0.1 L (0.2-1.0) mg/dL AST 30 (15-37) IU/L ALT 20 (14-63) IU/L Alkaline Phosphatase 180 H (46-116) U/L Total Protein 4.8 L (6.4-8.2) g/dL Albumin 1.6 L (3.4-5.0) g/dL Globulin 3.2 (2.6-4.0) g/dL Albumin/Globulin Ratio 0.5 L (0.9-1.6) Result Diagrams: 09/08/21 05:31 09/08/21 05:31 Sepsis Event Note - Evaluation Sepsis Screening Result: Possible Sepsis Risk - Focused Exam Vital Signs: Vital Signs Temp Pulse Resp BP Pulse Ox 09/08/21 12:00 95.0 F L 76 20 126/67 91 L 09/08/21 08:14 97.0 F 69 22 H 121/61 92 L 09/08/21 03:00 97.5 F 67 17 117/64 92 L - Problem List & Annotations (1) Vomiting SNOMED Code(s): 609150972 Code(s): R11.10 - VOMITING, UNSPECIFIED Status: Acute Priority: Medium Current Visit: Yes (2) Abdominal pain SNOMED Code(s): 48873885 Code(s): R10.9 - UNSPECIFIED ABDOMINAL PAIN Status: Acute Priority: Low Current Visit: No Qualifiers: Abdominal location: left upper quadrant Qualified Code(s): R10.12 - Left upper quadrant pain (3) Acute kidney injury SNOMED Code(s): 09444873, 73594768 Code(s): N17.9 - ACUTE KIDNEY FAILURE, UNSPECIFIED Status: Acute Current Visit: No (4) Acute low back pain SNOMED Code(s): 758381250 Code(s): M54.5 - LOW BACK PAIN * DO NOT USE * Status: Acute Current Visit: No Qualifiers: Back pain laterality: left Sciatica presence: without sciatica Qualified Code(s): M54.50 - Low back pain, unspecified (5) CVA, Cerebrovascular accident SNOMED Code(s): 611996665 Code(s): I63.9 - CEREBRAL INFARCTION, UNSPECIFIED Status: Acute Current Visit: No (6) Esophageal cancer SNOMED Code(s): 678566766 Code(s): C15.9 - MALIGNANT NEOPLASM OF ESOPHAGUS, UNSPECIFIED Status: Acute Current Visit: No (7) BPH (benign prostatic hyperplasia) SNOMED Code(s): 559958910 Code(s): N40.0 - BENIGN PROSTATIC HYPERPLASIA WITHOUT LOWER URINRY TRACT SYMP Status: Chronic Current Visit: No (8) Hyperlipidemia SNOMED Code(s): 50993161 Code(s): E78.5 - HYPERLIPIDEMIA, UNSPECIFIED Status: Chronic Current Visi t: No (9) Hypertension SNOMED Code(s): 71282637 Code(s): I10 - ESSENTIAL (PRIMARY) HYPERTENSION Status: Chronic Current Visit: No (10) Edema SNOMED Code(s): 169460755, 808329719 Code(s): R60.9 - EDEMA, UNSPECIFIED Status: Acute Current Visit: Yes (11) Cellulitis SNOMED Code(s): 728051104 Code(s): L03.90 - CELLULITIS, UNSPECIFIED Status: Acute Current Visit: Yes (12) Right shoulder pain SNOMED Code(s): 08465352, 40886465 Code(s): M25.511 - PAIN IN RIGHT SHOULDER Status: Acute Current Visit: Yes (13) Constipation SNOMED Code(s): 25771580 Code(s): K59.00 - CONSTIPATION, UNSPECIFIED Status: Acute Current Visit: Yes - Problem List Review Problem List Initiated/Reviewed/Updated: Yes - My Orders Last 24 Hours: My Active Orders 09/09/21 05:11 CBC WITH AUTO DIFF [HEME] AM CMP [COMPREHENSIVE METABOLIC PN,CMP] [CHEM] AM 09/10/21 05:11 CBC WITH AUTO DIFF [HEME] AM CMP [COMPREHENSIVE METABOLIC PN,CMP] [CHEM] AM 09/11/21 05:11 CBC WITH AUTO DIFF [HEME] AM CMP [COMPREHENSIVE METABOLIC PN,CMP] [CHEM] AM - Assessment Assessment:: 1. Nonbloody nonbilious emesis -Continue Zofran per IV route as needed 2. Abdominal pain due to cellulitis around J-tube site -For pain the patient has oxycodone 10 mg /Tylenol 650 mg every 6 hours as needed 3. Bilateral hand and pedal edema -Continue Lasix 40 mg per oral route twice a day and his metoprolol has been decreased from 25 mg to 12.5 at bedtime 4. History of esophageal cancer -Patient is being followed by Dr. Bateman, oncologist, continue to follow his recommendations moving forward 5. Lumbar back pain from fall -Treat with analgesics as per #2 6. BPH history -Continue finasteride 7. Hypertension history -Continue metoprolol, dose split in half to 12.5 mg at bed in order to decrease kidney deterioration 8. Hyperlipidemia history -Continue simvastatin 9. SAJAN -Continue to monitor with daily CMP 10. CVA history -Monitor for symptoms of stroke
[2021-09-08] MEDS: Metoprolol Succinate 25 MG Tab.ER PO SCH (20:17)
[2021-09-08] MEDS: Simvastatin 40 MG Tab PO SCH (20:17)
[2021-09-09] MEDS: oxyCODONE 5 MG Tab PO PRN ×4 (05:30→22:51)
[2021-09-09] MEDS: Heparin Sodium 5,000 Units/ML Vial SUBCUT SCH ×3 (05:31→22:52)
[2021-09-09] MEDS: Omeprazole 20 MG Cap.CR PO SCH (06:38)
[2021-09-09] MEDS: Furosemide 40 MG Tab PO SCH (08:20)
[2021-09-09] MEDS: predniSONE 20 MG Tab PO SCH (08:21)
[2021-09-09] MEDS: Finasteride 5 MG Tab PO SCH (08:21)
[2021-09-09] MEDS: Acetaminophen 325 MG Tab PO PRN ×3 (08:22→22:50)
[2021-09-09 08:31] LABS: CARBON DIOXIDE,CO2 18.5 mmol/L (21.0-32.0); POTASSIUM,K 4.6 mmol/L (3.5-5.1)
--- NOTE | 2021-09-09 12:44 | PCM.PN ---
- General Info Date of Service: 09/09/21 - Review of Systems Systems Review Comment:: reports cramping abdominal pain last night following increase in tube feeds - Patient Data Vitals - Most Recent: Last Vital Signs Temp 36.5 C 09/09/21 08:00 Pulse 74 09/09/21 08:00 Resp 16 09/09/21 08:00 BP 136/79 09/09/21 08:00 Pulse Ox 94 L 09/09/21 08:00 Weight - Most Recent: 54.839 kg I&O - Last 24 Hours: Intake & Output 09/08/21 09/09/21 09/09/21 22:59 06:59 14:59 Intake Total 407 771 Output Total 575 750 Balance -168 21 Lab Results Last 24 Hours: Laboratory Results - last 24 hr 09/09/21 09/09/21 Range/Units 07:42 07:42 WBC 15.93 H (4.0-11.0) K/uL RBC 2.50 L (4.50-5.90) M/uL Hgb 8.3 L (13.0-17.0) g/dL Hct 23.9 L (38.0-50.0) % MCV 95.6 (80.0-98.0) fL MCH 33.2 H (27.0-32.0) pg MCHC 34.7 (31.0-37.0) g/dL RDW Std Deviation 53.9 (28.0-62.0) fl RDW Coeff of Myrna 16 H (11.0-15.0) % Plt Count 455 H (150-400) K/uL MPV 8.60 (7.40-12.00) fL Neut % (Auto) 91.4 H (48.0-80.0) % Lymph % (Auto) 2.6 L (16.0-40.0) % [place] % (Auto) 6.0 (0.0-15.0) % Eos % (Auto) 0.0 (0.0-7.0) % Baso % (Auto) 0.0 (0.0-1.5) % Neut # (Auto) 14.6 H (1.4-5.7) K/uL Lymph # (Auto) 0.4 L (0.6-2.4) K/uL [place] # (Auto) 1.0 H (0.0-0.8) K/uL Eos # (Auto) 0.0 (0.0-0.7) K/uL Baso # (Auto) 0.0 (0.0-0.1) K/uL Nucleated RBC % 0.0 /100WBC Nucleated RBCs # 0 K/uL Sodium 131 L (136-148) mmol/L Potassium 4.6 (3.5-5.1) mmol/L Chloride 100 (98-107) mmol/L Carbon Dioxide 18.5 L (21.0-32.0) mmol/L BUN 97 H (7.0-18.0) mg/dL Creatinine 4.2 H (0.8-1.3) mg/dL Est Cr Clr Drug Dosing 12.69 mL/min Estimated GFR (MDRD) 14.1 ml/min Glucose 94 (74-106) mg/dL Calcium 8.4 L (8.5-10.1) mg/dL Total Bilirubin 0.2 (0.2-1.0) mg/dL AST 40 H (15-37) IU/L ALT 28 (14-63) IU/L Alkaline Phosphatase 195 H (46-116) U/L Total Protein 5.5 L (6.4-8.2) g/dL Albumin 2.0 L (3.4-5.0) g/dL Globulin 3.5 (2.6-4.0) g/dL Albumin/Globulin Ratio 0.6 L (0.9-1.6) Med Orders - Current: Current Medications Acetaminophen (Acetaminophen 325 Mg Tab) 650 mg PO Q6H PRN PRN Reason: PAIN Last Admin: 09/09/21 08:22 Dose: 650 mg Documented by: Finasteride (Finasteride 5 Mg Tab) 5 mg PO DAILY [facility] Last Admin: 09/09/21 08:21 Dose: 5 mg Documented by: Furosemide (Furosemide 40 Mg Tab) 40 mg PO BIDDIURETIC [facility] Last Admin: 09/09/21 08:20 Dose: 40 mg Documented by: Heparin Sodium (Porcine) (Heparin Sodium 5,000 Units/Ml Vial) 5,000 units SUBCUT Q8H [facility] Last Admin: 09/09/21 05:31 Dose: 5,000 units Documented by: Metoprolol Succinate (Metoprolol Succinate 25 Mg Tab.Er) 12.5 mg PO BEDTIME [facility] Last Admin: 09/08/21 20:17 Dose: 12.5 mg Documented by: Omeprazole (Omeprazole 20 Mg Cap.Cr) 40 mg PO ACBREAKFAST [facility] Last Admin: 09/09/21 06:38 Dose: 40 mg Documented by: Ondansetron HCl (Ondansetron 4 Mg/2 Ml Sdv) 4 mg IVPUSH Q4H PRN PRN Reason: Nausea/Vomiting Last Admin: 09/05/21 06:45 Dose: 4 mg Documented by: Oxycodone HCl (Oxycodone 5 Mg Tab) 10 mg PO Q6H PRN PRN Reason: ABDOMINAL PAIN Last Admin: 09/09/21 11:53 Dose: 10 mg Documented by: Prednisone (Prednisone 20 Mg Tab) 60 mg PO DAILY [facility] Last Admin: 09/09/21 08:21 Dose: 60 mg Documented by: Simvastatin (Simvastatin 40 Mg Tab) 40 mg PO BEDTIME [facility] Last Admin: 09/08/21 20:17 Dose: 40 mg Documented by: Discontinued Medications Acetaminophen (Acetaminophen 325 Mg Tab) 650 mg PO Q6H PRN PRN Reason: Pain Last Admin: 09/05/21 09:14 Dose: 650 mg Documented by: Acetaminophen (Acetaminophen 325 Mg/10.15 Ml Ml) 650 mg PO Q6H PRN PRN Reason: Pain Last Admin: 09/05/21 16:21 Dose: 650 mg Documented by: Enoxaparin Sodium (Enoxaparin 40 Mg/0.4 Ml Syringe) 40 mg SUBCUT Q24H [facility] Last Admin: 09/03/21 10:45 Dose: 40 mg Documented by: Furosemide (Furosemide 40 Mg/4 Ml Vial) 40 mg IVPUSH NOW ONE Stop: 09/03/21 11:01 Last Admin: 09/03/21 11:48 Dose: 40 mg Documented by: Furosemide (Furosemide 40 Mg/4 Ml Vial) 40 mg IVPUSH NOW ONE Stop: 09/03/21 18:20 Last Admin: 09/03/21 21:47 Dose: Not Given Documented by: Furosemide (Furosemide 40 Mg/4 Ml Vial) 40 mg IVPUSH NOW ONE Stop: 09/03/21 21:31 Last Admin: 09/03/21 21:28 Dose: 40 mg Documented by: Furosemide (Furosemide 40 Mg/4 Ml Vial) 40 mg IVPUSH NOW ONE Stop: 09/04/21 13:47 Last Admin: 09/04/21 14:29 Dose: 40 mg Documented by: Hydromorphone HCl (Hydromorphone 1 Mg/Ml Syringe) 0.25 mg IVPUSH ONETIME ONE Stop: 08/31/21 20:21 Last Admin: 08/31/21 20:27 Dose: 0.25 mg Documented by: Sodium Chloride (Normal Saline) 1,000 mls @ 999 mls/hr IV .BOLUS ONE Stop: 08/31/21 18:52 Last Admin: 08/31/21 18:00 Dose: 999 mls/hr Documented by: Sodium Chloride (Normal Saline) 1,000 mls @ 125 mls/hr IV ASDIRECTED [facility] Last Admin: 09/01/21 17:10 Dose: 125 mls/hr Documented by: Ceftriaxone Sodium/Dextrose 1 (gm/ Premix) 50 mls @ 100 mls/hr IV Q24H [facility] Last Admin: 09/04/21 10:43 Dose: 100 mls/hr Documented by: Sodium Chloride (Normal Saline) 1,000 mls @ 125 mls/hr IV CONTINUOUS [facility] Last Admin: 09/03/21 03:02 Dose: 125 mls/hr Documented by: Ceftriaxone Sodium 1 gm/ (Sodium Chloride) 50 mls @ 100 mls/hr IV Q24H [facility] Last Admin: 09/08/21 12:06 Dose: Not Given Documented by: Ceftriaxone Sodium 1 gm/ (Sodium Chloride) 50 mls @ 100 mls/hr IV Q24H [facility] Last Admin: 09/08/21 11:18 Dose: 100 mls/hr Documented by: Metoprolol Succinate (Metoprolol Succinate 50 Mg Tab.Er) 25 mg PO BEDTIME [facility] Last Admin: 09/03/21 21:43 Dose: 25 mg Documented by: Ondansetron HCl (Ondansetron 4 Mg/2 Ml Sdv) 4 mg IVPUSH ONETIME ONE Stop: 08/31/21 17:53 Last Admin: 08/31/21 18:00 Dose: 4 mg Documented by: Ondansetron HCl (Ondansetron 4 Mg/2 Ml Sdv) 4 mg IVPUSH ONETIME ONE Stop: 08/31/21 19:50 Last Admin: 08/31/21 20:02 Dose: 4 mg Documented by: Oxycodone HCl (Oxycodone 5 Mg Tab) 10 mg PO DAILY PRN PRN Reason: Abdominal Pain Oxycodone HCl (Oxycodone 5 Mg Tab) 10 mg PO Q6H PRN PRN Reason: Abdominal Pain Last Admin: 09/05/21 09:15 Dose: 10 mg Documented by: Oxycodone HCl (Oxycodone 5 Mg/5 Ml Cup) 10 mg PO Q6H PRN PRN Reason: Abdominal Pain Last Admin: 09/05/21 16:20 Dose: 10 mg Documented by: Oxycodone HCl (Oxycodone 5 Mg Tab) 5 mg PO Q6H PRN PRN Reason: ABDOMINAL PAIN Polyethylene Glycol (Polyethylene Glycol 3350 Powder 17 Gm Packet) 17 gm PO ONETIME ONE Stop: 09/07/21 10:27 Last Admin: 09/07/21 10:54 Dose: 17 gm Documented by: - Exam General: Alert, Oriented Neck: Supple Lungs: Clear to Auscultation, Normal Respiratory Effort Cardiovascular: Regular Rate, Regular Rhythm GI/Abdominal Exam: Soft, Non-Tender, No Distention, Other (j-tibe in place, no drainage) Extremities: Non-Tender, No Pedal Edema Skin: Warm, Dry, Intact - Patient Data Lab Results Last 24 hrs: Laboratory Results - last 24 hr 09/09/21 09/09/21 Range/Units 07:42 07:42 WBC 15.93 H (4.0-11.0) K/uL RBC 2.50 L (4.50-5.90) M/uL Hgb 8.3 L (13.0-17.0) g/dL Hct 23.9 L (38.0-50.0) % MCV 95.6 (80.0-98.0) fL MCH 33.2 H (27.0-32.0) pg MCHC 34.7 (31.0-37.0) g/dL RDW Std Deviation 53.9 (28.0-62.0) fl RDW Coeff of Myrna 16 H (11.0-15.0) % Plt Count 455 H (150-400) K/uL MPV 8.60 (7.40-12.00) fL Neut % (Auto) 91.4 H (48.0-80.0) % Lymph % (Auto) 2.6 L (16.0-40.0) % [place] % (Auto) 6.0 (0.0-15.0) % Eos % (Auto) 0.0 (0.0-7.0) % Baso % (Auto) 0.0 (0.0-1.5) % Neut # (Auto) 14.6 H (1.4-5.7) K/uL Lymph # (Auto) 0.4 L (0.6-2.4) K/uL [place] # (Auto) 1.0 H (0.0-0.8) K/uL Eos # (Auto) 0.0 (0.0-0.7) K/uL Baso # (Auto) 0.0 (0.0-0.1) K/uL Nucleated RBC % 0.0 /100WBC Nucleated RBCs # 0 K/uL Sodium 131 L (136-148) mmol/L Potassium 4.6 (3.5-5.1) mmol/L Chloride 100 (98-107) mmol/L Carbon Dioxide 18.5 L (21.0-32.0) mmol/L BUN 97 H (7.0-18.0) mg/dL Creatinine 4.2 H (0.8-1.3) mg/dL Est Cr Clr Drug Dosing 12.69 mL/min Estimated GFR (MDRD) 14.1 ml/min Glucose 94 (74-106) mg/dL Calcium 8.4 L (8.5-10.1) mg/dL Total Bilirubin 0.2 (0.2-1.0) mg/dL AST 40 H (15-37) IU/L ALT 28 (14-63) IU/L Alkaline Phosphatase 195 H (46-116) U/L Total Protein 5.5 L (6.4-8.2) g/dL Albumin 2.0 L (3.4-5.0) g/dL Globulin 3.5 (2.6-4.0) g/dL Albumin/Globulin Ratio 0.6 L (0.9-1.6) Result Diagrams: 09/09/21 07:42 09/09/21 07:42 Sepsis Event Note - Evaluation Sepsis Screening Result: Possible Sepsis Risk - Focused Exam Vital Signs: Vital Signs Temp Pulse Resp BP Pulse Ox 09/09/21 08:00 36.5 C 74 16 136/79 94 L 09/09/21 05:00 36.3 C 68 18 141/81 H 96 - Problem List Review Problem List Initiated/Reviewed/Updated: Yes - My Orders Last 24 Hours: My Active Orders 09/09/21 12:05 Communication Order [RC] ROUTINE 09/09/21 18:00 Bladder Scan [RC] Q12H - Assessment Assessment:: 71 yo male admitted for concerns of dehydration and acute kidney injury due to nausea and vomiting SAJAN: suspect due to immunotherapy, will continue prednisone, edema has improved so will decrease lasix dosing Tube feeds: will decrease to 30ml/hr, oxycodone and tylenol prn pain, have d/c Rocephin BPH: finasteride, patient refuses catheter placement Esophageal cancer: will need SAJAN resolved before resumption of any cancer therapy.
[2021-09-09] MEDS: Ondansetron 4 MG/2 ML SDV IVPUSH PRN (18:35)
[2021-09-09] MEDS: Metoprolol Succinate 25 MG Tab.ER PO SCH (20:37)
[2021-09-09] MEDS: Simvastatin 40 MG Tab PO SCH (20:37)
[2021-09-10] MEDS: oxyCODONE 5 MG Tab PO PRN ×4 (04:51→23:28)
[2021-09-10] MEDS: Acetaminophen 325 MG Tab PO PRN ×4 (04:52→23:28)
[2021-09-10] MEDS: Heparin Sodium 5,000 Units/ML Vial SUBCUT SCH ×3 (05:03→21:18)
[2021-09-10] MEDS: Omeprazole 20 MG Cap.CR PO SCH ×2 (05:18→06:39)
[2021-09-10] MEDS: Finasteride 5 MG Tab PO SCH (08:53)
[2021-09-10] MEDS: predniSONE 20 MG Tab PO SCH (08:53)
[2021-09-10 09:05] LABS: POTASSIUM,K 4.9 mmol/L (3.5-5.1)
--- NOTE | 2021-09-10 14:33 | PCM.PN ---
- General Info Date of Service: 09/10/21 - Review of Systems Systems Review Comment:: abdominal pain improving - Patient Data Vitals - Most Recent: Last Vital Signs Temp 36.6 C 09/10/21 11:24 Pulse 72 09/10/21 11:24 Resp 16 09/10/21 11:24 BP 116/68 09/10/21 11:24 Pulse Ox 92 L 09/10/21 11:24 Weight - Most Recent: 61.144 kg I&O - Last 24 Hours: Intake & Output 09/09/21 09/10/21 09/10/21 22:59 06:59 14:59 Intake Total 844 890 Output Total 600 275 Balance 244 615 Lab Results Last 24 Hours: Laboratory Results - last 24 hr 09/10/21 09/10/21 Range/Units 07:02 07:02 WBC 17.22 H (4.0-11.0) K/uL RBC 2.55 L (4.50-5.90) M/uL Hgb 8.4 L (13.0-17.0) g/dL Hct 24.4 L (38.0-50.0) % MCV 95.7 (80.0-98.0) fL MCH 32.9 H (27.0-32.0) pg MCHC 34.4 (31.0-37.0) g/dL RDW Std Deviation 53.7 (28.0-62.0) fl RDW Coeff of Myrna 16 H (11.0-15.0) % Plt Count 466 H (150-400) K/uL MPV 8.90 (7.40-12.00) fL Neut % (Auto) 91.3 H (48.0-80.0) % Lymph % (Auto) 3.1 L (16.0-40.0) % Childress % (Auto) 5.6 (0.0-15.0) % Eos % (Auto) 0.0 (0.0-7.0) % Baso % (Auto) 0.0 (0.0-1.5) % Neut # (Auto) 15.7 H (1.4-5.7) K/uL Lymph # (Auto) 0.5 L (0.6-2.4) K/uL Childress # (Auto) 1.0 H (0.0-0.8) K/uL Eos # (Auto) 0.0 (0.0-0.7) K/uL Baso # (Auto) 0.0 (0.0-0.1) K/uL Nucleated RBC % 0.0 /100WBC Nucleated RBCs # 0 K/uL Sodium 131 L (136-148) mmol/L Potassium 4.9 (3.5-5.1) mmol/L Chloride 99 (98-107) mmol/L Carbon Dioxide 19.0 L (21.0-32.0) mmol/L BUN 107 H (7.0-18.0) mg/dL Creatinine 4.6 H (0.8-1.3) mg/dL Est Cr Clr Drug Dosing 12.92 mL/min Estimated GFR (MDRD) 12.7 ml/min Glucose 87 (74-106) mg/dL Calcium 8.4 L (8.5-10.1) mg/dL Total Bilirubin 0.3 (0.2-1.0) mg/dL AST 41 H (15-37) IU/L ALT 25 (14-63) IU/L Alkaline Phosphatase 187 H (46-116) U/L Total Protein 5.4 L (6.4-8.2) g/dL Albumin 2.1 L (3.4-5.0) g/dL Globulin 3.3 (2.6-4.0) g/dL Albumin/Globulin Ratio 0.6 L (0.9-1.6) Med Orders - Current: Current Medications Acetaminophen (Acetaminophen 325 Mg Tab) 650 mg PO Q6H PRN PRN Reason: PAIN Last Admin: 09/10/21 11:26 Dose: 650 mg Documented by: Finasteride (Finasteride 5 Mg Tab) 5 mg PO DAILY [facility] Last Admin: 09/10/21 08:53 Dose: 5 mg Documented by: Furosemide (Furosemide 40 Mg Tab) 40 mg PO BIDDIURETIC [facility] Heparin Sodium (Porcine) (Heparin Sodium 5,000 Units/Ml Vial) 5,000 units SUB CUT Q8H [facility] Last Admin: 09/10/21 13:23 Dose: 5,000 units Documented by: Hydromorphone HCl (Hydromorphone 1 Mg/Ml Syringe) 1 mg IVPUSH Q12H PRN PRN Reason: Pain Metoprolol Succinate (Metoprolol Succinate 25 Mg Tab.Er) 12.5 mg PO BEDTIME [facility] Last Admin: 09/09/21 20:37 Dose: 12.5 mg Documented by: Omeprazole (Omeprazole 20 Mg Cap.Cr) 40 mg PO ACBREAKFAST [facility] Last Admin: 09/10/21 06:39 Dose: Not Given Documented by: Ondansetron HCl (Ondansetron 4 Mg/2 Ml Sdv) 4 mg IVPUSH Q4H PRN PRN Reason: Nausea/Vomiting Last Admin: 09/09/21 18:35 Dose: 4 mg Documented by: Oxycodone HCl (Oxycodone 5 Mg Tab) 10 mg PO Q6H PRN PRN Reason: ABDOMINAL PAIN Last Admin: 09/10/21 11:25 Dose: 10 mg Documented by: Prednisone (Prednisone 20 Mg Tab) 60 mg PO DAILY [facility] Last Admin: 09/10/21 08:53 Dose: 60 mg Documented by: Simvastatin (Simvastatin 40 Mg Tab) 40 mg PO BEDTIME [facility] Last Admin: 09/09/21 20:37 Dose: 40 mg Documented by: Discontinued Medications Acetaminophen (Acetaminophen 325 Mg Tab) 650 mg PO Q6H PRN PRN Reason: Pain Last Admin: 09/05/21 09:14 Dose: 650 mg Documented by: Acetaminophen (Acetaminophen 325 Mg/10.15 Ml Ml) 650 mg PO Q6H PRN PRN Reason: Pain Last Admin: 09/05/21 16:21 Dose: 650 mg Documented by: Enoxaparin Sodium (Enoxaparin 40 Mg/0.4 Ml Syringe) 40 mg SUBCUT Q24H [facility] Last Admin: 09/03/21 10:45 Dose: 40 mg Documented by: Furosemide (Furosemide 40 Mg/4 Ml Vial) 40 mg IVPUSH NOW ONE Stop: 09/03/21 11:01 Last Admin: 09/03/21 11:48 Dose: 40 mg Documented by: Furosemide (Furosemide 40 Mg/4 Ml Vial) 40 mg IVPUSH NOW ONE Stop: 09/03/21 18:20 Last Admin: 09/03/21 21:47 Dose: Not Given Documented by: Furosemide (Furosemide 40 Mg/4 Ml Vial) 40 mg IVPUSH NOW ONE Stop: 09/03/21 21:31 Last Admin: 09/03/21 21:28 Dose: 40 mg Documented by: Furosemide (Furosemide 40 Mg/4 Ml Vial) 40 mg IVPUSH NOW ONE Stop: 09/04/21 13:47 Last Admin: 09/04/21 14:29 Dose: 40 mg Documented by: Furosemide (Furosemide 40 Mg Tab) 40 mg PO BIDDIURETIC [facility] Last Admin: 09/09/21 08:20 Dose: 40 mg Documented by: Hydromorphone HCl (Hydromorphone 1 Mg/Ml Syringe) 0.25 mg IVPUSH ONETIME ONE Stop: 08/31/21 20:21 Last Admin: 08/31/21 20:27 Dose: 0.25 mg Documented by: Sodium Chloride (Normal Saline) 1,000 mls @ 999 mls/hr IV .BOLUS ONE Stop: 08/31/21 18:52 Last Admin: 08/31/21 18:00 Dose: 999 mls/hr Documented by: Sodium Chloride (Normal Saline) 1,000 mls @ 125 mls/hr IV ASDIRECTED [facility] Last Admin: 09/01/21 17:10 Dose: 125 mls/hr Documented by: Ceftriaxone Sodium/Dextrose 1 (gm/ Premix) 50 mls @ 100 mls/hr IV Q24H [facility] Last Admin: 09/04/21 10:43 Dose: 100 mls/hr Documented by: Sodium Chloride (Normal Saline) 1,000 mls @ 125 mls/hr IV CONTINUOUS [facility] Last Admin: 09/03/21 03:02 Dose: 125 mls/hr Documented by: Ceftriaxone Sodium 1 gm/ (Sodium Chloride) 50 mls @ 100 mls/hr IV Q24H [facility] Last Admin: 09/08/21 12:06 Dose: Not Given Documented by: Ceftriaxone Sodium 1 gm/ (Sodium Chloride) 50 mls @ 100 mls/hr IV Q24H [facility] Last Admin: 09/08/21 11:18 Dose: 100 mls/hr Documented by: Metoprolol Succinate (Metoprolol Succinate 50 Mg Tab.Er) 25 mg PO BEDTIME [facility] Last Admin: 09/03/21 21:43 Dose: 25 mg Documented by: Ondansetron HCl (Ondansetron 4 Mg/2 Ml Sdv) 4 mg IVPUSH ONETIME ONE Stop: 08/31/21 17:53 Last Admin: 08/31/21 18:00 Dose: 4 mg Documented by: Ondansetron HCl (Ondansetron 4 Mg/2 Ml Sdv) 4 mg IVPUSH ONETIME ONE Stop: 08/31/21 19:50 Last Admin: 08/31/21 20:02 Dose: 4 mg Documented by: Oxycodone HCl (Oxycodone 5 Mg Tab) 10 mg PO DAILY PRN PRN Reason: Abdominal Pain Oxycodone HCl (Oxycodone 5 Mg Tab) 10 mg PO Q6H PRN PRN Reason: Abdominal Pain Last Admin: 09/05/21 09:15 Dose: 10 mg Documented by: Oxycodone HCl (Oxycodone 5 Mg/5 Ml Cup) 10 mg PO Q6H PRN PRN Reason: Abdominal Pain Last Admin: 09/05/21 16:20 Dose: 10 mg Documented by: Oxycodone HCl (Oxycodone 5 Mg Tab) 5 mg PO Q6H PRN PRN Reason: ABDOMINAL PAIN Polyethylene Glycol (Polyethylene Glycol 3350 Powder 17 Gm Packet) 17 gm PO ONETIME ONE Stop: 09/07/21 10:27 Last Admin: 09/07/21 10:54 Dose: 17 gm Documented by: - Exam General: Alert, Oriented Neck: Supple Lungs: Clear to Auscultation, Normal Respiratory Effort Cardiovascular: Regular Rate, Regular Rhythm GI/Abdominal Exam: Normal Bowel Sounds, Soft, Non-Tender, Other (J-tube in jan ce) Extremities: Pedal Edema (+2) Neurological: No New Focal Deficit - Patient Data Lab Results Last 24 hrs: Laboratory Results - last 24 hr 09/10/21 09/10/21 Range/Units 07:02 07:02 WBC 17.22 H (4.0-11.0) K/uL RBC 2.55 L (4.50-5.90) M/uL Hgb 8.4 L (13.0-17.0) g/dL Hct 24.4 L (38.0-50.0) % MCV 95.7 (80.0-98.0) fL MCH 32.9 H (27.0-32.0) pg MCHC 34.4 (31.0-37.0) g/dL RDW Std Deviation 53.7 (28.0-62.0) fl RDW Coeff of Myrna 16 H (11.0-15.0) % Plt Count 466 H (150-400) K/uL MPV 8.90 (7.40-12.00) fL Neut % (Auto) 91.3 H (48.0-80.0) % Lymph % (Auto) 3.1 L (16.0-40.0) % Childress % (Auto) 5.6 (0.0-15.0) % Eos % (Auto) 0.0 (0.0-7.0) % Baso % (Auto) 0.0 (0.0-1.5) % Neut # (Auto) 15.7 H (1.4-5.7) K/uL Lymph # (Auto) 0.5 L (0.6-2.4) K/uL Childress # (Auto) 1.0 H (0.0-0.8) K/uL Eos # (Auto) 0.0 (0.0-0.7) K/uL Baso # (Auto) 0.0 (0.0-0.1) K/uL Nucleated RBC % 0.0 /100WBC Nucleated RBCs # 0 K/uL Sodium 131 L (136-148) mmol/L Potassium 4.9 (3.5-5.1) mmol/L Chloride 99 (98-107) mmol/L Carbon Dioxide 19.0 L (21.0-32.0) mmol/L BUN 107 H (7.0-18.0) mg/dL Creatinine 4.6 H (0.8-1.3) mg/dL Est Cr Clr Drug Dosing 12.92 mL/min Estimated GFR (MDRD) 12.7 ml/min Glucose 87 (74-106) mg/dL Calcium 8.4 L (8.5-10.1) mg/dL Total Bilirubin 0.3 (0.2-1.0) mg/dL AST 41 H (15-37) IU/L ALT 25 (14-63) IU/L Alkaline Phosphatase 187 H (46-116) U/L Total Protein 5.4 L (6.4-8.2) g/dL Albumin 2.1 L (3.4-5.0) g/dL Globulin 3.3 (2.6-4.0) g/dL Albumin/Globulin Ratio 0.6 L (0.9-1.6) Result Diagrams: 09/10/21 07:02 09/10/21 07:02 Sepsis Event Note - Evaluation Sepsis Screening Result: Possible Sepsis Risk - Focused Exam Vital Signs: Vital Signs Temp Pulse Resp BP Pulse Ox 09/10/21 11:24 36.6 C 72 16 116/68 92 L 09/10/21 08:48 36.5 C 71 17 136/73 93 L 09/10/21 04:46 36.8 C 70 18 154/81 H 93 L - Problem List Review Problem List Initiated/Reviewed/Updated: Yes - My Orders Last 24 Hours: My Active Orders 09/09/21 18:00 Bladder Scan [RC] Q12H 09/10/21 14:45 Furosemide [Lasix] 40 mg PO BIDDIURETIC - Assessment Assessment:: 71 yo male admitted for concerns of dehydration and acute kidney injury due to nausea and vomiting SAJAN: suspect due to immunotherapy, will continue prednisone, continue lasix Tube feeds: 30ml/hr, oxycodone and tylenol prn pain, have d/c Rocephin BPH: finasteride, patient refuses catheter placement Esophageal cancer: will need SAJAN resolved before resumption of any cancer therapy.
[2021-09-10] MEDS: Furosemide 40 MG Tab PO SCH (14:55)
[2021-09-10] MEDS ORDERED: Docusate Sodium 100 MG Cap PO PRN (18:12)
[2021-09-10] MEDS: Metoprolol Succinate 25 MG Tab.ER PO SCH (21:18)
[2021-09-10] MEDS: Simvastatin 40 MG Tab PO SCH (21:19)
[2021-09-11] MEDS: Acetaminophen 325 MG Tab PO PRN ×3 (05:57→19:01)
[2021-09-11] MEDS: oxyCODONE 5 MG Tab PO PRN ×3 (05:58→19:00)
[2021-09-11] MEDS: Heparin Sodium 5,000 Units/ML Vial SUBCUT SCH ×3 (05:58→22:00)
[2021-09-11 07:01] LABS: CARBON DIOXIDE,CO2 19.5 mmol/L (21.0-32.0); POTASSIUM,K 4.5 mmol/L (3.5-5.1)
[2021-09-11] MEDS: Omeprazole 20 MG Cap.CR PO SCH (07:41)
[2021-09-11] MEDS: Furosemide 40 MG Tab PO SCH ×2 (07:41→13:17)
[2021-09-11] MEDS: predniSONE 20 MG Tab PO SCH (08:49)
[2021-09-11] MEDS: Finasteride 5 MG Tab PO SCH (08:49)
--- NOTE | 2021-09-11 14:47 | PCM.DCSUM1 ---
Discharge Summary - Hospital Course Brief History: Patient is a 71-year-old male, on day 2 of service, who has a significant past medical history of hypertension, hyperlipidemia, GERD, osteoarthritis, CVA, esophageal cancer with partial esophagectomy in 12/21, and gastrectomy with J-tube placement in 04/22, who was admitted to the medical floor due to emesis and abdominal pain around his J-tube site. Upon interview with the patient today, he explains that since Thanks of this year he has had increasing bouts of vomiting which have been nonbilious and nonbloody. He has had a difficult time holding down meals despite smaller frequent meals. This emesis has made the patient feel weak and unlike himself which ultimately brought him into the hospital. He also describes having abdominal pain around the J-tube site, which is 7 out of 10 in intensity, dull in nature, and nonradiating. Along with this, he had a fall on his lower back 4 days ago which is causing aching pain, 5 out of 10 in intensity, and nonradiating. The patient is to follow-up with his oncologist this upcoming Saturday, September 06/2022. In regards to the patient's social history, he smoked a half pack of cigarettes for 50 years but quit 3 months ago, he uses marijuana regularly but denies alcohol consumption. His family history is noncontributory. He has no known drug allergies. The patient was markedly upset during interview today and shed tears over his current health condition. On CBC, his white blood cell count is 9.42, hemoglobin is 8.4, hematocrit is 25.5, and platelet count is 486. On CMP, his sodium is 136, potassium is 5.3, chloride is 104, carbon dioxide is 20.3, BUN is 83, and creatinine is 3.6. On CT of the abdomen and pelvis, he has bilateral hydronephrosis with the left being more prominent than the right, he has small bilateral pleural effusions, he has new lytic lesions in the thoracolumbar spine, sigmoid diverticulosis was also seen as well as an enlarged prostate. In the emergency department, the patient received hydromorphone 0.25 mg per IV route once, a normal saline bolus of 1000 mL, Zofran 4 mg per IV route once for vomiting, and had the above tests done including a CBC, CMP, and CT of the abdomen and pelvis. Diagnosis: Stroke: No - Discharge Data Discharge Date: 09/11/21 Discharge Disposition: Home, Self-Care 01 Condition: Good - Referral to Home Health Primary Care Physician: PCP None - Discharge Diagnosis/Problem(s) (1) Esophageal adenocarcinoma SNOMED Code(s): 363395743 ICD Code: C15.9 - MALIGNANT NEOPLASM OF ESOPHAGUS, UNSPECIFIED Status: Acute Priority: Medium Current Visit: Yes (2) Uses feeding tube SNOMED Code(s): 697114375 ICD Code: Z97.8 - PRESENCE OF OTHER SPECIFIED DEVICES Status: Acute Priority: High Current Visit: Yes (3) Abdominal pain SNOMED Code(s): 89844406 ICD Code: R10.9 - UNSPECIFIED ABDOMINAL PAIN Status: Acute Priority: Low Current Visit: No Qualifiers: Abdominal location: left upper quadrant Qualified Code(s): R10.12 - Left upper quadrant pain (4) Acute kidney injury SNOMED Code(s): 70054603, 50232739 ICD Code: N17.9 - ACUTE KIDNEY FAILURE, UNSPECIFIED Status: Acute Current Visit: No (5) Dysphagia SNOMED Code(s): 32627395, 168874641 ICD Code: R13.10 - DYSPHAGIA, UNSPECIFIED Status: Acute Current Visit: No Qualifiers: Dysphagia type: unspecified Qualified Code(s): R13.10 - Dysphagia, unspecified (6) Esophageal cancer SNOMED Code(s): 101435577 ICD Code: C15.9 - MALIGNANT NEOPLASM OF ESOPHAGUS, UNSPECIFIED Status: Acute Current Visit: No (7) Urinary retention SNOMED Code(s): 698861518 ICD Code: R33.9 - RETENTION OF URINE, UNSPECIFIED Status: Acute Current Visit: No (8) BPH (benign prostatic hyperplasia) SNOMED Code(s): 538245238 ICD Code: N40.0 - BENIGN PROSTATIC HYPERPLASIA WITHOUT LOWER URINRY TRACT SYMP Status: Chronic Current Visit: No (9) History of tobacco use SNOMED Code(s): 220631339 ICD Code: Z87.891 - PERSONAL HISTORY OF NICOTINE DEPENDENCE Status: Chronic Current Visit: No (10) Hyperlipidemia SNOMED Code(s): 88396797 ICD Code: E78.5 - HYPERLIPIDEMIA, UNSPECIFIED Status: Chronic Current Visit: No (11) Hypertension SNOMED Code(s): 38803053 ICD Code: I10 - ESSENTIAL (PRIMARY) HYPERTENSION Status: Chronic Current Visit: No - Patient Summary/Data Consults: Consultations 09/02/21 14:01 Consult to Physician [CONS] Routine 09/04/21 09:45 Consult to Blog Writer [CONS] Routine Hospital Course: Admission diagnoses nausea and vomiting SAJAN Discharge diagnoses 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 On admission BUN noted at 83 creatinine 3.6. Hyperkalemia noted at that time point 0.3. Patient was treated with IV fluids with mild to no improvement of renal function. Dr. Bateman, oncology provider from [facility] was consulted regarding potential for autoimmune nephritis secondary to chemotherapy. This was considered and he was started on prednisone [address] Sifuentes, nephrology was consulted over the phone as well for SAJAN. He recommended starting Lasix 40 mg p.o. twice daily. During this time BUN and creatinine have increased slightly but otherwise have stabilized. BUN is 110 creatinine 4.7. Potassium 4.5. Patient continues to have good urine output. Nausea and vomiting has gone away and he is tolerating his tube feeding well. He does have moments of intolerance but pauses or stops the feeding and does well. Denies any nausea vomiting. I did speak with Dr. Bateman, oncology today he recommends continuing prednisone. There is possible progression of disease noted in possible bone lesions within his spine. Dr. Bateman recommended him continuing current course now with no chemotherapy until renal function is improved. I spoke with Dr. Sifuentes today he recommends continuing prednisone and continuing Lasix dosage for now. He agrees that if he is clinically stable he would be okay with discharge and then following up with him closely. I will send referral for Dr. Sifuentes for evaluation of SAJAN. Patient will be discharged home on prednisone 40 mg p.o. daily for 1 more week. Follow-up with Dr. Sifuentes for further dosing. He will also continue Lasix 40 mg p.o. twice daily again following with Dr. Sifuentes for further management of SAJAN. Metoprolol was decreased to 12.5 mg daily. He will have outpatient follow-up with PCP. During his stay here tube feedings were changed to Nepro 1.8-calorie to have a goal of 500 mils per day infusing continuously on pump. I will write a prescription to order this new feeding and until he has improvement in his renal function. He is to follow-up with his PCP and dietitian regarding further changes to tube feedings. Patient was counseled that he should return to the ER or clinic if concerns should arise sooner. - Patient Instructions Diet: Renal Diet Diet, Other: Nepro 1.8 petros instill 500 ml/day as tolerated Activity: No Strenuous Activities Driving: Do Not Drive Showering/Bathing: May Shower Notify Provider of: Fever, Increased Pain, Swelling and Redness - Discharge Plan *PRESCRIPTION DRUG MONITORING PROGRAM REVIEWED*: Not Applicable *COPY OF PRESCRIPTION DRUG MONITORING REPORT IN PATIENT [place]LO: Not Applicable Prescriptions/Med Rec: Furosemide [Lasix] 40 mg PO BIDDIURETIC #14 tablet predniSONE 40 mg PO DAILY #14 tablet Home Medications: Home Meds Simvastatin [Zocor] 40 mg PO BEDTIME #30 tablet 07/10/14 [Rx] Finasteride 5 mg PO DAILY 11/03/20 [History] Omeprazole 40 mg PO DAILY 11/03/20 [History] oxyCODONE 10 mg PO DAILY 08/04/21 [History] Furosemide [Lasix] 40 mg PO BIDDIURETIC #14 tablet 09/11/21 [Rx] Metoprolol Succinate 12.5 mg PO BEDTIME #0 09/11/21 [Rx] predniSONE 40 mg PO DAILY #14 tablet 09/11/21 [Rx] Oxygen Therapy Mode: Room Air Patient Handouts: Nausea and Vomiting, Adult, [id number], Dehydration, Adult, [id number]-[id number], Cellulitis, Adult, [id number], Edema, [id number] Referrals: Leah Sifuentes MD [Ordering Only Provider] - Zaida Pfeiffer MD [Physician] - 09/20/21 10:30 am - Discharge Summary/Plan Comment DC Time >30 min.: Yes Total # of Minutes for Discharge Time: 35 - Patient Data Vitals - Most Recent: Last Vital Signs Temp 98 F 09/11/21 12:00 Pulse 83 09/11/21 12:00 Resp 17 09/11/21 12:00 BP 124/70 09/11/21 12:00 Pulse Ox 93 L 09/11/21 12:00 Weight - Most Recent: 61.144 kg I&O - Last 24 hours: Intake & Output 09/10/21 09/11/21 09/11/21 22:59 06:59 14:59 Intake Total 789 743 Output Total 175 Balance 614 743 Lab Results - Last 24 hrs: Laboratory Results - last 24 hr 09/11/21 09/11/21 Range/Units 05:50 05:50 WBC 14.33 H (4.0-11.0) K/uL RBC 2.29 L (4.50-5.90) M/uL Hgb 7.6 L (13.0-17.0) g/dL Hct 22.0 L (38.0-50.0) % MCV 96.1 (80.0-98.0) fL MCH 33.2 H (27.0-32.0) pg MCHC 34.5 (31.0-37.0) g/dL RDW Std Deviation 54.2 (28.0-62.0) fl RDW Coeff of Myrna 16 H (11.0-15.0) % Plt Count 356 (150-400) K/uL MPV 8.90 (7.40-12.00) fL Neut % (Auto) 92.4 H (48.0-80.0) % Lymph % (Auto) 2.1 L (16.0-40.0) % [place] % (Auto) 5.5 (0.0-15.0) % Eos % (Auto) 0.0 (0.0-7.0) % Baso % (Auto) 0.0 (0.0-1.5) % Neut # (Auto) 13.2 H (1.4-5.7) K/uL Lymph # (Auto) 0.3 L (0.6-2.4) K/uL [place] # (Auto) 0.8 (0.0-0.8) K/uL Eos # (Auto) 0.0 (0.0-0.7) K/uL Baso # (Auto) 0.0 (0.0-0.1) K/uL Nucleated RBC % 0.0 /100WBC Nucleated RBCs # 0 K/uL Sodium 130 L (136-148) mmol/L Potassium 4.5 (3.5-5.1) mmol/L Chloride 99 (98-107) mmol/L Carbon Dioxide 19.5 L (21.0-32.0) mmol/L BUN 110 H (7.0-18.0) mg/dL Creatinine 4.7 H (0.8-1.3) mg/dL Est Cr Clr Drug Dosing 12.65 mL/min Estimated GFR (MDRD) 12.4 ml/min Glucose 97 (74-106) mg/dL Calcium 8.4 L (8.5-10.1) mg/dL Total Bilirubin 0.2 (0.2-1.0) mg/dL AST 37 (15-37) IU/L ALT 32 (14-63) IU/L Alkaline Phosphatase 168 H (46-116) U/L Total Protein 5.3 L (6.4-8.2) g/dL Albumin 1.9 L (3.4-5.0) g/dL Globulin 3.4 (2.6-4.0) g/dL Albumin/Globulin Ratio 0.6 L (0.9-1.6) Med Orders - Current: Current Medications Acetaminophen (Acetaminophen 325 Mg Tab) 650 mg PO Q6H PRN PRN Reason: PAIN Last Admin: 09/11/21 13:18 Dose: 650 mg Documented by: Docusate Sodium (Docusate Sodium 100 Mg Cap) 100 mg PO DAILY PRN PRN Reason: Constipation Last Admin: 09/10/21 21:18 Dose: 100 mg Documented by: Finasteride (Finasteride 5 Mg Tab) 5 mg PO DAILY [facility] Last Admin: 09/11/21 08:49 Dose: 5 mg Documented by: Furosemide (Furosemide 40 Mg Tab) 40 mg PO BIDDIURETIC [facility] Last Admin: 09/11/21 13:17 Dose: 40 mg Documented by: Heparin Sodium (Porcine) (Heparin Sodium 5,000 Units/Ml Vial) 5,000 units SUBCUT Q8H [facility] Last Admin: 09/11/21 13:17 Dose: Not Given Documented by: Hydromorphone HCl (Hydromorphone 1 Mg/Ml Syringe) 1 mg IVPUSH Q12H PRN PRN Reason: Pain Metoprolol Succinate (Metoprolol Succinate 25 Mg Tab.Er) 12.5 mg PO BEDTIME [facility] Last Admin: 09/10/21 21:18 Dose: 12.5 mg Documented by: Omeprazole (Omeprazole 20 Mg Cap.Cr) 40 mg PO ACBREAKFAST [facility] Last Admin: 09/11/21 07:41 Dose: 40 mg Documented by: Ondansetron HCl (Ondansetron 4 Mg/2 Ml Sdv) 4 mg IVPUSH Q4H PRN PRN Reason: Nausea/Vomiting Last Admin: 09/09/21 18:35 Dose: 4 mg Documented by: Oxycodone HCl (Oxycodone 5 Mg Tab) 10 mg PO Q6H PRN PRN Reason: ABDOMINAL PAIN Last Admin: 09/11/21 13:17 Dose: 10 mg Documented by: Prednisone (Prednisone 20 Mg Tab) 60 mg PO DAILY [facility] Last Admin: 09/11/21 08:49 Dose: 60 mg Documented by: Simvastatin (Simvastatin 40 Mg Tab) 40 mg PO BEDTIME [facility] Last Admin: 09/10/21 21:19 Dose: 40 mg Documented by: Discontinued Medications Acetaminophen (Acetaminophen 325 Mg Tab) 650 mg PO Q6H PRN PRN Reason: Pain Last Admin: 09/05/21 09:14 Dose: 650 mg Documented by: Acetaminophen (Acetaminophen 325 Mg/10.15 Ml Ml) 650 mg PO Q6H PRN PRN Reason: Pain Last Admin: 09/05/21 16:21 Dose: 650 mg Documented by: Enoxaparin Sodium (Enoxaparin 40 Mg/0.4 Ml Syringe) 40 mg SUBCUT Q24H [facility] Last Admin: 09/03/21 10:45 Dose: 40 mg Documented by: Furosemide (Furosemide 40 Mg/4 Ml Vial) 40 mg IVPUSH NOW ONE Stop: 09/03/21 11:01 Last Admin: 09/03/21 11:48 Dose: 40 mg Documented by: Furosemide (Furosemide 40 Mg/4 Ml Vial) 40 mg IVPUSH NOW ONE Stop: 09/03/21 18:20 Last Admin: 09/03/21 21:47 Dose: Not Given Documented by: Furosemide (Furosemide 40 Mg/4 Ml Vial) 40 mg IVPUSH NOW ONE Stop: 09/03/21 21:31 Last Admin: 09/03/21 21:28 Dose: 40 mg Documented by: Furosemide (Furosemide 40 Mg/4 Ml Vial) 40 mg IVPUSH NOW ONE Stop: 09/04/21 13:47 Last Admin: 09/04/21 14:29 Dose: 40 mg Documented by: Furosemide (Furosemide 40 Mg Tab) 40 mg PO BIDDIURETIC [facility] Last Admin: 09/09/21 08:20 Dose: 40 mg Documented by: Hydromorphone HCl (Hydromorphone 1 Mg/Ml Syringe) 0.25 mg IVPUSH ONETIME ONE Stop: 08/31/21 20:21 Last Admin: 08/31/21 20:27 Dose: 0.25 mg Documented by: Sodium Chloride (Normal Saline) 1,000 mls @ 999 mls/hr IV .BOLUS ONE Stop: 08/31/21 18:52 Last Admin: 08/31/21 18:00 Dose: 999 mls/hr Documented by: Sodium Chloride (Normal Saline) 1,000 mls @ 125 mls/hr IV ASDIRECTED [facility] Last Admin: 09/01/21 17:10 Dose: 125 mls/hr Documented by: Ceftriaxone Sodium/Dextrose 1 (gm/ Premix) 50 mls @ 100 mls/hr IV Q24H [facility] Last Admin: 09/04/21 10:43 Dose: 100 mls/hr Documented by: Sodium Chloride (Normal Saline) 1,000 mls @ 125 mls/hr IV CONTINUOUS [facility] Last Admin: 09/03/21 03:02 Dose: 125 mls/hr Documented by: Ceftriaxone Sodium 1 gm/ (Sodium Chloride) 50 mls @ 100 mls/hr IV Q24H [facility] Last Admin: 09/08/21 12:06 Dose: Not Given Documented by: Ceftriaxone Sodium 1 gm/ (Sodium Chloride) 50 mls @ 100 mls/hr IV Q24H [facility] Last Admin: 09/08/21 11:18 Dose: 100 mls/hr Documented by: Metoprolol Succinate (Metoprolol Succinate 50 Mg Tab.Er) 25 mg PO BEDTIME [facility] Last Admin: 09/03/21 21:43 Dose: 25 mg Documented by: Ondansetron HCl (Ondansetron 4 Mg/2 Ml Sdv) 4 mg IVPUSH ONETIME ONE Stop: 08/31/21 17:53 Last Admin: 08/31/21 18:00 Dose: 4 mg Documented by: Ondansetron HCl (Ondansetron 4 Mg/2 Ml Sdv) 4 mg IVPUSH ONETIME ONE Stop: 08/31/21 19:50 Last Admin: 08/31/21 20:02 Dose: 4 mg Documented by: Oxycodone HCl (Oxycodone 5 Mg Tab) 10 mg PO DAILY PRN PRN Reason: Abdominal Pain Oxycodone HCl (Oxycodone 5 Mg Tab) 10 mg PO Q6H PRN PRN Reason: Abdominal Pain Last Admin: 09/05/21 09:15 Dose: 10 mg Documented by: Oxycodone HCl (Oxycodone 5 Mg/5 Ml Cup) 10 mg PO Q6H PRN PRN Reason: Abdominal Pain Last Admin: 09/05/21 16:20 Dose: 10 mg Documented by: Oxycodone HCl (Oxycodone 5 Mg Tab) 5 mg PO Q6H PRN PRN Reason: ABDOMINAL PAIN Polyethylene Glycol (Polyethylene Glycol 3350 Powder 17 Gm Packet) 17 gm PO ONETIME ONE Stop: 09/07/21 10:27 Last Admin: 09/07/21 10:54 Dose: 17 gm Documented by:
--- NOTE | 2021-09-11 15:00 | PCM.PN ---
- General Info Date of Service: 09/11/21 Admission Dx/Problem (Free Text): Admission Diagnosis/Problem Admission Diagnosis/Problem Dehydration Subjective Update: Doing okay today. Tolerating tube feeds well. Has intermittent times of day and uncomfortable and has some posterior stopped. Denies any nausea vomiting. Urinating well. and him are eager to go home. Denies any chest pain or shortness of breath. Having some pain around J-tube site. Functional Status: Reports: Pain Controlled, Tolerating Diet, Ambulating, Urinating - Review of Systems General: Reports: No Symptoms. Denies: Fatigue, Malaise HEENT: Reports: No Symptoms. Denies: Headaches, Sore Throat, Visual Changes Pulmonary: Denies: Shortness of Breath Cardiovascular: Denies: Chest Pain, Dyspnea on Exertion Gastrointestinal: Reports: No Symptoms. Denies: Abdominal Pain, Nausea, Vomiting Genitourinary: Reports: No Symptoms Musculoskeletal: Reports: No Symptoms Skin: Reports: Other (Erythema surrounding J-tube) Neurological: Reports: No Symptoms Psychiatric: Reports: No Symptoms - Patient Data Vitals - Most Recent: Last Vital Signs Temp 98 F 09/11/21 12:00 Pulse 83 09/11/21 12:00 Resp 17 09/11/21 12:00 BP 124/70 09/11/21 12:00 Pulse Ox 93 L 09/11/21 12:00 Weight - Most Recent: 61.144 kg I&O - Last 24 Hours: Intake & Output 09/10/21 09/11/21 09/11/21 22:59 06:59 14:59 Intake Total 789 743 Output Total 175 Balance 614 743 Lab Results Last 24 Hours: Laboratory Results - last 24 hr 09/11/21 09/11/21 Range/Units 05:50 05:50 WBC 14.33 H (4.0-11.0) K/uL RBC 2.29 L (4.50-5.90) M/uL Hgb 7.6 L (13.0-17.0) g/dL Hct 22.0 L (38.0-50.0) % MCV 96.1 (80.0-98.0) fL MCH 33.2 H (27.0-32.0) pg MCHC 34.5 (31.0-37.0) g/dL RDW Std Deviation 54.2 (28.0-62.0) fl RDW Coeff of Myrna 16 H (11.0-15.0) % Plt Count 356 (150-400) K/uL MPV 8.90 (7.40-12.00) fL Neut % (Auto) 92.4 H (48.0-80.0) % Lymph % (Auto) 2.1 L (16.0-40.0) % [place] % (Auto) 5.5 (0.0-15.0) % Eos % (Auto) 0.0 (0.0-7.0) % Baso % (Auto) 0.0 (0.0-1.5) % Neut # (Auto) 13.2 H (1.4-5.7) K/uL Lymph # (Auto) 0.3 L (0.6-2.4) K/uL [place] # (Auto) 0.8 (0.0-0.8) K/uL Eos # (Auto) 0.0 (0.0-0.7) K/uL Baso # (Auto) 0.0 (0.0-0.1) K/uL Nucleated RBC % 0.0 /100WBC Nucleated RBCs # 0 K/uL Sodium 130 L (136-148) mmol/L Potassium 4.5 (3.5-5.1) mmol/L Chloride 99 (98-107) mmol/L Carbon Dioxide 19.5 L (21.0-32.0) mmol/L BUN 110 H (7.0-18.0) mg/dL Creatinine 4.7 H (0.8-1.3) mg/dL Est Cr Clr Drug Dosing 12.65 mL/min Estimated GFR (MDRD) 12.4 ml/min Glucose 97 (74-106) mg/dL Calcium 8.4 L (8.5-10.1) mg/dL Total Bilirubin 0.2 (0.2-1.0) mg/dL AST 37 (15-37) IU/L ALT 32 (14-63) IU/L Alkaline Phosphatase 168 H (46-116) U/L Total Protein 5.3 L (6.4-8.2) g/dL Albumin 1.9 L (3.4-5.0) g/dL Globulin 3.4 (2.6-4.0) g/dL Albumin/Globulin Ratio 0.6 L (0.9-1.6) Med Orders - Current: Current Medications Acetaminophen (Acetaminophen 325 Mg Tab) 650 mg PO Q6H PRN PRN Reason: PAIN Last Admin: 09/11/21 13:18 Dose: 650 mg Documented by: Docusate Sodium (Docusate Sodium 100 Mg Cap) 100 mg PO DAILY PRN PRN Reason: Constipation Last Admin: 09/10/21 21:18 Dose: 100 mg Documented by: Finasteride (Finasteride 5 Mg Tab) 5 mg PO DAILY [facility] Last Admin: 09/11/21 08:49 Dose: 5 mg Documented by: Furosemide (Furosemide 40 Mg Tab) 40 mg PO BIDDIURETIC [facility] Last Admin: 09/11/21 13:17 Dose: 40 mg Documented by: Heparin Sodium (Porcine) (Heparin Sodium 5,000 Units/Ml Vial) 5,000 units SUBCUT Q8H [facility] Last Admin: 09/11/21 13:17 Dose: Not Given Documented by: Hydromorphone HCl (Hydromorphone 1 Mg/Ml Syringe) 1 mg IVPUSH Q12H PRN PRN Reason: Pain Metoprolol Succinate (Metoprolol Succinate 25 Mg Tab.Er) 12.5 mg PO BEDTIME [facility] Last Admin: 09/10/21 21:18 Dose: 12.5 mg Documented by: Omeprazole (Omeprazole 20 Mg Cap.Cr) 40 mg PO ACBREAKFAST [facility] Last Admin: 09/11/21 07:41 Dose: 40 mg Documented by: Ondansetron HCl (Ondansetron 4 Mg/2 Ml Sdv) 4 mg IVPUSH Q4H PRN PRN Reason: Nausea/Vomiting Last Admin: 09/09/21 18:35 Dose: 4 mg Documented by: Oxycodone HCl (Oxycodone 5 Mg Tab) 10 mg PO Q6H PRN PRN Reason: ABDOMINAL PAIN Last Admin: 09/11/21 13:17 Dose: 10 mg Documented by: Prednisone (Prednisone 20 Mg Tab) 60 mg PO DAILY [facility] Last Admin: 09/11/21 08:49 Dose: 60 mg Documented by: Simvastatin (Simvastatin 40 Mg Tab) 40 mg PO BEDTIME [facility] Last Admin: 09/10/21 21:19 Dose: 40 mg Documented by: Discontinued Medications Acetaminophen (Acetaminophen 325 Mg Tab) 650 mg PO Q6H PRN PRN Reason: Pain Last Admin: 09/05/21 09:14 Dose: 650 mg Documented by: Acetaminophen (Acetaminophen 325 Mg/10.15 Ml Ml) 650 mg PO Q6H PRN PRN Reason: Pain Last Admin: 09/05/21 16:21 Dose: 650 mg Documented by: Enoxaparin Sodium (Enoxaparin 40 Mg/0.4 Ml Syringe) 40 mg SUBCUT Q24H [facility] Last Admin: 09/03/21 10:45 Dose: 40 mg Documented by: Furosemide (Furosemide 40 Mg/4 Ml Vial) 40 mg IVPUSH NOW ONE Stop: 09/03/21 11:01 Last Admin: 09/03/21 11:48 Dose: 40 mg Documented by: Furosemide (Furosemide 40 Mg/4 Ml Vial) 40 mg IVPUSH NOW ONE Stop: 09/03/21 18:20 Last Admin: 09/03/21 21:47 Dose: Not Given Documented by: Furosemide (Furosemide 40 Mg/4 Ml Vial) 40 mg IVPUSH NOW ONE Stop: 09/03/21 21:31 Last Admin: 09/03/21 21:28 Dose: 40 mg Documented by: Furosemide (Furosemide 40 Mg/4 Ml Vial) 40 mg IVPUSH NOW ONE Stop: 09/04/21 13:47 Last Admin: 09/04/21 14:29 Dose: 40 mg Documented by: Furosemide (Furosemide 40 Mg Tab) 40 mg PO BIDDIURETIC [facility] Last Admin: 09/09/21 08:20 Dose: 40 mg Documented by: Hydromorphone HCl (Hydromorphone 1 Mg/Ml Syringe) 0.25 mg IVPUSH ONETIME ONE Stop: 08/31/21 20:21 Last Admin: 08/31/21 20:27 Dose: 0.25 mg Documented by: Sodium Chloride (Normal Saline) 1,000 mls @ 999 mls/hr IV .BOLUS ONE Stop: 08/31/21 18:52 Last Admin: 08/31/21 18:00 Dose: 999 mls/hr Documented by: Sodium Chloride (Normal Saline) 1,000 mls @ 125 mls/hr IV ASDIRECTED [facility] Last Admin: 09/01/21 17:10 Dose: 125 mls/hr Documented by: Ceftriaxone Sodium/Dextrose 1 (gm/ Premix) 50 mls @ 100 mls/hr IV Q24H [facility] Last Admin: 09/04/21 10:43 Dose: 100 mls/hr Documented by: Sodium Chloride (Normal Saline) 1,000 mls @ 125 mls/hr IV CONTINUOUS [facility] Last Admin: 09/03/21 03:02 Dose: 125 mls/hr Documented by: Ceftriaxone Sodium 1 gm/ (Sodium Chloride) 50 mls @ 100 mls/hr IV Q24H [facility] Last Admin: 09/08/21 12:06 Dose: Not Given Documented by: Ceftriaxone Sodium 1 gm/ (Sodium Chloride) 50 mls @ 100 mls/hr IV Q24H [facility] Last Admin: 09/08/21 11:18 Dose: 100 mls/hr Documented by: Metoprolol Succinate (Metoprolol Succinate 50 Mg Tab.Er) 25 mg PO BEDTIME [facility] Last Admin: 09/03/21 21:43 Dose: 25 mg Documented by: Ondansetron HCl (Ondansetron 4 Mg/2 Ml Sdv) 4 mg IVPUSH ONETIME ONE Stop: 08/31/21 17:53 Last Admin: 08/31/21 18:00 Dose: 4 mg Documented by: Ondansetron HCl (Ondansetron 4 Mg/2 Ml Sdv) 4 mg IVPUSH ONETIME ONE Stop: 08/31/21 19:50 Last Admin: 08/31/21 20:02 Dose: 4 mg Documented by: Oxycodone HCl (Oxycodone 5 Mg Tab) 10 mg PO DAILY PRN PRN Reason: Abdominal Pain Oxycodone HCl (Oxycodone 5 Mg Tab) 10 mg PO Q6H PRN PRN Reason: Abdominal Pain Last Admin: 09/05/21 09:15 Dose: 10 mg Documented by: Oxycodone HCl (Oxycodone 5 Mg/5 Ml Cup) 10 mg PO Q6H PRN PRN Reason: Abdominal Pain Last Admin: 09/05/21 16:20 Dose: 10 mg Documented by: Oxycodone HCl (Oxycodone 5 Mg Tab) 5 mg PO Q6H PRN PRN Reason: ABDOMINAL PAIN Polyethylene Glycol (Polyethylene Glycol 3350 Powder 17 Gm Packet) 17 gm PO ONETIME ONE Stop: 09/07/21 10:27 Last Admin: 09/07/21 10:54 Dose: 17 gm Documented by: - Exam Quality Assessment: DVT Prophylaxis. No: Supplemental Oxygen General: Alert, Oriented, Cooperative, No Acute Distress Lungs: Clear to Auscultation, Normal Respiratory Effort Cardiovascular: Regular Rate, Regular Rhythm GI/Abdominal Exam: Normal Bowel Sounds, Soft, Non-Tender, Other (J-tube site erythematous scant drainage. Encouraged to keep site dry with frequent dressing changes as irritation is likely secondary to being moist frequently.) Extremities: Normal Inspection, Normal Range of Motion, Non-Tender, Pedal Edema (+3 pitting edema knees distally to feet) Neurological: No New Focal Deficit Psy/Mental Status: Alert, Normal Affect, Normal Mood - Patient Data Lab Results Last 24 hrs: Laboratory Results - last 24 hr 09/11/21 09/11/21 Range/Units 05:50 05:50 WBC 14.33 H (4.0-11.0) K/uL RBC 2.29 L (4.50-5.90) M/uL Hgb 7.6 L (13.0-17.0) g/dL Hct 22.0 L (38.0-50.0) % MCV 96.1 (80.0-98.0) fL MCH 33.2 H (27.0-32.0) pg MCHC 34.5 (31.0-37.0) g/dL RDW Std Deviation 54.2 (28.0-62.0) fl RDW Coeff of Myrna 16 H (11.0-15.0) % Plt Count 356 (150-400) K/uL MPV 8.90 (7.40-12.00) fL Neut % (Auto) 92.4 H (48.0-80.0) % Lymph % (Auto) 2.1 L (16.0-40.0) % [place] % (Auto) 5.5 (0.0-15.0) % Eos % (Auto) 0.0 (0.0-7.0) % Baso % (Auto) 0.0 (0.0-1.5) % Neut # (Auto) 13.2 H (1.4-5.7) K/uL Lymph # (Auto) 0.3 L (0.6-2.4) K/uL [place] # (Auto) 0.8 (0.0-0.8) K/uL Eos # (Auto) 0.0 (0.0-0.7) K/uL Baso # (Auto) 0.0 (0.0-0.1) K/uL Nucleated RBC % 0.0 /100WBC Nucleated RBCs # 0 K/uL Sodium 130 L (136-148) mmol/L Potassium 4.5 (3.5-5.1) mmol/L Chloride 99 (98-107) mmol/L Carbon Dioxide 19.5 L (21.0-32.0) mmol/L BUN 110 H (7.0-18.0) mg/dL Creatinine 4.7 H (0.8-1.3) mg/dL Est Cr Clr Drug Dosing 12.65 mL/min Estimated GFR (MDRD) 12.4 ml/min Glucose 97 (74-106) mg/dL Calcium 8.4 L (8.5-10.1) mg/dL Total Bilirubin 0.2 (0.2-1.0) mg/dL AST 37 (15-37) IU/L ALT 32 (14-63) IU/L Alkaline Phosphatase 168 H (46-116) U/L Total Protein 5.3 L (6.4-8.2) g/dL Albumin 1.9 L (3.4-5.0) g/dL Globulin 3.4 (2.6-4.0) g/dL Albumin/Globulin Ratio 0.6 L (0.9-1.6) Result Diagrams: 09/11/21 05:50 09/11/21 05:50 Sepsis Event Note - Evaluation Sepsis Screening Result: Possible Sepsis Risk - Focused Exam Vital Signs: Vital Signs Temp Pulse Resp BP Pulse Ox 09/11/21 12:00 98 F 83 17 124/70 93 L 09/11/21 08:00 98.6 F 73 17 138/68 92 L 09/11/21 04:00 97.7 F 70 16 124/65 93 L - Problem List & Annotations (1) Esophageal adenocarcinoma SNOMED Code(s): 308645182 Code(s): C15.9 - MALIGNANT NEOPLASM OF ESOPHAGUS, UNSPECIFIED Status: Acute Priority: Medium Current Visit: Yes (2) Uses feeding tube SNOMED Code(s): 579733152 Code(s): Z97.8 - PRESENCE OF OTHER SPECIFIED DEVICES Status: Acute Priority: High Current Visit: Yes (3) Abdominal pain SNOMED Code(s): 77635793 Code(s): R10.9 - UNSPECIFIED ABDOMINAL PAIN Status: Acute Priority: Low Current Visit: No Qualifiers: Abdominal location: left upper quadrant Qualified Code(s): R10.12 - Left upper quadrant pain (4) Acute kidney injury SNOMED Code(s): 54119269, 19579147 Code(s): N17.9 - ACUTE KIDNEY FAILURE, UNSPECIFIED Status: Acute Current Visit: No (5) Dysphagia SNOMED Code(s): 00377634, 936196787 Code(s): R13.10 - DYSPHAGIA, UNSPECIFIED Status: Acute Current Visit: No Qualifiers: Dysphagia type: unspecified Qualified Code(s): R13.10 - Dysphagia, unspecified (6) Esophageal cancer SNOMED Code(s): 575178729 Code(s): C15.9 - MALIGNANT NEOPLASM OF ESOPHAGUS, UNSPECIFIED Status: Acute Current Visit: No (7) Urinary retention SNOMED Code(s): 014798363 Code(s): R33.9 - RETENTION OF URINE, UNSPECIFIED Status: Acute Current Visit: No (8) BPH (benign prostatic hyperplasia) SNOMED Code(s): 050130326 Code(s): N40.0 - BENIGN PROSTATIC HYPERPLASIA WITHOUT LOWER URINRY TRACT SYMP Status: Chronic Current Visit: No (9) History of tobacco use SNOMED Code(s): 611452601 Code(s): Z87.891 - PERSONAL HISTORY OF NICOTINE DEPENDENCE Status: Chronic Current Visit: No (10) Hyperlipidemia SNOMED Code(s): 52221927 Code(s): E78.5 - HYPERLIPIDEMIA, UNSPECIFIED Status: Chronic Current Visit: No (11) Hypertension SNOMED Code(s): 67971558 Code(s): I10 - ESSENTIAL (PRIMARY) HYPERTENSION Status: Chronic Current Visit: No - Problem List Review Problem List Initiated/Reviewed/Updated: Yes - My Orders Last 24 Hours: My Active Orders 09/11/21 14:09 Ready for Discharge [RC] PER UNIT ROUTINE - Assessment Assessment:: 71 yo male admitted for concerns of dehydration and acute kidney injury due to nausea and vomiting SAJAN: suspect due to immunotherapy, will continue prednisone, continue lasix Tube feeds: 30ml/hr, oxycodone and tylenol prn pain, have d/c Rocephin BPH: finasteride, patient refuses catheter placement Esophageal cancer: will need SAJAN resolved before resumption of any cancer therapy. - Plan Plan:: 71 yo male admitted for acute kidney injury, dehydration, nausea and vomiting 1. SAJAN: after hydration, creatinine is still elevated, CT scan shows hydronephrosis bu no obstruction -Suspect secondary to immunotherapy -Continue prednisone -Continue Lasix milligrams p.o. twice daily -Discussed case with both Dr. Bateman and Dr. Sifuentes today. 2. Tube feeds: 30ml/hr, oxycodone and tylenol prn pain, have d/c Rocephin, courage frequent dressing changes to J-tube to decrease moisture 3. BPH: finasteride, patient refuses catheter placement 4. Esophageal cancer: will need SAJAN resolved before resumption of any cancer therapy. VTE prophylaxis: Heparin Dispo: Plan was to discharge today but consult with Dr. Bateman and Bear took longer. Patient does not have a ride today will have ride tomorrow afternoon.
[2021-09-11] MEDS: HYDROmorphone 1 MG/ML Syringe IVPUSH PRN (16:34)
[2021-09-11] MEDS: Simvastatin 40 MG Tab PO SCH (22:00)
[2021-09-11] MEDS: Metoprolol Succinate 25 MG Tab.ER PO SCH (22:01)
[2021-09-12] MEDS: oxyCODONE 5 MG Tab PO PRN ×2 (01:14→08:27)
[2021-09-12] MEDS: Acetaminophen 325 MG Tab PO PRN ×2 (01:15→08:28)
[2021-09-12] MEDS: HYDROmorphone 1 MG/ML Syringe IVPUSH PRN ×2 (05:50→13:17)
[2021-09-12] MEDS: Heparin Sodium 5,000 Units/ML Vial SUBCUT SCH (05:57)
[2021-09-12] MEDS: Omeprazole 20 MG Cap.CR PO SCH (08:27)
[2021-09-12] MEDS: Finasteride 5 MG Tab PO SCH (08:28)
[2021-09-12] MEDS: Furosemide 40 MG Tab PO SCH (08:28)
[2021-09-12] MEDS: predniSONE 20 MG Tab PO SCH (08:28)
--- NOTE | 2021-09-12 12:13 | PCM.SN.2 ---
- Free Text/Narrative Note: Patient has a ride for today. Patient will be discharged today see discharge summary from 09/11/2021 no changes.
[2021-09-12 13:30] VITALS: BP 117/67; PULSE 72
== END 2021-09-12 14:40 | disposition home health service (06) | DRG 683 ==
LOC: MW.ED 16:30 → MW.MS 21:20
PROVIDERS: ADMIT Internal Medicine; ATTEND Internal Medicine
DX: E86.0 Dehydration (principal); R11.10 Vomiting, unspecified; N28.9 Disorder of kidney and ureter, unspecified; N17.9 Acute kidney failure, unspecified; L03.311 Cellulitis of abdominal wall; C15.9 Malignant neoplasm of esophagus, unspecified; C79.51 Secondary malignant neoplasm of bone; N05.8 Unspecified nephritic syndrome with other morphologic changes; E78.00 Pure hypercholesterolemia, unspecified; K44.9 Diaphragmatic hernia without obstruction or gangrene; M19.90 Unspecified osteoarthritis, unspecified site; D64.9 Anemia, unspecified; H91.90 Unspecified hearing loss, unspecified ear; R33.9 Retention of urine, unspecified; R13.10 Dysphagia, unspecified; T45.1X5A Adverse effect of antineoplastic and immunosuppressive drugs, initial encounter; K94.20 Gastrostomy complication, unspecified; E87.5 Hyperkalemia; M54.50 Low back pain, unspecified; M25.511 Pain in right shoulder; N40.0 Benign prostatic hyperplasia without lower urinary tract symptoms; E78.5 Hyperlipidemia, unspecified; I10 Essential (primary) hypertension; K21.9 Gastro-esophageal reflux disease without esophagitis; Z20.822 Contact with and (suspected) exposure to COVID-19; Z97.8 Presence of other specified devices; Z87.891 Personal history of nicotine dependence; Z85.01 Personal history of malignant neoplasm of esophagus; Z92.3 Personal history of irradiation; Z79.899 Other long term (current) drug therapy; Z92.21 Personal history of antineoplastic chemotherapy; Z86.73 Personal history of transient ischemic attack (TIA), and cerebral infarction without residual deficits
CPT/HCPCS: 0240U; 36415; 51798; 73030; 74176; 80048; 80053; 80076; 82570; 82947; 83735; 84300; 85025; 93005; 96374; 96375; 99285; 93010; 99284; A9270-GY; J0696; J1170; J1644; J1650; J1940; J2405; J7030

== ENCOUNTER 2021-09-18 10:15 | Emergency (ER) | payer MEDICARE, MEDICAID ==
[2021-09-18] MEDS ORDERED: Sodium Chloride 0.9% 2.5 ML Syringe FLUSH PRN (10:33)
[2021-09-18] MEDS ORDERED: Sodium Chloride 0.9% 10 ML Syringe FLUSH PRN (10:33)
[2021-09-18 11:57] LABS: BLOOD UREA NITROGEN,BUN 136 mg/dL (7.0-18.0); CARBON DIOXIDE,CO2 18.3 mmol/L (21.0-32.0); CHLORIDE,CL 101 mmol/L (98-107); GLUCOSE RANDOM 89 mg/dL (74-106); POTASSIUM,K 4.3 mmol/L (3.5-5.1); SODIUM,NA 134 mmol/L (136-148)
[2021-09-18 12:20] LABS: CORONAVIRUS COVID-19 NAA NEGATIVE (NEGATIVE); INFLUENZA A NAA NEGATIVE (NEGATIVE); INFLUENZA B NAA NEGATIVE (NEGATIVE)
[2021-09-18] MEDS ORDERED: Sodium Chloride 0.9% 1,000 ML IV ONE (12:36)
[2021-09-18] MEDS ORDERED: Piperacillin/Tazobactam 3.375 GM in Sodium Chloride 0.9% 50 ML IV ONE (13:23)
[2021-09-18] MEDS ORDERED: fentaNYL 50 MCG/ML SDV IVPUSH ONE (13:53)
[2021-09-18] MEDS ORDERED: Ondansetron 4 MG/2 ML SDV IVPUSH ONE (13:53)
[2021-09-18 14:08] VITALS: BP 115/71; PULSE 88
== END 2021-09-18 14:13 ==
LOC: MW.ED 10:15
DX: C15.9 Malignant neoplasm of esophagus, unspecified (principal); D72.829 Elevated white blood cell count, unspecified; N17.9 Acute kidney failure, unspecified; E78.5 Hyperlipidemia, unspecified; I10 Essential (primary) hypertension; K21.9 Gastro-esophageal reflux disease without esophagitis; Z79.899 Other long term (current) drug therapy; Z20.822 Contact with and (suspected) exposure to COVID-19
CPT/HCPCS: 0240U; 36415; 71045; 71250; 80053; 81001; 83605; 84484; 85025; 87040; 93005; 96365; 96375; 99285; J2405; J2543; J3010; J7030